=== PATIENT | female | born 1960 | race Caucasian/White ===

== ENCOUNTER 2016-05-08 10:58 | Inpatient (IN) | payer OTHER ==
[~2016-05-08] VITALS: Ht 167.6 cm; Wt 50.5 kg
[~2016-05-08 10:58] MED LIST: ATOR40TA16 PO; BRIL90TA PO; CARV6.252 PO; ISOS30TA3 PO
--- NOTE | 2016-05-08 11:10 | PD ---
HPI Chief Complaint: shortness of breath Time Seen by Provider: 11:00 Travel History International Travel<30 days: No Contact w/Intl Traveler<30days: No History of Present Illness HPI This is a 56-year-old female who has a history of COPD and congestive heart failure who presents to the emergency department with increasing shortness of breath it's been worsening over the past 2 days, constant, severe, associated with productive cough with yellow sputum. She denies any fevers or chills. She denies any chest pain. Patient reports that she did miss several days of her home medications. She is not supposed to be on any oxygen therapy. She lives in a homeless fdc. Patient received serial DuoNeb's and IV methylprednisolone prior to arrival. [facility] Past Medical History Arthritis: Yes (Left knee and left Shoulder ) Atrial Fibrillation: Yes Autoimmune Disease: No Blood Disorders: No Anxiety: No Depression: No Heart Rhythm Problems: No Cancer: Yes Cardiovascular Problems: Yes High Cholesterol: No Chemotherapy: No Chest Pain: Yes Congestive Heart Failure: Yes COPD: Yes Cerebrovascular Accident: No Coronary Artery Disease: Yes Diabetes: No Diminished Hearing: No Endocrine: No Genitourinary: Yes (diarrhea) Headaches: Yes Hypertension: Yes Immune Disorder: No Musculoskeletal: No Neurologic: Yes (seizure this visit) Psychiatric: No Reproductive: No Respiratory: Yes Migraines: No Radiation Therapy: Yes (20 years ago following cervical cancer with full hysterectomy) Seizures: No Sleep Apnea: No Thyroid Disease: No Menopausal: Yes Past Surgical History Abdominal Surgery: No Cardiac Surgery: Yes (STENTS X 3 ) Ear Surgery: No Endocrine Surgery: No Eye Surgery: No Genitourinary Surgery: No Gynecologic Surgery: Yes (Hysterectomy 20 years ago) Hysterectomy: Yes Oral Surgery: Yes (15 years ago all top teeth removed) Thoracic Surgery: No Other Surgery: Yes (hysterectomy) Social History Alcohol Use: No (EVERYDAY BUT NOT FOR 2WEEKS ) Tobacco Use: Yes (1PPD ) Substance Use: No Allergies-Medications (Allergen,Severity, Reaction): Coded Allergies: No Known Allergies (Unverified , 05/08/16) Reported Meds & Prescriptions Reported Meds & Active Scripts Active Reported Isosorbide Mononitrate ER (Isosorbide Mononitrate) 30 Mg Citlalli 30 Mg PO DAILY Atorvastatin (Atorvastatin Calcium) 40 Mg Tab 40 Mg PO HS Carvedilol 6.25 Mg Tab 6.25 Mg PO BID Brilinta (Ticagrelor) 90 Mg Tab 90 Mg PO BID Review of Systems Except as stated in HPI: all other systems reviewed are Neg Physical Exam Narrative GENERAL: Frail female older appearance than stated age SKIN: Warm and dry. HEAD: Atraumatic. Normocephalic. EYES: Pupils equal and round. No injection or drainage. ENT: Moist mucous membranes NECK: Trachea midline. CARDIOVASCULAR: Regular rate and rhythm. No murmur appreciated. RESPIRATORY: Tachypneic, prolonged expiratory phase, diffuse wheezing, speaking 2-3 word sentences GASTROINTESTINAL: Abdomen soft, non-tender, nondistended. MUSCULOSKELETAL: No obvious deformities. NEUROLOGICAL: Awake and alert. No obvious cranial nerve deficits. Moving all extremities. PSYCHIATRIC: Appropriate mood and affect; insight and judgment normal. Data Data Last Documented VS Vital Signs Date Time Temp Pulse Resp B/P Pulse Ox O2 Delivery O2 Flow Rate FiO2 05/08/16 11:17 50 94 Room Air 05/08/16 11:14 98.0 100 145/72 Orders Complete Blood Count With Diff (05/08/16 11:08) Comprehensive Metabolic Panel (05/08/16 11:08) B-Type Natriuretic Peptide (05/08/16 11:08) Troponin I (05/08/16 11:08) Iv Access Insert/Monitor (05/08/16 11:08) Electrocardiogram (05/08/16 11:08) Ecg Monitoring (05/08/16 11:08) Oximetry (05/08/16 11:08) Oxygen Administration (05/08/16 11:08) Chest, Single Ap (05/08/16 11:08) Sodium Chloride 0.9% Flush (Ns Flush) (05/08/16 11:15) Albuterol Neb (Albuterol Neb) (05/08/16 11:15) Admit Order (Ed Use Only) (05/08/16 13:13) Labs Laboratory Tests Test 05/08/16 11:30 White Blood Count 10.2 TH/MM3 Red Blood Count 3.82 MIL/MM3 Hemoglobin 11.4 GM/DL Hematocrit 34.3 % Mean Corpuscular Volume 89.8 FL Mean Corpuscular Hemoglobin 30.0 PG Mean Corpuscular Hemoglobin 33.4 % Concent Red Cell Distribution Width 14.2 % Platelet Count 412 TH/MM3 Mean Platelet Volume 7.1 FL Neutrophils (%) (Auto) 63.0 % Lymphocytes (%) (Auto) 13.4 % Monocytes (%) (Auto) 5.7 % Eosinophils (%) (Auto) 17.7 % Basophils (%) (Auto) 0.2 % Neutrophils # (Auto) 6.4 TH/MM3 Lymphocytes # (Auto) 1.4 TH/MM3 Monocytes # (Auto) 0.6 TH/MM3 Eosinophils # (Auto) 1.8 TH/MM3 Basophils # (Auto) 0.0 TH/MM3 CBC Comment DIFF FINAL Differential Comment Sodium Level 131 MEQ/L Potassium Level 3.5 MEQ/L Chloride Level 95 MEQ/L Carbon Dioxide Level 25.0 MEQ/L Anion Gap 11 MEQ/L Blood Urea Nitrogen 6 MG/DL Creatinine 0.72 MG/DL Estimat Glomerular Filtration 84 ML/MIN Rate Random Glucose 120 MG/DL Calcium Level 8.5 MG/DL Total Bilirubin 0.5 MG/DL Aspartate Amino Transf 19 U/L (AST/SGOT) Alanine Aminotransferase 21 U/L (ALT/SGPT) Alkaline Phosphatase 90 U/L Troponin I 0.02 NG/ML B-Type Natriuretic Peptide 40 PG/ML Total Protein 6.7 GM/DL Albumin 3.9 GM/DL MDM Medical Decision Making Medical Screen Exam Complete: Yes Emergency Medical Condition: Yes Interpretation(s) Afebrile, tachycardic, tachypneic Mild anemia Mild hyponatremia Troponin 0.02 BNP is 40 Last 24 hours Impressions Chest X-Ray 05/08/16 1108 Signed Impressions: Service Date/Time: Sunday, May 08, 2016 11:29 - CONCLUSION: Small bilateral effusions Ceferino Lyles MD Differential Diagnosis COPD exacerbation, pneumonia, congestive heart failure, myocardial infarction Narrative Course This is a 56-year-old female who presents to the emergency department with shortness of breath has been progressive and worsening over the past 2 days. She does have a history of COPD. On arrival she was tachypneic, speaking 2-3 word sentences and had a prolonged expiratory phase consistent with a COPD exacerbation. She received nebs and steroids prior to arrival in the ER. She was given additional albuterol. Labs are obtained which are reassuring including a normal BNP and troponin. EKG demonstrates a left bundle marysol block which was seen on prior EKGs. Patient continues to be dyspneic and has an oxygen saturation of 89-91% at rest. Patient will be admitted for continued bronchodilator treatments and monitoring. Diagnosis Primary Impression: COPD exacerbation Admitting Information Admitting Physician Requests: Observation Alem Esparza MD May 08, 2016 11:10
[2016-05-08 11:14] VITALS: BP 145/72; PULSE 100; RESP 50; TEMP 98
[2016-05-08 11:17] VITALS: RESP 50; O2SAT 94
[2016-05-08] MEDS: RESP: ALBUTEROL 2.5 MG/3 ML NEB (SCH) INH ×2 (11:18→11:19)
[2016-05-08 11:51] LABS: AUTOMATED NEUTROPHIL # 6.4 TH/MM3 (1.8-7.7); BASOPHIL % 0.2 % (0.0-2.0); EOSINOPHIL # 1.8 TH/MM3 (0-0.4); EOSINOPHIL % 17.7 % (0.0-4.0); HEMATOCRIT 34.3 % (35.0-46.0); HEMO FLAGS DIFF FINAL; LYMPH % 13.4 % (9.0-44.0); LYMPHOCYTE # 1.4 TH/MM3 (1.0-4.8); MEAN CELL VOLUME 89.8 FL (80.0-100.0); MEAN CORPUSCULAR HGB CONC 33.4 % (32.0-36.0); MONO % 5.7 % (0.0-8.0); PLATELET COUNT 412 TH/MM3 (150-450); RED BLOOD COUNT 3.82 MIL/MM3 (4.00-5.30); RED CELL DISTRIBUTION WIDTH 14.2 % (11.6-17.2); WHITE BLOOD COUNT 10.2 TH/MM3 (4.0-11.0)
--- NOTE | 2016-05-08 11:53 | RADRPT ---
EXAM DATE/TIME: 05/08/2016 11:29 [facility] COMPARISON: CHEST SINGLE AP, January 30, 2016, 11:06. CHEST SINGLE AP, March 26, 2016, 13:20. INDICATIONS : Short of breath and cough. MEDICAL HISTORY : Chronic obstructive pulmonary disease. Hypertension. SURGICAL HISTORY : Hysterectomy. Heart stents 02/2016. ENCOUNTER: Initial ACUITY: 2 days PAIN SCORE: 0/10 LOCATION: Bilateral chest FINDINGS: There is slight blunting of the costophrenic angles likely indicative of small effusions. Lungs are g rossly clear. Cardiomediastinal contours are satisfactory. CONCLUSION: Small bilateral effusions Ceferino Lyles MD on May 08, 2016 at 11:50 Board Certified Radiologist. This report was verified electronically.
[2016-05-08 12:07] LABS: ANION GAP 11 MEQ/L (5-15); AST (GOT) 19 U/L (15-37); BLOOD UREA NITROGEN 6 MG/DL (7-18); CHLORIDE 95 MEQ/L (98-107); GLOMERULAR FILTRATION RATE 84 ML/MIN (>89); POTASSIUM 3.5 MEQ/L (3.5-5.1); SODIUM (NA) 131 MEQ/L (136-145)
[2016-05-08 12:12] LABS: ALKALINE PHOSPHATASE 90 U/L (45-117); ALT (GPT) 21 U/L (10-53); TOTAL BILIRUBIN ADULT 0.5 MG/DL (0.2-1.0)
--- NOTE | 2016-05-08 12:19 | EKG ---
Date Performed: 05/08/2016 Time Performed: 11:23:55 PTAGE: 56 years EKG: Sinus rhythm LBBB nonspecific st/t changes PREVIOUS TRACING : 03/26/2016 12.56 DOCTOR: Jeremy Hartman Interpretating Date/Time 05/08/2016 12:18:51
[2016-05-08 13:37] VITALS: BP 110/67; PULSE 100; RESP 42; O2SAT 92
[2016-05-08] MEDS ORDERED: MAGNESIUM HYDROXIDE SUSP 30 ML CUP PO PRN (17:30)
[2016-05-08] MEDS ORDERED: IBUPROFEN 400 MG TAB PO PRN (17:30)
[2016-05-08] MEDS ORDERED: ACETAMINOPHEN 325 MG TAB PO PRN (17:30)
--- NOTE | 2016-05-08 17:45 | HHI.HP ---
[facility] Service Family Medicine Primary Care Physician Magnolia Quiroz MD Admission Diagnosis copd exacerbation Diagnoses: International Travel<30 Days: No Contact w/Intl Traveler<30days: No Known Affected Area: No History of Present Illness 63 year old female smoker and resident of homeless snf with history of COPD and CHF presenting with a 1 day history of increasing shortness of breath. For the last 4-5 days she has had some cold/flu symptoms with a scratchy throat and upper airway congestion. On the night prior to admission she also No fevers or chills per se but she always feels cold at baseline. Yesterday afternoon she started having increased shortness of breath and some inspiratory chest tightness with intermittent wheezing. Increased cough but no increased sputum production, no hemoptysis, no night sweats. No swelling of legs or arms. ( Castro Silva MD R1) Review of Systems Constitutional: DENIES: Fever, Chills Endocrine: DENIES: Polyuria Eyes: DENIES: Blurred vision Ears, nose, mouth, throat: DENIES: Hearing loss Respiratory: COMPLAINS OF: Cough, Wheezing, Shortness of breath, DENIES: Hemoptysis, Sputum production Cardiovascular: COMPLAINS OF: Dyspnea on Exertion, DENIES: Chest pain, Palpitations, Lower Extremity Edema, Orthopnea Gastrointestinal: DENIES: Abdominal pain, Black stools, Bloody stools, Constipation, Diarrhea, Nausea, Vomiting Musculoskeletal: COMPLAINS OF: Muscle aches, DENIES: Joint pain Integumentary: DENIES: Rash Hematologic/lymphatic: DENIES: Bruising Neurologic: DENIES: Headache Psychiatric: COMPLAINS OF: Anxiety, DENIES: Hallucinations (Castro Silva MD R1) Past Family Social History Past Medical History COPD CHF [place] requiring stents in January 2016 Cervical cancer status post hysterectomy Past Surgical History Total hysterectomy with removal of single ovary Reported Medications Reported Meds & Active Scripts Active Reported Isosorbide Mononitrate ER (Isosorbide Mononitrate) 30 Mg Citlalli 30 Mg PO DAILY Atorvastatin (Atorvastatin Calcium) 40 Mg Tab 40 Mg PO HS Carvedilol 6.25 Mg Tab 6.25 Mg PO BID Brilinta (Ticagrelor) 90 Mg Tab 90 Mg PO BID (Castro Silva MD R1) Allergies: Coded Allergies: No Known Allergies (Unverified , 05/08/16) Active Ordered Medications Current Medications Medications (Trade) Dose Ordered Sig/Addison Route Start Time Stop Time Status Last Admin (NS Flush) 2 ml UNSCH PRN IVF 05/08/16 11:15 (Symbicort 160-4.5 Inh) 2 puff Q12HR INH 05/08/16 21:00 Prednisone 40 mg 40 mg DAILY PO 05/09/16 09:00 (Rocephin Inj/NS Inj) 100 ml @ 200 mls/hr Q24H IV 05/08/16 19:00 (Zithromax) 500 mg DAILY PO 05/08/16 18:00 (Milk Of Magnesia Liq) 30 ml Q12H PRN PO 05/08/16 17:30 (Tylenol) 650 mg Q6H PRN PO 05/08/16 17:30 (Motrin) 400 mg Q6H PRN PO 05/08/16 17:30 (Lipitor) 40 mg HS PO 05/08/16 21:00 UNV (Coreg) 6.25 mg BID PO 05/08/16 21:00 UNV (Imdur) 30 mg DAILY PO 05/09/16 09:00 UNV (Brilinta) 90 mg BID PO 05/08/16 21:00 UNV Family History Mother has hypertension and hypothyroidism Social History Tobacco: Smoker for 40 years 1-2 packs per day, currently smoking Alcohol: 3-4 alcoholic beverages per day when she was drinking, has not had anything to drink since January 2016 Other drug use: Denies use Living situation: Lives in a homeless snf (Castro Silva MD R1) Physical Exam Vital Signs Vital Signs Date Time Temp Pulse Resp B/P Pulse Ox O2 Delivery O2 Flow Rate FiO2 05/08/16 13:37 100 42 110/67 92 Nasal Cannula 2 05/08/16 11:17 50 94 Room Air 05/08/16 11:14 98.0 100 50 145/72 Physical Exam GENERAL: Well-developed well-nourished thin adult white female sitting up in bed in mild to moderate respiratory distress SKIN: No rashes, ecchymoses or lesions. Cool and dry. HEAD: NC/AT EYES: PERRL. EOMI. No conjunctival injection or drainage. ENT: MMM, OP without erythema, tonsillar swelling, or exudate. NECK: Supple, no lymphadenopathy. No JVD. CARDIOVASCULAR: NRRR. Normal S1/S2. No MRG RESPIRATORY: Diffuse expiratory wheezes throughout all lung duran. No crackles. GASTROINTESTINAL: Abdomen soft, non-distended, non-tender. No hepato- splenomegaly or palpable masses. MUSCULOSKELETAL: Extremities without clubbing, cyanosis, or edema. NEUROLOGICAL: Awake and alert. Cranial nerves II through XII grossly intact. Moves all extremities without difficulty. Normal speech. Laboratory Laboratory Tests Test 05/08/16 11:30 White Blood Count 10.2 Red Blood Count 3.82 Hemoglobin 11.4 Hematocrit 34.3 Mean Corpuscular Volume 89.8 Mean Corpuscular Hemoglobin 30.0 Mean Corpuscular Hemoglobin 33.4 Concent Red Cell Distribution Width 14.2 Platelet Count 412 Mean Platelet Volume 7.1 Neutrophils (%) (Auto) 63.0 Lymphocytes (%) (Auto) 13.4 Monocytes (%) (Auto) 5.7 Eosinophils (%) (Auto) 17.7 Basophils (%) (Auto) 0.2 Neutrophils # (Auto) 6.4 Lymphocytes # (Auto) 1.4 Monocytes # (Auto) 0.6 Eosinophils # (Auto) 1.8 Basophils # (Auto) 0.0 CBC Comment DIFF FINAL Differential Comment Sodium Level 131 Potassium Level 3.5 Chloride Level 95 Carbon Dioxide Level 25.0 Anion Gap 11 Blood Urea Nitrogen 6 Creatinine 0.72 Estimat Glomerular Filtration 84 Rate Random Glucose 120 Calcium Level 8.5 Total Bilirubin 0.5 Aspartate Amino Transf 19 (AST/SGOT) Alanine Aminotransferase 21 (ALT/SGPT) Alkaline Phosphatase 90 Troponin I 0.02 B-Type Natriuretic Peptide 40 Total Protein 6.7 Albumin 3.9 (Castro Silva MD R1) Result Diagram: 05/08/16 1130 05/08/16 1130 Assessment and Plan Assessment and Plan 56-year-old female with past medical history of COPD, CHF, [place] presenting with: Code Status Full code Discussed Condition With Dr. Lucio Wlilard (Castro Silva MD R1) Attending Attestation The patient has been seen and examined. The chart and all resident notes have been reviewed. I agree that inpatient care is appropriate and that a two midnight stay is expected for the reasons documented in the resident history and physical. I have discussed this with the resident and certify the resident s order for inpatient admission. (Hazel Valdes MD) Problem List: (1) COPD exacerbation Status: Acute Plan: Patient currently respiratory distress with tachypnea into the 40s to 50s , diffuse wheezing on exam suggestive of COPD exacerbation O2 saturations greater than 90 on nasal cannula 2 L * DuoNeb nebs every 4 hours scheduled while awake * Symbicort 160, 2 puffs every 12 hours * Prednisone 40 mg by mouth daily * Ceftriaxone 1 g IV every day * Azithromycin 500 mg by mouth daily * Nasal cannula titrated to maintain O2 sats greater than 89 * Continuous pulse oximetry (2) Respiratory distress Status: Acute Plan: Likely due to COPD exacerbation Extensive cardiac history, could be due to repeat [place] Initial troponin less than 0.02 * Management as above for "COPD exacerbation" * Trend troponins every 6 hours 3 * EKG every 6 hours 3 * Limited echo to assess ejection fraction * D-dimer to r/o PE (3) CHF (congestive heart failure) Status: Acute Plan: CHF symptoms currently stable, no evidence of acute exacerbation on exam BNP 40 * Continue home Coreg * Follow-up limited echo as above (4) CAD (coronary artery disease) Status: Acute Plan: Stable * Continue home statin, ticagrelor, aspirin (5) Tobacco abuse Status: Acute Plan: After 2 initial sets cardiac enzymes negative, order nicotine patch (6) FEN/PPX Status: Acute Plan: Fluids: None at present Electrolytes: Monitor and replace PRN Nutrition: Diet heart healthy PPX: Lovenox 40 mg daily (Castro Silva MD R1) Physician Certification 2 Midnight Certification Type: Admission for Inpatient Services Order for Inpatient Services The services are ordered in accordance with Medicare regulations or non- Medicare payer requirements, as applicable. In the case of services not specified as inpatient-only, they are appropriately provided as inpatient services in accordance with the 2-midnight benchmark. Estimated LOS (days): 2 days is the estimated time the patient will need to remain in the hospital, assuming treatment plan goals are met and no additional complications. Post-Hospital Plan: Home (Castro Silva MD R1) Castro Silva MD R1 May 08, 2016 17:45 Hazel Valdes MD May 09, 2016 15:31
[2016-05-08 18:27] VITALS: BP 126/69; PULSE 86; RESP 24; O2SAT 94
[2016-05-08] MEDS: AZITHROMYCIN 250 MG TAB PO SCH (18:36)
[2016-05-08 19:13] LABS: CREATINE KINASE 44 U/L (26-192)
[2016-05-08] MEDS: cefTRIAXone INJ 1,000 MG in SODIUM CHLORIDE 0.9% INJ 100 ML IV SCH (19:39)
[2016-05-08] MEDS: ENOXAPARIN SODIUM 40 MG/0.4 ML SYRINGE SQ SCH (19:39)
[2016-05-08] MEDS ORDERED: IOHEXOL 350 MG/ML 10 ML VIAL (for RAD DIAG) IV ONE (20:17)
--- NOTE | 2016-05-08 20:17 | RADRPT ---
EXAM DATE/TIME: 05/08/2016 19:54 [facility] COMPARISON: CT THORAX W/O CONTRAST, January 27, 2016, 17:32. INDICATIONS : Increase shortness of breath for the last two days,elavated d-dimer. IV CONTRAST: 60 cc Omnipaque 350 (iohexol) IV RADIATION DOSE: 4.71 CTDIvol (mGy) MEDICAL HISTORY : Cardiovascular disease. Chronic obstructive pulmonary disease. Congestive heart failure. SURGICAL HISTORY : Hysterectomy. Coronary artery stent. ENCOUNTER: Initial ACUITY: 2 days PAIN SCALE: 3/10 LOCATION: chest TECHNIQUE: Volumetric scanning of the chest was performed using a pulmonary embolism protocol MIP images were re constructed. Using automated exposure control and adjustment of the mA and/or kV according to patien t size, radiation dose was kept as low as reasonably achievable to obtain optimal diagnostic quality images. FINDINGS: PULMONARY ARTERIES: No filling defects are seen in the pulmonary arteries through the segmental level. LUNGS: There is no consolidation or pneumothorax . No concerning pulmonary nodule is visualized. Severe emp hysema. PLEURAE: There is no pleural thickening or pleural effusion. MEDIASTINUM: There is good visualization of the great vessels of the middle mediastinum. No evidence of mediastin al or hilar adenopathy/mass. Coronary artery calcifications. MUSCULOSKELETAL: Within normal limits for patient age. MISCELLANEOUS: The visualized upper abdominal organs demonstrate no acute abnormality. Bilateral borderline prominen t axillary lymph nodes. CONCLUSION: 1. No evidence for pulmonary embolism. 2. Severe emphysema without infiltrate. 3. Coronary artery calcifications. 4. Borderline prominent axillary lymphadenopathy. Nick Newell MD on May 08, 2016 at 20:13 Board Certified Radiologist. This report was verified electronically.
[2016-05-08] MEDS: RESP: ALBUTEROL 2.5 MG/IPRATROPIUM 0.5 MG NEB (SCH) NEB (20:39)
[2016-05-08 22:34] VITALS: BP 137/79; PULSE 80; RESP 29; TEMP 97.2; O2SAT 96
[2016-05-08] MEDS: ATORVASTATIN 40 MG TAB PO SCH (23:27)
[2016-05-08] MEDS: BUDESONIDE-FORMOTEROL 160/4.5 MCG INHALER INH SCH (23:27)
[2016-05-08] MEDS: TICAGRELOR 90 MG TAB PO SCH (23:27)
[2016-05-08] MEDS: CARVEDILOL 6.25 MG TAB PO SCH (23:27)
[2016-05-08 23:52] VITALS: BP 143/69; PULSE 98; RESP 19; TEMP 97; O2SAT 97
[2016-05-09] VITALS (9 sets, daily range): BP systolic 116–168; BP diastolic 59–89; PULSE 81–95; RESP 20–28; TEMP 97.7–98.1; O2SAT 92–97
--- NOTE | 2016-05-09 05:35 | EKG ---
Date Performed: 05/08/2016 Time Performed: 17:44:59 PTAGE: 56 years EKG: Sinus rhythm LEFT BUNDLE BRANCH BLOCK ABNORMAL ECG NO SIGNIFICANT CHANGE FROM PRIOR ELECTROCARDIOGRAM. PREVIOUS TRACING : 05/08/2016 11.23 DOCTOR: Leodan Godfrye Interpretating Date/Time 05/09/2016 05:33:07
[2016-05-09 06:14] LABS: AUTOMATED NEUTROPHIL # 9.3 TH/MM3 (1.8-7.7); BASOPHIL % 0.1 % (0.0-2.0); EOSINOPHIL % 0.1 % (0.0-4.0); HEMATOCRIT 28.1 % (35.0-46.0); HEMO FLAGS DIFF FINAL; LYMPH % 12.1 % (9.0-44.0); LYMPHOCYTE # 1.4 TH/MM3 (1.0-4.8); MEAN CORPUSCULAR HEMOGLOBIN 30.2 PG (27.0-34.0); MEAN CORPUSCULAR HGB CONC 34.3 % (32.0-36.0); MONO % 8.2 % (0.0-8.0); NEUT % 79.5 % (16.0-70.0); PLATELET COUNT 349 TH/MM3 (150-450); RED BLOOD COUNT 3.19 MIL/MM3 (4.00-5.30); WHITE BLOOD COUNT 11.7 TH/MM3 (4.0-11.0)
[2016-05-09 06:25] LABS: BICARBONATE 24.5 MEQ/L (21.0-32.0); POTASSIUM 3.8 MEQ/L (3.5-5.1)
[2016-05-09] MEDS: RESP: ALBUTEROL 2.5 MG/IPRATROPIUM 0.5 MG NEB (SCH) NEB ×4 (08:24→19:29)
--- NOTE | 2016-05-09 08:32 | HHI.FPPN ---
Subjective Subjective Patient seen and examined with the resident team. Case reviewed and discussed Please refer to resident H&P for further details regarding HPI, ROS, PMH, SurgHx , and FH and SocHx In summary, patient is a 56yoF with severe emphysema and continued tobacco dependence, CAD and resides at a homeless long term who presented to the ED with worsening shortness of breath and increased work of breathing. She presented to the ED with a RR in the 50s. She is now seen in her hospital bed in the morning, states she is breathing better, but tried to get to the bedside commode and became significantly short of breath. Denies chest pain. [facility] Objective Objective Last Impressions Chest X-Ray 05/08/16 1108 Signed Impressions: Service Date/Time: Sunday, May 08, 2016 11:29 - CONCLUSION: Small bilateral effusions Ceferino Lyles MD CT Angiography 05/08/16 0000 Signed Impressions: Service Date/Time: Sunday, May 08, 2016 19:54 - CONCLUSION: 1. No evidence for pulmonary embolism. 2. Severe emphysema without infiltrate. 3. Coronary artery calcifications. 4. Borderline prominent axillary lymphadenopathy. Nick Newell MD Laboratory Tests - Abnormals Test 05/08/16 05/08/16 05/08/16 05/09/16 11:30 17:20 17:50 05:04 Red Blood Count 3.82 MIL/MM3 3.19 MIL/MM3 Hemoglobin 11.4 GM/DL 9.6 GM/DL Hematocrit 34.3 % 28.1 % Eosinophils (%) (Auto) 17.7 % Eosinophils # (Auto) 1.8 TH/MM3 Sodium Level 131 MEQ/L 134 MEQ/L Chloride Level 95 MEQ/L Blood Urea Nitrogen 6 MG/DL Estimat Glomerular Filtration 84 ML/MIN 80 ML/MIN Rate Random Glucose 120 MG/DL 129 MG/DL D-Dimer Quantitative (PE/DVT) 5.89 MG/L FEU Troponin I LESS THAN 0.02 NG/ML White Blood Count 11.7 TH/MM3 Neutrophils (%) (Auto) 79.5 % Monocytes (%) (Auto) 8.2 % Neutrophils # (Auto) 9.3 TH/MM3 Monocytes # (Auto) 1.0 TH/MM3 Calcium Level 8.4 MG/DL Vital Signs 05/08/16 05/08/16 05/08/16 05/08/16 11:14 11:17 13:37 18:27 Temp 98.0 Pulse 100 100 86 Resp 50 50 42 24 B/P 145/72 110/67 126/69 Pulse Ox 94 92 94 O2 Delivery Room Air Nasal Cannula Nasal Cannula O2 Flow Rate 2 2 05/08/16 05/08/16 05/09/16 05/09/16 22:34 23:52 00:00 03:37 Temp 97.2 97.0 98.0 Pulse 80 98 86 91 Resp 29 19 20 B/P 137/79 143/69 116/59 Pulse Ox 96 97 94 05/09/16 05/09/16 08:00 08:25 Temp 98.1 Pulse 95 Resp 26 B/P 168/89 Pulse Ox 97 92 O2 Delivery Nasal Cannula O2 Flow Rate 2.00 INTAKE & OUTPUT 05/09/16 07:00 Intake Total 600 ml Balance 600 ml Physical exam GENERAL: thin female, NAD, speaking in broken sentences due to shortness of breath. SKIN: Warm and dry. There are scattered linear abrasions with scabbing and some bleeding over extremities x 4 and back. HEAD: Normocephalic. AT EYES: No scleral icterus. No injection or drainage. ENT: OP clear. NC in place. MM slightly dry NECK: Supple, trachea midline. No JVD or lymphadenopathy. CARDIOVASCULAR: Regular rate and rhythm without audible murmurs, gallops, or rubs. RESPIRATORY: Breath sounds with extensive exp wheezing across all lung duran bilaterally. No accessory muscle use. Prolonged expiration. GASTROINTESTINAL: Abdomen soft, non-tender, nondistended. No rebound, guarding. Normal active BS MUSCULOSKELETAL: No cyanosis, or edema. No calf tenderness. Skin as noted above. BACK: Nontender without obvious deformity. No CVA tenderness. NEURO: Awake and alert. Normal speech. CN grossly intact. Motor and sensory intact and equal bilaterally. Assessment Assessment 56yoF admitted with: Respiratory Insufficiency Tachypnea Acute exacerbation of COPD Tobacco dependence CAD s/p BM stenting x2 in 01/2016 Hx cervical CA s/p hysterectomy PLAN PLAN Supplemental oxygen CTA to r/o PE given smoking and CA history Empiric antibiotic therapy Sputum culture Duonebs Counseled to abstain from smoking Serial CE, ekg neg for cardiac ischemia Pulmonology consult Lovenox for DVT proph Patient seen and examined with the resident team. Case reviewed and discussed Agree with plan of care as discussed with me and documented in the resident note. Hazel Valdes MD May 09, 2016 08:32
[2016-05-09] MEDS ORDERED: predniSONE 20 MG TAB PO SCH (09:00)
[2016-05-09] MEDS ORDERED: NICOTINE 21 MG/24 HR PATCH TD SCH (09:00)
[2016-05-09] MEDS: ASPIRIN EC 81 MG TABEC PO SCH (09:38)
[2016-05-09] MEDS: CARVEDILOL 6.25 MG TAB PO SCH ×2 (09:39→20:00)
[2016-05-09] MEDS: AZITHROMYCIN 250 MG TAB PO SCH (09:39)
[2016-05-09] MEDS: BUDESONIDE-FORMOTEROL 160/4.5 MCG INHALER INH SCH ×2 (09:40→20:07)
[2016-05-09] MEDS: ISOSORBIDE MONONITRATE 30 MG TAB PO SCH (09:53)
[2016-05-09] MEDS: TICAGRELOR 90 MG TAB PO SCH ×2 (09:53→22:57)
[2016-05-09] MEDS ORDERED: PERMETHRIN 5% CREAM 60 GM TOPICAL ONE (11:00)
[2016-05-09] MEDS ORDERED: ALBUTEROL SULFATE 90 MCG/ACT HFA 8 GM INHALER INH PRN (14:00)
[2016-05-09] MEDS: NICOTINE 21 MG/24 HR PATCH TD SCH (16:30)
[2016-05-09] MEDS ORDERED: PNEUMOCOCCAL POLYVALENT INJ 25 MCG/0.5 ML SYR IM ONE (16:45)
[2016-05-09] MEDS ORDERED: INFLUENZA VIRUS VACCINE (QUADRIVALENT) 0.5 ML SYR IM ONE (16:45)
--- NOTE | 2016-05-09 17:26 | ECHLIM ---
Study Study Date:05/09/2016 STUDY CONCLUSIONS SUMMARY LEFT VENTRICLE: The cavity size was normal. Wall thickness was increased in a pattern of mild LVH. Systolic function was mildly reduced. The estimated ejection fraction was in the range of 45% to 50%. Wall motion was normal; there were no regional wall motion abnormalities. If LV function is below 40, please consider prescribing an ACEI or ARB or document rationale for non-use. PROCEDURE DATA Procedure: Transthoracic echocardiography. Image quality was good. Scanning was performed from the parasternal, apical, and subcostal acoustic windows. Study completion: The patient tolerated the procedure well. Transthoracic echocardiography. M-mode, limited 2D, limited spectral Doppler, and color Doppler. Height: Height: 66in. Weight: Weight: 113.8lb. Body mass index: BMI: 18.4kg/m^2. Body surface area: BSA: 1.58m^2. CARDIAC ANATOMY LEFT VENTRICLE: The cavity size was normal. Wall thickness was increased in a pattern of mild LVH. Systolic function was mildly reduced. The estimated ejection fraction was in the range of 45% to 50%. Wall motion was normal; there were no regional wall motion abnormalities. AORTIC VALVE: Trileaflet; normal thickness leaflets. Doppler: Transvalvular velocity was within the normal range. There was no stenosis. No regurgitation. AORTA: Aortic root: The aortic root was normal in size. MITRAL VALVE: Structurally normal valve. Doppler: Transvalvular velocity was within the normal range. There was no evidence for stenosis. No regurgitation. LEFT ATRIUM: The atrium was normal in size. RIGHT VENTRICLE: The cavity size was normal. Wall thickness was normal. PULMONIC VALVE: Doppler: Transvalvular velocity was within the normal range. There was no evidence for stenosis. No regurgitation. TRICUSPID VALVE: Structurally normal valve. Doppler: Transvalvular velocity was within the normal range. No regurgitation. PULMONARY ARTERY: The main pulmonary artery was normal-sized. Systolic pressure was within the normal range. RIGHT ATRIUM: The atrium was normal in size. PERICARDIUM: There was no pericardial effusion. SYSTEMIC VEINS: Inferior vena cava: The vessel was normal in size. Patient weight: 113.8lb _Ejection fraction:_ 65-75% _Fractional shortening:_ 32% up to 5Kg 5-11.5Kg 11.6-22.9Kg 23-45Kg 45-57Kg Aortic Root 7-13 <17 13-22 17-27 17-27 LA diam 6-13 <23 24-38 33-47 37-40 RVID 10-17 7-15 7-15 7-18 8-17 LVIDd 12-22 <32 24-38 33-47 37-40 LVPW 2-4 3-6 5-7 6-8 7-8 IVS 2-4 3-6 5-7 6-8 7-8 BASIC MEASUREMENTS ADULT NORMAL Left ventricle LV internal dimension, ED, chordal level, 43.1 mm 43-52 PLAX LV internal dimension, ES, chordal level, 30.5 mm 23-38 PLAX Fractional shortening, chordal level, PLAX *29 % >29 LV posterior wall thickness, ED 12.2 mm IVS/LVPW ratio, ED 0.99 <1.3 Volume, ED, MOD, 1-plane 124 ml Volume, ES, MOD, 1-plane 77 ml Ejection fraction, MOD, 1-plane 38 % Stroke volume, MOD, 1-plane 47 ml Volume index, ED, MOD, 1-plane 78 ml/m^2 Volume index, ES, MOD, 1-plane 49 ml/m^2 Stroke index, MOD, 1-plane 29.7 ml/m^2 Volume, ED, MOD, 2-plane 182 ml Volume, ES, MOD, 2-plane 105 ml Ejection fraction, MOD, 2-plane 42 % Stroke volume, MOD, 2-plane 77 ml Volume index, ED, MOD, 2-plane 115 ml/m^2 Volume index, ES, MOD, 2-plane 66 ml/m^2 Stroke index, MOD, 2-plane 48.7 ml/m^2 Ventricular septum Septal thickness, ED 12.1 mm Left atrium Anterior-posterior dimension 32 mm Anterior-posterior dimension index 2.03 cm/m^2 <2.2 LEGEND: Mean values are shown as u=mean value. Asterisk (*) rodriguez values outside specified normal range. Prepared and signed by Ziggy Sweeney [id number]
[2016-05-09] MEDS: ATORVASTATIN 40 MG TAB PO SCH (20:00)
[2016-05-09] MEDS: cefTRIAXone INJ 1,000 MG in SODIUM CHLORIDE 0.9% INJ 100 ML IV SCH (20:00)
[2016-05-09] MEDS: ENOXAPARIN SODIUM 40 MG/0.4 ML SYRINGE SQ SCH (20:00)
[2016-05-09 20:07] LABS: BLOOD GAS BASE EXCESS -0.7 mmol/L (-2-2); BLOOD GAS CARBOXYHEMOGLOBIN 1.4 % (0-4); BLOOD GAS HCO3 22 mmol/L (22-26); BLOOD GAS METHEMOGLOBIN 0.7 % (0-2); BLOOD GAS O2 HGB SATURATION 88 % (90-100); BLOOD GAS OXYGEN CONTENT 12.4 Vol % (12.0-20.0); BLOOD GAS PCO2 28 mmHg (38-42); BLOOD GAS PO2 58 mmHg (61-120); BLOOD GAS TOTAL HGB 9.9 G/DL (12.0-16.0); TEMP CORR TO 98.6
[2016-05-09 20:08] LABS: DRAW SITE RT RADIAL; FIO2 21 %; NUMBER OF ARTERIAL PUNCTURES 1; OXYGEN DEVICE ROOM AIR; STAT NO; ULNAR PULSE PRESENT
[2016-05-09] MEDS: methylPREDNISolone SOD SUCC 40 MG/1 ML VIAL IV SCH (22:57)
[2016-05-09] MEDS: diphenhydrAMINE HCL 25 MG CAP PO PRN (23:02)
[2016-05-10] VITALS (8 sets, daily range): BP systolic 132–187; BP diastolic 64–94; PULSE 86–98; RESP 18–20; TEMP 97.3–97.9; O2SAT 92–98
[2016-05-10] MEDS: methylPREDNISolone SOD SUCC 40 MG/1 ML VIAL IV SCH ×3 (05:22→21:59)
--- NOTE | 2016-05-10 05:30 | MB ---
cc: NETTE RUIZ DATE OF CONSULTATION 05/09/2016 CONSULTATION Respiratory distress with COPD. HISTORY OF PRESENT ILLNESS This is a 63-year-old lady with a history of COPD and CHF who was brought to the emergency room with shortness of breath and a cold with sore throat and wheezing. The patient apparently developed a cold and had some chills and had some itchy rash on her extremities and was bringing up very little mucus and was seen in the emergency room. She was hypoxic and placed on O2 via nasal cannula. She denied any hemoptysis, night sweats and denied leg swelling. PAST HISTORY The patient's past history has included - 1. History of recurrent bronchitis with a longstanding history of smoking. 2. She has a previous history of CHF and coronary artery disease with stenting in January last year. 3. She has a history for cervical cancer with hysterectomy and removal of an ovary. ALLERGIES No drug allergies. MED LIST 1. Isordil 30 mg daily. 1. Atorvastatin 40 mg at bedtime. 2. Coreg 6.25 mg b.i.d. 3. Brilinta 90 mg b.i.d. HABITS The patient smoked one-pack per day for over 35 years. Alcohol use moderate but not in the past three months. REVIEW OF SYSTEMS The patient has had some headaches, postnasal drip, sinus drainage. Denies any leg or calf muscle pains. She has some joint pains of her extremities. She denied urinary symptoms. The patient has a skin rash with itchiness. She also has had depression with anxiety and denies any leg swelling. PHYSICAL EXAMINATION General: This averagely built middle-aged white female who is in no acute distress. Vital Signs: Blood pressure 130/70, pulse is 100, respirations 22, temperature is 98.2. HEENT: Head normocephalic. Pupils reactive. Tongue moist. Nasal mucosae edematous. Throat is injected. Neck: Supple. Chest: Equal movements with decreased excursions. Breath sounds diminished at the periphery with expiratory wheezes throughout both lung duran. Prolonged expirations. Cardiac: Heart sounds irregular. S1-S2. No murmur. Abdomen: Soft, benign. No mass. No organomegaly or tenderness. Bowel sounds are active. Extremities: Mild varicosities. No edema. No calf tenderness. Neurologic: Reflexes are brisk with no gross motor deficits. Cranial nerves are grossly intact. Rectal: Exam is deferred. Skin: Reddish, raised skin lesions over her arms and legs. She has been diagnosed to have scabies and was treated for it. IMPRESSION 1. COPD with acute exacerbation. 2. CHF, compensated. 3. History of coronary artery disease. 4. Nicotine dependency. 5. History of scabies. PLAN 1. The patient has been placed on O2 at 2 liters but she will have a blood gas study done on room air. 2. Nebulized DuoNeb solution added q.i.d. 3. A bedside pulmonary function study will be obtained. The patient will also be placed on Breo Ellipta 100 x 25 mcg one puff daily. 4. Continue with antibiotic coverage including Zithromax 500 mg daily and ceftriaxone 1 gram IV daily. 5. She was placed on Solu-Medrol 40 mg every [address] of prednisone. 6. A nicotine patch can be used in case she has some withdrawal symptoms and the patient was counseled about quitting cigarette smoking. Thank you Dr. Valdes for this consultation. Nette Ruiz MD JVD/ROMINA /11:23 PM /5:17 AM
[2016-05-10 06:58] LABS: AUTOMATED NEUTROPHIL # 10.9 TH/MM3 (1.8-7.7); BASOPHIL % 0.3 % (0.0-2.0); HEMATOCRIT 29.4 % (35.0-46.0); HEMO FLAGS DIFF FINAL; LYMPH % 5.9 % (9.0-44.0); LYMPHOCYTE # 0.7 TH/MM3 (1.0-4.8); MEAN CELL VOLUME 89.5 FL (80.0-100.0); MEAN CORPUSCULAR HEMOGLOBIN 30.4 PG (27.0-34.0); MONO % 1.7 % (0.0-8.0); NEUT % 92.1 % (16.0-70.0); PLATELET COUNT 370 TH/MM3 (150-450); RED BLOOD COUNT 3.29 MIL/MM3 (4.00-5.30); RED CELL DISTRIBUTION WIDTH 14.4 % (11.6-17.2); WHITE BLOOD COUNT 11.8 TH/MM3 (4.0-11.0)
[2016-05-10 07:14] LABS: BICARBONATE 23.2 MEQ/L (21.0-32.0); POTASSIUM 3.8 MEQ/L (3.5-5.1)
[2016-05-10 07:19] LABS: CRITICAL VALUE YES
[2016-05-10] MEDS: RESP: ALBUTEROL 2.5 MG/IPRATROPIUM 0.5 MG NEB (SCH) NEB ×4 (07:47→20:27)
[2016-05-10] MEDS: ISOSORBIDE MONONITRATE 30 MG TAB PO SCH (08:54)
[2016-05-10] MEDS: ASPIRIN EC 81 MG TABEC PO SCH (08:55)
[2016-05-10] MEDS: NICOTINE 21 MG/24 HR PATCH TD SCH (08:55)
[2016-05-10] MEDS: FLUTICASONE 100 MCG/VILANTEROL 25 MCG INHALER INH SCH (08:56)
[2016-05-10] MEDS: TICAGRELOR 90 MG TAB PO SCH ×2 (08:56→21:58)
[2016-05-10] MEDS: AZITHROMYCIN 250 MG TAB PO SCH (08:56)
[2016-05-10] MEDS: CARVEDILOL 6.25 MG TAB PO SCH ×2 (08:56→21:58)
[2016-05-10] MEDS: BUDESONIDE-FORMOTEROL 160/4.5 MCG INHALER INH SCH (08:57)
[2016-05-10] MEDS: REMOVE OLD NICODERM (NICOTINE) PATCH TD SCH (08:57)
[2016-05-10] MEDS: diphenhydrAMINE HCL 25 MG CAP PO PRN ×2 (13:32→21:58)
--- NOTE | 2016-05-10 15:57 | HHI.FPPN ---
Subjective Remarks No acute events overnight. AFVSS. Feeling much better this morning re: shortness of breath. No chest pain. Distressed due to her homeless half-way having kicked her out and bringing all her stuff to her in the hospital. Objective Vitals Vital Signs Date Time Temp Pulse Resp B/P Pulse Ox O2 Delivery O2 Flow Rate FiO2 05/10/16 08:04 97.3 90 18 173/84 97 05/10/16 08:04 97.7 86 18 166/79 95 05/10/16 08:00 90 05/10/16 07:47 98 Nasal Cannula 2.00 05/10/16 04:00 97.7 91 20 132/64 93 05/10/16 00:00 97.9 87 20 151/76 92 05/09/16 20:30 95 05/09/16 20:00 97.8 95 20 149/71 95 05/09/16 19:32 95 Nasal Cannula 2.00 05/09/16 16:00 97.7 81 24 135/73 94 I/O 05/09/16 05/09/16 05/09/16 05/10/16 05/10/16 05/10/16 07:00 15:00 23:00 07:00 15:00 23:00 Intake Total 600 ml 720 ml 440 ml 220 ml Output Total 500 ml 0 ml 300 ml Balance 600 ml 220 ml 440 ml -80 ml Intake Oral 600 ml 720 ml 440 ml 220 ml Output Urine Total 500 ml 0 ml 300 ml # Voids 2 2 # Bowel Movements 0 1 Result Diagram: 05/10/16 0600 05/10/16 0600 Imaging Last Impressions Chest X-Ray 05/08/16 1108 Signed Impressions: Service Date/Time: Sunday, May 08, 2016 11:29 - CONCLUSION: Small bilateral effusions Ceferino Lyles MD CT Angiography 05/08/16 0000 Signed Impressions: Service Date/Time: Sunday, May 08, 2016 19:54 - CONCLUSION: 1. No evidence for pulmonary embolism. 2. Severe emphysema without infiltrate. 3. Coronary artery calcifications. 4. Borderline prominent axillary lymphadenopathy. Nick Newell MD Objective Remarks GEN: Thin adult white female appearing older than stated age sitting up in bed in NAD RESP: Unlabored breathing, able to speak in full sentences with occasional rests to take deep breaths between speaking. CTAB. No crackles or wheezes. CV: NRRR, normal S1/S2, no MRG ABD: Soft, NDNT. NEURO: Awake, alert. Grossly nonfocal. Medications and IVs Current Medications Medications (Trade) Dose Ordered Sig/Addison Route Start Time Stop Time Status Last Admin (NS Flush) 2 ml UNSCH PRN IVF 05/08/16 11:15 Budesonide/ Formoterol Fumarate 2 puff 2 puff Q12HR INH 05/08/16 21:00 05/10/16 08:57 (Rocephin Inj/NS Inj) 100 ml @ 200 mls/hr Q24H IV 05/08/16 19:00 05/09/16 20:00 (Zithromax) 500 mg DAILY PO 05/08/16 18:00 05/10/16 08:56 (Milk Of Magndemetrice Liq) 30 ml Q12H PRN PO 05/08/16 17:30 (Tylenol) 650 mg Q6H PRN PO 05/08/16 17:30 (Motrin) 400 mg Q6H PRN PO 05/08/16 17:30 (Lipitor) 40 mg HS PO 05/08/16 21:00 05/09/16 20:00 (Coreg) 6.25 mg BID PO 05/08/16 21:00 05/10/16 08:56 (Imdur) 30 mg DAILY PO 05/09/16 09:00 05/10/16 08:54 (Brilinta) 90 mg BID PO 05/08/16 21:00 05/10/16 08:56 (Ecotrin Ec) 81 mg DAILY PO 05/09/16 09:00 05/10/16 08:55 (Lovenox Inj) 40 mg Q24H SQ 05/08/16 20:00 05/09/16 20:00 (Habitrol 21 Mg Patch.24 Hr) 1 patch DAILY TD 05/09/16 11:00 05/10/16 08:55 Miscellaneous Information 1 DAILY TD 05/10/16 09:00 05/10/16 08:57 (Benadryl) 25 mg Q6H PRN PO 05/09/16 10:15 05/10/16 13:32 (Proair Hfa Inh) 2 puff Q6H PRN INH 05/09/16 14:00 (SoluMEDROL INJ) 40 mg Q8H IV 05/09/16 21:00 05/10/16 11:53 (Breo Ellipta 100-25 Inh) 1 puff DAILY INH 05/10/16 09:00 05/10/16 08:56 (Pepcid) 10 mg BID PO 05/10/16 21:00 (Pill Splitter) 1 ea UNSCH PRN OTHER 05/10/16 15:45 A/P Assessment and Plan 56-year-old female with past medical history of COPD, CHF, [place] presenting with: Problem List: (1) COPD exacerbation Status: Acute Plan: Patient currently respiratory distress with tachypnea into the 40s to 50s , diffuse wheezing on exam suggestive of COPD exacerbation O2 saturations greater than 90 on nasal cannula 2 L * Pulmonology consulted, appreciate their recommendations * DuoNeb nebs every 4 hours scheduled while awake * Symbicort 160, 2 puffs every 12 hours * Change steroid to methylprednisolone 40 mg IV Q8H per pulmonology recs * Ceftriaxone 1 g IV daily * Azithromycin 500 mg by mouth daily * Nasal cannula titrated to maintain O2 sats greater than 89 * Continuous pulse oximetry (2) Respiratory distress Status: Resolved Plan: Likely due to COPD exacerbation Extensive cardiac history, could be due to repeat [place] Troponins negative x3 Echo showing EF 45-50%, mildly decreased from prior EF 50-55% in January CTA negative for PE * Management as above for "COPD exacerbation" (3) CHF (congestive heart failure) Status: Chronic Plan: CHF symptoms currently stable, no evidence of acute exacerbation on exam BNP 40 Echo showing EF 45-50% * Continue home Coreg (4) CAD (coronary artery disease) Status: Acute Plan: Stable * Continue home statin, ticagrelor, aspirin (5) Tobacco abuse Status: Acute Plan: Nicotine patch 21 mg daily (6) FEN/PPX Status: Acute Plan: Fluids: None at present Electrolytes: Monitor and replace PRN Nutrition: Diet heart healthy PPX: Lovenox 40 mg daily Problem Qualifiers (1) CHF (congestive heart failure): Qualified Code: I50.9 - Chronic congestive heart failure, unspecified congestive heart failure type Castro Silva MD R1 May 10, 2016 3:56 pm
[2016-05-10] MEDS: cefTRIAXone INJ 1,000 MG in SODIUM CHLORIDE 0.9% INJ 100 ML IV SCH (17:39)
--- NOTE | 2016-05-10 17:48 | HHI.PR ---
Subjective Remarks Feels better. Less Cough wheezing. On O2 2l. On IV solumedrol. Objective Vital Signs Date Time Temp Pulse Resp B/P Pulse Ox O2 Delivery O2 Flow Rate FiO2 05/10/16 08:04 97.3 90 18 173/84 97 05/10/16 08:04 97.7 86 18 166/79 95 05/10/16 08:00 90 05/10/16 07:47 98 Nasal Cannula 2.00 05/10/16 04:00 97.7 91 20 132/64 93 05/10/16 00:00 97.9 87 20 151/76 92 05/09/16 20:30 95 05/09/16 20:00 97.8 95 20 149/71 95 05/09/16 19:32 95 Nasal Cannula 2.00 I/O 05/09/16 05/09/16 05/09/16 05/10/16 05/10/16 05/10/16 07:00 15:00 23:00 07:00 15:00 23:00 Intake Total 600 ml 720 ml 440 ml 220 ml Output Total 500 ml 0 ml 300 ml Balance 600 ml 220 ml 440 ml -80 ml Intake Oral 600 ml 720 ml 440 ml 220 ml Output Urine Total 500 ml 0 ml 300 ml # Voids 2 2 # Bowel Movements 0 1 Result Diagram: 05/10/16 0600 05/10/16 0600 Objective Remarks General: This averagely built middle-aged white female who is in no acute distress. HEENT: Head normocephalic. Pupils reactive. Tongue moist. Nasal mucosae edematous. Throat is clear. Neck: Supple. Chest: Equal movements with decreased excursions. Breath sounds diminished at the periphery with expiratory wheezes throughout both lung duran. Prolonged expirations. Cardiac: Heart sounds irregular. S1-S2. No murmur. Abdomen: Soft, benign. No mass. No organomegaly or tenderness. Bowel sounds are active. Extremities: No edema. No calf tenderness. Neurologic: Reflexes are brisk with no gross motor deficits. Cranial nerves are grossly intact. Rectal: Exam is deferred. Skin: Reddish, raised skin lesions over her arms and legs. Assessment and Plan Assessment and Plan IMPRESSION 1. COPD with acute exacerbation. 2. CHF, compensated. 3. History of coronary artery disease. 4. Nicotine dependency. 5. History of scabies. Plan : 1. Cont Antibiotics as ordered. Switch to PO meds in am 2. PFT today. 3. Cont Breo Ellipta , 1 puff daily.Stop Symbicort. 4. O2 at 2L. arrange home O2 if sat <88 on RA. 5. Taper solumedrol to 40 mg bid and switch to PO prednisone on Friday 6. Home when stable. Miriam Ruiz MD May 10, 2016 17:48
--- NOTE | 2016-05-10 18:22 | RADRPT ---
EXAM DATE/TIME: 05/10/2016 18:02 [place] COMPARISON: No previous studies available for comparison. INDICATIONS : Edema MEDICAL HISTORY : Hypertension. Chronic obstructive pulmonary disease. SURGICAL HISTORY : Carotid stent. ENCOUNTER: Subsequent ACUITY: 4 - 6 days PAIN SCORE: 0/10 LOCATION: chest FINDINGS: A single view of the chest demonstrates the lungs to be symmetrically aerated without evidence of mas s, infiltrate or effusion. Mild cardiac enlargement. No pneumothorax. CONCLUSION: 1. Mild cardiac enlargement. No effusion or pneumothorax. Isaías Morales MD on May 10, 2016 at 18:19 Board Certified Radiologist. This report was verified electronically.
[2016-05-10] MEDS: ATORVASTATIN 40 MG TAB PO SCH (21:58)
[2016-05-10] MEDS: FAMOTIDINE 20 MG TAB PO SCH (21:58)
[2016-05-10] MEDS: ENOXAPARIN SODIUM 40 MG/0.4 ML SYRINGE SQ SCH (21:58)
[2016-05-11] VITALS (10 sets, daily range): BP systolic 139–193; BP diastolic 73–98; PULSE 80–94; RESP 16–22; TEMP 97.5–98.6; O2SAT 93–96
[2016-05-11] MEDS: methylPREDNISolone SOD SUCC 40 MG/1 ML VIAL IV SCH ×2 (06:14→12:11)
[2016-05-11 08:29] LABS: AUTOMATED NEUTROPHIL # 13.2 TH/MM3 (1.8-7.7); BASOPHIL % 0.1 % (0.0-2.0); HEMATOCRIT 31.7 % (35.0-46.0); HEMO FLAGS DIFF FINAL; LYMPH % 5.3 % (9.0-44.0); LYMPHOCYTE # 0.8 TH/MM3 (1.0-4.8); MEAN CELL VOLUME 89.2 FL (80.0-100.0); MEAN CORPUSCULAR HEMOGLOBIN 30.2 PG (27.0-34.0); MEAN CORPUSCULAR HGB CONC 33.9 % (32.0-36.0); MONO % 4.9 % (0.0-8.0); NEUT % 89.7 % (16.0-70.0); PLATELET COUNT 397 TH/MM3 (150-450); RED BLOOD COUNT 3.55 MIL/MM3 (4.00-5.30); RED CELL DISTRIBUTION WIDTH 14.5 % (11.6-17.2); WHITE BLOOD COUNT 14.7 TH/MM3 (4.0-11.0)
[2016-05-11 08:40] LABS: ANION GAP 9 MEQ/L (5-15); BICARBONATE 25.2 MEQ/L (21.0-32.0); BLOOD UREA NITROGEN 21 MG/DL (7-18); CHLORIDE 101 MEQ/L (98-107); GLOMERULAR FILTRATION RATE 73 ML/MIN (>89); POTASSIUM 4.1 MEQ/L (3.5-5.1); SODIUM (NA) 135 MEQ/L (136-145)
[2016-05-11] MEDS: SODIUM CHLORIDE 0.9% FLUSH 5 ML FLUSH IVF PRN (08:55)
[2016-05-11] MEDS: FLUTICASONE 100 MCG/VILANTEROL 25 MCG INHALER INH SCH (08:56)
[2016-05-11] MEDS: NICOTINE 21 MG/24 HR PATCH TD SCH (08:57)
[2016-05-11] MEDS: REMOVE OLD NICODERM (NICOTINE) PATCH TD SCH (08:57)
[2016-05-11] MEDS: AZITHROMYCIN 250 MG TAB PO SCH (08:58)
[2016-05-11] MEDS: ASPIRIN EC 81 MG TABEC PO SCH (08:58)
[2016-05-11] MEDS: diphenhydrAMINE HCL 25 MG CAP PO PRN (08:58)
[2016-05-11] MEDS: PILL SPLITTER OTHER PRN (08:58)
[2016-05-11] MEDS: ISOSORBIDE MONONITRATE 30 MG TAB PO SCH (08:58)
[2016-05-11] MEDS: CARVEDILOL 6.25 MG TAB PO SCH ×2 (08:58→20:53)
[2016-05-11] MEDS: TICAGRELOR 90 MG TAB PO SCH ×2 (08:58→20:55)
[2016-05-11] MEDS: FAMOTIDINE 20 MG TAB PO SCH ×2 (08:58→20:54)
[2016-05-11] MEDS ORDERED: LISINOPRIL 10 MG TAB PO SCH (09:00)
[2016-05-11] MEDS: RESP: ALBUTEROL 2.5 MG/IPRATROPIUM 0.5 MG NEB (SCH) NEB ×3 (09:48→20:52)
[2016-05-11] MEDS ORDERED: HYDROCORTISONE 1% CREAM 30 GM TOPICAL PRN (13:15)
[2016-05-11] MEDS ORDERED: LISINOPRIL 10 MG TAB PO ONE (13:30)
--- NOTE | 2016-05-11 13:49 | HHI.FPPN ---
Subjective Remarks Ms. Tay was afebrile with mild HTN overnight; patient reports continued itching of rash. Patient reports shortness of breath with activity but that she does not feel more short of breath than usual when resting. Patient voiding and stooling normally per EMR. (Roni Nascimento MD R2) Objective Vitals Vital Signs Date Time Temp Pulse Resp B/P Pulse Ox O2 Delivery O2 Flow Rate FiO2 05/11/16 12:24 Nasal Cannula 1.00 05/11/16 09:49 93 Nasal Cannula 1.00 05/11/16 09:30 87 05/11/16 08:00 98.2 80 16 193/98 95 05/11/16 06:02 98.2 94 20 160/82 95 05/11/16 01:43 97.9 93 18 152/92 95 05/10/16 20:30 Nasal Cannula 2.00 05/10/16 20:28 98 Nasal Cannula 2.00 05/10/16 20:12 97.9 93 18 187/94 95 05/10/16 20:00 98 I/O 05/10/16 05/10/16 05/10/16 05/11/16 05/11/16 05/11/16 07:00 15:00 23:00 07:00 15:00 23:00 Intake Total 220 ml 840 ml 600 ml Output Total 300 ml Balance -80 ml 840 ml 600 ml Intake Oral 220 ml 840 ml 600 ml Output Urine Total 300 ml # Voids 2 4 # Bowel Movements 1 3 (Roni Nascimento MD R2) Result Diagram: 05/11/16 0745 05/11/16 0745 Imaging Last Impressions Chest X-Ray 05/10/16 0000 Signed Impressions: Service Date/Time: Tuesday, May 10, 2016 18:02 - CONCLUSION: 1. Mild cardiac enlargement. No effusion or pneumothorax. Isaías Morales MD CT Angiography 05/08/16 0000 Signed Impressions: Service Date/Time: Sunday, May 08, 2016 19:54 - CONCLUSION: 1. No evidence for pulmonary embolism. 2. Severe emphysema without infiltrate. 3. Coronary artery calcifications. 4. Borderline prominent axillary lymphadenopathy. Nick Newell MD Objective Remarks GEN: Thin adult white female appearing older than stated age sitting up in bed in NAD Skin: Patient with bilateral upper and lower extremity scabs that are scattered. RESP: Unlabored breathing, able to speak in full sentences with occasional rests to take deep breaths between speaking. CTAB. No crackles or wheezes. CV: NRRR, normal S1/S2, no MRG ABD: Soft, NDNT. NEURO: Awake, alert. Grossly nonfocal. (Roni Nascimento MD R2) A/P Assessment and Plan 56-year-old female with past medical history of COPD, CHF, [place] presenting with: ( Roni Nascimento MD R2) Attending Attestation Patient seen and examined with Dr. Nascimento. Case reviewed and discussed Agree with plan of care as discussed with me and documented in the resident note (Hazel Valdes MD) Problem List: (1) COPD exacerbation Status: Acute Plan: Patient currently respiratory distress with tachypnea into the 40s to 50s , diffuse wheezing on exam suggestive of COPD exacerbation O2 saturations greater than 90 on nasal cannula 2 L * Pulmonology consulted, appreciate their recommendations -Continue antibiotics -Ceftriaxone 1 g IV daily -Azithromycin 500 mg by mouth daily -Continue Breo Ellipta 1 puff daily; stop Symbicort -Nasal cannula titrated to maintain O2 sats greater than 89 -Taper Solumedrol to 40mg BID and switch to PO Prednisone Friday * Continuous pulse oximetry (2) Respiratory distress Status: Resolved Plan: Likely due to COPD exacerbation Extensive cardiac history, could be due to repeat [place] Troponins negative x3 Echo showing EF 45-50%, mildly decreased from prior EF 50-55% in January CTA negative for PE * Management as above for "COPD exacerbation" (3) CHF (congestive heart failure) Status: Chronic Plan: CHF symptoms currently stable, no evidence of acute exacerbation on exam BNP 40 Echo showing EF 45-50% * Continue home Coreg * Will start Lisinopril 20mg daily (4) CAD (coronary artery disease) Status: Acute Plan: Stable * Continue home statin, ticagrelor, aspirin, BP control (5) Itching Status: Acute Plan: Impression: Patient with linear excoriations on upper and lower extremities, history of scabies. Patient living homeless center prior to admission Treated as scabies with permethrin 05/09; we'll plan to retreat in several days We'll change when necessary Benadryl to when necessary hydroxyzine We'll add topical hydrocortisone to alleviate itching We'll remove contact precautions since patient has been treated and other possible etiologies of rash/itching exist (6) Tobacco abuse Status: Acute Plan: Nicotine patch 21 mg daily (7) FEN/PPX Status: Acute Plan: Fluids: None at present Electrolytes: Monitor and replace PRN Nutrition: Diet heart healthy DVT PPX: Lovenox 40 mg daily (Roni Nascimento MD R2) Problem Qualifiers (1) CHF (congestive heart failure): Qualified Code: I50.9 - Chronic congestive heart failure, unspecified congestive heart failure type Roni Nascimento MD R2 May 11, 2016 13:49 Hazel Valdes MD May 12, 2016 14:01
[2016-05-11 14:24] LABS: HEMOGLOBIN A1a 0.8 %; HEMOGLOBIN A1b 1.5 %; HEMOGLOBIN Ao 86.5 %; HEMOGLOBIN LA1C 2.2 %; HEMOGLOBIN P3 3.9 %
[2016-05-11] MEDS: cloNIDine HCL 0.1 MG TAB PO PRN (16:42)
[2016-05-11] MEDS: cefTRIAXone INJ 1,000 MG in SODIUM CHLORIDE 0.9% INJ 100 ML IV SCH (17:30)
[2016-05-11] MEDS: ATORVASTATIN 40 MG TAB PO SCH (20:54)
[2016-05-11] MEDS: hydrOXYzine HCL 10 MG TAB PO PRN (20:54)
[2016-05-11] MEDS: ENOXAPARIN SODIUM 40 MG/0.4 ML SYRINGE SQ SCH (20:55)
[2016-05-12] VITALS (7 sets, daily range): BP systolic 159–173; BP diastolic 79–86; PULSE 72–96; RESP 16–20; TEMP 97.8–98.2; O2SAT 94–96
[2016-05-12] MEDS ORDERED: methylPREDNISolone SOD SUCC 40 MG/1 ML VIAL IV SCH
[2016-05-12 08:47] LABS: AUTOMATED NEUTROPHIL # 9.5 TH/MM3 (1.8-7.7); BASOPHIL % 0.1 % (0.0-2.0); HEMATOCRIT 31.4 % (35.0-46.0); HEMO FLAGS DIFF FINAL; LYMPHOCYTE # 0.7 TH/MM3 (1.0-4.8); MEAN CELL VOLUME 89.6 FL (80.0-100.0); MEAN CORPUSCULAR HEMOGLOBIN 30.4 PG (27.0-34.0); MEAN CORPUSCULAR HGB CONC 33.9 % (32.0-36.0); MONO % 3.8 % (0.0-8.0); NEUT % 89.1 % (16.0-70.0); PLATELET COUNT 394 TH/MM3 (150-450); RED BLOOD COUNT 3.51 MIL/MM3 (4.00-5.30); RED CELL DISTRIBUTION WIDTH 13.9 % (11.6-17.2); WHITE BLOOD COUNT 10.7 TH/MM3 (4.0-11.0)
[2016-05-12] MEDS: RESP: ALBUTEROL 2.5 MG/IPRATROPIUM 0.5 MG NEB (SCH) NEB ×3 (08:51→19:33)
[2016-05-12] MEDS ORDERED: LISINOPRIL 20 MG TAB PO SCH (09:00)
[2016-05-12] MEDS: REMOVE OLD NICODERM (NICOTINE) PATCH TD SCH (09:00)
[2016-05-12] MEDS ORDERED: PERM5CRE TOPICAL (09:03)
--- NOTE | 2016-05-12 09:06 | HHI.FPPN ---
Subjective Remarks No acute events overnight. BP continues to be elevated with a high of 181/93. Patient was able to remain off nasal cannula overnight with adequate oxygen saturation. Patient reports feeling congested but otherwise feels well. Denies chest pain, shortness of breath. Objective Vitals Vital Signs Date Time Temp Pulse Resp B/P Pulse Ox O2 Delivery O2 Flow Rate FiO2 05/12/16 07:28 Room Air 05/12/16 04:16 98.1 74 16 167/86 94 05/11/16 23:54 98.4 84 18 156/81 96 05/11/16 20:55 94 Nasal Cannula 05/11/16 20:00 Room Air 05/11/16 20:00 81 05/11/16 20:00 98.6 82 16 139/73 95 05/11/16 16:00 97.5 93 22 181/93 95 05/11/16 14:00 97.8 88 22 168/80 96 05/11/16 12:24 Nasal Cannula 1.00 05/11/16 09:49 93 Nasal Cannula 1.00 05/11/16 09:30 87 I/O 05/11/16 05/11/16 05/11/16 05/12/16 05/12/16 05/12/16 07:00 15:00 23:00 07:00 15:00 23:00 Intake Total 965 ml 240 ml 100 ml Output Total 1000 ml 300 ml 300 ml Balance -35 ml -60 ml -200 ml Intake Oral 960 ml 240 ml 100 ml IV Total 5 ml Output Urine Total 1000 ml 300 ml 300 ml Result Diagram: 05/11/16 0745 05/11/16 0745 Objective Remarks GEN: Well-developed, well-nourished patient. No acute distress. CV: Regular rate and rhythm without obvious murmurs LUNGS: Clear to auscultation bilaterally. Normal respiratory effort. No wheezes , rales, rhonchi. Able to speak in complete sentences. EXT: No edema. NEURO/PSYCH: Awake, aler. Appropriate insight and judgment. Normal speech A/P Assessment and Plan 56-year-old female with past medical history of COPD, CHF, [place] presenting with COPD exacerbation Discharge Planning Anticipate discharge today or tomorrow pending walk test and home situation sdw Dr. Silva, Dr. Yahir Valdes Problem List: (1) COPD exacerbation Status: Acute Plan: Patient presented with respiratory distress with tachypnea in the 40s - 50s. Physical exam on admission was significant for diffuse wheezing. This has much improved. No longer needing oxygen supplementation overnight. -ACS evaluation negative -O2 if home <88 on RA -Will discuss with attending about continuation of antibiotics for 5 versus 7 days. -Walk test ordered Pulmonary consulted: Appreciate recommendations * Continue Breo Ellipta 1 puff daily * Taper Solumedrol to 40mg BID and switch to PO Prednisone Friday * Home when stable Medications: * Albuterol and Duonebs * Levaquin 750mg PO daily (05/12- * Azithromycin 500 mg daily (05/08-05/11) * Rocephin 1 g daily (05/08-05/11) * Pepcid 10 mg BID * Switched to 40mg Prednisone BID. (2) CHF (congestive heart failure) Status: Chronic Plan: History of CHF and [place], currently stable. No acute evidence of exacerbation on admission. BNP 40 with a EF of 45-50% Medications: * Continue home Coreg 6.25mg BID * Increased to Lisinopril 20mg BID due to elevated BP * Clonidine PRN (3) CAD (coronary artery disease) Status: Acute Plan: Stable Medications: * Continue home statin, ticagrelor, aspirin, Imdur (4) Itching Status: Acute Plan: Patient with linear excoriations on upper and lower extremities, history of scabies. Patient living homeless center prior to admission Treated as scabies with permethrin 05/09; we'll plan to retreat on 05/23 PRN hydroxyzine PRN topical hydrocortisone to alleviate itching (5) FEN/PPX Status: Acute Plan: Fluids: None Electrolytes: Monitor and replace PRN Nutrition: Diet heart healthy DVT PPX: Lovenox 40 mg daily Problem Qualifiers (1) CHF (congestive heart failure): Qualified Code: I50.9 - Chronic congestive heart failure, unspecified congestive heart failure type Giovanna Orona MD R2 May 12, 2016 09:06 Giovanna Orona MD R2 May 12, 2016 09:06
[2016-05-12 09:11] LABS: BICARBONATE 23.9 MEQ/L (21.0-32.0); POTASSIUM 3.7 MEQ/L (3.5-5.1)
[2016-05-12] MEDS: FAMOTIDINE 20 MG TAB PO SCH ×2 (09:31→20:14)
[2016-05-12] MEDS: CARVEDILOL 6.25 MG TAB PO SCH ×2 (09:31→20:14)
[2016-05-12] MEDS: AZITHROMYCIN 250 MG TAB PO SCH (09:31)
[2016-05-12] MEDS: ASPIRIN EC 81 MG TABEC PO SCH (09:31)
[2016-05-12] MEDS: FLUTICASONE 100 MCG/VILANTEROL 25 MCG INHALER INH SCH (09:31)
[2016-05-12] MEDS: ISOSORBIDE MONONITRATE 30 MG TAB PO SCH (09:31)
[2016-05-12] MEDS: NICOTINE 21 MG/24 HR PATCH TD SCH (09:32)
[2016-05-12] MEDS: PILL SPLITTER OTHER PRN (09:32)
[2016-05-12] MEDS: TICAGRELOR 90 MG TAB PO SCH ×2 (09:33→20:14)
[2016-05-12] MEDS: SODIUM CHLORIDE 0.9% FLUSH 5 ML FLUSH IVF PRN (09:34)
--- NOTE | 2016-05-12 09:42 | HHI.PR ---
Addendum to Inpatient Note Addendum Reason: Additional Documentation Additional Information Off service note 56 yo female with h/o COPD, CHF admitted for COPD exacerbation. Initially in respiratory distress, gradually improved with antibiotics, DuoNebs plus Symbicort, and steroids. Pulmonology consulted who started IV steroids gradually tapered to PO. Echo performed showed stable reduced EF. Home O2 walk test pending. Castro Silva MD R1 May 12, 2016 9:42 am
[2016-05-12] MEDS ORDERED: FLUTICASONE PROPIONATE 50 MCG/ACT 16 GM NASAL SPRAY NASAL PRN (19:30)
[2016-05-12] MEDS: ENOXAPARIN SODIUM 40 MG/0.4 ML SYRINGE SQ SCH (20:14)
[2016-05-12] MEDS: LISINOPRIL 20 MG TAB PO SCH (20:14)
[2016-05-12] MEDS: ATORVASTATIN 40 MG TAB PO SCH (20:15)
[2016-05-12] MEDS: hydrOXYzine HCL 10 MG TAB PO PRN (20:26)
[2016-05-13] VITALS (14 sets, daily range): BP systolic 76–196; BP diastolic 47–98; PULSE 56–84; RESP 16–22; TEMP 97.3–98; O2SAT 95–100
[2016-05-13] MEDS ORDERED: VENTAER INH (06:43)
[2016-05-13] MEDS ORDERED: FAMO20TA2 PO (06:43)
[2016-05-13] MEDS ORDERED: LISI-515 PO (06:43)
[2016-05-13] MEDS ORDERED: ASPI81TA11 PO (06:43)
[2016-05-13] MEDS ORDERED: FLUT1INH INH (06:43)
[2016-05-13] MEDS ORDERED: PRED10 PO (06:43)
[2016-05-13] MEDS ORDERED: HYDR-755 PO (06:43)
[2016-05-13] MEDS ORDERED: LEVA750T PO (06:43)
--- NOTE | 2016-05-13 06:43 | HHI.DCPOC ---
Discharge Care Plan Diagnosis: (1) COPD exacerbation Goals to Promote Your Health * To prevent worsening of your condition and complications * To maintain your health at the optimal level Directions to Meet Your Goals Take your medications as prescribed Follow your dietary instruction Follow activity as directed Keep your appointments as scheduled Take your immunizations and boosters as scheduled If your symptoms worsen call your PCP, if no PCP go to Urgent Care Center or Emergency Room Smoking is Dangerous to Your Health. Avoid second hand smoke Call the 24-hour hour crisis hotline for domestic abuse at Giovanna Orona MD R2 May 13, 2016 06:43
[2016-05-13] MEDS: RESP: ALBUTEROL 2.5 MG/IPRATROPIUM 0.5 MG NEB (SCH) NEB ×3 (08:10→21:11)
[2016-05-13] MEDS: ISOSORBIDE MONONITRATE 30 MG TAB PO SCH (08:20)
[2016-05-13] MEDS: TICAGRELOR 90 MG TAB PO SCH ×2 (08:20→21:27)
[2016-05-13] MEDS: CARVEDILOL 6.25 MG TAB PO SCH (08:20)
[2016-05-13] MEDS: NICOTINE 21 MG/24 HR PATCH TD SCH (08:20)
[2016-05-13] MEDS: REMOVE OLD NICODERM (NICOTINE) PATCH TD SCH (08:20)
[2016-05-13] MEDS: LISINOPRIL 20 MG TAB PO SCH (08:20)
[2016-05-13] MEDS: LEVOFLOXACIN 750 MG TAB PO SCH (08:20)
[2016-05-13] MEDS: ASPIRIN EC 81 MG TABEC PO SCH (08:20)
[2016-05-13] MEDS: FAMOTIDINE 20 MG TAB PO SCH ×2 (08:21→21:26)
[2016-05-13] MEDS: FLUTICASONE 100 MCG/VILANTEROL 25 MCG INHALER INH SCH (08:21)
--- NOTE | 2016-05-13 10:31 | HHI.FPPN ---
Subjective Remarks Patient seen and examined this am. Paged by nurse for BP, pt systolic BP 190s was given her morning meds, and went down to the 70s. Patient feeling light headed and seeing spots. She reports a HERNANDEZ as well. Prior to this was feeling well. Denies CP or difficulty breathing. (Soo Vang MD R3) Objective Vitals Vital Signs Date Time Temp Pulse Resp B/P Pulse Ox O2 Delivery O2 Flow Rate FiO2 05/13/16 08:10 99 21 05/13/16 08:00 97.3 74 22 191/95 98 05/13/16 04:00 98.0 73 16 157/80 96 05/13/16 00:25 97.9 78 18 173/84 95 05/12/16 20:00 Room Air 05/12/16 20:00 96 05/12/16 20:00 98.2 94 20 172/84 96 05/12/16 19:34 96 05/12/16 12:00 98.0 80 16 159/84 96 I/O 05/12/16 05/12/16 05/12/16 05/13/16 05/13/16 05/13/16 07:00 15:00 23:00 07:00 15:00 23:00 Intake Total 100 ml 762 ml 120 ml 240 ml Output Total 300 ml 325 ml Balance -200 ml 762 ml -205 ml 240 ml Intake Oral 100 ml 760 ml 120 ml 240 ml IV Total 2 ml 0 ml Output Urine Total 300 ml 325 ml # Voids 3 2 # Bowel Movements 2 (Soo Vang MD R3) Result Diagram: 05/12/16 0746 05/12/16 0746 Imaging Last Impressions Chest X-Ray 05/10/16 0000 Signed Impressions: Service Date/Time: Tuesday, May 10, 2016 18:02 - CONCLUSION: 1. Mild cardiac enlargement. No effusion or pneumothorax. Isaías Morales MD CT Angiography 05/08/16 0000 Signed Impressions: Service Date/Time: Sunday, May 08, 2016 19:54 - CONCLUSION: 1. No evidence for pulmonary embolism. 2. Severe emphysema without infiltrate. 3. Coronary artery calcifications. 4. Borderline prominent axillary lymphadenopathy. Nick Newell MD Objective Remarks GEN: Well-developed, well-nourished patient. No acute distress. CV: Regular rate and rhythm without obvious murmurs LUNGS: Clear to auscultation bilaterally. Normal respiratory effort. No wheezes , rales, rhonchi. Able to speak in complete sentences. EXT: No edema. NEURO/PSYCH: Awake, alert. Appropriate insight and judgment. Normal speech ( Soo Vang MD R3) A/P Assessment and Plan 56-year-old female with past medical history of COPD, CHF, PR presenting with COPD exacerbation Discharge Planning Anticipate discharge tomorrow pending walk test and stabilization of BP. sdw Dr. Valdes and Dr. Sinclair (Soo Vang MD R3) Attending Attestation Patient seen and examined. Case reviewed and discussed Agree with plan of care as discussed with me and documented in the resident note. (Hazel Valdes MD) Problem List: (1) Hypertension Status: Acute Plan: Patient with hypertension, on multiple medications. Recently increased lisinopril to BID dosing and became hypotensive this am, but then stabilized with IVF - Lisinopril 20 mg PO BID changed to daily - Imdur 30 mg Po daily - Stopped carvedilol 6.25 mg PO BID --> started Lopressor 12.5 mg q8 hrs (hold for BP < 160/90) - Clonidine prn - Discussed case with nurse, please do not give all meds at one time, please administer one at a time as patient BP is very labile (2) COPD exacerbation Status: Resolved Plan: Improved. Still some oxygen requirement overnight. -Walk test pending Pulmonary consulted: Appreciate recommendations * Continue Breo Ellipta 1 puff daily * Prednisone 30 mg PO daily * Home when stable Medications: * Albuterol and Duonebs * Levaquin 750mg PO daily (05/12- * Pepcid 10 mg BID * 30mg Prednisone daily. ABX HX: * Azithromycin 500 mg daily (05/08-05/11) * Rocephin 1 g daily (05/08-05/11) (3) CHF (congestive heart failure) Status: Chronic Plan: History of CHF and PR, currently stable. No acute evidence of exacerbation on admission. BNP 40 with a EF of 45-50% Medications: * see hypertension * currently on NEGRO-I and beta ebony (4) CAD (coronary artery disease) Status: Acute Plan: Stable Medications: * Continue home statin, ticagrelor, aspirin, Imdur (5) Itching Status: Resolved Plan: Patient with linear excoriations on upper and lower extremities, history of scabies. Patient living homeless center prior to admission Treated as scabies with permethrin 05/09; we'll plan to retreat on 05/23 PRN hydroxyzine PRN topical hydrocortisone to alleviate itching (6) FEN/PPX Status: Acute Plan: Fluids: None Electrolytes: Monitor and replace PRN Nutrition: Diet heart healthy DVT PPX: Lovenox 40 mg daily (Soo Vang MD R3) Problem Qualifiers (1) CHF (congestive heart failure): Qualified Code: I50.9 - Chronic congestive heart failure, unspecified congestive heart failure type Soo Vang MD R3 May 13, 2016 10:31 Hazel Valdes MD May 14, 2016 17:03
[2016-05-13] MEDS ORDERED: SODIUM CHLORID 0.9% 500 ML INJ 500 ML IV ONE (11:00)
[2016-05-13] MEDS ORDERED: predniSONE 20 MG TAB PO SCH (12:00)
--- NOTE | 2016-05-13 12:24 | HHI.FPPN ---
Objective Vitals Vital Signs Date Time Temp Pulse Resp B/P Pulse Ox O2 Delivery O2 Flow Rate FiO2 05/13/16 10:35 151/77 05/13/16 10:25 76 20 151/77 95 05/13/16 10:10 74 20 109/57 95 05/13/16 10:05 109/56 05/13/16 10:05 63 20 86/51 95 05/13/16 10:02 56 20 76/47 05/13/16 09:55 86/51 05/13/16 08:10 99 21 05/13/16 08:00 68 05/13/16 08:00 97.3 74 22 191/95 98 05/13/16 08:00 Room Air 05/13/16 04:00 98.0 73 16 157/80 96 05/13/16 00:25 97.9 78 18 173/84 95 05/12/16 20:00 Room Air 05/12/16 20:00 96 05/12/16 20:00 98.2 94 20 172/84 96 05/12/16 19:34 96 I/O 05/12/16 05/12/16 05/12/16 05/13/16 05/13/16 05/13/16 07:00 15:00 23:00 07:00 15:00 23:00 Intake Total 100 ml 762 ml 120 ml 240 ml Output Total 300 ml 325 ml Balance -200 ml 762 ml -205 ml 240 ml Intake Oral 100 ml 760 ml 120 ml 240 ml IV Total 2 ml 0 ml Output Urine Total 300 ml 325 ml # Voids 3 2 # Bowel Movements 2 Result Diagram: 05/12/1646 05/12/1646 Objective Remarks GEN: Well-developed, well-nourished patient. No acute distress. CV: Regular rate and rhythm without obvious murmurs LUNGS: Clear to auscultation bilaterally. Normal respiratory effort. No wheezes , rales, rhonchi. Able to speak in complete sentences. EXT: No edema. NEURO/PSYCH: Awake, aler. Appropriate insight and judgment. Normal speech A/P Assessment and Plan 56-year-old female with past medical history of COPD, CHF, [place] presenting with COPD exacerbation Discharge Planning Anticipate discharge today or tomorrow pending walk test and home situation sdw Dr. Silva, Dr. Yahir Valdes Problem List: (1) Hypertension Status: Acute Plan: Patient with hypertension, on multiple medications. Recently increased lisinopril to BID dosing and became hypotensive this am - Lisinopril (2) COPD exacerbation Status: Acute Plan: Patient presented with respiratory distress with tachypnea in the 40s - 50s. Physical exam on admission was significant for diffuse wheezing. This has much improved. No longer needing oxygen supplementation overnight. -ACS evaluation negative -O2 if home <88 on RA -Will discuss with attending about continuation of antibiotics for 5 versus 7 days. -Walk test ordered Pulmonary consulted: Appreciate recommendations * Continue Breo Ellipta 1 puff daily * Taper Solumedrol to 40mg BID and switch to PO Prednisone Friday * Home when stable Medications: * Albuterol and Duonebs * Levaquin 750mg PO daily (05/12- * Azithromycin 500 mg daily (05/08-05/11) * Rocephin 1 g daily (05/08-05/11) * Pepcid 10 mg BID * Switched to 40mg Prednisone BID. (3) CHF (congestive heart failure) Status: Chronic Plan: History of CHF and [place], currently stable. No acute evidence of exacerbation on admission. BNP 40 with a EF of 45-50% Medications: * Continue home Coreg 6.25mg BID * Increased to Lisinopril 20mg BID due to elevated BP * Clonidine PRN (4) CAD (coronary artery disease) Status: Acute Plan: Stable Medications: * Continue home statin, ticagrelor, aspirin, Imdur (5) Itching Status: Acute Plan: Patient with linear excoriations on upper and lower extremities, history of scabies. Patient living homeless center prior to admission Treated as scabies with permethrin 05/09; we'll plan to retreat on 05/23 PRN hydroxyzine PRN topical hydrocortisone to alleviate itching (6) FEN/PPX Status: Acute Plan: Fluids: None Electrolytes: Monitor and replace PRN Nutrition: Diet heart healthy DVT PPX: Lovenox 40 mg daily Problem Qualifiers (1) CHF (congestive heart failure): Qualified Code: I50.9 - Chronic congestive heart failure, unspecified congestive heart failure type Tonny Sinclair MD R1 May 13, 2016 12:24
[2016-05-13] MEDS: METOPROLOL TARTRATE 25 MG TAB PO SCH ×2 (13:09→22:37)
[2016-05-13] MEDS: predniSONE 10 MG TAB PO SCH (13:09)
[2016-05-13] MEDS: cloNIDine HCL 0.1 MG TAB PO PRN (19:09)
--- NOTE | 2016-05-13 19:20 | HHI.PR ---
Subjective Remarks Feels better. No Cough .On O2 2l. On Po prednisone . Off O2 sat 93. Walk test to be done. Objective Vital Signs Date Time Temp Pulse Resp B/P Pulse Ox O2 Delivery O2 Flow Rate FiO2 05/13/16 16:00 97.4 82 22 196/98 100 05/13/16 12:00 97.4 78 22 136/69 98 05/13/16 10:35 151/77 05/13/16 10:25 76 20 151/77 95 05/13/16 10:10 74 20 109/57 95 05/13/16 10:05 109/56 05/13/16 10:05 63 20 86/51 95 05/13/16 10:02 56 20 76/47 05/13/16 09:55 86/51 05/13/16 08:10 99 21 05/13/16 08:00 68 05/13/16 08:00 97.3 74 22 191/95 98 05/13/16 08:00 Room Air 05/13/16 04:00 98.0 73 16 157/80 96 05/13/16 00:25 97.9 78 18 173/84 95 05/12/16 20:00 Room Air 05/12/16 20:00 96 05/12/16 20:00 98.2 94 20 172/84 96 05/12/16 19:34 96 I/O 05/12/16 05/12/16 05/12/16 05/13/16 05/13/16 05/13/16 07:00 15:00 23:00 07:00 15:00 23:00 Intake Total 100 ml 762 ml 120 ml 240 ml Output Total 300 ml 325 ml Balance -200 ml 762 ml -205 ml 240 ml Intake Oral 100 ml 760 ml 120 ml 240 ml IV Total 2 ml 0 ml Output Urine Total 300 ml 325 ml # Voids 3 2 # Bowel Movements 2 Result Diagram: 05/12/1646 05/12/16 0746 Objective Remarks General: This averagely built middle-aged white female who is in no acute distress. HEENT: Head normocephalic. Pupils reactive. Tongue moist. Nasal mucosae edematous. Throat is clear. Neck: Supple. Chest: Equal movements with decreased excursions. Breath sounds diminished at the periphery and Prolonged expirations. Cardiac: Heart sounds irregular. S1-S2. No murmur. Abdomen: Soft, benign. No mass. No organomegaly or tenderness. Bowel sounds are active. Extremities: No edema. No calf tenderness. Neurologic: Reflexes are brisk with no gross motor deficits. Rectal: Exam is deferred. Skin:Dry an cool. Assessment and Plan Assessment and Plan IMPRESSION 1. COPD with acute exacerbation. 2. CHF, compensated. 3. History of coronary artery disease. 4. Nicotine dependency. 5. History of scabies. Plan : 1. Cont Antibiotics po for 3 days 2. O2 2 l if sats <89 on RA 3. Cont Breo Ellipta , 1 puff daily. 4. Spiriva 1 cap daily. 5. Taper prednisone over 2 weeks. 6. Home anytime Miriam Ruiz MD May 13, 2016 19:20
[2016-05-13] MEDS: ENOXAPARIN SODIUM 40 MG/0.4 ML SYRINGE SQ SCH (21:26)
[2016-05-13] MEDS: ATORVASTATIN 40 MG TAB PO SCH (21:26)
[2016-05-13] MEDS: SODIUM CHLORIDE 0.9% FLUSH 5 ML FLUSH IVF PRN (21:27)
[2016-05-14] VITALS (11 sets, daily range): BP systolic 124–211; BP diastolic 68–100; PULSE 72–89; RESP 18–20; TEMP 97.6–98.9; O2SAT 95–98
[2016-05-14] MEDS: METOPROLOL TARTRATE 25 MG TAB PO SCH ×2 (06:36→17:18)
[2016-05-14] MEDS ORDERED: PRED10 PO (06:48)
[2016-05-14] MEDS ORDERED: LISI-515 PO (06:53)
[2016-05-14] MEDS ORDERED: METO25TA3 PO ×2 (06:53→13:09)
[2016-05-14] MEDS ORDERED: SPIRCAP INH (06:53)
[2016-05-14] MEDS: RESP: ALBUTEROL 2.5 MG/IPRATROPIUM 0.5 MG NEB (SCH) NEB ×3 (07:48→19:05)
[2016-05-14] MEDS: NICOTINE 21 MG/24 HR PATCH TD SCH (08:26)
[2016-05-14] MEDS: REMOVE OLD NICODERM (NICOTINE) PATCH TD SCH (08:26)
[2016-05-14] MEDS: FAMOTIDINE 20 MG TAB PO SCH ×2 (08:27→20:46)
[2016-05-14] MEDS: TICAGRELOR 90 MG TAB PO SCH ×2 (08:27→20:46)
[2016-05-14] MEDS: LEVOFLOXACIN 750 MG TAB PO SCH (08:27)
[2016-05-14] MEDS: ASPIRIN EC 81 MG TABEC PO SCH (08:27)
[2016-05-14] MEDS: ISOSORBIDE MONONITRATE 30 MG TAB PO SCH (08:27)
[2016-05-14] MEDS: FLUTICASONE 100 MCG/VILANTEROL 25 MCG INHALER INH SCH (08:28)
[2016-05-14] MEDS: LISINOPRIL 20 MG TAB PO SCH (08:28)
--- NOTE | 2016-05-14 10:24 | RSPPFT ---
DATE OF PROCEDURE: 05/10/16 COMMENTS: Spirometry demonstrates an FEV1 of 0.9 at 34% of predicted, FVC of 2.0 at 62%, FEV1/FVC ratio at 45%. The FEF 25-75 is 14% of predicted. Post-bronchodilator study demonstrated no significant change. Flow volume loops suggest severe obstruction. IMPRESSION: 1. Severe obstructive disease. 2. No significant improvements following use of bronchodilator.
--- NOTE | 2016-05-14 11:35 | HHI.FPPN ---
Subjective Remarks No acute events overnight. Blood pressure overnight continues to be labile. This morning when blood pressure was being taken, initial blood pressure was 211 /100 but immediate repeat showed 197/high 90s. Patient had not yet received her morning medications. I informed nurse to give medications at this time and to hold PRN medication as she had a quick drop in blood pressure yesterday morning. Patient was asymptomatic otherwise. Denies chest pain, palpitations. She is walking with improved respiration but does continue to complain of congestion. She otherwise feels well to be discharged today. (Giovanna Orona MD R2) Objective Vitals Vital Signs Date Time Temp Pulse Resp B/P Pulse Ox O2 Delivery O2 Flow Rate FiO2 05/14/16 08:00 97.7 78 20 211/100 98 05/14/16 07:50 95 21 05/14/16 04:00 97.6 72 18 153/76 95 05/14/16 04:00 Room Air 05/14/16 00:00 Room Air 05/14/16 00:00 97.6 72 18 124/68 97 05/13/16 21:37 98 21 05/13/16 20:00 Room Air 05/13/16 20:00 97.4 82 18 158/82 97 05/13/16 20:00 84 05/13/16 16:00 97.4 82 22 196/98 100 05/13/16 12:00 97.4 78 22 136/69 98 I/O 05/13/16 05/13/16 05/13/16 05/14/16 05/14/16 05/14/16 07:00 15:00 23:00 07:00 15:00 23:00 Intake Total 240 ml 480 ml 240 ml Balance 240 ml 480 ml 240 ml Intake Oral 240 ml 480 ml 240 ml IV Total 0 ml # Voids 2 1 2 # Bowel Movements 2 0 (Giovanna Orona MD R2) Result Diagram: 05/12/1646 05/12/1646 Objective Remarks GEN: Well-developed, well-nourished patient. No acute distress. CV: Regular rate and rhythm without obvious murmurs LUNGS: Clear to auscultation bilaterally. Normal respiratory effort. No wheezes , rales, rhonchi. Able to speak in complete sentences. EXT: No edema. No calf tenderness. NEURO/PSYCH: Awake, alert. Appropriate insight and judgment. Normal speech ( Giovanna Orona MD R2) A/P Assessment and Plan 56-year-old female with past medical history of COPD, CHF, [place] admitted for COPD exacerbation. Discharge Planning Anticipate discharge today after repeat BP. sdw Dr. Sniclair wdw Dr. Valdes (Giovanna Orona MD R2) Attending Attestation Patient seen and examined. Case reviewed and discussed Agree with plan of care as discussed with me and documented in the resident note. (Hazel Valdes MD) Problem List: (1) COPD exacerbation Status: Resolved Plan: Improved. Still some oxygen requirement overnight. -Walk test negative x2 Pulmonary consulted: Appreciate recommendations * Continue Breo Ellipta 1 puff daily * Prednisone 30 mg PO daily * Continue PO antibiotics 3 days * Spiriva daily * Taper prednisone over 2 weeks * Okay to discharge home Medications: * Albuterol and Duonebs * Levaquin 750mg PO daily (05/12- * Pepcid 10 mg BID * 30mg Prednisone daily. * Breo Ellipta, will convert to albuterol at discharge as this is covered under patient assistance ABX HX: * Azithromycin 500 mg daily (05/08-05/11) * Rocephin 1 g daily (05/08-05/11) (2) Hypertension Status: Acute Plan: Patient with hypertension, on multiple medications. Recently increased lisinopril to BID dosing and became hypotensive which has since resolved. BP was elevated in the room this a.m. the patient had not received medications yet. Recommended nurse give medications at 0830 before giving clonidine -Try to stagger antihypertensive Medications: * Lisinopril 20 daily * Lopressor 12.5 mg * Clonidine prn (3) Itching Status: Resolved Plan: Patient with linear excoriations on upper and lower extremities, history of scabies. Patient living homeless center prior to admission Treated as scabies with permethrin 05/09; we'll plan to retreat on 05/23 PRN hydroxyzine PRN topical hydrocortisone to alleviate itching (4) FEN/PPX Status: Acute Plan: Fluids: None Electrolytes: Monitor and replace PRN Nutrition: Diet heart healthy GI prophylaxis: Pepcid DVT PPX: Lovenox 40 mg daily Chronic conditions: * CHF: Stable, continue home medications/antihypertensives * CAD: Stable, Continue home statin, ticagrelor, aspirin, Imdur (Giovanna Orona MD R2) Giovanna Orona MD R2 May 14, 2016 11:35 Hazel Valdes MD May 14, 2016 17:10 Nutrition: Diet heart healthy DVT PPX: Lovenox 40 mg daily Problem Qualifiers (1) CHF (congestive heart failure): Qualified Code: I50.9 - Chronic congestive heart failure, unspecified congestive heart failure type Giovanna Orona MD R2 May 14, 2016 11:35
[2016-05-14] MEDS ORDERED: ADVA250A INH (11:44)
--- NOTE | 2016-05-14 12:02 | HHI.DS ---
Giovanna Orona MD R2 05/14/16 1202: Discharge Summary Admission Date May 08, 2016 at 13:15 Discharge Date: May 14, 2016 Admitting Diagnosis copd exacerbation (1) COPD exacerbation Plan: Improved. Still some oxygen requirement overnight. -Walk test negative x2 Pulmonary consulted: Appreciate recommendations * Continue Breo Ellipta 1 puff daily * Prednisone 30 mg PO daily * Continue PO antibiotics 3 days * Spiriva daily * Taper prednisone over 2 weeks * Okay to discharge home Medications: * Albuterol and Duonebs * Levaquin 750mg PO daily (05/12- * Pepcid 10 mg BID * 30mg Prednisone daily. * Breo Ellipta, will convert to albuterol at discharge as this is covered under patient assistance ABX HX: * Azithromycin 500 mg daily (05/08-05/11) * Rocephin 1 g daily (05/08-05/11) (2) Hypertension Plan: Patient with hypertension, on multiple medications. Recently increased lisinopril to BID dosing and became hypotensive which has since resolved. BP was elevated in the room this a.m. the patient had not received medications yet. Recommended nurse give medications at 0830 before giving clonidine -Try to stagger antihypertensive Medications: * Lisinopril 20 daily * Lopressor 12.5 mg * Clonidine prn (3) Itching Plan: Patient with linear excoriations on upper and lower extremities, history of scabies. Patient living homeless center prior to admission Treated as scabies with permethrin 05/09; we'll plan to retreat on 05/23 PRN hydroxyzine PRN topical hydrocortisone to alleviate itching (4) FEN/PPX Plan: Fluids: None Electrolytes: Monitor and replace PRN Nutrition: Diet heart healthy GI prophylaxis: Pepcid DVT PPX: Lovenox 40 mg daily Chronic conditions: * CHF: Stable, continue home medications/antihypertensives * CAD: Stable, Continue home statin, ticagrelor, aspirin, [facility] Pulmonary Brief History 63 year old female smoker and resident of homeless intermediate with history of COPD and CHF presenting with a 1 day history of increasing shortness of breath. For the last 4-5 days she has had some cold/flu symptoms with a scratchy throat and upper airway congestion. On the night prior to admission she also No fevers or chills per se but she always feels cold at baseline. Yesterday afternoon she started having increased shortness of breath and some inspiratory chest tightness with intermittent wheezing. Increased cough but no increased sputum production, no hemoptysis, no night sweats. No swelling of legs or arms. CBC/BMP: 05/12/16 0746 05/12/16 0746 Significant Findings Laboratory Tests Test 05/12/16 07:46 Red Blood Count 3.51 MIL/MM3 (4.00-5.30) Hemoglobin 10.7 GM/DL (11.6-15.3) Hematocrit 31.4 % (35.0-46.0) Neutrophils (%) (Auto) 89.1 % (16.0-70.0) Lymphocytes (%) (Auto) 7.0 % (9.0-44.0) Neutrophils # (Auto) 9.5 TH/MM3 (1.8-7.7) Lymphocytes # (Auto) 0.7 TH/MM3 (1.0-4.8) Sodium Level 134 MEQ/L (136-145) Blood Urea Nitrogen 21 MG/DL (7-18) Estimat Glomerular Filtration 70 ML/MIN (>89) Rate Random Glucose 190 MG/DL (74-106) Calcium Level 8.2 MG/DL (8.5-10.1) Imaging Last Impressions Chest X-Ray 05/10/16 0000 Signed Impressions: Service Date/Time: Tuesday, May 10, 2016 18:02 - CONCLUSION: 1. Mild cardiac enlargement. No effusion or pneumothorax. Isaías Morales MD CT Angiography 05/08/16 0000 Signed Impressions: Service Date/Time: Sunday, May 08, 2016 19:54 - CONCLUSION: 1. No evidence for pulmonary embolism. 2. Severe emphysema without infiltrate. 3. Coronary artery calcifications. 4. Borderline prominent axillary lymphadenopathy. Nick Newell MD PE at Discharge GEN: Well-developed, well-nourished patient. No acute distress. CV: Regular rate and rhythm without obvious murmurs LUNGS: Clear to auscultation bilaterally. Normal respiratory effort. No wheezes , rales, rhonchi. Able to speak in complete sentences. EXT: No edema. No calf tenderness. NEURO/PSYCH: Awake, alert. Appropriate insight and judgment. Normal speech Hospital Course 56 yo female with h/o COPD, CHF admitted for COPD exacerbation. Initially presented with respiratory distress but gradually improved with Initially in respiratory distress, gradually improved with azithromycin, Rocephin, and Levaquin. She was also treated with steroids via IV initially but tapered down to oral steroids. Patient also received dual nebs, albuterol, Breo nebulizers/ inhalers. Pulmonary was consulted who assisted with management. Echo was performed due to history of CHF but showed a stable EF of 45-50%. PFTs did show severe obstruction. Patient weaned off of supplemental O2 and was able to pass the walk test x2. Discharge was anticipated for 05/14 but was delayed due to severely elevated BP. Patient had very labile blood pressures and responded with hypotension when too many antihypertensives were given at the same time. Antihypertensives were staggered and increased gradually until systolic was less than 180. Patient was then discharged in stable condition with lisinopril , amlodipine, metoprolol. Pt Condition on Discharge: Stable Discharge Disposition: Discharge Home Discharge Instructions DIET: Follow Instructions for: Heart Healthy Diet Activities you can perform: Regular-No Restrictions Follow up Referrals: PCP Follow-up - 1 Week Pulmonology - 2 Weeks with Brando Perkins MD New Medications: Amlodipine (Amlodipine) 5 Mg Tab 10 MG PO HS Take 2 tabs (10mg) at bedtime starting the night of 03/16. If you become light headed, only take 1 tab (5mg) Blood Pressure Management #60 Ref 0 TAB Fluticasone-Salmeterol Inh (Advair Diskus Inh) 250-50 Mcg/Blist Aer 1 PUFF INH BID Rinse mouth after use. #1 Ref 0 INHALER Permethrin Topical (Permethrin Topical) 5% Cream 1 APPLIC TOPICAL ONCE Do not apply until 05/23 Scabies #1 Ref 0 TUBE Prednisone (Prednisone) 10 Mg Tab 10 MG PO DIRECTED 3 Tabs (30mg) for 5 days. 2 Tabs (20mg) for 5 days. 1 Tab ( 10mg) for 5 days #30 Ref 0 TAB Tiotropium Inh (Spiriva Handihaler) 18 Mcg Cap 18 MCG INH DAILY 1 capsule = 18 mcg COPD #30 Ref 0 CAP Albuterol 18 GM Inh (Ventolin Hfa 18 GM Inh) 90 Mcg/Act Aer 2 PUFF INH Q4-6H PRN SHORTNESS OF BREATH #[address] (Aspirin EC) 81 Mg Tabdr 81 MG PO DAILY #30 TAB Famotidine (Famotidine) 20 Mg Tab 10 MG PO BID #30 TAB Hydroxyzine HCl (Hydroxyzine HCl) 10 Mg Tab 10 MG PO Q8H PRN MILD TO MODERATE ITCHING #30 TAB Levofloxacin (Levaquin) 750 Mg Tab 750 MG PO DAILY #2 TAB Lisinopril (Lisinopril) 20 Mg Tab 20 MG PO DAILY #30 TAB Metoprolol Tartrate (Metoprolol Tartrate) 25 Mg Tab 25 MG PO Q8HR #90 TAB Continued Medications: Atorvastatin (Atorvastatin) 40 Mg Tab 40 MG PO HS Cholesterol Management #30 Ref 0 TAB Isosorbide Mononitrate ER (Isosorbide Mononitrate ER) 30 Mg Citlalli 30 MG PO DAILY Prevent Chest Pain #30 Ref 0 TAB Ticagrelor (Brilinta) 90 Mg Tab 90 MG PO BID Blood Clot Prevention #60 Ref 0 TAB Discontinued Medications: Carvedilol (Carvedilol) 6.25 Mg Tab 6.25 MG PO BID #60 Ref 0 TAB Hazel Valdes MD 05/16/16 0846: Discharge Summary CBC/BMP: 05/12/1646 05/12/16 07 Discharge Instructions Follow up Referrals: PCP Follow-up - 1 Week Pulmonology - 2 Weeks with Brando Perkins MD New Medications: Amlodipine (Amlodipine) 5 Mg Tab 10 MG PO HS Take 2 tabs (10mg) at bedtime starting the night of 11. If you become light headed, only take 1 tab (5mg) Blood Pressure Management #60 Ref 0 TAB Fluticasone-Salmeterol Inh (Advair Diskus Inh) 250-50 Mcg/Blist Aer 1 PUFF INH BID Rinse mouth after use. #1 Ref 0 INHALER Permethrin Topical (Permethrin Topical) 5% Cream 1 APPLIC TOPICAL ONCE Do not apply until 05/23 Scabies #1 Ref 0 TUBE Prednisone (Prednisone) 10 Mg Tab 10 MG PO DIRECTED 3 Tabs (30mg) for 5 days. 2 Tabs (20mg) for 5 days. 1 Tab ( 10mg) for 5 days #30 Ref 0 TAB Tiotropium Inh (Spiriva Handihaler) 18 Mcg Cap 18 MCG INH DAILY 1 capsule = 18 mcg COPD #30 Ref 0 CAP Albuterol 18 GM Inh (Ventolin Hfa 18 GM Inh) 90 Mcg/Act Aer 2 PUFF INH Q4-6H PRN SHORTNESS OF BREATH #[address] (Aspirin EC) 81 Mg Tabdr 81 MG PO DAILY #30 TAB Famotidine (Famotidine) 20 Mg Tab 10 MG PO BID #30 TAB Hydroxyzine HCl (Hydroxyzine HCl) 10 Mg Tab 10 MG PO Q8H PRN MILD TO MODERATE ITCHING #30 TAB Levofloxacin (Levaquin) 750 Mg Tab 750 MG PO DAILY #2 TAB Lisinopril (Lisinopril) 20 Mg Tab 20 MG PO DAILY #30 TAB Metoprolol Tartrate (Metoprolol Tartrate) 25 Mg Tab 25 MG PO Q8HR #90 TAB Continued Medications: Atorvastatin (Atorvastatin) 40 Mg Tab 40 MG PO HS Cholesterol Management #30 Ref 0 TAB Isosorbide Mononitrate ER (Isosorbide Mononitrate ER) 30 Mg Citlalli 30 MG PO DAILY Prevent Chest Pain #30 Ref 0 TAB Ticagrelor (Brilinta) 90 Mg Tab 90 MG PO BID Blood Clot Prevention #60 Ref 0 TAB Discontinued Medications: Carvedilol (Carvedilol) 6.25 Mg Tab 6.25 MG PO BID #60 Ref 0 TAB Giovanna Orona MD R2 May 14, 2016 12:02 Hazel Valdes MD May 16, 2016 08:46
[2016-05-14] MEDS ORDERED: hydrALAZINE HCL 20 MG/ML VIAL IV PRN (12:15)
[2016-05-14] MEDS ORDERED: METOPROLOL TARTRATE 25 MG TAB PO ONE (12:30)
[2016-05-14] MEDS: CETIRIZINE HCL 10 MG TAB PO SCH (13:06)
[2016-05-14] MEDS: predniSONE 10 MG TAB PO SCH (13:07)
--- NOTE | 2016-05-14 20:18 | HHI.PR ---
Subjective Remarks Feels better. No Cough .Off O2 sat 95. On Po prednisone . Will go home on PO meds Objective Vital Signs Date Time Temp Pulse Resp B/P Pulse Ox O2 Delivery O2 Flow Rate FiO2 05/14/16 19:05 98 21 05/14/16 16:00 98.0 89 20 182/85 97 05/14/16 15:33 186/89 05/14/16 12:00 97.7 87 20 186/88 98 05/14/16 08:00 97.7 78 20 211/100 98 05/14/16 08:00 72 05/14/16 08:00 Nasal Cannula 1.00 05/14/16 07:50 95 21 05/14/16 04:00 97.6 72 18 153/76 95 05/14/16 04:00 Room Air 05/14/16 00:00 Room Air 05/14/16 00:00 97.6 72 18 124/68 97 05/13/16 21:37 98 21 I/O 05/13/16 05/13/16 05/13/16 05/14/16 05/14/16 05/14/16 07:00 15:00 23:00 07:00 15:00 23:00 Intake Total 240 ml 480 ml 240 ml Balance 240 ml 480 ml 240 ml Intake Oral 240 ml 480 ml 240 ml IV Total 0 ml # Voids 2 1 2 # Bowel Movements 2 0 Result Diagram: 05/12/1646 05/12/1646 Objective Remarks General: This averagely built middle-aged white female who is in no acute distress. HEENT: Head normocephalic. Pupils reactive. Tongue moist.. Throat is clear. Neck: Supple. Chest: Equal movements with decreased excursions. Breath sounds diminished at the periphery and Prolonged expirations. Cardiac: Heart sounds irregular. S1-S2. No murmur. Abdomen: Soft, benign. No mass. No organomegaly or tenderness. Bowel sounds are active. Extremities: No edema. No calf tenderness. Neurologic: Reflexes are +1 with no gross motor deficits. Rectal: Exam is deferred. Skin:Dry an cool. Assessment and Plan Assessment and Plan IMPRESSION 1. COPD with acute exacerbation. 2. CHF, compensated. 3. History of coronary artery disease. 4. Nicotine dependency. 5. History of scabies. Plan : 1. Cont Antibiotics po for 2 days 2. D/C O2 3. Cont Breo Ellipta , 1 puff daily. 4. Spiriva 1 cap daily. 5. Taper prednisone over 2 weeks. 6. Home anytime Miriam Ruiz MD May 14, 2016 20:18
[2016-05-14] MEDS: ATORVASTATIN 40 MG TAB PO SCH (20:46)
[2016-05-14] MEDS: ENOXAPARIN SODIUM 40 MG/0.4 ML SYRINGE SQ SCH (20:46)
[2016-05-14] MEDS ORDERED: METOPROLOL TARTRATE 25 MG TAB PO SCH (21:00)
[2016-05-15] VITALS (9 sets, daily range): BP systolic 140–230; BP diastolic 76–127; PULSE 73–95; RESP 16–20; TEMP 97.5–98.4; O2SAT 97–98
[2016-05-15] MEDS: METOPROLOL TARTRATE 25 MG TAB PO SCH ×3 (00:21→16:48)
[2016-05-15] MEDS: TICAGRELOR 90 MG TAB PO SCH (08:04)
[2016-05-15] MEDS: ISOSORBIDE MONONITRATE 30 MG TAB PO SCH (08:04)
[2016-05-15] MEDS: LEVOFLOXACIN 750 MG TAB PO SCH (08:04)
[2016-05-15] MEDS: LISINOPRIL 20 MG TAB PO SCH (08:04)
[2016-05-15] MEDS: CETIRIZINE HCL 10 MG TAB PO SCH (08:04)
[2016-05-15] MEDS: ASPIRIN EC 81 MG TABEC PO SCH (08:04)
[2016-05-15] MEDS: FAMOTIDINE 20 MG TAB PO SCH (08:04)
[2016-05-15] MEDS: REMOVE OLD NICODERM (NICOTINE) PATCH TD SCH (08:05)
[2016-05-15] MEDS: NICOTINE 21 MG/24 HR PATCH TD SCH (08:05)
[2016-05-15] MEDS ORDERED: FLUTICASONE 100 MCG/VILANTEROL 25 MCG INHALER INH SCH (09:00)
[2016-05-15] MEDS ORDERED: hydrALAZINE HCL 10 MG TAB PO PRN (09:30)
[2016-05-15] MEDS: RESP: ALBUTEROL 2.5 MG/IPRATROPIUM 0.5 MG NEB (SCH) NEB ×2 (09:39→12:44)
[2016-05-15] MEDS ORDERED: amLODIPine BESYLATE 5 MG TAB PO SCH (10:00)
[2016-05-15] MEDS ORDERED: FLUTICASONE PROPIONATE 50 MCG/ACT 16 GM NASAL SPRAY NASAL SCH (10:00)
--- NOTE | 2016-05-15 10:24 | HHI.FPPN ---
Subjective Remarks No events overnight. Patient is comfortable this morning. Remains on room air. Blood pressures have ranged 140-230/76-127 over past 24 hours. She denies shortness of breath, chest pain, dizziness or lightheadedness, no issues ambulating. Denies leg pain or swelling. (Tonny Sinclair MD R1) Objective Vitals Vital Signs Date Time Temp Pulse Resp B/P Pulse Ox O2 Delivery O2 Flow Rate FiO2 05/15/16 09:41 98 21 05/15/16 09:05 178/90 05/15/16 08:00 98.0 86 16 230/127 97 221/110 05/15/16 04:00 Room Air 05/15/16 04:00 98.0 73 20 172/91 97 05/15/16 00:00 97.6 76 20 140/76 97 05/15/16 00:00 Room Air 05/14/16 22:00 148/77 05/14/16 20:21 77 05/14/16 20:00 Room Air 05/14/16 20:00 98.9 82 20 155/75 98 05/14/16 19:05 98 21 05/14/16 16:00 98.0 89 20 182/85 97 05/14/16 15:33 186/89 05/14/16 12:00 97.7 87 20 186/88 98 I/O 05/14/16 05/14/16 05/14/16 05/15/16 05/15/16 05/15/16 07:00 15:00 23:00 07:00 15:00 23:00 Intake Total 240 ml 240 ml 360 ml Balance 240 ml 240 ml 360 ml Intake Oral 240 ml 240 ml 360 ml # Voids 2 3 2 # Bowel Movements 0 1 (Tonny Sinclair MD R1) Result Diagram: 05/12/16 0746 05/12/16 0746 Objective Remarks GEN: Well-developed, well-nourished patient. No acute distress. CV: Regular rate and rhythm without obvious murmurs LUNGS: Clear to auscultation bilaterally. Normal respiratory effort. No wheezes , rales, rhonchi. Able to speak in complete sentences. EXT: No edema. No calf tenderness. NEURO/PSYCH: Awake, alert. Appropriate insight and judgment. Normal speech ( Tonny Sinclair MD R1) A/P Assessment and Plan 56-year-old female with past medical history of COPD, CHF, [place] admitted for COPD exacerbation. Discharge Planning Anticipate discharge today after repeat BP. (Tonny Sinclair MD R1) Attending Attestation Patient seen and examined Case reviewed and discussed Agree with plan of care as discussed with me and documented in the resident note. (Hazel Valdes MD) Problem List: (1) COPD exacerbation Status: Resolved Plan: Improved. Remains on room air this morning, not requiring oxygen. -Passed walk test x2 Pulmonology consulted: Appreciate recommendations * Continue Breo Ellipta 1 puff daily * Prednisone 30 mg PO daily * Continue PO antibiotics 2 days * Taper prednisone over 2 weeks * Okay to discharge home from pulmonary viewpoint Medications: * Albuterol and Duonebs * Levaquin 750mg PO daily (started 05/12) * Pepcid 10 mg po BID * 30 mg Prednisone daily * Breo Ellipta, will convert to albuterol at discharge as this is covered under patient assistance ABX Hx: * Azithromycin 500 mg daily (05/08-05/11) * Rocephin 1 gm daily (05/08-05/11) (2) Hypertension Status: Acute Plan: Labile hypertension. Goal is to stagger medications to try to have more stability. - Lisinopril 20 mg po daily - Lopressor 25 mg po q8h - Started amlodipine 5 mg po daily - Hydralazine 10 mg po q8h prn BP > 180/110 - Avoid clonidine due to rebound hypertension - Monitor vitals closely today and counseled patient to follow up with Dr. Quiroz is our community clinic (3) Itching Status: Resolved Plan: Patient with linear excoriations on upper and lower extremities, history of scabies. Patient living at a homeless center prior to admission Treated as scabies with permethrin 05/09; we'll plan to retreat on 05/23 PRN hydroxyzine PRN topical hydrocortisone to alleviate itching (4) FEN/PPX Status: Acute Plan: Fluids: None Electrolytes: Will monitor if indicated Nutrition: heart healthy diet GI prophylaxis: Pepcid DVT PPX: Lovenox 40 mg daily Chronic conditions: - CHF: Stable, continue home medications and antihypertensives as above - CAD: Stable, continue home statin, ticagrelor, aspirin, imdur sdw Dr. Orona wdw Dr. Valdes (Tonny Sinclair MD R1) Tonny Sinclair MD R1 May 15, 2016 10:24 Hazel Valdes MD May 15, 2016 13:27
[2016-05-15] MEDS ORDERED: LEVA750T PO (12:03)
[2016-05-15] MEDS: predniSONE 10 MG TAB PO SCH (12:15)
[2016-05-15] MEDS ORDERED: AMLO5TAB2 PO (13:46)
[2016-05-15] MEDS ORDERED: amLODIPine BESYLATE 5 MG TAB PO ONE (14:00)
--- NOTE | 2016-05-15 17:48 | HHI.PR ---
Subjective Remarks Feels better. has some wheezing..Off O2 sat 95. On Po prednisone . Will go home on PO meds Objective Vital Signs Date Time Temp Pulse Resp B/P Pulse Ox O2 Delivery O2 Flow Rate FiO2 05/15/16 12:00 98.4 87 16 171/82 98 05/15/16 11:06 170/82 05/15/16 09:41 98 21 05/15/16 09:05 178/90 05/15/16 09:00 87 05/15/16 08:00 98.0 86 16 230/127 97 221/110 05/15/16 08:00 Room Air 05/15/16 04:00 Room Air 05/15/16 04:00 98.0 73 20 172/91 97 05/15/16 00:00 97.6 76 20 140/76 97 05/15/16 00:00 Room Air 05/14/16 22:00 148/77 05/14/16 20:21 77 05/14/16 20:00 Room Air 05/14/16 20:00 98.9 82 20 155/75 98 05/14/16 19:05 98 21 I/O 05/14/16 05/14/16 05/14/16 05/15/16 05/15/16 05/15/16 07:00 15:00 23:00 07:00 15:00 23:00 Intake Total 240 ml 240 ml 360 ml Balance 240 ml 240 ml 360 ml Intake Oral 240 ml 240 ml 360 ml # Voids 2 3 2 # Bowel Movements 0 1 Result Diagram: 05/12/1646 05/12/1646 Objective Remarks General: This averagely built middle-aged white female who is in no acute distress. HEENT: Head normocephalic. Pupils reactive. Tongue moist.. Throat is clear. Neck: Supple. Chest: Equal movements with decreased excursions. Occ wheeze. Breath sounds diminished at the periphery and Prolonged expirations. Cardiac: Heart sounds irregular. S1-S2. No murmur. Abdomen: Soft, benign. No mass. No organomegaly or tenderness. Bowel sounds are active. Extremities: No edema. No calf tenderness. Neurologic: Reflexes are +1 with no gross motor deficits. Rectal: Exam is deferred. Skin:Dry an cool. Assessment and Plan Assessment and Plan IMPRESSION 1. COPD with acute exacerbation. 2. CHF, compensated. 3. History of coronary artery disease. 4. Nicotine dependency. 5. History of scabies. Plan : 1. Cont Antibiotics po for 2 days 2. D/C O2 3. Cont Breo Ellipta , 1 puff daily. 4. Spiriva 1 cap daily. 5. Taper prednisone over 2 weeks. 6. Home today. Miriam Ruiz MD May 15, 2016 17:48
[2016-08-12] MEDS ORDERED: FAMO20TA2 PO (15:19)
[2016-08-12] MEDS ORDERED: ADVA250A INH (15:19)
[2016-08-12] MEDS ORDERED: VENTAER INH (15:19)
[2016-08-12] MEDS ORDERED: AMIO200T PO (15:19)
[2016-08-12] MEDS ORDERED: FLUO-1 PO (15:19)
[2016-08-12] MEDS ORDERED: TRAZ50TA12 PO (15:19)
[2016-08-12] MEDS ORDERED: ATOR40TA16 PO (15:19)
[2016-08-12] MEDS ORDERED: CETI10 PO (15:19)
[2016-08-12] MEDS ORDERED: METO25TA3 PO (15:19)
[2016-08-12] MEDS ORDERED: PLAV75TA29 PO (15:19)
== END 2016-05-15 17:30 | disposition home or self-care (01) | DRG 192 ==
LOC: NEPE 10:58 → NEDA 13:15 → NEDH 20:39 → N04A 05-09 18:42
PROVIDERS: ADMIT Family Medicine; ATTEND Family Medicine
DX: J44.1 Chronic obstructive pulmonary disease with (acute) exacerbation (principal); I11.0 Hypertensive heart disease with heart failure; I50.9 Heart failure, unspecified; B86 Scabies; I25.10 Atherosclerotic heart disease of native coronary artery without angina pectoris; F17.210 Nicotine dependence, cigarettes, uncomplicated; I25.2 Old myocardial infarction; R09.02 Hypoxemia; R09.81 Nasal congestion; Z85.41 Personal history of malignant neoplasm of cervix uteri; Z95.5 Presence of coronary angioplasty implant and graft; Z59.0 Homelessness
CPT/HCPCS: 36600; 71010; 71275; 80048; 80053; 82550; 82805; 83036; 83880; 84484; 85025; 85379; 87070; 87205; 93005; 93308; 94060; 94620; 94640; 94664; G8987-GP; G8988-GP; J0696; J1650; J2920; J7512; J7613; Q9967

== ENCOUNTER 2016-07-17 14:37 | Inpatient (IN) | payer OTHER ==
[2016-07-17] VITALS (10 sets, daily range): BP systolic 109–151; BP diastolic 63–89; PULSE 96–109; RESP 16–20; TEMP 97.9–98.9; O2SAT 94–100
[~2016-07-17] VITALS: Ht 167.6 cm; Wt 55.7 kg
[~2016-07-17 14:37] MED LIST changes: +ADVA250A INH; +AMLO5TAB2 PO; +ASPI81TA11 PO; -CARV6.252 PO; +FAMO20TA2 PO; +HYDR-755 PO; +LEVA750T PO; +LISI-515 PO; +METO25TA3 PO; +PERM5CRE TOPICAL; +PRED10 PO; +SPIRCAP INH; +VENTAER INH
[2016-07-17] MEDS: RESP: ALBUTEROL 2.5 MG/IPRATROPIUM 0.5 MG NEB (SCH) INH (15:28)
[2016-07-17] MEDS ORDERED: LORazepam 2 MG/ML VIAL IV PUSH ONE (15:30)
[2016-07-17] MEDS ORDERED: SODIUM CHLORIDE 0.9% FLUSH 5 ML FLUSH IVF PRN (15:30)
[2016-07-17] MEDS ORDERED: methylPREDNISolone SOD SUCC 125 MG/2 ML VIAL IVP ONE (15:30)
--- NOTE | 2016-07-17 15:38 | PD ---
HPI Chief Complaint: Syncope/Near-Syncope Time Seen by Provider: 15:06 Travel History International Travel<30 days: No Contact w/Intl Traveler<30days: No Traveled to known affect area: No History of Present Illness HPI The patient is a 36-year-old female who presents to the emergency department for multiple complaints including shortness of breath, presyncope, and rash. Patient notes a history of rash with itching over the arms and the back, was diagnosed with scabies in the past, states she has open lesion secondary to scratching. She also complains of chest pain, chest tightness, shortness of breath after walking earlier today. The patient states she does have a history of COPD and coronary artery disease, became short of breath with chest tightness after walking approximately a mile and a half earlier today. The patient does know she's had multiple wheezing, denies any new cough. She does have a history of COPD and states she is unable to afford her inhalers. She also notes she has been off of her cardiac medications for several months secondary to financial issues. She does continue to smoke, last cigarette was earlier today. The patient did have a cardiac catheterization performed earlier this year by Dr. mg in January and had stents placed in the LAD. She also notes she had presyncopal symptoms with dizziness, lightheadedness, narrowing of the vision, and decreased hearing, but did not actually pass out. The patient states she pain handle to getting enough money to come to the emergency department via bus. The patient does not currently have a primary physician. PFSH Past Medical History Arthritis: Yes (Left knee and left Shoulder ) Atrial Fibrillation: Yes Autoimmune Disease: No Blood Disorders: No Anxiety: No Depression: No Heart Rhythm Problems: No Cancer: Yes (CERVICAL) Cardiovascular Problems: Yes High Cholesterol: No Chemotherapy: No Chest Pain: Yes Congestive Heart Failure: Yes COPD: Yes Cerebrovascular Accident: No Coronary Artery Disease: Yes Diabetes: No Diminished Hearing: No Endocrine: No Gastrointestinal Disorders: Yes Genitourinary: No Headaches: Yes Hypertension: Yes Immune Disorder: No Implanted Vascular Access Dvce: No Musculoskeletal: No Neurologic: Yes Psychiatric: No Reproductive: No Respiratory: Yes Migraines: No Radiation Therapy: Yes Seizures: Yes Sleep Apnea: No Thyroid Disease: No ?: Not Menopausal: Yes Past Surgical History Abdominal Surgery: No AICD: No Cardiac Surgery: Yes (STENTS X 3 ) Ear Surgery: No Endocrine Surgery: No Eye Surgery: No Genitourinary Surgery: No Gynecologic Surgery: Yes (Hysterectomy 20 years ago) Hysterectomy: Yes Neurologic Surgery: No Oral Surgery: Yes (top teeth removed) Pacemaker: No Thoracic Surgery: No Other Surgery: Yes (hysterectomy) Social History Alcohol Use: No (EVERYDAY BUT NOT FOR 2WEEKS ) Tobacco Use: Yes (1PPD ) Substance Use: No Allergies-Medications (Allergen,Severity, Reaction): Coded Allergies: No Known Allergies (Unverified , 07/17/16) Reported Meds & Prescriptions Reported Meds & Active Scripts Active Amlodipine (Amlodipine Besylate) 5 Mg Tab 10 Mg PO HS Take 2 tabs (10mg) at bedtime starting the night of 03/16. If you become light headed, only take 1 tab (5mg) Levaquin (Levofloxacin) 750 Mg Tab 750 Mg PO DAILY Metoprolol Tartrate 25 Mg Tab 25 Mg PO Q8HR Advair Diskus Inh (Fluticasone-Salmeterol Inh) 250-50 Mcg/Blist Aer 1 Puff INH BID Rinse mouth after use. Spiriva Handihaler (Tiotropium Inh) 18 Mcg Cap 18 Mcg INH DAILY 1 capsule = 18 mcg Lisinopril 20 Mg Tab 20 Mg PO DAILY Prednisone 10 Mg Tab 10 Mg PO DIRECTED 3 Tabs (30mg) for 5 days. 2 Tabs (20mg) for 5 days. 1 Tab (10mg) for 5 days Hydroxyzine HCl 10 Mg Tab 10 Mg PO Q8H PRN Famotidine 20 Mg Tab 10 Mg PO BID Aspirin EC (Aspirin) 81 Mg Tabdr 81 Mg PO DAILY Ventolin Hfa 18 GM Inh (Albuterol Sulfate) 90 Mcg/Act Aer 2 Puff INH Q4-6H PRN Permethrin Topical (Permethrin) 5% Cream 1 Applic TOPICAL ONCE Do not apply until 05/23 Reported Isosorbide Mononitrate ER (Isosorbide Mononitrate) 30 Mg Citlalli 30 Mg PO DAILY Atorvastatin (Atorvastatin Calcium) 40 Mg Tab 40 Mg PO HS Brilinta (Ticagrelor) 90 Mg Tab 90 Mg PO BID Review of Systems Except as stated in HPI: all other systems reviewed are Neg Eyes: Positive: Visual changes HENT: Positive: Lightheadedness Cardiovascular: Positive: Chest Pain or Discomfort, Dyspnea on exertion Respiratory: Positive: Shortness of Breath, Wheezing Gastrointestinal: No: Nausea, Vomiting, Abdominal Pain Musculoskeletal: No: Weakness Skin: Positive Rash, Positive Itching Neurologic: Positive: Dizziness, Syncope (presyncope) Physical Exam Narrative GENERAL: Awake, alert, pleasant 56-year-old female who appears her stated age and is in mild respiratory distress. SKIN: Patient has excoriations over the hands, upper back, with dry skin. HEAD: Atraumatic. Normocephalic. EYES: Pupils equal and round. No scleral icterus. No injection or drainage. ENT: No nasal bleeding or discharge. Mucous membranes pink and moist. NECK: Trachea midline. No JVD. CARDIOVASCULAR: Regular rate and rhythm. No murmur appreciated. Heart rate in the 90s. RESPIRATORY: No accessory muscle use. Prolonged expiratory phase with diffuse wheezing. GASTROINTESTINAL: Abdomen soft, non-tender, nondistended. No rebound tenderness. MUSCULOSKELETAL: No obvious deformities. No clubbing. No cyanosis. No edema. NEUROLOGICAL: Awake and alert. No obvious cranial nerve deficits. Motor grossly within normal limits. Normal speech. PSYCHIATRIC: Slightly anxious. Data Data Last Documented VS Vital Signs Date Time Temp Pulse Resp B/P Pulse Ox O2 Delivery O2 Flow Rate FiO2 07/17/16 15:54 136/63 99 Room Air 07/17/16 15:11 20 07/17/16 14:45 102 Orders Complete Blood Count With Diff (07/17/16 15:20) Comprehensive Metabolic Panel (07/17/16 15:20) B-Type Natriuretic Peptide (07/17/16 15:20) Magnesium (Mg) (07/17/16 15:20) Ckmb (Isoenzyme) Profile (07/17/16 15:20) Troponin I (07/17/16 15:20) Iv Access Insert/Monitor (07/17/16 15:20) Electrocardiogram (07/17/16 15:20) Ecg Monitoring (07/17/16 15:20) Oximetry (07/17/16 15:20) Oxygen Administration (07/17/16 15:20) Chest, Single Ap (07/17/16 15:20) Sodium Chloride 0.9% Flush (Ns Flush) (07/17/16 15:30) Methylprednisolone So Succ Inj (Solumedr (07/17/16 15:30) Albuterol-Ipratropium Neb (Duoneb Neb) (07/17/16 15:30) Lorazepam Inj (Ativan Inj) (07/17/16 15:30) Aspirin Chew (Aspirin Chew) (07/17/16 15:45) CKMB (07/17/16 15:30) CKMB% (07/17/16 15:30) Labs Laboratory Tests Test 07/17/16 15:30 White Blood Count 10.7 TH/MM3 Red Blood Count 4.60 MIL/MM3 Hemoglobin 13.6 GM/DL Hematocrit 40.0 % Mean Corpuscular Volume 86.9 FL Mean Corpuscular Hemoglobin 29.6 PG Mean Corpuscular Hemoglobin 34.1 % Concent Red Cell Distribution Width 14.1 % Platelet Count 517 TH/MM3 Mean Platelet Volume 7.6 FL Neutrophils (%) (Auto) 46.6 % Lymphocytes (%) (Auto) 22.4 % Monocytes (%) (Auto) 7.3 % Eosinophils (%) (Auto) 22.7 % Basophils (%) (Auto) 1.0 % Neutrophils # (Auto) 5.0 TH/MM3 Lymphocytes # (Auto) 2.4 TH/MM3 Monocytes # (Auto) 0.8 TH/MM3 Eosinophils # (Auto) 2.4 TH/MM3 Basophils # (Auto) 0.1 TH/MM3 CBC Comment DIFF FINAL Differential Comment Sodium Level 130 MEQ/L Potassium Level 3.4 MEQ/L Chloride Level 92 MEQ/L Carbon Dioxide Level 24.4 MEQ/L Anion Gap 14 MEQ/L Blood Urea Nitrogen 10 MG/DL Creatinine 1.17 MG/DL Estimat Glomerular Filtration 48 ML/MIN Rate Random Glucose 49 MG/DL Calcium Level 8.7 MG/DL Magnesium Level 1.6 MG/DL Total Bilirubin 0.4 MG/DL Aspartate Amino Transf 44 U/L (AST/SGOT) Alanine Aminotransferase 18 U/L (ALT/SGPT) Alkaline Phosphatase 88 U/L Total Creatine Kinase 184 U/L Troponin I 3.21 NG/ML Total Protein 6.8 GM/DL Albumin 3.5 GM/DL [facility] Medical Decision Making Medical Screen Exam Complete: Yes Emergency Medical Condition: Yes Medical Record Reviewed: Yes Interpretation(s) EKG reveals left bundle branch block with QRS 146 ms. No significant changes compared to EKG performed May 08, 2016. Last Impressions Chest X-Ray 07/17/16 1520 Signed Impressions: Service Date/Time: Sunday, July 17, 2016 15:44 - CONCLUSION: Mild atelectasis or consolidation at the medial right lung base. Ceferino Quigley MD Laboratory Tests Test 07/17/16 15:30 White Blood Count 10.7 TH/MM3 Red Blood Count 4.60 MIL/MM3 Hemoglobin 13.6 GM/DL Hematocrit 40.0 % Mean Corpuscular Volume 86.9 FL Mean Corpuscular Hemoglobin 29.6 PG Mean Corpuscular Hemoglobin 34.1 % Concent Red Cell Distribution Width 14.1 % Platelet Count 517 TH/MM3 Mean Platelet Volume 7.6 FL Neutrophils (%) (Auto) 46.6 % Lymphocytes (%) (Auto) 22.4 % Monocytes (%) (Auto) 7.3 % Eosinophils (%) (Auto) 22.7 % Basophils (%) (Auto) 1.0 % Neutrophils # (Auto) 5.0 TH/MM3 Lymphocytes # (Auto) 2.4 TH/MM3 Monocytes # (Auto) 0.8 TH/MM3 Eosinophils # (Auto) 2.4 TH/MM3 Basophils # (Auto) 0.1 TH/MM3 CBC Comment DIFF FINAL Differential Comment Sodium Level 130 MEQ/L Potassium Level 3.4 MEQ/L Chloride Level 92 MEQ/L Carbon Dioxide Level 24.4 MEQ/L Anion Gap 14 MEQ/L Blood Urea Nitrogen 10 MG/DL Creatinine 1.17 MG/DL Estimat Glomerular Filtration 48 ML/MIN Rate Random Glucose 49 MG/DL Calcium Level 8.7 MG/DL Magnesium Level 1.6 MG/DL Total Bilirubin 0.4 MG/DL Aspartate Amino Transf 44 U/L (AST/SGOT) Alanine Aminotransferase 18 U/L (ALT/SGPT) Alkaline Phosphatase 88 U/L Total Creatine Kinase 184 U/L Troponin I 3.21 NG/ML Total Protein 6.8 GM/DL Albumin 3.5 GM/DL Differential Diagnosis Differential diagnosis includes COPD exacerbation, pneumonia, bronchitis, pulmonary embolism, acute coronary syndrome, STEMI, neurodermatitis, scabies, dermatitis NOS. Narrative Course IV was established, labs are drawn and sent, and the patient was placed on cardiac telemetry monitoring and continuous pulse ox imaging monitoring. EKG was ordered and interpreted. Chest x-ray was obtained. The patient was administered Solu-Medrol and DuoNeb's. Chest x-ray reveals atelectasis versus consolidation, white count is normal, patient is afebrile. EKG revealed left bundle branch block with no significant changes. However, patient's troponin is elevated at 3.21. The patient did have a recent catheterization January [address] Mg where she had a stent placed in the LAD. She had a EEG performed March 27, 2016 that was essentially unremarkable. Patient did have a neck performed in May which revealed an EF of 45-50%. 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 mg, who request and by mouth after midnight and heparinized patient. The patient was placed on Nitropaste and was administered aspirin. Critical Care Narrative Aggregate critical care time was 35 minutes. Time to perform other separately billable procedures was not included in the critical care time. My time did not include minutes spent treating any other patients simultaneously or on activities that did not directly contribute to the patient's treatment. The services I provided to this patient were to treat and/or prevent clinically significant deterioration that could result in: Anoxia, hypoxia, arrhythmia, sudden , . I provided critical care services requiring my management, as noted below: Chart data review, documentation time, medication orders and management, vital sign assessments/reviewing monitor data, ordering and reviewing lab tests, ordering and interpreting/reviewing x-rays and diagnostic studies, care of the patient and discussion of the patient with the admitting physicians. Physician Communication Physician Communication The on-call medical service was paged for admission. Diagnosis Primary Impression: NSTEMI (non-ST elevated myocardial infarction) Additional Impression: COPD exacerbation Admitting Information Admitting Physician Requests: Admit Condition: Stable Adarsh Davey MD Jul 17, 2016 15:38
[2016-07-17] MEDS ORDERED: ASPIRIN 81 MG CHEW TAB CHEW ONE (15:45)
[2016-07-17 15:50] LABS: BASOPHIL # 0.1 TH/MM3 (0-0.2); EOSINOPHIL # 2.4 TH/MM3 (0-0.4); EOSINOPHIL % 22.7 % (0.0-4.0); HEMO FLAGS DIFF FINAL; LYMPH % 22.4 % (9.0-44.0); LYMPHOCYTE # 2.4 TH/MM3 (1.0-4.8); MEAN CELL VOLUME 86.9 FL (80.0-100.0); MEAN CORPUSCULAR HEMOGLOBIN 29.6 PG (27.0-34.0); MEAN CORPUSCULAR HGB CONC 34.1 % (32.0-36.0); MONO % 7.3 % (0.0-8.0); NEUT % 46.6 % (16.0-70.0); PLATELET COUNT 517 TH/MM3 (150-450); RED CELL DISTRIBUTION WIDTH 14.1 % (11.6-17.2); WHITE BLOOD COUNT 10.7 TH/MM3 (4.0-11.0)
--- NOTE | 2016-07-17 16:06 | RADRPT ---
EXAM DATE/TIME: 07/17/2016 15:44 [facility] COMPARISON: CHEST SINGLE AP, May 10, 2016, 18:02. INDICATIONS : Short of breath. MEDICAL HISTORY : Chronic obstructive pulmonary disease. Smoker. SURGICAL HISTORY : None. ENCOUNTER: Initial ACUITY: 1 day PAIN SCORE: 0/10 LOCATION: Bilateral chest FINDINGS: The heart size is normal. There is mild increased density at the right medial base. The left lung is clear. No effusion is seen. CONCLUSION: Mild atelectasis or consolidation at the medial right lung base. Ceferino Quigley MD on July 17, 2016 at 16:03 Board Certified Radiologist. This report was verified electronically.
[2016-07-17 16:09] LABS: ANION GAP 14 MEQ/L (5-15); AST (GOT) 44 U/L (15-37); BICARBONATE 24.4 MEQ/L (21.0-32.0); BLOOD UREA NITROGEN 10 MG/DL (7-18); CHLORIDE 92 MEQ/L (98-107); GLOMERULAR FILTRATION RATE 48 ML/MIN (>89); MAGNESIUM 1.6 MG/DL (1.5-2.5); POTASSIUM 3.4 MEQ/L (3.5-5.1); SODIUM (NA) 130 MEQ/L (136-145)
[2016-07-17 16:17] LABS: ALKALINE PHOSPHATASE 88 U/L (45-117); ALT (GPT) 18 U/L (10-53); CREATINE KINASE 184 U/L (26-192); TOTAL BILIRUBIN ADULT 0.4 MG/DL (0.2-1.0)
[2016-07-17] MEDS ORDERED: NITROGLYCERIN 2% OINT 1 GM PACKET TOPICAL ONE (16:30)
[2016-07-17 16:42] LABS: CKMB 12.2 NG/ML (0.5-3.6)
[2016-07-17] MEDS ORDERED: HEPARIN SODIUM - IV 10,000 UNITS/10 ML VIAL IV ONE (16:45)
[2016-07-17] MEDS ORDERED: HEPARIN-D5W INJ 250 ML IV SCH (16:45)
--- NOTE | 2016-07-17 16:53 | HHI.HP ---
[facility] Service Family Medicine Primary Care Physician Magnolia Quiroz MD Admission Diagnosis Diagnoses: Chief Complaint: chest pain, sob International Travel<30 Days: No Contact w/Intl Traveler<30days: No Known Affected Area: No History of Present Illness Patient states that this morning, when walking she felt as though she was going to faint. She states that she saw "lights" and felt ear fullness. She placed her head between knees to prevent anxiety attack. She then felt a discomfort over the left chest. The pain resolved and she started walking to the hospital. She used the bus to arrive her and states that she felt extremely weak. Patient describes pain as being 5-6/10 localized to the left chest that was sharp and now dull with some radiation to her back; no radiation to neck or jaw. The pain is worsened with deep breath and cough. There was associated nausea, diaphoresis at the onset of symptoms. The pain is worse after walking for about 1/2 block. She has been experiencing worsening dyspnea, hx of tobacco use. Patient states that she ran out of medications as she has been homeless since May. She last saw Dr. Quiroz in February 2016. She reports that although she had patient assistance, she was unable to pay for her medications, not including the inhaler. Patient ambulates with a walker. echo 01/24/16: grade 1 diastolic dysfunction (Cony Odell MD) Review of Systems Constitutional: COMPLAINS OF: Fever Respiratory: COMPLAINS OF: Cough, Shortness of breath Cardiovascular: COMPLAINS OF: Chest pain, DENIES: Palpitations, Syncope, Lower Extremity Edema Gastrointestinal: COMPLAINS OF: Nausea, DENIES: Abdominal pain, Vomiting Integumentary: COMPLAINS OF: Pruritus, Rash Neurologic: DENIES: Headache, Tremor Psychiatric: COMPLAINS OF: Anxiety, DENIES: Confusion (Cony Odell MD) Past Family Social History Past Medical History Hypertension COPD High heart ratepatient is unsure whether was irregular. Was on diltiazem about 8 years ago. Chronic tobacco abuse Past Surgical History Hysterectomy Reported Medications Reported Meds & Active Scripts Active Amlodipine (Amlodipine Besylate) 5 Mg Tab 10 Mg PO HS Take 2 tabs (10mg) at bedtime starting the night of 11/12. If you become light headed, only take 1 tab (5mg) Levaquin (Levofloxacin) 750 Mg Tab 750 Mg PO DAILY Metoprolol Tartrate 25 Mg Tab 25 Mg PO Q8HR Advair Diskus Inh (Fluticasone-Salmeterol Inh) 250-50 Mcg/Blist Aer 1 Puff INH BID Rinse mouth after use. Spiriva Handihaler (Tiotropium Inh) 18 Mcg Cap 18 Mcg INH DAILY 1 capsule = 18 mcg Lisinopril 20 Mg Tab 20 Mg PO DAILY Prednisone 10 Mg Tab 10 Mg PO DIRECTED 3 Tabs (30mg) for 5 days. 2 Tabs (20mg) for 5 days. 1 Tab (10mg) for 5 days Hydroxyzine HCl 10 Mg Tab 10 Mg PO Q8H PRN Famotidine 20 Mg Tab 10 Mg PO BID Aspirin EC (Aspirin) 81 Mg Tabdr 81 Mg PO DAILY Ventolin Hfa 18 GM Inh (Albuterol Sulfate) 90 Mcg/Act Aer 2 Puff INH Q4-6H PRN Permethrin Topical (Permethrin) 5% Cream 1 Applic TOPICAL ONCE Do not apply until 05/23 Reported Isosorbide Mononitrate ER (Isosorbide Mononitrate) 30 Mg Citlalli 30 Mg PO DAILY Atorvastatin (Atorvastatin Calcium) 40 Mg Tab 40 Mg PO HS Brilinta (Ticagrelor) 90 Mg Tab 90 Mg PO BID (Cony Odell MD) Allergies: Coded Allergies: No Known Allergies (Unverified , 07/17/16) Family History Both father and mother from heart attacks Social History homeless tobacco: 2-3 cigs/day, hx of 40 years tobacco use etoh: none in the past 6 months Denies any drug abuse. (Cony Odell MD) Physical Exam Vital Signs Vital Signs Date Time Temp Pulse Resp B/P Pulse Ox O2 Delivery O2 Flow Rate FiO2 07/17/16 15:54 136/63 99 Room Air 07/17/16 15:54 99 Room Air 07/17/16 15:11 20 99 Room Air 07/17/16 14:45 102 20 116/65 99 Room Air Physical Exam GENERAL: This is a thin female patient, appearing anxious throughout the physical exam. SKIN: Excoriation over extremities and trunk without tunneling lesions in web over hands. HEAD: Atraumatic. Normocephalic. No temporal or scalp tenderness. EYES: Pupils equal round and reactive. Extraocular motions intact. No scleral icterus. No injection or drainage. ENT: Nose without bleeding, purulent drainage or septal hematoma. Throat without erythema, tonsillar hypertrophy or exudate. Uvula midline. Airway patent. NECK: Trachea midline. No JVD or lymphadenopathy. Supple, nontender, no meningeal signs. CARDIOVASCULAR: Regular rate and rhythm without murmurs, gallops, or rubs. RESPIRATORY: Clear to auscultation. Breath sounds equal bilaterally. No wheezes , rales, or rhonchi. GASTROINTESTINAL: Abdomen soft, non-tender, nondistended. No hepato-splenomegaly , or palpable masses. No guarding. MUSCULOSKELETAL: Extremities without clubbing, cyanosis, or edema. No joint tenderness, effusion, or edema noted. No calf tenderness. Negative Homans sign bilaterally. NEUROLOGICAL: Awake and alert. Cranial nerves II through XII intact. Motor and sensory grossly within normal limits. Five out of 5 muscle strength in all muscle groups. Normal speech. Laboratory Laboratory Tests Test 07/17/16 15:30 White Blood Count 10.7 Red Blood Count 4.60 Hemoglobin 13.6 Hematocrit 40.0 Mean Corpuscular Volume 86.9 Mean Corpuscular Hemoglobin 29.6 Mean Corpuscular Hemoglobin 34.1 Concent Red Cell Distribution Width 14.1 Platelet Count 517 Mean Platelet Volume 7.6 Neutrophils (%) (Auto) 46.6 Lymphocytes (%) (Auto) 22.4 Monocytes (%) (Auto) 7.3 Eosinophils (%) (Auto) 22.7 Basophils (%) (Auto) 1.0 Neutrophils # (Auto) 5.0 Lymphocytes # (Auto) 2.4 Monocytes # (Auto) 0.8 Eosinophils # (Auto) 2.4 Basophils # (Auto) 0.1 CBC Comment DIFF FINAL Differential Comment Sodium Level 130 Potassium Level 3.4 Chloride Level 92 Carbon Dioxide Level 24.4 Anion Gap 14 Blood Urea Nitrogen 10 Creatinine 1.17 Estimat Glomerular Filtration 48 Rate Random Glucose 49 Calcium Level 8.7 Magnesium Level 1.6 Total Bilirubin 0.4 Aspartate Amino Transf 44 (AST/SGOT) Alanine Aminotransferase 18 (ALT/SGPT) Alkaline Phosphatase 88 Total Creatine Kinase 184 Troponin I 3.21 B-Type Natriuretic Peptide 361 Total Protein 6.8 Albumin 3.5 (Cony Odell MD) Result Diagram: 07/17/16 1530 07/17/16 1530 Septic Shock Reassessment Heart: Regular rate and rhythm Lungs: Clear Skin: Warm Peripheral Pulses: Bounding Right Posterior Tibial Bounding Left Posterior Tibial Capillary Refill: <2 seconds (Cony Odell MD) Assessment and Plan Assessment and Plan 56 yo F, hx of CAD, COPD, coming to ED for evaluation of chest pain and shortness of breath. Code Status Full Discussed Condition With sdw: Hernan Blanton (Cony Odell MD) Attending Attestation Patient seen and examined. Case reviewed and discussed with the resident team. Agree with plan of care as discussed with me and documented in the resident note. (Ursula Armstrong MD) Problem List: (1) Chest pain Status: Acute Plan: NSTEMI. Initial troponin elevated to 3.21. EKG showing left bundle branch block, unchanged from previous. No ST changes noticed. Of note, BNP elevated to 361, history of grade 1 diastolic dysfunction on echocardiogram January 2016. At that time, patient having severe mid LAD and right coronary artery stenosis, undergoing placement of stents on 02/01. Patient receiving Aspirin in the ED. Dr. Hartman aware of patient, possible cath tomorrow morning. -Admit to inpatient -Consult cardiology -ACS rule out, EKG and enzymes q6h -Heparin drip per Cardiology -NPO after MN (2) CAD (coronary artery disease) Status: Chronic Plan: Patient with history of CAD, stent placement in January 2016. We will continue metoprolol 25 mg by mouth every 12H Atorvastatin 40 mg by mouth HS Continue IMN HOLD Brilinta (3) Hypertension Status: Chronic Plan: BP wnl. She has not been taking any home meds. Continue lisinopril 20 mg by mouth daily Hold amlodipine 5 mg by mouth daily, consider restarting if BP elevated Vasotec prn BP > 160/90 Will monitor vitals (4) Tobacco abuse Status: Chronic Plan: Appropriately counseled (5) COPD (chronic obstructive pulmonary disease) Status: Chronic Plan: Initially wheezing per ED physician, clear lung exam s/p Solumedrol and Duoneb treatment x 1. Continue Spiriva Continue Advair Diskus Hold prednisone Nebulizer treatment when necessary (6) Itching Status: Resolved Plan: Rash over entire extremities, unlikely scabies. -Zyrtec -Benadryl when necessary -Hydrocortisone, Eucerin twice a day (7) FEN/PPX Status: Acute Plan: Heart healthy diet, nothing by mouth after midnight IV fluids: Normal saline at 90 Electrolytes: Potassium 3.4, repleted, repeat BMP in a.m. Heparin drip (Cony Odell MD) Physician Certification 2 Midnight Certification Type: Admission for Inpatient Services Order for Inpatient Services The services are ordered in accordance with Medicare regulations or non- Medicare payer requirements, as applicable. In the case of services not specified as inpatient-only, they are appropriately provided as inpatient services in accordance with the 2-midnight benchmark. Estimated LOS (days): 3 3 days is the estimated time the patient will need to remain in the hospital, assuming treatment plan goals are met and no additional complications. Post-Hospital Plan: Home (Cony Odell MD) Problem Qualifiers (1) COPD (chronic obstructive pulmonary disease): Qualified Code: J41.0 - Simple chronic bronchitis Cony Odell MD Jul 17, 2016 16:53 Ursula Armstrong MD Jul 18, 2016 11:58
[2016-07-17] MEDS ORDERED: SODIUM CHLORIDE 0.9% FLUSH 5 ML FLUSH FLUSH PRN (17:15)
[2016-07-17] MEDS ORDERED: NALOXONE HCL 0.4 MG/ML AMP IV PRN (17:15)
[2016-07-17] MEDS ORDERED: ONDANSETRON HCL 4 MG/2 ML VIAL IVP PRN (17:15)
--- NOTE | 2016-07-17 17:20 | HHI.FPPN ---
Subjective Remarks Pt. seen, examined and discussed with Drs. Odell and Hernan. This is a 56-year-old female who has lived out of doors since her hospitalization here in May for exertional chest pain. She was also hospitalized here in January and was seen by Dr. mg at that time. She reports the pain is in the left chest just below the left breast, is a 5-6 out of 10, initially was sharp but now it is dull and radiates through to her back but not her neck jaw or arms. It is a little bit worse with a deep breath and this morning it was associated with nausea but no vomiting and she did report sweats. She feels anxious and short of breath and her exercise tolerance is limited to approximately half a block if she uses her walker and stops to rest frequently. Reports being chronically short of breath and anxious, fearful of dying on the street. She has been completely out of her medications due to finances and has been told in the past that she should be on a blood thinner. Some productive cough but this does not exacerbate her pain in particular. Continues to smoke 2-3 cigarettes a day, is no longer using alcohol for the past approximately 6 months. Additional issue is chronic itching. She had been told she had scabies in the past, but now has itching everywhere, unrelieved by Caladryl and Benadryl tablets. Please see history and physical examination for this admission, for additional past, family, social history and additional review of systems. Ms. Tay opts for full CODE STATUS. Objective Vitals Vital Signs Date Time Temp Pulse Resp B/P Pulse Ox O2 Delivery O2 Flow Rate FiO2 07/17/16 15:54 136/63 99 Room Air 07/17/16 15:54 99 Room Air 07/17/16 15:11 20 99 Room Air 07/17/16 14:45 102 20 116/65 99 Room Air Result Diagram: 07/17/16 1530 07/17/16 1530 Other Results EKG reveals left bundle branch block with QRS 146 ms. No significant changes compared to EKG performed May 08, 2016. Laboratory Tests Test 07/17/16 15:30 Platelet Count 517 TH/MM3 Eosinophils (%) (Auto) 22.7 % Eosinophils # (Auto) 2.4 TH/MM3 Sodium Level 130 MEQ/L Potassium Level 3.4 MEQ/L Chloride Level 92 MEQ/L Creatinine 1.17 MG/DL Estimat Glomerular Filtration 48 ML/MIN Rate Random Glucose 49 MG/DL Aspartate Amino Transf 44 U/L (AST/SGOT) Creatine Kinase MB 12.2 NG/ML Troponin I 3.21 NG/ML B-Type Natriuretic Peptide 361 PG/ML Imaging Last Impressions Chest X-Ray 07/17/16 1520 Signed Impressions: Service Date/Time: Sunday, July 17, 2016 15:44 - CONCLUSION: Mild atelectasis or consolidation at the medial right lung base. Ceferino Quigley MD Objective Remarks This is a thin, anxious female in some respiratory distress with rapid respirations. PERRLA, EOMI, conjunctiva and sclera clear Neck supple, no palpable lymphadenopathy Heart is regular, bradycardic, distant Lungs reveal distant breath sounds, but she appears to be moving adequate air Abdomenactive bowel sounds, nontender to palpation Extremitiesthe skin of the trunk, abdomen, extremities has a coating of Caladryl lotion. There are deep excoriations in all the areas that she is able to reach with her fingernails. No obvious infection, but clearly this is an ongoing problem. The excoriations do not in particular involved the webspaces of her fingers or her waistband. Skin is very dry. A/P Assessment and Plan Exertional chest pain in a 56-year-old female with history of similar symptoms resulting in stent placement approximately 6 months ago. COPD Tobacco use disorder Homelessness Attending Attestation Patient seen and examined. Case reviewed and discussed with the resident team. Agree with plan of care as discussed with me and documented in the resident note. Problem List: (1) Chest pain Status: Acute Plan: -ACS rule out -Heparin drip -NPO after MN (2) Itching Status: Resolved Plan: -Zyrtec -Hydrocortisone, Eucerin (3) CAD (coronary artery disease) Status: Acute (4) Hypertension Status: Acute Plan: BP wnl. Will monitor vitals (5) Tobacco abuse Status: Acute Plan: Appropriately counseled (6) FEN/PPX Status: Acute Ursula Armstrong MD Jul 17, 2016 17:20
[2016-07-17] MEDS ORDERED: diphenhydrAMINE HCL 25 MG CAP PO PRN (17:45)
[2016-07-17] MEDS ORDERED: POTASSIUM CHLORIDE 20 MEQ CONTROLLED RELEASE TAB PO ONE (17:45)
[2016-07-17] MEDS: SODIUM CHLOR 0.9% 1000 ML INJ 1,000 ML IV SCH (17:53)
[2016-07-17] MEDS ORDERED: RESP: ALBUTEROL 2.5 MG/3 ML NEB (PRN) NEB (18:00)
[2016-07-17] MEDS ORDERED: ENALAPRILAT 1.25 MG/ML VIAL IV PUSH PRN (18:00)
[2016-07-17] MEDS ORDERED: PILL SPLITTER OTHER PRN (18:15)
[2016-07-17] MEDS: CETIRIZINE HCL 10 MG TAB PO SCH (19:28)
[2016-07-17] MEDS ORDERED: amLODIPine BESYLATE 5 MG TAB PO SCH (21:00)
[2016-07-17] MEDS ORDERED: TICAGRELOR 90 MG TAB PO SCH (21:00)
[2016-07-17 21:42] LABS: CREATINE KINASE 124 U/L (26-192)
[2016-07-17 21:48] LABS: APTT (PATIENT) 37.5 SEC (24.3-30.1); PROTHROMBIN TIME - PATIENT 10.7 SEC (9.8-11.6)
[2016-07-17] MEDS ORDERED: METOPROLOL TARTRATE 25 MG TAB PO SCH (22:00)
[2016-07-17] MEDS: FAMOTIDINE 20 MG TAB PO SCH (22:03)
[2016-07-17] MEDS: BUDESONIDE-FORMOTEROL 160/4.5 MCG INHALER INH SCH (22:04)
[2016-07-17] MEDS: SODIUM CHLORIDE 0.9% FLUSH 5 ML FLUSH FLUSH SCH (22:04)
[2016-07-17] MEDS: HYDROCORTISONE 2.5% CREAM 30 GM TOPICAL SCH (22:04)
[2016-07-17] MEDS: ATORVASTATIN 40 MG TAB PO SCH (22:04)
[2016-07-17] MEDS: EUCERIN CREAM 120 GM JAR TOPICAL SCH (22:04)
[2016-07-17 22:06] LABS: CKMB 7.4 NG/ML (0.5-3.6)
[2016-07-17] MEDS ORDERED: HEPARIN SODIUM - IV 10,000 UNITS/10 ML VIAL IV PRN ×2 (22:45)
[2016-07-18] VITALS (27 sets, daily range): BP systolic 104–136; BP diastolic 59–86; PULSE 85–121; RESP 16–20; TEMP 97.3–98.9; O2SAT 93–95
[2016-07-18 01:06] LABS: APTT (PATIENT) 29.1 SEC (24.3-30.1)
[2016-07-18] MEDS: SODIUM CHLOR 0.9% 1000 ML INJ 1,000 ML IV SCH (04:59)
[2016-07-18 06:51] LABS: AUTOMATED NEUTROPHIL # 7.7 TH/MM3 (1.8-7.7); BASOPHIL % 0.2 % (0.0-2.0); HEMATOCRIT 32.7 % (35.0-46.0); HEMO FLAGS DIFF FINAL; LYMPH % 11.9 % (9.0-44.0); LYMPHOCYTE # 1.1 TH/MM3 (1.0-4.8); MEAN CELL VOLUME 87.8 FL (80.0-100.0); MEAN CORPUSCULAR HEMOGLOBIN 29.9 PG (27.0-34.0); MONO % 4.2 % (0.0-8.0); NEUT % 83.7 % (16.0-70.0); PLATELET COUNT 367 TH/MM3 (150-450); RED BLOOD COUNT 3.73 MIL/MM3 (4.00-5.30); RED CELL DISTRIBUTION WIDTH 13.8 % (11.6-17.2); WHITE BLOOD COUNT 9.2 TH/MM3 (4.0-11.0)
[2016-07-18 07:28] LABS: BICARBONATE 23.7 MEQ/L (21.0-32.0); POTASSIUM 4.3 MEQ/L (3.5-5.1)
[2016-07-18] MEDS: FAMOTIDINE 20 MG TAB PO SCH ×2 (08:36→22:09)
[2016-07-18] MEDS: ISOSORBIDE MONONITRATE 30 MG TAB PO SCH (08:36)
[2016-07-18] MEDS: CETIRIZINE HCL 10 MG TAB PO SCH (08:36)
[2016-07-18] MEDS: METOPROLOL TARTRATE 25 MG TAB PO SCH ×2 (08:37→22:09)
[2016-07-18] MEDS: SODIUM CHLORIDE 0.9% FLUSH 5 ML FLUSH FLUSH SCH (08:40)
[2016-07-18] MEDS: BUDESONIDE-FORMOTEROL 160/4.5 MCG INHALER INH SCH ×2 (08:40→22:10)
[2016-07-18] MEDS: HYDROCORTISONE 2.5% CREAM 30 GM TOPICAL SCH ×2 (08:40→22:10)
[2016-07-18] MEDS: EUCERIN CREAM 120 GM JAR TOPICAL SCH ×2 (08:41→22:10)
[2016-07-18] MEDS: TIOTROPIUM BROMIDE 18 MCG INH INH SCH (08:41)
[2016-07-18] MEDS ORDERED: IOHEXOL 350 MG/ML 100 ML BTL (for Cath Lab) OTHER ONE (08:50)
[2016-07-18] MEDS ORDERED: HEPARIN-NS/PF INJ 500 ML ONE (08:54)
[2016-07-18] MEDS ORDERED: LISINOPRIL 20 MG TAB PO SCH (09:00)
[2016-07-18] MEDS ORDERED: MIDAZOLAM HCL 2 MG/2 ML VIAL ONE (09:02)
[2016-07-18] MEDS ORDERED: SODIUM CHLOR 0.9% 1000 ML INJ 1,000 ML IV SCH (09:54)
[2016-07-18] MEDS ORDERED: SODIUM CHLOR 0.9% 250 ML INJ 250 ML IV PRN (10:00)
[2016-07-18] MEDS ORDERED: ATROPINE SULFATE 1 MG/ML VIAL IV PRN (10:00)
[2016-07-18] MEDS ORDERED: LIDOCAINE HCL 1% 50 ML VIAL INFIL PRN (10:00)
[2016-07-18] MEDS ORDERED: BACITRACIN OINT 0.9 GM PKT TOP ONE (11:00)
[2016-07-18] MEDS ORDERED: MISC INFORMATION XX ONE (11:00)
--- NOTE | 2016-07-18 12:10 | HHI.FPPN ---
Subjective Remarks No acute events overnight. Vital signs unremarkable except for continued tachycardia. This morning patient was very anxious from all the commotion as she was about to go back for her cardiac catheter. Denies any chest pain but does endorse some SOB. (Giovanna Orona MD R2) Objective Vitals Vital Signs Date Time Temp Pulse Resp B/P Pulse Ox O2 Delivery O2 Flow Rate FiO2 07/18/16 08:00 111 07/18/16 07:30 98.6 121 18 136/86 95 07/18/16 07:24 105 07/18/16 06:00 107 07/18/16 05:03 107 07/18/16 04:02 104 07/18/16 03:30 98.3 109 16 136/86 95 07/18/16 03:13 104 07/18/16 02:03 101 07/18/16 02:00 102 07/18/16 01:06 102 07/18/16 00:00 100 07/17/16 23:25 98.9 102 16 109/63 94 07/17/16 23:15 107 07/17/16 23:00 103 07/17/16 22:00 96 07/17/16 21:00 100 07/17/16 20:55 106 07/17/16 20:45 97.9 109 18 145/81 97 07/17/16 19:31 98.4 105 18 151/89 100 Room Air 07/17/16 15:54 136/63 99 Room Air 07/17/16 15:54 99 Room Air 07/17/16 15:11 20 99 Room Air 07/17/16 14:45 102 20 116/65 99 Room Air I/O 07/17/16 07/17/16 07/17/16 07/18/16 07/18/16 07/18/16 07:00 15:00 23:00 07:00 15:00 23:00 Intake Total 1414 ml Output Total 200 ml Balance 1214 ml Intake Oral 480 ml IV Total 934 ml Output Urine Total 200 ml # Bowel Movements 0 (Giovanna Orona MD R2) Result Diagram: 07/18/16 0550 07/18/16 0550 Objective Remarks GEN: Thin-appearing female. Obviously anxious but in no acute distress. SKIN: Excoriations over extremities and trunk CV: Regular rate and rhythm without obvious murmurs LUNGS: Diminished breath sounds but otherwise clear. EXT: No edema. No calf tenderness. NEURO/PSYCH: Awake, alert. Appropriate insight and judgment. Normal speech ( Giovanna Orona MD R2) A/P Assessment and Plan 56 yo F, hx of CAD, COPD. Admitted for NSTEMI Discharge Planning 1-2 pending clearance by cardiology (Giovanna Orona MD R2) Attending Attestation Patient seen and examined. Case reviewed and discussed with the resident team. Agree with plan of care as discussed with me and documented in the resident note. (Ursula Armstrong MD) Problem List: (1) NSTEMI (non-ST elevated myocardial infarction) Status: Acute Plan: Found to have NSTEMI. Troponins elevated on admission but has improved. EKG unchanged from previous. History of grade 1 diastolic dysfunction on echo January 2016. Did have a stent placement on 02/02/16 Cardiology consulted: appreciate recommendations * Cath today * Heparin Drip Medications: * continue metoprolol 25mg q12 * Atorvastatin 40 mg by mouth HS * Lisinopril 20mg * Imdur * HOLD Brilinta * will need to add aspirin s/p cath (2) CAD (coronary artery disease) Status: Chronic Plan: See plan under NSTEMI (3) Itching Status: Resolved Plan: Rash over entire extremities, unlikely scabies. -Zyrtec -Benadryl when necessary -Hydrocortisone, Eucerin twice a day (4) Hypertension Status: Chronic Plan: Continue home meds. -Hold amlodipine 5 mg by mouth daily, consider restarting if BP elevated -Vasotec prn BP > 160/90 -Will monitor vitals (5) COPD (chronic obstructive pulmonary disease) Status: Chronic Plan: Continue Spiriva Continue Advair Diskus Albuterol PRN Hold prednisone (6) FEN/PPX Status: Acute Plan: Heart healthy diet IV fluids: Normal saline at 90, can be d/c after cath Electrolytes: Mild hyponatremia, continue to monitor DVT PPX: Heparin drip GI PPX: Pepcid (Giovanna Orona MD R2) Problem Qualifiers (1) COPD (chronic obstructive pulmonary disease): Qualified Code: J41.0 - Simple chronic bronchitis Giovanna Orona MD R2 Jul 18, 2016 12:10 Ursula Armstrong MD Jul 18, 2016 13:51
--- NOTE | 2016-07-18 13:50 | EKG ---
Date Performed: 07/18/2016 Time Performed: 03:11:34 PTAGE: 56 years EKG: Sinus tachycardia Left bundle branch block Abnormal ECG PREVIOUS TRACING : 07/17/2016 22.35 DOCTOR: Ziggy Sweeney Interpretating Date/Time 07/18/2016 13:47:36
--- NOTE | 2016-07-18 13:53 | EKG ---
Date Performed: 07/17/2016 Time Performed: 22:35:28 PTAGE: 56 years EKG: Sinus tachycardia Left bundle branch block Abnormal ECG PREVIOUS TRACING : 07/17/2016 16.07 DOCTOR: Ziggy Sweeney Interpretating Date/Time 07/18/2016 13:49:38
--- NOTE | 2016-07-18 14:03 | EKG ---
Date Performed: 07/17/2016 Time Performed: 16:07:12 PTAGE: 56 years EKG: Sinus rhythm WITH SHORT NE INTERVAL LEFT BUNDLE BRANCH BLOCK ABNORMAL ECG INTERPRETATION BASED ON A DEFAULT AGE O F 41 YEARS PREVIOUS TRACING : 05/08/2016 17.44 DOCTOR: Zgigy Sweeney Interpretating Date/Time 07/18/2016 13:56:52
[2016-07-18] MEDS ORDERED: CEFAZOLIN INJ 500 MG in SODIUM CHLORIDE 0.9% IRR BTL 500 ML IRRIGATION SCH (16:15)
[2016-07-18] MEDS ORDERED: INSULIN REGULAR (IV INFUSION) 100 UNITS in SODIUM CHLORIDE 0.9% INJ 100 ML IV SCH (16:15)
[2016-07-18] MEDS ORDERED: METOPROLOL TARTRATE 25 MG TAB PO SCH (16:15)
[2016-07-18] MEDS ORDERED: PAPAVERINE INJ 60 MG, NITROGLYCERIN INJ 100 MCG, DILTIAZEM INJ 100 MG in SODIUM CHLORID... IRRIGATION SCH (16:15)
[2016-07-18] MEDS ORDERED: CHLORHEXIDINE GLUCONATE 4% SOLN 120 ML BTL TOPICAL SCH (16:15)
[2016-07-18] MEDS ORDERED: ceFAZolin 2 GM PREMIX 50 ML IV SCH (16:15)
[2016-07-18] MEDS ORDERED: SODIUM CHLORIDE 0.9% FLUSH 5 ML FLUSH IV FLUSH PRN (16:15)
--- NOTE | 2016-07-18 16:23 | PD.CAR.PN ---
CVT Progress Note Subjective/Hospital Course: RISK SCORES About the STS Risk Calculator Procedure: CAB Only Risk of Mortality: 0.745% Morbidity or Mortality: 9.052% Long Length of Stay: 2.675% Short Length of Stay: 59.041% Permanent Stroke: 0.607% Prolonged Ventilation: 7.284% DSW Infection: 0.217% Renal Failure: 1.38% Reoperation: 3.359% Objective: Vital Signs Date Time Temp Pulse Resp B/P Pulse Ox O2 Delivery O2 Flow Rate FiO2 07/18/16 16:13 104 07/18/16 15:00 98.4 108 18 104/59 93 07/18/16 15:00 106 07/18/16 14:55 104 07/18/16 13:29 98 07/18/16 12:20 97 07/18/16 11:00 98.3 97 18 116/77 93 07/18/16 11:00 96 07/18/16 08:00 111 07/18/16 07:30 98.6 121 18 136/86 95 07/18/16 07:24 105 07/18/16 06:00 107 07/18/16 05:03 107 07/18/16 04:02 104 07/18/16 03:30 98.3 109 16 136/86 95 07/18/16 03:13 104 07/18/16 02:03 101 07/18/16 02:00 102 07/18/16 01:06 102 07/18/16 00:00 100 07/17/16 23:25 98.9 102 16 109/63 94 07/17/16 23:15 107 07/17/16 23:00 103 07/17/16 22:00 96 07/17/16 21:00 100 07/17/16 20:55 106 07/17/16 20:45 97.9 109 18 145/81 97 07/17/16 19:31 98.4 105 18 151/89 100 Room Air Labs: Laboratory Tests Test 07/18/16 05:50 White Blood Count 9.2 TH/MM3 (4.0-11.0) Red Blood Count 3.73 MIL/MM3 (4.00-5.30) Hemoglobin 11.1 GM/DL (11.6-15.3) Hematocrit 32.7 % (35.0-46.0) Mean Corpuscular Volume 87.8 FL (80.0-100.0) Mean Corpuscular Hemoglobin 29.9 PG (27.0-34.0) Mean Corpuscular Hemoglobin 34.0 % Concent (32.0-36.0) Red Cell Distribution Width 13.8 % (11.6-17.2) Platelet Count 367 TH/MM3 (150-450) Mean Platelet Volume 7.5 FL (7.0-11.0) Neutrophils (%) (Auto) 83.7 % (16.0-70.0) Lymphocytes (%) (Auto) 11.9 % (9.0-44.0) Monocytes (%) (Auto) 4.2 % (0.0-8.0) Eosinophils (%) (Auto) 0.0 % (0.0-4.0) Basophils (%) (Auto) 0.2 % (0.0-2.0) Neutrophils # (Auto) 7.7 TH/MM3 (1.8-7.7) Lymphocytes # (Auto) 1.1 TH/MM3 (1.0-4.8) Monocytes # (Auto) 0.4 TH/MM3 (0-0.9) Eosinophils # (Auto) 0.0 TH/MM3 (0-0.4) Basophils # (Auto) 0.0 TH/MM3 (0-0.2) CBC Comment DIFF FINAL Differential Comment Activated Partial 38.0 SEC Thromboplast Time (24.3-30.1) Sodium Level 132 MEQ/L (136-145) Potassium Level 4.3 MEQ/L (3.5-5.1) Chloride Level 98 MEQ/L (98-107) Carbon Dioxide Level 23.7 MEQ/L (21.0-32.0) Anion Gap 10 MEQ/L (5-15) Blood Urea Nitrogen 16 MG/DL (7-18) Creatinine 1.01 MG/DL (0.50-1.00) Estimat Glomerular Filtration 57 ML/MIN (>89) Rate Random Glucose 141 MG/DL (74-106) Calcium Level 8.6 MG/DL (8.5-10.1) Result Diagram: 07/18/16 0550 07/18/16 0550 Nicolle Benitez Jul 18, 2016 16:23
--- NOTE | 2016-07-18 17:23 | MB ---
cc: CAREY YEE MD DATE OF CONSULTATION 07/18/16 1961 HISTORY OF PRESENT ILLNESS A 56-year-old female admitted via the emergency department with chest pain, shortness of breath. Apparently, she is homeless and she was walking. It felt like she was very faint, thought she was going to have an anxiety attack and developed some left-sided chest pain. The pain resolved. She started walking towards the hospital. She took the bus and, on arrival, she was very weak. The pain was described 5/10, located left chest, worsening with deep breath and a cough, also had some nausea and diaphoresis. She has been experiencing some shortness of breath. Apparently, her last admission was in May for COPD exacerbation and was seen and evaluated by Dr. Ruiz at that time, was placed on Breo Ellipta, prednisone, Spiriva. She had some history of scabies with some linear excoriations on for upper and lower extremities, was treated with some p.r.n. hydroxyzine, treated with . Prior to that admission, she was also admitted back in January 2016 for chest pain and non STEMI. She was seen by Dr. Hartman, had a left bundle-branch block at that time, was felt like she had evidence of some CHF, diastolic in nature. The EF was normal at that time. She was placed on low-dose NEGRO inhibitor and also some beta ebony. She underwent cardiac cath which she had a two-part procedure. The first procedure the patient had a PCI with bare metal stent to the mid left LAD followed by return to the labor supervisor where she had orbital rotational atherectomy endovascular stenting with bare metal stent to the mid RCA. She was placed on Brilinta at that time, because of the availability and 30-day area to 90-day free medication. Per the patient, she has not had any medication since May. She presented again with chest pain, underwent cardiac cath by Dr. Hartman with mid distal LAD 95% stenosed, diagonal 50%, circ was 75%, RCA 95%. We were consulted to evaluate for coronary artery bypass grafting. PAST MEDICAL HISTORY 1. Diastolic CHF, 2. COPD, 3. Hypertension. 4. Homeless. 5. Chronic tobacco abuse 6. Coronary artery disease PAST SURGICAL HISTORY 1. Hysterectomy. 2. History of cervical cancer. 3. Orbital rotational arthrectomy. 4. RCA bare metal stent to the RCA. ALLERGIES The patient has no known allergies. MEDICATIONS She has not taken any medication in May. FAMILY HISTORY Both parents from [place]. SOCIAL HISTORY The patient homeless, smokes two to three cigarettes a day. history of 40-year history. No alcohol in the last six months. REVIEW OF SYSTEMS 12 system reviewed otherwise negative other than what is in the History of Present Illness. PHYSICAL EXAMINATION VITAL SIGNS: Blood pressure 100/60, heart rate of 80, temperature max 98.9. GENERAL: Patient is awake, alert, very tearful, very emotional, crying. HEENT: Head is normocephalic, atraumatic. SKIN: She has linear excoriations on the upper and lower extremities with different stage healing of type of rash pruritic in nature to the upper and lower extremities. NECK: Supple. No JVD. CARDIAC: Heart sounds S1-S2 regular rate and rhythm. No rubs, murmurs, gallops. LUNGS: Clear to auscultation. No wheezes, rales or rhonchi. ABDOMEN: Soft, flat, nontender. No masses or organomegaly. EXTREMITIES: No cyanosis, clubbing or edema. LABORATORY FINDINGS Hemoglobin 11, hematocrit 32, white cell count 9.2, platelet count 367. Sodium 132, potassium 4.3, BUN 16, creatinine 1.01, glucose 141, troponin was 3.21, INR 1.0. Urinalysis pending. IMAGING STUDIES Chest x-ray is unremarkable. IMPRESSION This is a 56-year-old female with recurrent chest pain, unstable angina, prior PCI atherectomy and bare metal stent to the RCA now with disease to the LAD, also to the diagonal and the circumflex. The patient's cardiac films have been evaluated by Dr. Carey Yee. Procedures, alternatives and risks have been discussed with the patient PLAN Coronary artery bypass grafting x3 on FridayJuly 24. Further testing will be done at this time. Further planning as per Dr. Carey Yee. Dictated by SHELTON Moyer Carey CRUZ/ /4:32 PM /12:18 PM
--- NOTE | 2016-07-18 19:45 | MA ---
cc: DAVID LOMBARDO DATE: 07/18/2016. PROCEDURE PERFORMED: 1. Fluoroscopy with interpretation. 2. Coronary angiography 3. Left heart catheterization 4. Left ventriculography. METHOD: Risks, benefits, and alternatives were discussed with the patient and the patient understood and consented to the procedure. DESCRIPTION OF THE PROCEDURE IN DETAIL: The patient was brought into the catheterization lab and placed on the catheterization table. The right groin was prepped and draped in sterile fashion. Right groin was anesthetized with 2% lidocaine. Right common femoral artery was cannulated and a 5-[place] 11-cm sheath was placed without difficulty. LEFT HEART CATHETERIZATION: A 5-[place] angled pigtail catheter was advanced across the aortic valve without difficulty. Intraventricular hemodynamics were measured at 90/42 mmHg. LEFT VENTRICULOGRAPHY: Left ventriculography was performed in THE right anterior oblique view using a 5-[place] angled pigtail catheter and a 24 mL contrast injection WITH good opacification. Left ventricle ejection fraction visually estimated AT 65% without regional wall motion abnormalities. CORONARY ANGIOGRAPHY: 1. Left main coronary artery has mild luminal irregularities and mild calcium present. 2. Left anterior descending coronary is quite tortuous. In the mid segment, there is a stent present with 95% in-stent re-stenosis. There is a diagonal branch at the proximal stent bifurcation that has mild to moderate disease. The remainder of the left anterior descending coronary has mild luminal irregularities. 3. The left circumflex gives rise to an obtuse marginal branch. Just prior to the bifurcation, there is a 75% tubular stenosis. There is a ramus intermedius branch which is large in caliber which is widely patent. 4. The right coronary artery has a stent present in the mid segment and 95% in-stent re-stenosis. The posterior descending branch is widely patent. LEFT UPPER EXTREMITY ANGIOGRAPHY: The left subclavian was selectively injected. The left subclavian is widely patent. There is some mild disease with 30% stenosis of the proximal left internal mammary artery but does not appear to be obstructive. CONCLUSIONS: 1. Severe three-vessel coronary disease involving re-stenosis with two bare-metal stents in the left anterior descending and right coronary artery. 2. Normal left ventricular systolic function. PLAN: Given the patient's in-stent re-stenosis, multivessel disease and inability to afford long-term antiplatelet therapy for consideration drug-eluting stent placement, I think she would be best served with surgical revascularization. We will consult cardiothoracic surgery for their input. MD MARLA Fermin/JESSICA /9:57 AM /7:23 PM
[2016-07-18 20:29] LABS: COMMENT (UR) CULT NOT INDICATED; CULTURE IF INDICATED CULT NOT INDICATED; SQUAMOUS EPITHELIAL CELL URINE <1 /hpf (0-5)
[2016-07-18 20:30] LABS: BLOOD, URINE NEG (NEG); GLUCOSE,URINE NEG (NEG); KETONE, URINE NEG (NEG); NITRITE,URINE NEG (NEG); PH, URINE 5.5 (5.0-8.5); URINE COLOR YELLOW (YELLW/STRAW)
[2016-07-18] MEDS: SODIUM CHLORIDE 0.9% FLUSH 5 ML FLUSH IV FLUSH SCH (22:09)
[2016-07-18] MEDS: LORazepam 2 MG/ML VIAL IV PRN (22:09)
[2016-07-18] MEDS: ATORVASTATIN 40 MG TAB PO SCH (22:09)
--- NOTE | 2016-07-18 22:36 | RADRPT ---
EXAM DATE/TIME: 07/18/2016 20:53 [facility] COMPARISON: No previous studies available for comparison. INDICATIONS : Preop cardiac surgery. MEDICAL HISTORY : Myocardial infarction. Congestive heart failure. Hypertension. Seizures. CAD. Chest pain. Afib. COPD. Dyspnea. Cervical cancer. UTI. Arthritis. Pruritis. SURGICAL HISTORY : Coronary artery stent. Hysterectomy. Heart transplant. Oophorectomy. Radiation therapy. Cardiac cat h. ENCOUNTER: Initial ACUITY: 1 day PAIN SCORE: 0/10 LOCATION: Bilateral neck PEAK SYSTOLIC VELOCITIES (cm/sec): ICA/CCA RATIO: Right: 1.3 Left: 1.4 ICA: Right: 156 Left: 152 CCA: Right: 119 Left: 112 ECA: Right: 292 Left: 164 VERTEBRAL: Right: 83 antegrade Left: 61 antegrade Elevated flow velocities and ICA/CCA ratios have been found to correlate with increased degrees of vessel stenosis, calculated as percentage of diameter relative to a normal segment of distal ICA/CCA FINDINGS: RIGHT CAROTID: Moderate plaque seen CCA, bulb and proximal ICA. LEFT CAROTID: Mild to moderate plaque seen CCA, bulb and proximal ICA. VERTEBRAL ARTERIES: Antegrade flow is seen in both vertebral arteries. MISCELLANEOUS: None. CONCLUSION: Bilateral carotid atherosclerotic plaque, fairly widespread, right more so than left. 50% or less jose miguel rowing on the right and 30% or less narrowing on the left. Doppler interrogation confirms no evidence of hemodynamically significant stenosis. Ceferino Oscar MD on July 18, 2016 at 22:33 Board Certified Radiologist. This report was verified electronically.
--- NOTE | 2016-07-18 22:50 | RADRPT ---
EXAM DATE/TIME: 07/18/2016 21:18 [facility] COMPARISON: No previous studies available for comparison. INDICATIONS : Preop cardiac surgery. MEDICAL HISTORY : Myocardial infarction. Congestive heart failure. Hypertension. Seizures. CAD. Chest pain. Afib. COPD. Dyspnea. Cervical cancer. UTI. Arthritis. Pruritis. SURGICAL HISTORY : Coronary artery stent.Hysterectomy. Heart transplant. Oophorectomy. Radiation therapy. Cardiac cath. ENCOUNTER: Initial ACUITY: 1 day PAIN SCORE: 0/10 LOCATION: Bilateral leg. TECHNIQUE: Venous ultrasound of the left and right leg was performed from the inguinal ligament to the proximal calf. Real-time, color Doppler and spectral tracing, compression and augmentation techniques were us ed. FINDINGS: RIGHT LEG: There is normal compressibility of the deep venous system from the inguinal region to the proximal ca lf. No echogenic clot is seen in the lumen of the common femoral, femoral, popliteal, and posterior tibial veins. There is a normal response of the venous system to proximal and distal augmentation an d respiration. Complex fluid collection seen posterior to the right knee 1.2 x 4.1 x 4.8 cm. LEFT LEG: There is normal compressibility of the deep venous system from the inguinal region to the proximal ca lf. No echogenic clot is seen in the lumen of the common femoral, femoral, popliteal, and posterior tibial veins. There is a normal response of the venous system to proximal and distal augmentation an d respiration. CONCLUSION: No DVT of either lower extremity. Popliteal cyst on the right. Ceferino Oscar MD on July 18, 2016 at 22:48 Board Certified Radiologist. This report was verified electronically.
--- NOTE | 2016-07-18 22:53 | RADRPT ---
EXAM DATE/TIME: 07/18/2016 21:27 [facility] COMPARISON: No previous studies available for comparison. INDICATIONS : Preop cardiac surgery. MEDICAL HISTORY : Myocardial infarction. Congestive heart failure. Hypertension. Seizures. CAD. Chest pain. Afib. COPD. Dyspnea. Cervical cancer. UTI. Arthritis. Pruritis. SURGICAL HISTORY : Coronary artery stent. Hysterectomy. Heart transplant. Oophorectomy. Radiation therapy. Cardiac cath . ENCOUNTER: Initial ACUITY: 1 day PAIN SCORE: 0/10 LOCATION: Bilateral leg. GREATER SAPHENOUS VEIN THIGH: PROXIMAL: Right 3 mm Left 3 mm MID: Right 4 mm Left 4 mm DISTAL: Right 3 mm Left 3 mm CALF: PROXIMAL: Right 2 mm Left 2 mm MID: Right 2 mm Left 3 mm DISTAL: Right 2 mm Left 2 mm FINDINGS: The venous system of the lower extremities are patent by color Doppler imaging. Measurements of the leg veins (in mm) are listed above. CONCLUSION: Patent bilateral lower extremity venous tributaries. Measurements as above. Ceferino Oscra MD on July 18, 2016 at 22:50 Board Certified Radiologist. This report was verified electronically.
[2016-07-19] VITALS (26 sets, daily range): BP systolic 137–153; BP diastolic 79–87; PULSE 70–103; RESP 16–19; TEMP 98.1–98.4; O2SAT 93–95
[2016-07-19 07:14] LABS: AUTOMATED NEUTROPHIL # 6.8 TH/MM3 (1.8-7.7); BASOPHIL # 0.1 TH/MM3 (0-0.2); BASOPHIL % 0.7 % (0.0-2.0); EOSINOPHIL # 0.4 TH/MM3 (0-0.4); EOSINOPHIL % 3.8 % (0.0-4.0); HEMATOCRIT 33.1 % (35.0-46.0); HEMO FLAGS DIFF FINAL; LYMPH % 20.6 % (9.0-44.0); LYMPHOCYTE # 2.1 TH/MM3 (1.0-4.8); MEAN CELL VOLUME 87.5 FL (80.0-100.0); MEAN CORPUSCULAR HEMOGLOBIN 28.7 PG (27.0-34.0); MEAN CORPUSCULAR HGB CONC 32.8 % (32.0-36.0); MONO % 9.4 % (0.0-8.0); NEUT % 65.5 % (16.0-70.0); PLATELET COUNT 356 TH/MM3 (150-450); RED BLOOD COUNT 3.78 MIL/MM3 (4.00-5.30); RED CELL DISTRIBUTION WIDTH 13.7 % (11.6-17.2); WHITE BLOOD COUNT 10.3 TH/MM3 (4.0-11.0)
[2016-07-19 07:26] LABS: BICARBONATE 25.8 MEQ/L (21.0-32.0); POTASSIUM 3.9 MEQ/L (3.5-5.1)
--- NOTE | 2016-07-19 08:04 | HHI.FPPN ---
Subjective Remarks No acute events overnight. VS unremarkable. This morning she remains anxious about her health condition because she feels like she is just going down ever since May. due to the fact that she cannot afford medications even if they are just $7 and the fact that she is living [address]. She is also complaining of SOB that is always worse in the AM due to a productive cough. Denies CP. Pruritus is still bad. (Giovanna Orona MD R2) Objective Vitals Vital Signs Date Time Temp Pulse Resp B/P Pulse Ox O2 Delivery O2 Flow Rate FiO2 07/19/16 07:25 88 07/19/16 06:00 93 07/19/16 05:00 86 07/19/16 04:34 90 07/19/16 03:35 88 07/19/16 03:35 98.2 90 16 148/87 93 07/19/16 02:53 83 07/19/16 02:07 87 07/19/16 01:05 97 07/19/16 00:00 85 07/18/16 23:10 97.3 93 18 134/77 93 07/18/16 23:01 85 07/18/16 22:33 95 07/18/16 21:38 93 07/18/16 20:00 100 07/18/16 19:35 98.9 107 20 123/70 94 07/18/16 19:31 106 07/18/16 18:34 104 07/18/16 17:27 96 07/18/16 16:13 104 07/18/16 15:00 98.4 108 18 104/59 93 07/18/16 15:00 106 07/18/16 14:55 104 07/18/16 13:29 98 07/18/16 12:20 97 07/18/16 11:00 98.3 97 18 116/77 93 07/18/16 11:00 96 I/O 07/18/16 07/18/16 07/18/16 07/19/16 07/19/16 07/19/16 07:00 15:00 23:00 07:00 15:00 23:00 Intake Total 1414 ml 1120 ml 470 ml Output Total 200 ml 400 ml Balance 1214 ml 1120 ml 70 ml Intake Oral 480 ml 720 ml 470 ml IV Total 934 ml 400 ml Output Urine Total 200 ml 400 ml # Voids 2 # Bowel Movements 0 1 0 (Giovanna Orona MD R2) Result Diagram: 07/19/1645 07/19/1645 Objective Remarks GEN: Thin-appearing female. Obviously anxious and tearful but in no acute distress. SKIN: Excoriations over extremities and trunk CV: Regular rate and rhythm without obvious murmurs LUNGS: Diminished breath sounds but with intermittent diffuse wheezing. EXT: No edema. No calf tenderness. NEURO/PSYCH: Awake, alert. Appropriate insight and judgment. Normal speech ( Giovanna Orona MD R2) A/P Assessment and Plan 56 yo F, hx of CAD, COPD. Admitted for NSTEMI Discharge Planning unknown, pending recovery from upcoming CABG. wdw Dr. Armstrong (Giovanna Orona MD R2) Attending Attestation Patient seen and examined. Case reviewed and discussed with the resident team. Agree with plan of care as discussed with me and documented in the resident note. (Ursula Armstrong MD) Problem List: (1) NSTEMI (non-ST elevated myocardial infarction) Status: Acute Plan: Found to have NSTEMI. Troponins elevated on admission but has improved. EKG unchanged from previous. History of grade 1 diastolic dysfunction on echo January 2016. Did have a stent placement on 02/02/16 Cardiology consulted: appreciate recommendations * Cath 07/18: showed mid distal LAD stenosis of 95%, diagonal 50%, and RCA 95%. * Consulted CT surg for CABG CV consulted: Appreciate recommendations * CABG 3 scheduled for 07/24 Medications: * continue metoprolol 25mg q12 * Atorvastatin 40 mg * Lisinopril 20mg * Imdur * HOLD Brilinta * Aspirin 81 mg (2) CAD (coronary artery disease) Status: Chronic Plan: See plan under NSTEMI (3) Itching Status: Resolved Plan: Rash over entire extremities, unlikely scabies. -Zyrtec -Benadryl when necessary -Hydrocortisone, Eucerin twice a day -Vaseline every 3 (4) COPD (chronic obstructive pulmonary disease) Status: Chronic Plan: Chronic COPD symptoms that are worse in the morning -Added Mucinex and scheduled Duonebs -Continue Spiriva -Continue Advair Diskus -Albuterol PRN -Hold prednisone, consider resuming if respiratory status worsens (5) Hypertension Status: Chronic Plan: Continue home meds. -Hold amlodipine 5 mg by mouth daily, consider restarting if BP elevated -Vasotec prn BP > 160/90 -Will monitor vitals (6) FEN/PPX Status: Acute Plan: Heart healthy diet IV fluids: None Electrolytes: Unremarkable, continue to monitor DVT PPX: Heparin q8 SQ GI PPX: Pepcid (Giovanna Orona MD R2) Problem Qualifiers (1) COPD (chronic obstructive pulmonary disease): Qualified Code: J41.0 - Simple chronic bronchitis Giovanna Orona MD R2 Jul 19, 2016 08:04 Ursula Armstrong MD Jul 19, 2016 13:51
[2016-07-19] MEDS ORDERED: PETROLATUM 30 GM TUBE TOPICAL PRN (08:15)
[2016-07-19] MEDS ORDERED: RESP: ALBUTEROL 2.5 MG/IPRATROPIUM 0.5 MG NEB (SCH) NEB ONE (08:15)
--- NOTE | 2016-07-19 08:57 | MB ---
cc: DAVID LOMBARDO MD DATE OF CONSULTATION: 07/18/2016 REASON FOR CONSULTATION Non-ST elevation MD. HISTORY OF PRESENT ILLNESS This is a very nice 56-year-old female. She has a prior history of known heart disease with percutaneous intervention to the left anterior descending and right coronary arteries. She has been homeless and not able to get any medications. She presented to the emergency department with acute onset of substernal chest pain with a dull ache. There was no radiation. There was some associated shortness of breath. She ruled in by cardiac biomarkers with elevated troponin. We were consulted for further recommendations. PAST MEDICAL HISTORY 1. Hypertension. 2. COPD. 3. Chronic tobacco abuse. PAST SURGICAL HISTORY Hysterectomy. MEDICATIONS Her reported medications are: 1. Isosorbide. 2. Atorvastatin. 3. Brilinta. Although she has not been compliant. FAMILY HISTORY Denies and family history of early coronary artery disease or sudden cardiac . SOCIAL HISTORY She is homeless. She smokes 2-3 packs of cigarettes a day. She has been smoking for over 40 years. She has not used any alcohol recently. No drug use. REVIEW OF SYSTEMS A 12-point review of systems is performed and negative unless otherwise noted in the history of present illness. PHYSICAL EXAMINATION VITAL SIGNS: Temperature 98, pulse 105, blood pressure 136/86 mmHg. GENERAL: Alert and oriented x3 in no acute distress. HEENT: Pupils are reactive to light and accommodation. Extraocular movements are intact. NECK: No jugular venous distention. No thyromegaly. No lymphadenopathy. No carotid bruits. LUNGS: Clear to auscultation bilaterally. CARDIOVASCULAR: Regular rate and rhythm without murmurs, rubs or gallops. ABDOMEN: Nontender, nondistended. Good bowel sounds. No hepatosplenomegaly. EXTREMITIES: No clubbing, cyanosis or edema. Good peripheral pulses. NEUROLOGIC: Cranial nerves intact. Motor and sensory grossly intact. LABORATORY DATA WBC 9.2, hemoglobin 11.1, platelet count 367. INR is 1.0. Sodium 132, potassium 4.3, BUN 16, creatinine 1.01. Troponin is elevated at 3.21. ASSESSMENT 1. Non-ST elevation MD. 2. History of coronary artery disease with prior percutaneous intervention. 3. Hypertension. 4. COPD. PLAN Given the patient's stuttering symptoms ongoing in addition to elevated troponin and known history of heart disease, she will need heart catheterization. We discussed the risks, benefits and alternatives. She is agreeable to proceed. She is currently n.p.o.. Will take her over to the catheterization lab and proceed with heart catheterization. MD MARLA Fermin/LUNA /8:41 AM /8:42 AM
[2016-07-19] MEDS: HYDROCORTISONE 2.5% CREAM 30 GM TOPICAL SCH ×2 (09:00→21:00)
[2016-07-19] MEDS: EUCERIN CREAM 120 GM JAR TOPICAL SCH ×2 (09:00→21:00)
[2016-07-19] MEDS: ISOSORBIDE MONONITRATE 30 MG TAB PO SCH (09:25)
[2016-07-19] MEDS: guaiFENesin E.R. 600 MG TAB PO SCH ×2 (09:25→22:22)
[2016-07-19] MEDS: FAMOTIDINE 20 MG TAB PO SCH ×2 (09:25→22:22)
[2016-07-19] MEDS: TIOTROPIUM BROMIDE 18 MCG INH INH SCH (09:25)
[2016-07-19] MEDS: BUDESONIDE-FORMOTEROL 160/4.5 MCG INHALER INH SCH ×2 (09:26→21:00)
[2016-07-19] MEDS: METOPROLOL TARTRATE 25 MG TAB PO SCH ×2 (09:26→22:22)
[2016-07-19] MEDS: ASPIRIN 81 MG CHEW TAB CHEW SCH (09:26)
[2016-07-19] MEDS: SODIUM CHLORIDE 0.9% FLUSH 5 ML FLUSH IV FLUSH SCH ×2 (09:28→21:00)
[2016-07-19] MEDS: CETIRIZINE HCL 10 MG TAB PO SCH (09:44)
[2016-07-19] MEDS: LORazepam 2 MG/ML VIAL IV PRN (09:44)
--- NOTE | 2016-07-19 11:05 | PD.CARD.PN ---
Subjective Subjective Remarks continues to feel SOB at rest, denies chest pain or palpitation. Feeling tearful and overwhelmed. Objective Medications Current Medications Medications (Trade) Dose Ordered Sig/Addison Route Start Time Stop Time Status Last Admin (Zofran Inj) 4 mg Q6H PRN IVP 07/17/16 17:15 (Narcan Inj) 0.4 mg UNSCH PRN IV 07/17/16 17:15 (Lipitor) 40 mg HS PO 07/17/16 21:00 07/18/16 22:09 (Pepcid) 10 mg BID PO 07/17/16 21:00 07/19/16 09:25 (Imdur) 30 mg DAILY PO 07/18/16 09:00 07/19/16 09:25 (Spiriva Inh) 18 mcg DAILY INH 07/18/16 09:00 07/19/16 09:25 (Symbicort 160-4.5 Inh) 2 puff BID INH 07/17/16 21:00 07/19/16 09:26 (Eucerin Cream) 1 applic BID TOPICAL 07/17/16 21:00 07/19/16 09:00 (Eldecort 2.5% Cream) 1 applic BID TOPICAL 07/17/16 21:00 07/19/16 09:00 (Benadryl) 25 mg Q6H PRN PO 07/17/16 17:45 (Lopressor) 25 mg BID PO 07/18/16 09:00 07/19/16 09:26 (ZyrTEC) 10 mg DAILY PO 07/17/16 18:00 07/19/16 09:44 (Pill Splitter) 1 ea UNSCH PRN OTHER 07/17/16 18:15 (Atropine Inj) 0.5 mg UNSCH PRN IV 07/18/16 10:00 (NS Flush) 2 ml BID IV FLUSH 07/18/16 21:00 07/19/16 09:28 (NS Flush) 2 ml UNSCH PRN IV FLUSH 07/18/16 16:15 (Aspirin Chew) 81 mg DAILY CHEW 07/19/16 09:00 07/19/16 09:26 (Mucinex Er) 600 mg BID PO 07/19/16 09:00 07/19/16 09:25 (Vaseline Oint) 1 applic UNSCH PRN TOPICAL 07/19/16 08:15 (Heparin Inj) 5,000 units Q8H SQ 07/19/16 10:00 (PROzac) 10 mg DAILY PO 07/19/16 12:00 Vital Signs / I&O Vital Signs Date Time Temp Pulse Resp B/P Pulse Ox O2 Delivery O2 Flow Rate FiO2 07/19/16 10:00 70 07/19/16 09:33 98.1 97 16 140/79 93 07/19/16 09:00 87 07/19/16 08:00 98 07/19/16 07:25 88 07/19/16 06:00 93 07/19/16 05:00 86 07/19/16 04:34 90 07/19/16 03:35 88 07/19/16 03:35 98.2 90 16 148/87 93 07/19/16 02:53 83 07/19/16 02:07 87 07/19/16 01:05 97 07/19/16 00:00 85 07/18/16 23:10 97.3 93 18 134/77 93 07/18/16 23:01 85 07/18/16 22:33 95 07/18/16 21:38 93 07/18/16 20:00 100 07/18/16 19:35 98.9 107 20 123/70 94 07/18/16 19:31 106 07/18/16 18:34 104 07/18/16 17:27 96 07/18/16 16:13 104 07/18/16 15:00 98.4 108 18 104/59 93 07/18/16 15:00 106 07/18/16 14:55 104 07/18/16 13:29 98 07/18/16 12:20 97 07/18/16 11:00 98.3 97 18 116/77 93 07/18/16 11:00 96 I/O 07/18/16 07/18/16 07/18/16 07/19/16 07/19/16 07/19/16 06:59 14:59 22:59 06:59 14:59 22:59 Intake Total 1414 ml 1120 ml 470 ml Output Total 200 ml 400 ml Balance 1214 ml 1120 ml 70 ml Intake Oral 480 ml 720 ml 470 ml IV Total 934 ml 400 ml Output Urine Total 200 ml 400 ml # Voids 2 # Bowel Movements 0 1 0 Physical Exam HEAD: Atraumatic. Normocephalic. EYES: Pupils equal and round. No scleral icterus. ENT: No nasal bleeding or discharge. . NECK: Trachea midline. No JVD. CARDIOVASCULAR: Regular rate and rhythm. No murmur RESPIRATORY: No accessory muscle use. Clear to auscultation. Breath sounds equal bilaterally. GASTROINTESTINAL: Abdomen soft, non-tender, nondistended. MUSCULOSKELETAL: Extremities without clubbing, cyanosis, or edema. No obvious deformities. NEUROLOGICAL: Awake and alert. No obvious cranial nerve deficits. Normal speech. PSYCHIATRIC: Appropriate mood and affect; insight and judgment normal. Laboratory Laboratory Tests Test 07/18/16 07/18/16 07/19/16 16:10 18:20 05:45 Nasal Screen MRSA (PCR) POSITIVE Urine Color YELLOW Urine Turbidity CLEAR Urine pH 5.5 Urine Specific [place] 1.039 Urine Protein NEG mg/dL Urine Glucose (UA) NEG mg/dL Urine Ketones NEG mg/dL Urine Occult Blood NEG Urine Nitrite NEG Urine Bilirubin NEG Urine Urobilinogen LESS THAN 2.0 MG/DL Urine Leukocyte Esterase NEG Urine WBC LESS THAN 1 /hpf Urine Squamous Epithelial <1 /hpf Cells Microscopic Urinalysis Comment CULT NOT INDICATED White Blood Count 10.3 TH/MM3 Red Blood Count 3.78 MIL/MM3 Hemoglobin 10.9 GM/DL Hematocrit 33.1 % Mean Corpuscular Volume 87.5 FL Mean Corpuscular Hemoglobin 28.7 PG Mean Corpuscular Hemoglobin 32.8 % Concent Red Cell Distribution Width 13.7 % Platelet Count 356 TH/MM3 Mean Platelet Volume 7.3 FL Neutrophils (%) (Auto) 65.5 % Lymphocytes (%) (Auto) 20.6 % Monocytes (%) (Auto) 9.4 % Eosinophils (%) (Auto) 3.8 % Basophils (%) (Auto) 0.7 % Neutrophils # (Auto) 6.8 TH/MM3 Lymphocytes # (Auto) 2.1 TH/MM3 Monocytes # (Auto) 1.0 TH/MM3 Eosinophils # (Auto) 0.4 TH/MM3 Basophils # (Auto) 0.1 TH/MM3 CBC Comment DIFF FINAL Differential Comment Sodium Level 137 MEQ/L Potassium Level 3.9 MEQ/L Chloride Level 105 MEQ/L Carbon Dioxide Level 25.8 MEQ/L Anion Gap 6 MEQ/L Blood Urea Nitrogen 18 MG/DL Creatinine 0.92 MG/DL Estimat Glomerular Filtration 63 ML/MIN Rate Random Glucose 84 MG/DL Calcium Level 8.4 MG/DL Imaging Last Impressions Lower Extremity Ultrasound 07/18/16 0000 Signed Impressions: Service Date/Time: July 21:27 - CONCLUSION: Patent bilateral lower extremity venous tributaries. Measurements as above. Ceferino Oscar MD Carotid Artery Ultrasound 07/18/16 0000 Signed Impressions: Service Date/Time: July 20:53 - CONCLUSION: Bilateral carotid atherosclerotic plaque, fairly widespread, right more so than left. 50% % or less narrowing on the right and 30%% or less narrowing on the left. Doppler interrogation confirms no evidence of hemodynamically significant stenosis. Ceferino Oscar MD Chest X-Ray 07/17/16 1520 Signed Impressions: Service Date/Time: Sunday, July 17, 2016 15:44 - CONCLUSION: Mild atelectasis or consolidation at the medial right lung base. Ceferino Quigley MD Assessment and Plan Problem List: (1) NSTEMI (non-ST elevated myocardial infarction) (2) Chest pain Assessment and Plan 56 yo WF with history of CAD and prior stenting, and COPD admitted yesterday for sudden onset chest pain and assoc SOB. troponin elevated and she underwent [facility] NSTEMI- C yesterday revealed severe 3 vessel coronary artery disease with in- stent restenosis of BMS in LAD and RCA. 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 will plan for CABG. tele reviewed showing no concerning arrhythmia. will sign off. call with questions. Kimberly Austin Jul 19, 2016 11:05
[2016-07-19] MEDS: HEPARIN SODIUM - SQ 10,000 UNITS/ML VIAL SQ SCH ×2 (11:11→17:28)
[2016-07-19] MEDS: FLUoxetine HCL 10 MG CAP PO SCH (11:16)
--- NOTE | 2016-07-19 13:37 | PD.CONS ---
Provisional Diagnosis Admission Date Jul 17, 2016 at 16:48 [place] I. Adjustment disorder with depressed mood [place] II. Deferred [place] III. COPD, CAD, NSTEMI [place] IV. Homeless [place] V. 56 History of Present Illness Service Psychiatry Consult Requested By Primary Care Physician Magnolia Quiroz MD HPI The patient is a 56 years old woman, homeless, unemployed, , without any previous psychiatric history, no previous psychiatric hospitalizations, no suicide attempts, history of alcohol use disorder, now in sustained early remission, medical history of COPD, CAD, was admitted in the hospital due to chest pain, elevated troponins and diagnosed with NSTEMI. Consulted to psychiatry due to depression and anxiety. On psychiatric evaluation today patient is found laying in her bed, she was profusely tearful throughout the evaluation, she is states that she knew that she was sick, but she never thought that she was so so sick. Patient says that she was not ready to handle so many information about her medical conditions as she is receiving in the last days. Patient says that she feels overwhelmed and frustrated. She feels that she has been blamed that her decompensation is her fault because she wasn't taking her medications, she states "the true is that I have no money, I Iive in the street, how do you expect me to take medications?", Patient says that she is very sad, she doesn't know handle her emotions and frustration, she feels hopeless, helpless, worthless, but at the same time patient is motivated to get better, and she wants to be better. She denies suicidal or homicidal ideation, patient says that she is an spiritual congregation person and she does not believe in suicidality, and she would never harm somebody else. Patient reports anxiety, difficulty sleeping at night and low appetite. She denies visual and auditory hallucinations. Patient is fully oriented 3, no gross cognitive impairment observed. Patient denies the use of illicit drugs and alcohol in the last year. Review of Systems Constitutional: DENIES: Diaphoretic episodes, Fatigue, Fever, Weight gain, Weight loss, Chills, Dizziness, Change in appetite, Night Sweats Endocrine: DENIES: Abnorml menstrual pattern, Heat/cold intolerance, Polydipsia , Polyuria, Polyphagia Eyes: DENIES: Blurred vision, Diplopia, Eye inflammation, Eye pain, Vision loss , Photosensitivity, Double Vision Ears, nose, mouth, throat: DENIES: Tinnitus, Hearing loss, Vertigo, Nasal discharge, Oral lesions, Throat pain, Hoarseness, Ear Pain, Running Nose, Epistaxis, Sinus Pain, Toothache, Odynophagia Respiratory: DENIES: Apneas, Cough, Snoring, Wheezing, Hemoptysis, Sputum production, Shortness of breath Cardiovascular: DENIES: Chest pain, Palpitations, Syncope, Dyspnea on Exertion , PND, Lower Extremity Edema, Orthopnea, Claudication Gastrointestinal: DENIES: Abdominal pain, Black stools, Bloody stools, Constipation, Diarrhea, Nausea, Vomiting, Difficulty Swallowing, Anorexia Musculoskeletal: DENIES: Joint pain, Muscle aches, Stiffness, Joint Swelling, Back pain, Neck pain Integumentary: DENIES: Abnormal pigmentation, Pruritus, Rash, Nail changes, Breast masses, Breast skin changes, Nipple discharge Hematologic/lymphatic: DENIES: Bruising, Lymphadenopathy Immunologic/allergic: DENIES: Eczema, Urticaria Neurologic: DENIES: Abnormal gait, Headache, Localized weakness, Paresthesias, Seizures, Speech Problems, Tremor, Poor Balance Psychiatric: COMPLAINS OF: Anxiety, Depression, DENIES: Confusion, Mood changes, Hallucinations, Agitation, Suicidal Ideation, Homicidal Ideation, Delusions Past Family Social History Coded Allergies: *MDRO Multi-Drug Resistant Organism (Verified Adverse Reaction, Unknown, MRSA, 07/19/16) MRSA (nares) - 07/18/16 Active Scripts Amlodipine 5 Mg Tab10 Mg PO HS #60 TAB Ref 0 Take 2 tabs (10mg) at bedtime starting the night of 03/16. If you become light headed, only take 1 tab (5mg) Prov:Giovanna Orona MD R2 05/15/16 Levofloxacin (Levaquin)750 Mg Vnx927 Mg PO DAILY #2 TAB Prov:Tonny Sinclair MD R1 05/15/16 Metoprolol Tartrate 25 Mg Tab25 Mg PO Q8HR #90 TAB Prov:Giovanna Orona MD R2 05/14/16 Fluticasone-Salmeterol Inh (Advair Diskus Inh)250-50 Mcg/Blist Aer1 Puff INH BID #1 INHALER Ref 0 Rinse mouth after use. Prov:Giovanna Orona MD R2 05/14/16 Tiotropium Inh (Spiriva Handihaler)18 Mcg Cap18 Mcg INH DAILY #30 CAP Ref 0 1 capsule = 18 mcg Prov:Giovanna Orona MD R2 05/14/16 Lisinopril 20 Mg Tab20 Mg PO DAILY #30 TAB Prov:Giovanna Orona MD R2 05/14/16 Prednisone 10 Mg Tab10 Mg PO DIRECTED #30 TAB Ref 0 3 Tabs (30mg) for 5 days. 2 Tabs (20mg) for 5 days. 1 Tab (10mg) for 5 days Prov:Giovanna Orona MD R2 05/14/16 Hydroxyzine HCl 10 Mg Tab10 Mg PO Q8H PRN (MILD TO MODERATE ITCHING) #30 TAB Prov:Giovanna Orona MD R2 05/13/16 Famotidine 20 Mg Tab10 Mg PO BID #30 TAB Prov:Giovanna Orona MD R2 05/13/[address] (Aspirin EC)81 Mg Tabdr81 Mg PO DAILY #30 TAB Prov:Giovanna Orona MD R2 05/13/16 Albuterol 18 GM Inh (Ventolin Hfa 18 GM Inh)90 Mcg/Act Aer2 Puff INH Q4-6H PRN ( SHORTNESS OF BREATH) #1 INHALER Prov:Giovanna Orona MD R2 05/13/16 Permethrin Topical 5% Cream1 Applic TOPICAL ONCE #1 TUBE Ref 0 Do not apply until 05/23 Prov:Giovanna Orona MD R2 05/12/16 Reported Medications Isosorbide Mononitrate ER 30 Mg Taber30 Mg PO DAILY #30 TAB Ref 0 03/26/16 Atorvastatin 40 Mg Tab40 Mg PO HS #30 TAB Ref 0 03/26/16 Ticagrelor (Brilinta)90 Mg Tab90 Mg PO BID #60 TAB Ref 0 03/26/16 Current Medications Medications (Trade) Dose Ordered Sig/Addison Route Start Time Stop Time Status Last Admin (Zofran Inj) 4 mg Q6H PRN IVP 07/17/16 17:15 (Narcan Inj) 0.4 mg UNSCH PRN IV 07/17/16 17:15 (Lipitor) 40 mg HS PO 07/17/16 21:00 07/18/16 22:09 (Pepcid) 10 mg BID PO 07/17/16 21:00 07/19/16 09:25 (Imdur) 30 mg DAILY PO 07/18/16 09:00 07/19/16 09:25 (Spiriva Inh) 18 mcg DAILY INH 07/18/16 09:00 07/19/16 09:25 (Symbicort 160-4.5 Inh) 2 puff BID INH 07/17/16 21:00 07/19/16 09:26 (Eucerin Cream) 1 applic BID TOPICAL 07/17/16 21:00 07/19/16 09:00 (Eldecort 2.5% Cream) 1 applic BID TOPICAL 07/17/16 21:00 07/19/16 09:00 (Benadryl) 25 mg Q6H PRN PO 07/17/16 17:45 (Lopressor) 25 mg BID PO 07/18/16 09:00 07/19/16 09:26 (ZyrTEC) 10 mg DAILY PO 07/17/16 18:00 07/19/16 09:44 (Pill Splitter) 1 ea UNSCH PRN OTHER 07/17/16 18:15 (Atropine Inj) 0.5 mg UNSCH PRN IV 07/18/16 10:00 (NS Flush) 2 ml BID IV FLUSH 07/18/16 21:00 07/19/16 09:28 (NS Flush) 2 ml UNSCH PRN IV FLUSH 07/18/16 16:15 (Aspirin Chew) 81 mg DAILY CHEW 07/19/16 09:00 07/19/16 09:26 (Mucinex Er) 600 mg BID PO 07/19/16 09:00 07/19/16 09:25 (Vaseline Oint) 1 applic UNSCH PRN TOPICAL 07/19/16 08:15 (Heparin Inj) 5,000 units Q8H SQ 07/19/16 10:00 07/19/16 11:11 (PROzac) 10 mg DAILY PO 07/19/16 12:00 07/19/16 11:16 (Desyrel) 100 mg HS PO 07/19/16 21:00 UNV Family History She denies Social History Patient was born and raised in [place], she has been living in [facility] for about 2 years, she self report as homeless, unemployed, she is in the process to get disability, she is , no kids, she supported by food stamps, her highest level of education is GED. Physical Exam Vital Signs Vital Signs Date Time Temp Pulse Resp B/P Pulse Ox O2 Delivery O2 Flow Rate FiO2 07/19/16 12:28 91 07/19/16 11:00 98.2 16 148/87 93 07/17/16 19:31 Room Air I/O 07/18/16 07/18/16 07/19/16 08:00 16:00 00:00 Intake Total 1414 ml 1120 ml Output Total 200 ml Balance 1214 ml 1120 ml Mental Status Examination Appearance woman, very poor hygiene, who looks older than his stated age, disheveled, malodorous, tearful, but cooperative Speech: Unremarkable Orientation: x3 Memory: Unremarkable Thought Process: Logical Thought Content: Unremarkable Hallucination Type: None Attention and Concentration: Good Suicidal Ideation: No Homicidal Ideation: No Previous Homicide Attempts: No Affect: Sad Mood: Sad Motor Activity: Normal gait Assessment & Plan Problem List: (1) Adjustment disorder with depressed mood Assessment & Plan: The patient is a 56 year-old woman without any previous psychiatric history, no previous psychiatric hospitalizations, no suicide attempts, history of alcohol use disorder, now in sustained early remission, medical history of COPD, CAD, was admitted in the hospital due to chest pain, elevated troponins and diagnosed with NSTEMI. On psychiatric evaluation patient shows objective and subjective symptoms of moderate depression mostly secondary and as reaction to her current medical decompensation. Patient seems to be very sad, tearful throughout the interview , with feeling of hopeless, helpless, generalized pessimism, difficulty sleeping , but at the same time she is motivated to get better and to follow medical recommendations. She denies suicidal or homicidal ideation, she denies visual and auditory hallucinations. She does not meet criteria for psychiatric admission at this moment. Agree with Prozac 10 mg, could increase to 20 in 2-3 days as patient needed and can tolerate. Will add trazodone 100 mg to help with the depression and with sleep. Extensive support, motivation psycho education provided. We'll follow-up. Consult appreciated. ICD Code: F43.21 Assessment & Plan Estimated LOS: days Wagner Bolaños MD Jul 19, 2016 13:37
--- NOTE | 2016-07-19 14:05 | PD.CAR.PN ---
CVT Progress Note Subjective/Hospital Course: This is a 56-year-old female who has lived out of doors since her hospitalization here in May for exertional chest pain. She was also hospitalized here in January and was seen by Dr. mg at that time. She reports the pain is in the left chest just below the left breast, is a 5-6 out of 10, initially was sharp but now it is dull and radiates through to her back but not her neck jaw or arms. It is a little bit worse with a deep breath and this morning it was associated with nausea but no vomiting and she did report sweats. She feels anxious and short of breath and her exercise tolerance is limited to approximately half a block if she uses her walker and stops to rest frequently. Reports being chronically short of breath and anxious, fearful of dying on the street. She has been completely out of her medications due to finances and has been told in the past that she should be on a blood thinner. Some productive cough but this does not exacerbate her pain in particular. Continues to smoke 2-3 cigarettes a day, is no longer using alcohol for the past approximately 6 months. admitted with NSTEMI PMH: chronic itching. She had been told she had scabies in the past, but now has itching everywhere, unrelieved by Caladryl and Benadryl tablets., CAD , rotational arthrectomy RCA and PCI bare metal stent 08/02/15 was on Brilinta, but has not taken any meds in a couple of months , COPD, HTN, depression/ anxiety , chronic tobacco abuse 07/19 pt tearful and anxious , mild chest pain last pm no further c/o since , scheduled for surgery on Fri Objective: GENERAL: SKIN: Warm and dry., excoriated lesions to arms and legs , pruritic HEAD: Normocephalic. EYES: No scleral icterus. No injection or drainage. NECK: Supple, trachea midline. No JVD or lymphadenopathy. CARDIOVASCULAR: Regular rate and rhythm without murmurs, gallops, or rubs. RESPIRATORY: Breath sounds equal bilaterally. No accessory muscle use. GASTROINTESTINAL: Abdomen soft, non-tender, nondistended. MUSCULOSKELETAL: No cyanosis, or edema. BACK: Nontender without obvious deformity. No CVA tenderness. Vital Signs Date Time Temp Pulse Resp B/P Pulse Ox O2 Delivery O2 Flow Rate FiO2 07/19/16 12:28 91 07/19/16 11:00 98.2 90 16 148/87 93 07/19/16 11:00 89 07/19/16 10:00 70 07/19/16 09:33 98.1 97 16 140/79 93 07/19/16 09:00 87 07/19/16 08:00 98 07/19/16 07:25 88 07/19/16 06:00 93 07/19/16 05:00 86 07/19/16 04:34 90 07/19/16 03:35 88 07/19/16 03:35 98.2 90 16 148/87 93 07/19/16 02:53 83 07/19/16 02:07 87 07/19/16 01:05 97 07/19/16 00:00 85 07/18/16 23:10 97.3 93 18 134/77 93 07/18/16 23:01 85 07/18/16 22:33 95 07/18/16 21:38 93 07/18/16 20:00 100 07/18/16 19:35 98.9 107 20 123/70 94 07/18/16 19:31 106 07/18/16 18:34 104 07/18/16 17:27 96 07/18/16 16:13 104 07/18/16 15:00 98.4 108 18 104/59 93 07/18/16 15:00 106 07/18/16 14:55 104 Labs: Laboratory Tests Test 07/19/16 05:45 White Blood Count 10.3 TH/MM3 (4.0-11.0) Red Blood Count 3.78 MIL/MM3 (4.00-5.30) Hemoglobin 10.9 GM/DL (11.6-15.3) Hematocrit 33.1 % (35.0-46.0) Mean Corpuscular Volume 87.5 FL (80.0-100.0) Mean Corpuscular Hemoglobin 28.7 PG (27.0-34.0) Mean Corpuscular Hemoglobin 32.8 % Concent (32.0-36.0) Red Cell Distribution Width 13.7 % (11.6-17.2) Platelet Count 356 TH/MM3 (150-450) Mean Platelet Volume 7.3 FL (7.0-11.0) Neutrophils (%) (Auto) 65.5 % (16.0-70.0) Lymphocytes (%) (Auto) 20.6 % (9.0-44.0) Monocytes (%) (Auto) 9.4 % (0.0-8.0) Eosinophils (%) (Auto) 3.8 % (0.0-4.0) Basophils (%) (Auto) 0.7 % (0.0-2.0) Neutrophils # (Auto) 6.8 TH/MM3 (1.8-7.7) Lymphocytes # (Auto) 2.1 TH/MM3 (1.0-4.8) Monocytes # (Auto) 1.0 TH/MM3 (0-0.9) Eosinophils # (Auto) 0.4 TH/MM3 (0-0.4) Basophils # (Auto) 0.1 TH/MM3 (0-0.2) CBC Comment DIFF FINAL Differential Comment Sodium Level 137 MEQ/L (136-145) Potassium Level 3.9 MEQ/L (3.5-5.1) Chloride Level 105 MEQ/L (98-107) Carbon Dioxide Level 25.8 MEQ/L (21.0-32.0) Anion Gap 6 MEQ/L (5-15) Blood Urea Nitrogen 18 MG/DL (7-18) Creatinine 0.92 MG/DL (0.50-1.00) Estimat Glomerular Filtration 63 ML/MIN (>89) Rate Random Glucose 84 MG/DL (74-106) Calcium Level 8.4 MG/DL (8.5-10.1) Result Diagram: 07/19/16 0545 07/19/16544 Telemetry: NSR (1) NSTEMI (non-ST elevated myocardial infarction) Plan: on BB, statin, ASA scheduled for surgery on Fri next week (2) Chest pain Nicolle eBnitez Jul 19, 2016 14:05
--- NOTE | 2016-07-19 15:38 | EKG ---
Date Performed: 07/18/2016 Time Performed: 16:13:38 PTAGE: 56 years EKG: Sinus tachycardia. Left bundle branch block Abnormal ECG PREVIOUS TRACING : 07/18/2016 03.11 Compared to prior tracing no significant change DOCTOR: Rea Deutsch Interpretating Date/Time 07/19/2016 15:37:13
--- NOTE | 2016-07-19 15:39 | EKG ---
Date Performed: 07/19/2016 Time Performed: 05:59:54 PTAGE: 56 years EKG: Sinus rhythm Short LA interval Left bundle branch block Abnormal ECG PREVIOUS TRACING : 07/18/2016 16.13 Compared to prior tracing no significant change DOCTOR: Rea Deutsch Interpretating Date/Time 07/19/2016 15:37:32
[2016-07-19] MEDS: RESP: ALBUTEROL 2.5 MG/IPRATROPIUM 0.5 MG NEB (SCH) NEB (19:07)
[2016-07-19] MEDS: ATORVASTATIN 40 MG TAB PO SCH (22:21)
[2016-07-19] MEDS: traZODone HCL 100 MG TAB PO SCH (22:22)
[2016-07-20] VITALS (26 sets, daily range): BP systolic 118–155; BP diastolic 70–86; PULSE 72–100; RESP 16–18; TEMP 97.6–98.9; O2SAT 94–95
[2016-07-20] MEDS: HEPARIN SODIUM - SQ 10,000 UNITS/ML VIAL SQ SCH ×3 (01:42→17:33)
[2016-07-20 06:30] LABS: HEMATOCRIT 33.9 % (35.0-46.0); MEAN CORPUSCULAR HEMOGLOBIN 29.3 PG (27.0-34.0); MEAN CORPUSCULAR HGB CONC 33.2 % (32.0-36.0); PLATELET COUNT 369 TH/MM3 (150-450); RED BLOOD COUNT 3.85 MIL/MM3 (4.00-5.30); RED CELL DISTRIBUTION WIDTH 14.1 % (11.6-17.2); REVIEW FLAG FINAL; WHITE BLOOD COUNT 10.2 TH/MM3 (4.0-11.0)
[2016-07-20] MEDS ORDERED: CALCIUM CARBONATE 1.25 GM (CA 500 MG) TAB PO ONE (07:45)
[2016-07-20] MEDS: guaiFENesin E.R. 600 MG TAB PO SCH ×2 (08:35→21:01)
[2016-07-20] MEDS: ASPIRIN 81 MG CHEW TAB CHEW SCH (08:35)
[2016-07-20] MEDS: METOPROLOL TARTRATE 25 MG TAB PO SCH ×2 (08:35→21:01)
[2016-07-20] MEDS: ISOSORBIDE MONONITRATE 30 MG TAB PO SCH (08:35)
[2016-07-20] MEDS: FAMOTIDINE 20 MG TAB PO SCH ×2 (08:36→21:01)
[2016-07-20] MEDS: CETIRIZINE HCL 10 MG TAB PO SCH (08:36)
[2016-07-20] MEDS: FLUoxetine HCL 10 MG CAP PO SCH (08:36)
[2016-07-20] MEDS: HYDROCORTISONE 2.5% CREAM 30 GM TOPICAL SCH ×2 (08:38→21:00)
[2016-07-20] MEDS: SODIUM CHLORIDE 0.9% FLUSH 5 ML FLUSH IV FLUSH SCH ×2 (08:38→21:00)
[2016-07-20] MEDS: BUDESONIDE-FORMOTEROL 160/4.5 MCG INHALER INH SCH ×2 (08:39→21:00)
[2016-07-20] MEDS: EUCERIN CREAM 120 GM JAR TOPICAL SCH ×2 (08:39→21:00)
[2016-07-20] MEDS: TIOTROPIUM BROMIDE 18 MCG INH INH SCH (08:40)
--- NOTE | 2016-07-20 09:38 | HHI.FPPN ---
Subjective Remarks Patient seen and examined this morning. No acute events overnight. Pt reports continued itching this morning, but otherwise no complaints. She is anxious about the upcoming surgery. (Peter Becerra MD R1) Objective Vitals Vital Signs Date Time Temp Pulse Resp B/P Pulse Ox O2 Delivery O2 Flow Rate FiO2 07/20/16 07:00 91 07/20/16 06:00 93 07/20/16 05:00 91 07/20/16 04:00 95 07/20/16 03:00 85 07/20/16 03:00 98.2 90 16 155/81 94 07/20/16 02:00 92 07/20/16 01:00 87 07/20/16 00:00 81 07/20/16 00:00 98.0 81 16 134/75 95 07/19/16 23:00 85 07/19/16 22:00 103 07/19/16 21:00 96 07/19/16 20:00 98.3 97 18 153/85 95 07/19/16 20:00 97 07/19/16 19:00 97 07/19/16 18:26 80 07/19/16 17:28 97 07/19/16 16:07 89 07/19/16 15:00 87 07/19/16 15:00 98.4 95 19 137/84 95 07/19/16 14:00 91 07/19/16 13:00 87 07/19/16 12:28 91 07/19/16 11:00 98.2 90 16 148/87 93 07/19/16 11:00 89 07/19/16 10:00 70 07/19/16 09:33 98.1 97 16 140/79 93 I/O 07/19/16 07/19/16 07/19/16 07/20/16 07/20/16 07/20/16 07:00 15:00 23:00 07:00 15:00 23:00 Intake Total 470 ml 1100 ml 420 ml Output Total 400 ml Balance 70 ml 1100 ml 420 ml Intake Oral 470 ml 1100 ml 420 ml IV Total 0 ml Output Urine Total 400 ml # Voids 5 3 # Bowel Movements 0 2 1 (Peter Becerra MD R1) Result Diagram: 07/20/16 0525 07/19/16 0545 Objective Remarks GEN: Thin-appearing female. Anxious, but in no acute distress. SKIN: Excoriations over extremities and trunk CV: Regular rate and rhythm without obvious murmurs LUNGS: Diminished breath sounds with intermittent diffuse wheezing. EXT: No edema. No calf tenderness. NEURO/PSYCH: Awake, alert. Appropriate insight and judgment. Normal speech ( Peter Becerra MD R1) A/P Assessment and Plan 56 yo F, hx of CAD, COPD. Admitted for NSTEMI Discharge Planning Pending recovery from upcoming CABG. dw Dr. Armstrong (Peter Becerra MD R1) Attending Attestation Skin is clean of caladryl lotion. Not using much eucerin cream. Encourage 50: 50 mix with 1% hydrocortisone cream and apply liberally at least bid. Patient seen and examined. Case reviewed and discussed with the resident team. Agree with plan of care as discussed with me and documented in the resident note. (Ursula Armstrong MD) Problem List: (1) NSTEMI (non-ST elevated myocardial infarction) Status: Acute Plan: Found to have NSTEMI. Troponins elevated on admission but has improved. EKG unchanged from previous. History of grade 1 diastolic dysfunction on echo January 2016. Did have a stent placement on 02/02/16 Cardiology consulted: appreciate recommendations * Cath 07/18: showed mid distal LAD stenosis of 95%, diagonal 50%, and RCA 95%. * Consulted CT surg for CABG CV consulted: Appreciate recommendations * CABG 3 scheduled for 07/24 Medications: * Metoprolol 25mg q12 * Atorvastatin 40 mg * Imdur 30mg daily * HOLD Brilinta * Aspirin 81 mg (2) CAD (coronary artery disease) Status: Chronic Plan: See plan under NSTEMI (3) Itching Status: Resolved Plan: Rash over entire extremities, unlikely scabies. -Zyrtec -Benadryl PRN -Hydrocortisone, Eucerin twice a day -Vaseline every 3 (4) COPD (chronic obstructive pulmonary disease) Status: Chronic Plan: Chronic COPD symptoms that are worse in the morning -Mucinex and scheduled Duonebs -Continue Spiriva -Continue Advair Diskus -Albuterol PRN -Hold prednisone, consider resuming if respiratory status worsens (5) Hypertension Status: Chronic Plan: Continue home meds. -Holding amlodipine 5 mg by mouth daily, consider restarting if BP elevated -Vasotec prn BP > 160/90 -Will monitor vitals (6) FEN/PPX Status: Acute Plan: Heart healthy diet IV fluids: None Electrolytes: Unremarkable, continue to monitor DVT PPX: Heparin q8 SQ GI PPX: Pepcid (Peter Becerra MD R1) Problem Qualifiers (1) CAD (coronary artery disease): Qualified Code: I25.119 - Coronary artery disease involving [place] coronary artery of [place] heart with angina pectoris (2) COPD (chronic obstructive pulmonary disease): Qualified Code: J41.0 - Simple chronic bronchitis (3) Hypertension: Qualified Code: I10 - Essential hypertension Peter Becerra MD R1 Jul 20, 2016 09:38 Ursula Armstrong MD Jul 20, 2016 13:55
[2016-07-20] MEDS: RESP: ALBUTEROL 2.5 MG/IPRATROPIUM 0.5 MG NEB (SCH) NEB ×3 (10:07→20:57)
[2016-07-20] MEDS: ATORVASTATIN 40 MG TAB PO SCH (21:01)
[2016-07-20] MEDS: traZODone HCL 100 MG TAB PO SCH (21:01)
[2016-07-21] VITALS (28 sets, daily range): BP systolic 123–157; BP diastolic 73–96; PULSE 84–104; RESP 14–18; TEMP 97.6–99.4; O2SAT 93–96
[2016-07-21] MEDS: HEPARIN SODIUM - SQ 10,000 UNITS/ML VIAL SQ SCH ×3 (04:03→18:06)
[2016-07-21] MEDS: RESP: ALBUTEROL 2.5 MG/IPRATROPIUM 0.5 MG NEB (SCH) NEB ×3 (07:43→19:01)
[2016-07-21 08:02] LABS: BICARBONATE 23.1 MEQ/L (21.0-32.0); POTASSIUM 4.5 MEQ/L (3.5-5.1)
--- NOTE | 2016-07-21 08:04 | HHI.FPPN ---
Subjective Remarks No acute events overnight. Vital signs unremarkable but there have been some intermittently elevated BP. This morning she endorses left-sided discomfort that is not painful but has lasted over the last 24 hours. Has not worsened in intensity. Her pruritus has improved. Also complaining of nasal congestion. ( Giovanna Orona MD R2) Objective Vitals Vital Signs Date Time Temp Pulse Resp B/P Pulse Ox O2 Delivery O2 Flow Rate FiO2 07/21/16 06:00 88 07/21/16 05:00 88 07/21/16 04:03 98.0 86 18 157/96 95 07/21/16 04:00 90 07/21/16 03:42 91 07/21/16 02:00 90 07/21/16 01:00 88 07/21/16 00:00 88 07/21/16 00:00 97.6 96 18 130/79 95 07/20/16 23:00 84 07/20/16 22:00 82 07/20/16 21:06 97.6 85 18 137/82 95 07/20/16 21:00 100 07/20/16 20:00 88 07/20/16 19:00 92 07/20/16 18:02 88 07/20/16 17:03 95 07/20/16 16:11 100 07/20/16 15:30 98.9 96 16 118/70 94 07/20/16 15:00 89 07/20/16 14:02 81 07/20/16 13:01 86 07/20/16 12:00 90 07/20/16 12:00 98.9 82 16 120/74 95 07/20/16 11:00 84 07/20/16 10:00 72 07/20/16 09:00 94 07/20/16 08:00 90 07/20/16 08:00 98.1 92 16 144/86 95 I/O 07/20/16 07/20/16 07/20/16 07/21/16 07/21/16 07/21/16 07:00 15:00 23:00 07:00 15:00 23:00 Intake Total 420 ml 480 ml 240 ml Output Total 700 ml 1400 ml Balance 420 ml -220 ml -1160 ml Intake Oral 420 ml 480 ml 240 ml Output Urine Total 700 ml 1400 ml # Voids 3 5 # Bowel Movements 1 1 (Giovanna Orona MD R2) Result Diagram: 07/20/16 0525 07/19/16 0545 Objective Remarks GEN: Thin-appearing female. Anxious, but in no acute distress. SKIN: Improving excoriations over extremities and trunk CV: Regular rate and rhythm without obvious murmurs LUNGS: Improved air movement but with diffuse wheezing bilaterally. EXT: No edema. No calf tenderness. NEURO/PSYCH: Awake, alert. Appropriate insight and judgment. Normal speech ( Giovanna Orona MD R2) A/P Assessment and Plan 56 yo F, hx of CAD, COPD. Admitted for NSTEMI Discharge Planning Pending recovery from upcoming CABG. wdw Dr. Armstrong and Dr. Becerra (Giovanna Orona MD R2) Attending Attestation Patient seen and examined. Case reviewed and discussed with the resident team. Agree with plan of care as discussed with me and documented in the resident note. (Ursula Armstrong MD) Problem List: (1) NSTEMI (non-ST elevated myocardial infarction) Status: Acute Plan: Found to have NSTEMI. Troponins elevated on admission but has improved. EKG unchanged from previous. History of grade 1 diastolic dysfunction on echo January 2016. Did have a stent placement on 02/02/16 Cardiology consulted: appreciate recommendations * Cath 07/18: showed mid distal LAD stenosis of 95%, diagonal 50%, and RCA 95%. * Consulted CT surg for CABG CV consulted: Appreciate recommendations * CABG 3 scheduled for 07/24 Medications: * Metoprolol 25mg q12 * Atorvastatin 40 mg * Imdur 30mg daily * HOLD Brilinta * Aspirin 81 mg (2) CAD (coronary artery disease) Status: Chronic Plan: See plan under NSTEMI (3) Itching Status: Resolved Plan: Rash over entire extremities, unlikely scabies. -Zyrtec and Flonase -Benadryl PRN -Hydrocortisone, Eucerin twice a day -Vaseline every 3 (4) COPD (chronic obstructive pulmonary disease) Status: Chronic Plan: Chronic COPD symptoms that are worse in the morning -Mucinex and scheduled Duonebs -Continue Spiriva -Continue Advair Diskus -Albuterol PRN -Hold prednisone, consider resuming if respiratory status worsens (5) Hypertension Status: Chronic Plan: Continue home meds. -Restarted amlodipine but at a lower dose, 2.5 mg daily -Vasotec prn BP > 160/90 -Will monitor vitals (6) Adjustment disorder with depressed mood Status: Acute Plan: Mood has improved since starting antidepressant and antipsychotic -fluoxetine 10 mg daily Psychiatry consulted: Appreciate recommendations * Trazodone (7) FEN/PPX Status: Acute Plan: Heart healthy diet IV fluids: None Electrolytes: Unremarkable, continue to monitor DVT PPX: Heparin q8 SQ GI PPX: Pepcid (Giovanna Orona MD R2) Problem Qualifiers (1) CAD (coronary artery disease): Qualified Code: I25.119 - Coronary artery disease involving [place] coronary artery of [place] heart with angina pectoris (2) COPD (chronic obstructive pulmonary disease): Qualified Code: J41.0 - Simple chronic bronchitis (3) Hypertension: Qualified Code: I10 - Essential hypertension Giovanna Orona MD R2 Jul 21, 2016 08:03 Ursula Armstrong MD Jul 21, 2016 14:02
[2016-07-21] MEDS: METOPROLOL TARTRATE 25 MG TAB PO SCH ×2 (09:03→21:36)
[2016-07-21] MEDS: ISOSORBIDE MONONITRATE 30 MG TAB PO SCH (09:03)
[2016-07-21] MEDS: amLODIPine BESYLATE 5 MG TAB PO SCH (09:03)
[2016-07-21] MEDS: FLUoxetine HCL 10 MG CAP PO SCH (09:03)
[2016-07-21] MEDS: CETIRIZINE HCL 10 MG TAB PO SCH (09:03)
[2016-07-21] MEDS: guaiFENesin E.R. 600 MG TAB PO SCH ×2 (09:03→21:35)
[2016-07-21] MEDS: ASPIRIN 81 MG CHEW TAB CHEW SCH (09:04)
[2016-07-21] MEDS: TIOTROPIUM BROMIDE 18 MCG INH INH SCH (09:04)
[2016-07-21] MEDS: FAMOTIDINE 20 MG TAB PO SCH ×2 (09:04→21:35)
[2016-07-21] MEDS: EUCERIN CREAM 120 GM JAR TOPICAL SCH ×2 (09:05→21:38)
[2016-07-21] MEDS: BUDESONIDE-FORMOTEROL 160/4.5 MCG INHALER INH SCH ×2 (09:05→21:00)
[2016-07-21] MEDS: SODIUM CHLORIDE 0.9% FLUSH 5 ML FLUSH IV FLUSH SCH ×2 (09:06→21:36)
[2016-07-21] MEDS: HYDROCORTISONE 2.5% CREAM 30 GM TOPICAL SCH ×2 (09:07→21:00)
[2016-07-21] MEDS: FLUTICASONE PROPIONATE 50 MCG/ACT 16 GM NASAL SPRAY NASAL SCH (09:07)
[2016-07-21] MEDS: ATORVASTATIN 40 MG TAB PO SCH (21:35)
[2016-07-21] MEDS: traZODone HCL 100 MG TAB PO SCH (21:35)
[2016-07-22] VITALS (27 sets, daily range): BP systolic 110–166; BP diastolic 64–100; PULSE 76–100; RESP 14–20; TEMP 97.4–98.9; O2SAT 94–97
[2016-07-22] MEDS: HEPARIN SODIUM - SQ 10,000 UNITS/ML VIAL SQ SCH ×4 (03:05→19:15)
[2016-07-22] MEDS: guaiFENesin E.R. 600 MG TAB PO SCH ×2 (07:27→21:00)
[2016-07-22] MEDS: amLODIPine BESYLATE 5 MG TAB PO SCH (07:27)
[2016-07-22] MEDS: FLUoxetine HCL 10 MG CAP PO SCH (07:27)
[2016-07-22] MEDS: ISOSORBIDE MONONITRATE 30 MG TAB PO SCH (07:27)
[2016-07-22] MEDS: ASPIRIN 81 MG CHEW TAB CHEW SCH (07:27)
[2016-07-22] MEDS: FAMOTIDINE 20 MG TAB PO SCH ×2 (07:28→21:00)
[2016-07-22] MEDS: CETIRIZINE HCL 10 MG TAB PO SCH (07:28)
[2016-07-22] MEDS: SODIUM CHLORIDE 0.9% FLUSH 5 ML FLUSH IV FLUSH SCH ×2 (07:28→21:10)
[2016-07-22] MEDS: METOPROLOL TARTRATE 25 MG TAB PO SCH ×2 (07:28→21:01)
[2016-07-22] MEDS: BUDESONIDE-FORMOTEROL 160/4.5 MCG INHALER INH SCH ×2 (07:29→21:09)
[2016-07-22] MEDS: TIOTROPIUM BROMIDE 18 MCG INH INH SCH (07:29)
[2016-07-22] MEDS: FLUTICASONE PROPIONATE 50 MCG/ACT 16 GM NASAL SPRAY NASAL SCH (07:30)
[2016-07-22] MEDS: HYDROCORTISONE 2.5% CREAM 30 GM TOPICAL SCH ×3 (07:30→21:09)
[2016-07-22] MEDS: EUCERIN CREAM 120 GM JAR TOPICAL SCH ×3 (07:31→21:09)
[2016-07-22] MEDS: RESP: ALBUTEROL 2.5 MG/IPRATROPIUM 0.5 MG NEB (SCH) NEB ×3 (07:31→19:43)
--- NOTE | 2016-07-22 11:13 | HHI.FPPN ---
Subjective Remarks Patient concerned about discharge planning but otherwise doing well. She denies having chest pain, sob. She is using emollients for rash. There were no adverse events overnight. (Cony Odell MD) Objective Vitals Vital Signs Date Time Temp Pulse Resp B/P Pulse Ox O2 Delivery O2 Flow Rate FiO2 07/22/16 10:00 88 07/22/16 09:00 78 07/22/16 08:00 82 07/22/16 07:00 94 07/22/16 07:00 98.2 86 20 165/100 95 07/22/16 06:00 82 07/22/16 05:00 100 07/22/16 04:56 98.9 91 14 153/86 94 07/22/16 04:00 83 07/22/16 03:00 78 07/22/16 02:00 92 07/22/16 01:30 150/88 07/22/16 01:00 98.6 87 14 166/100 97 07/22/16 01:00 86 07/22/16 00:00 85 07/21/16 23:00 84 07/21/16 22:00 94 07/21/16 21:33 98.4 95 14 149/86 95 07/21/16 21:00 104 07/21/16 20:00 94 07/21/16 18:01 90 07/21/16 17:00 90 07/21/16 16:01 92 07/21/16 15:15 98.1 93 16 125/76 93 07/21/16 15:00 88 07/21/16 14:00 88 07/21/16 13:00 86 07/21/16 12:00 84 07/21/16 11:15 99.4 91 16 149/87 96 I/O 07/21/16 07/21/16 07/21/16 07/22/16 07/22/16 07/22/16 07:00 15:00 23:00 07:00 15:00 23:00 Intake Total 240 ml 960 ml 240 ml Output Total 1400 ml 750 ml 1000 ml Balance -1160 ml 210 ml -760 ml Intake Oral 240 ml 960 ml 240 ml IV Total 0 ml Output Urine Total 1400 ml 750 ml 1000 ml # Voids 3 # Bowel Movements 1 0 (Cony Odell MD) Result Diagram: 07/20/16 0525 07/21/16 0650 Objective Remarks GEN: Thin-appearing female. Anxious, but in no acute distress. SKIN: Improving excoriations over extremities and trunk CV: Regular rate and rhythm without obvious murmurs LUNGS: Improved air movement but with diffuse wheezing bilaterally. EXT: No edema. No calf tenderness. NEURO/PSYCH: Awake, alert. Appropriate insight and judgment. Normal speech ( Cony Odell MD) Urinary Catheter: No (Cony Odell MD) Vascular Central Line Catheter: No (Cony Odell MD) A/P Assessment and Plan 56 yo F, hx of CAD, COPD. Admitted for NSTEMI Discharge Planning Pending recovery from upcoming CABG, scheduled for 07/[address]. [address] Armstrong and Dr. Becerra (Cony Odell MD) Attending Attestation Patient seen and examined. Case reviewed and discussed with the resident team. Agree with plan of care as discussed with me and documented in the resident note. (Ursula Armstrong MD) Problem List: (1) NSTEMI (non-ST elevated myocardial infarction) Status: Acute Plan: Found to have NSTEMI. Troponin elevated on admission but has improved. EKG unchanged from previous. History of grade 1 diastolic dysfunction on echo January 2016. Did have a stent placement on 02/02/16 Cardiology consulted: appreciate recommendations * Cath 07/18: showed mid distal LAD stenosis of 95%, diagonal 50%, and RCA 95%. * Consulted CT surg for CABG CV consulted: Appreciate recommendations * CABG 3 scheduled for 07/24 Medications: * Metoprolol 25mg q12 * Atorvastatin 40 mg * Imdur 30mg daily * HOLD Brilinta * Aspirin 81 mg * Heparin 5,000 U q8h (2) CAD (coronary artery disease) Status: Chronic Plan: See plan under NSTEMI (3) Itching Status: Resolved Plan: Rash over entire extremities, unlikely scabies. -Zyrtec and Flonase -Benadryl PRN -Hydrocortisone, Eucerin twice a day -Vaseline every 3 (4) COPD (chronic obstructive pulmonary disease) Status: Chronic Plan: Chronic COPD symptoms that are worse in the morning. Patient continues to have wheezing on exam, improved from previously. -Mucinex and scheduled Duonebs -Continue Spiriva -Continue Advair Diskus -Albuterol PRN -Hold prednisone, consider resuming if respiratory status worsens (5) Hypertension Status: Chronic Plan: BP mildly elevated to systolic 150s/160s. Continue home meds. -Restarted amlodipine 5 mg po daily (home dose), previously decreased about patient having uncontrolled BP at this dose -Vasotec prn BP > 160/90 -Will monitor vitals (6) Adjustment disorder with depressed mood Status: Acute Plan: Mood has improved since starting antidepressant and antipsychotic -fluoxetine 10 mg daily Psychiatry consulted: Appreciate recommendations * Trazodone (7) FEN/PPX Status: Acute Plan: Heart healthy diet IV fluids: None Electrolytes: Unremarkable, continue to monitor DVT PPX: Heparin q8 SQ GI PPX: Pepcid (Cony Odell MD) Problem Qualifiers (1) CAD (coronary artery disease): Qualified Code: I25.119 - Coronary artery disease involving [place] coronary artery of [place] heart with angina pectoris (2) COPD (chronic obstructive pulmonary disease): Qualified Code: J41.0 - Simple chronic bronchitis (3) Hypertension: Qualified Code: I10 - Essential hypertension Cony Odell MD Jul 22, 2016 11:13 Ursula Armstrong MD Jul 22, 2016 11:47
--- NOTE | 2016-07-22 14:36 | PD.CAR.PN ---
CVT Progress Note Subjective/Hospital Course: This is a 56-year-old female who has lived out of doors since her hospitalization here in May for exertional chest pain. She was also hospitalized here in January and was seen by Dr. mg at that time. She reports the pain is in the left chest just below the left breast, is a 5-6 out of 10, initially was sharp but now it is dull and radiates through to her back but not her neck jaw or arms. It is a little bit worse with a deep breath and this morning it was associated with nausea but no vomiting and she did report sweats. She feels anxious and short of breath and her exercise tolerance is limited to approximately half a block if she uses her walker and stops to rest frequently. Reports being chronically short of breath and anxious, fearful of dying on the street. She has been completely out of her medications due to finances and has been told in the past that she should be on a blood thinner. Some productive cough but this does not exacerbate her pain in particular. Continues to smoke 2-3 cigarettes a day, is no longer using alcohol for the past approximately 6 months. admitted with NSTEMI PMH: chronic itching. She had been told she had scabies in the past, but now has itching everywhere, unrelieved by Caladryl and Benadryl tablets., CAD , rotational arthrectomy RCA and PCI bare metal stent 08/02/15 was on Brilinta, but has not taken any meds in a couple of months , COPD, HTN, depression/ anxiety , chronic tobacco abuse 07/19 pt tearful and anxious , mild chest pain last pm no further c/o since , scheduled for surgery on 07/22 no further chest pain, rash improved to arms and legs, still has some on buttocks, will discuss with attending re-scheduled for surgery in am less tearful Objective: GENERAL: SKIN: Warm and dry./ excoriated rash to arms and legs improving still has mild rash on buttocks HEAD: Normocephalic. EYES: No scleral icterus. No injection or drainage. NECK: Supple, trachea midline. No JVD or lymphadenopathy. CARDIOVASCULAR: Regular rate and rhythm without murmurs, gallops, or rubs. RESPIRATORY: Breath sounds equal bilaterally. No accessory muscle use. GASTROINTESTINAL: Abdomen soft, non-tender, nondistended. MUSCULOSKELETAL: No cyanosis, or edema. BACK: Nontender without obvious deformity. No CVA tenderness. Vital Signs Date Time Temp Pulse Resp B/P Pulse Ox O2 Delivery O2 Flow Rate FiO2 07/22/16 14:00 92 07/22/16 13:00 81 07/22/16 12:00 76 07/22/16 11:09 97.4 81 18 110/64 97 07/22/16 11:00 84 07/22/16 10:00 88 07/22/16 09:00 78 07/22/16 08:00 82 07/22/16 07:00 94 07/22/16 07:00 98.2 86 20 165/100 95 07/22/16 06:00 82 07/22/16 05:00 100 07/22/16 04:56 98.9 91 14 153/86 94 07/22/16 04:00 83 07/22/16 03:00 78 07/22/16 02:00 92 07/22/16 01:30 150/88 07/22/16 01:00 98.6 87 14 166/100 97 07/22/16 01:00 86 07/22/16 00:00 85 07/21/16 23:00 84 07/21/16 22:00 94 07/21/16 21:33 98.4 95 14 149/86 95 07/21/16 21:00 104 07/21/16 20:00 94 07/21/16 18:01 90 07/21/16 17:00 90 07/21/16 16:01 92 07/21/16 15:15 98.1 93 16 125/76 93 07/21/16 15:00 88 Result Diagram: 07/20/16 0525 07/21/16 0650 (1) NSTEMI (non-ST elevated myocardial infarction) Plan: on BB, statin, ASA scheduled for surgery on Fri next week (2) Chest pain (3) COPD exacerbation Plan: on nebs , FEV1 0.96 (4) CHF exacerbation Plan: grade 1 diastolic dysfunction. on BB (5) Adjustment disorder with depressed mood Plan: appreciate psych, on antidepressants (6) Itching Plan: on hydrocortisone and emollients prior hx of scabies Nicolle Benitez Jul 22, 2016 14:36
[2016-07-22] MEDS: traZODone HCL 100 MG TAB PO SCH (21:00)
[2016-07-22] MEDS: ATORVASTATIN 40 MG TAB PO SCH (21:00)
[2016-07-23] VITALS (15 sets, daily range): BP systolic 89–136; BP diastolic 47–83; PULSE 66–89; RESP 16–18; TEMP 97.5–98.7; O2SAT 95–99
[2016-07-23] MEDS ORDERED: SODIUM CHLORID 0.9% 500 ML IV SCH (03:45)
[2016-07-23] MEDS: LACTATED RINGER'S 1000 ML IV SCH (03:45)
[2016-07-23] MEDS ORDERED: INSULIN HUMAN REGULAR 1,000 UNITS/10 ML VIAL SQ PRN (03:45)
[2016-07-23] MEDS ORDERED: HEPARIN SODIUM - SQ 10,000 UNITS/ML VIAL SQ ONE (05:00)
[2016-07-23] MEDS ORDERED: ARTIFICIAL TEARS OPTH OINT 3.5 APPLIC/3.5 GM TUBO ONE (05:00)
[2016-07-23] MEDS ORDERED: NITROGLYCERIN-DEXTROSE INJ 250 ML IV ONE (05:00)
[2016-07-23] MEDS ORDERED: NEOSTIGMINE METHYLSULFATE 10 MG/10 ML VIAL IV PUSH ONE (05:00)
[2016-07-23] MEDS ORDERED: MAGNESIUM SULFATE 1000 MG/2 ML VIAL (PED) IV ONE (05:00)
[2016-07-23] MEDS ORDERED: ACETAMINOPHEN 1000 MG/100 ML VIAL IV ONE (05:00)
[2016-07-23] MEDS ORDERED: PROTAMINE SULFATE 250 MG/25 ML VIAL IV ONE ×2 (05:00→10:16)
[2016-07-23] MEDS ORDERED: PHENYLEPHRINE HCL 10 MG/ML VIAL IV ONE (05:00)
[2016-07-23] MEDS ORDERED: AMINOCAPROIC ACID INJ 250 MG/ML 20 ML VIAL IV ONE (05:00)
[2016-07-23] MEDS ORDERED: DEXMEDETOMIDINE INJ 50 ML IV ONE (05:00)
[2016-07-23] MEDS: METOPROLOL TARTRATE 25 MG TAB PO SCH ×2 (05:42→21:46)
[2016-07-23 05:48] LABS: HEMATOCRIT 34.6 % (35.0-46.0); MEAN CELL VOLUME 88.3 FL (80.0-100.0); MEAN CORPUSCULAR HEMOGLOBIN 29.6 PG (27.0-34.0); MEAN CORPUSCULAR HGB CONC 33.5 % (32.0-36.0); PLATELET COUNT 406 TH/MM3 (150-450); RED BLOOD COUNT 3.92 MIL/MM3 (4.00-5.30); RED CELL DISTRIBUTION WIDTH 13.9 % (11.6-17.2); REVIEW FLAG FINAL; WHITE BLOOD COUNT 9.2 TH/MM3 (4.0-11.0)
[2016-07-23] MEDS ORDERED: VANCOMYCIN HCL 1000 MG VIAL ONE (06:35)
[2016-07-23] MEDS ORDERED: HEPARIN SODIUM - IV 10,000 UNITS/10 ML VIAL ONE (06:35)
[2016-07-23] MEDS ORDERED: POTASSIUM CHLORIDE 20 MEQ/10 ML VIAL ONE (07:28)
[2016-07-23] MEDS: RESP: ALBUTEROL 2.5 MG/IPRATROPIUM 0.5 MG NEB (SCH) NEB ×3 (08:00→21:37)
[2016-07-23] MEDS: guaiFENesin E.R. 600 MG TAB PO SCH ×2 (09:00→21:47)
[2016-07-23] MEDS: BUDESONIDE-FORMOTEROL 160/4.5 MCG INHALER INH SCH ×2 (09:00→21:00)
[2016-07-23] MEDS: CETIRIZINE HCL 10 MG TAB PO SCH (09:00)
[2016-07-23] MEDS: TIOTROPIUM BROMIDE 18 MCG INH INH SCH (09:00)
[2016-07-23] MEDS: FAMOTIDINE 20 MG TAB PO SCH ×2 (09:00→21:00)
[2016-07-23] MEDS: FLUTICASONE PROPIONATE 50 MCG/ACT 16 GM NASAL SPRAY NASAL SCH (09:00)
[2016-07-23] MEDS: ASPIRIN 81 MG CHEW TAB CHEW SCH (09:00)
[2016-07-23] MEDS: FLUoxetine HCL 10 MG CAP PO SCH (09:00)
[2016-07-23] MEDS: ISOSORBIDE MONONITRATE 30 MG TAB PO SCH (09:00)
[2016-07-23] MEDS: SODIUM CHLORIDE 0.9% FLUSH 5 ML FLUSH IV FLUSH SCH ×2 (09:00→21:47)
[2016-07-23] MEDS: HYDROCORTISONE 2.5% CREAM 30 GM TOPICAL SCH ×2 (09:00→21:00)
[2016-07-23] MEDS: EUCERIN CREAM 120 GM JAR TOPICAL SCH ×2 (09:00→21:00)
[2016-07-23] MEDS ORDERED: amLODIPine BESYLATE 5 MG TAB PO SCH (10:00)
[2016-07-23] MEDS: HEPARIN SODIUM - SQ 10,000 UNITS/ML VIAL SQ SCH ×2 (10:00→18:00)
[2016-07-23] MEDS ORDERED: NORMOSOL R INJ 2,000 ML IV ONE (10:16)
[2016-07-23] MEDS ORDERED: SODIUM CHLORIDE 0.9% INJ 200 ML IV ONE (10:16)
[2016-07-23] MEDS ORDERED: SODIUM CHLOR 0.9% 250 ML INJ 250 ML IV ONE (10:16)
[2016-07-23] MEDS ORDERED: LACTATED RINGER'S 1000 ML INJ 2,000 ML IV ONE (10:16)
[2016-07-23] MEDS ORDERED: SODIUM CHLORID 0.9% 500 ML INJ 500 ML IV ONE (10:16)
[2016-07-23] MEDS ORDERED: LACTATED RINGER'S 1000 ML INJ 500 ML IV PRN (11:12)
[2016-07-23] MEDS ORDERED: DOBUTamine PREMIX DRIP 250 ML IV SCH (11:12)
[2016-07-23] MEDS ORDERED: MORPHINE SULFATE 4 MG/ML INJ IV PRN (11:15)
[2016-07-23] MEDS ORDERED: Post-op Orders (for Pharmacy) MISC OTHER ONE (11:15)
[2016-07-23] MEDS ORDERED: ALBUMIN HUMAN 5% 12.5 GM/250 ML BOTTLE IV PRN (11:15)
[2016-07-23] MEDS ORDERED: MAGNESIUM SULFATE INJ 2 GM in SODIUM CHLORIDE 0.9% INJ 100 ML IV PRN ×4 (11:15)
[2016-07-23] MEDS ORDERED: ACETAMINOPHEN 650 MG SUPP RECTAL PRN (11:15)
[2016-07-23] MEDS ORDERED: CALCIUM CHLORIDE 10% 1 GRAM/10 ML VIAL IV PRN (11:15)
[2016-07-23] MEDS ORDERED: NITROGLYCERIN-DEXTROSE INJ 250 ML IV SCH (11:15)
[2016-07-23] MEDS ORDERED: MEPERIDINE HCL 25 MG/ML VIAL IV PRN (11:15)
[2016-07-23] MEDS ORDERED: CLEVIDIPINE INJ 50 ML IV SCH (11:15)
[2016-07-23] MEDS ORDERED: EPINEPHrine (1:1000) INJ 4 MG in DEXTROSE 5% IN WATER INJ 246 ML IV SCH ×2 (11:15)
[2016-07-23] MEDS ORDERED: PHENYLEPHRINE INJ 40 MG in DEXTROSE 5% IN WATE 500 ML INJ 496 ML IV SCH ×2 (11:15)
[2016-07-23] MEDS ORDERED: ACETAMINOPHEN 325 MG TAB PO PRN (11:15)
[2016-07-23] MEDS ORDERED: METOPROLOL TARTRATE 5 MG/5 ML VIAL IV PUSH PRN (11:15)
[2016-07-23] MEDS ORDERED: POTASSIUM CHLORIDE 20 MEQ CONTROLLED RELEASE TAB PO PRN ×2 (11:15)
[2016-07-23] MEDS ORDERED: hydrALAZINE HCL 20 MG/ML VIAL IV PRN (11:15)
[2016-07-23] MEDS ORDERED: DEXTROSE 50% IN WATER 50 ML VIAL(D50) IV PUSH PRN (11:15)
[2016-07-23] MEDS ORDERED: POTASSIUM CHLOR 20 MEQ PREMIX 100 ML IV PRN ×3 (11:15)
[2016-07-23] MEDS ORDERED: DOPamine INJ PREMIX 500 ML IV SCH (11:15)
[2016-07-23] MEDS ORDERED: INSULIN REGULAR (IV INFUSION) 100 UNITS in SODIUM CHLORIDE 0.9% INJ 99 ML IV SCH (11:15)
--- NOTE | 2016-07-23 11:23 | PD.OP ---
cc: Germain Castañeda MD; Magnolia Quiroz MD; Jeremy Hartman MD Operative Report Date of Surgery: Jul 23, 2016 Preoperative Diagnosis: Postoperative Diagnosis: Procedure: 1. Urgent Off-pump Coronary Artery Bypass Grafting x 3 with left internal mammary artery (LUCAS) to left anterior descending (LAD), reverse saphenous vein graft to OM1, reverse saphenous vein graft to the distal RCA 2. Left Leg Endoscopic Vein [place] 3. Intraoperative Vein Mapping. . Surgeon: Germain Castañeda Fiber Optic Splicer(s): Mary Castillo Operation and Findings: PREPROCEDURE DIAGNOSES 1. Severe Multi Vessel Coronary Artery Disease 2. In-stent Restenosis 3. Acute Myocardial Infarction 4. COPD POSTPROCEDURE DIAGNOSES Same SURGICAL PROCEDURE 1. Urgent Off-pump Coronary Artery Bypass Grafting x 3 with left internal mammary artery (LUCAS) to left anterior descending (LAD), reverse saphenous vein graft to OM1, reverse saphenous vein graft to the distal RCA 2. Left Leg Endoscopic Vein [place] 3. Intraoperative Vein Mapping. SURGEON Germain Castañeda MD FISCAL MANAGER JOY Joseph ANESTHESIA General endotracheal GRAIN ELEVATOR WORKER ROZINA Carolina MD PREPARATION ChloraPrep. COUNTS Needle, sponge, and instrument counts were correct. DRAINS Two 32-[place] mediastinal tubes. COMPLICATIONS None. INDICATIONS FOR PROCEDURE The patient is a 56-year-old presenting with chest pain. Patient was noted to have multi-vessel coronary artery disease and is being brought to the operating room for surgical revascularization therapy. PROCEDURE Patient was brought to the operating room and placed supine on the OR table. Following the induction of adequate general endotracheal anesthesia and placement of appropriate monitoring devices, intraoperative vein mapping was performed which revealed suitable-caliber conduit in the left lower extremity. The patient was then prepped and draped in standard sterile fashion. Next, 2500 units of intravenous heparin was given. The left greater saphenous vein was harvested endoscopically. This appeared to be a good-caliber conduit. Simultaneously, a median sternotomy was performed and the left internal mammary artery dissected free off the posterior sternal table. The patient was systemically heparinized and anticoagulation monitored by serial ACT measurements. The internal mammary artery had good pulsatile flow in it and was a decent-caliber conduit. The pericardium was then divided in the midline, the cradle created and targets analyzed. At this point, all anastomoses were performed in a beating-heart fashion using the Maquet stabilizing system. The left internal mammary artery was anastomosed to the distal LAD in an end-to- side fashion using 7-0 Prolene. Segment of saphenous vein graft was then anastomosed to the OM1 in an end-to-side fashion using 7-0 Prolene. The next segment was anastomosed to the RCA in an end-to-side fashion using 7-0 Prolene. The proximal anastomoses were then constructed to the ascending aorta in a running manner using 6-0 Prolene. All anastomotic sites were inspected and appeared to be hemostatic and patent. Protamine solution was given. Strict hemostasis was assured. The closure was undertaken. 2 chest tubes were placed. The pericardium was reapproximated in the midline. The sternum was approximated using sternal wires. The muscular and fascial layer were then closed in 3 layers. The endoscopic vein harvest site was closed in 2 layers. The patient tolerated the procedure well and was transferred to CVICU in stable condition. Germain Castañeda MD Jul 23, 2016 11:23
[2016-07-23] MEDS: ACETAMINOPHEN 1000 MG/100 ML VIAL IV SCH ×2 (12:00→17:09)
[2016-07-23] MEDS ORDERED: DEXMEDETOMIDINE INJ 50 ML IV SCH (12:00)
[2016-07-23] MEDS: CALCIUM CHLORIDE INJ 1 GM in SODIUM CHLORIDE 0.9% INJ 100 ML IV PRN (12:15)
[2016-07-23] MEDS ORDERED: MIDAZOLAM HCL 5 MG/5 ML VIAL ONE (12:16)
[2016-07-23] MEDS ORDERED: fentaNYL CITRATE 1000 MCG/20 ML VIAL ONE (12:16)
--- NOTE | 2016-07-23 12:53 | RADRPT ---
EXAM DATE/TIME: 07/23/2016 11:54 [facility] COMPARISON: CHEST SINGLE AP, July 17, 2016, 15:44. INDICATIONS : Post CABG MEDICAL HISTORY: Myocardial infarction. Congestive heart failure. Hypertension. SURGICAL HISTORY: Coronary artery stent. Hysterectomy. ENCOUNTER: Initial ACUITY: 1 day PAIN SCORE: Non-responsive. LOCATION: Chest FINDINGS: Median sternotomy wires are noted status post cardiac surgery. A left-sided chest tube is noted in g ood position. There is no pneumothorax. Mediastinal drain is also in good position. The endotrache al tube has its tip across the approximately 5 cm above the david in good position. A right interna l jugular sheath and catheter are noted with its tip at the junction of the superior vena cava. Atel ectasis is noted within the left mid lung field and left lung base. There is no pulmonary edema. No pleural effusion is noted. CONCLUSION: 1. Left mid and lower lung field atelectasis. 2. Multiple tubes and lines are in good positions. Josh Sharma MD on July 23, 2016 at 12:35 Board Certified Radiologist. This report was verified electronically.
--- NOTE | 2016-07-23 14:42 | HHI.FPPN ---
Subjective Remarks Pt seen and examined after cardiothoracic surgery. Patient intubated and sedated. Patient able to open eyes and respond to simple commands. (Peter Becerra MD R1) Objective Vitals Vital Signs Date Time Temp Pulse Resp B/P Pulse Ox O2 Delivery O2 Flow Rate FiO2 07/23/16 12:00 40 07/23/16 12:00 67 07/23/16 12:00 96 Mechanical Ventilator 40 07/23/16 11:45 96 40 07/23/16 11:40 97.5 66 18 104/64 95 89/47 07/23/16 06:00 78 07/23/16 05:00 80 07/23/16 04:00 78 07/23/16 03:00 98.2 89 16 136/83 96 07/23/16 03:00 78 07/23/16 02:00 82 07/23/16 01:00 76 07/23/16 00:00 76 07/22/16 23:00 97.9 85 16 161/98 97 07/22/16 23:00 80 07/22/16 22:00 98 07/22/16 21:00 96 07/22/16 20:00 96 07/22/16 19:00 97.9 98 16 156/91 97 07/22/16 19:00 86 07/22/16 18:00 86 07/22/16 17:00 88 07/22/16 16:00 86 07/22/16 15:00 98.2 86 20 141/80 96 07/22/16 15:00 89 I/O 07/22/16 07/22/16 07/22/16 07/23/16 07/23/16 07/23/16 07:00 15:00 23:00 07:00 15:00 23:00 Intake Total 240 ml 840 ml 240 ml Output Total 1000 ml 1200 ml 2100 ml Balance -760 ml -360 ml -1860 ml Intake Oral 240 ml 840 ml 240 ml IV Total 0 ml Output Urine Total 1000 ml 1200 ml 2100 ml # Bowel Movements 0 1 (Peter Becerra MD R1) Result Diagram: 07/23/16 0528 07/21/16 0650 Objective Remarks GEN: Thin-appearing female. Intubated and sedated SKIN: Improving excoriations over extremities and trunk CV: Regular rate and rhythm without obvious murmurs LUNGS: Diminished breath sounds EXT: No edema. No calf tenderness. (Peter Becerra MD R1) A/P Assessment and Plan 56 yo F, hx of CAD, COPD. Admitted for NSTEMI Discharge Planning Pending recovery from CABG (Peter Becerra MD R1) Attending Attestation Patient seen and examined. Case reviewed and discussed with the resident team. Agree with plan of care as discussed with me and documented in the resident note. (Ursula Armstrong MD) Problem List: (1) NSTEMI (non-ST elevated myocardial infarction) Status: Acute Plan: Found to have NSTEMI. Troponin elevated on admission but has improved. EKG unchanged from previous. History of grade 1 diastolic dysfunction on echo January 2016. Did have a stent placement on 02/02/16 Cardiology consulted: appreciate recommendations * Cath 07/18: showed mid distal LAD stenosis of 95%, diagonal 50%, and RCA 95%. * Consulted CT surg for CABG CV consulted: Appreciate recommendations * POD#0 CABG Medications: * Metoprolol 25mg q12 * Atorvastatin 40 mg * Imdur 30mg daily * HOLD Brilinta * Aspirin 81 mg * Heparin 5,000 U q8h (2) CAD (coronary artery disease) Status: Chronic Plan: See plan under NSTEMI (3) Itching Status: Resolved Plan: Rash over entire extremities, unlikely scabies. -Zyrtec and Flonase -Benadryl PRN -Hydrocortisone, Eucerin twice a day -Vaseline every 3 (4) COPD (chronic obstructive pulmonary disease) Status: Chronic Plan: Chronic COPD symptoms that are worse in the morning. Patient continues to have wheezing on exam, improved from previously. -Mucinex and scheduled Duonebs -Continue Spiriva -Continue Advair Diskus -Albuterol PRN -Hold prednisone, consider resuming if respiratory status worsens (5) Hypertension Status: Chronic Plan: BP mildly elevated to systolic 150s/160s. Continue home meds. -Restarted amlodipine 5 mg po daily (home dose), previously decreased about patient having uncontrolled BP at this dose -Vasotec prn BP > 160/90 -Will monitor vitals (6) Adjustment disorder with depressed mood Status: Acute Plan: Mood has improved since starting antidepressant and antipsychotic -fluoxetine 10 mg daily Psychiatry consulted: Appreciate recommendations * Trazodone (7) FEN/PPX Status: Acute Plan: Heart healthy diet, once extubated and tolerated IV fluids: None Electrolytes: Unremarkable, continue to monitor DVT PPX: Heparin q8 SQ GI PPX: Pepcid (Peter Becerra MD R1) Problem Qualifiers (1) CAD (coronary artery disease): Qualified Code: I25.119 - Coronary artery disease involving [place] coronary artery of [place] heart with angina pectoris (2) COPD (chronic obstructive pulmonary disease): Qualified Code: J41.0 - Simple chronic bronchitis (3) Hypertension: Qualified Code: I10 - Essential hypertension Peter Becerra MD R1 Jul 23, 2016 14:42 Ursula Armstrong MD Jul 23, 2016 15:44
[2016-07-23] MEDS ORDERED: RESP: RACEPINEPHRINE 2.25% 0.5 ML NEB ONE ×2 (15:00→15:01)
[2016-07-23] MEDS ORDERED: RESP: ALBUTEROL 2.5 MG/IPRATROPIUM 0.5 MG NEB (PRN) NEB (15:30)
[2016-07-23] MEDS ORDERED: RESP: RACEPINEPHRINE 2.25% 0.5 ML NEB NEB PRN (15:30)
[2016-07-23] MEDS: ONDANSETRON HCL 4 MG/2 ML VIAL IV PUSH PRN (15:45)
[2016-07-23 16:22] LABS: HEMOGLOBIN A1b 1.8 %; HEMOGLOBIN Ao 84.8 %; HEMOGLOBIN LA1C 1.8 %; HEMOGLOBIN P3 3.8 %
[2016-07-23] MEDS ORDERED: SODIUM BICARBONATE 8.4% INJ 50 ML ONE (17:21)
[2016-07-23] MEDS ORDERED: SODIUM BICARBONATE 8.4% SOLN 50 MEQ/50 ML VIAL IV ONE (18:15)
[2016-07-23] MEDS: ATORVASTATIN 40 MG TAB PO SCH (21:46)
[2016-07-23] MEDS: AMIODARONE 200 MG TAB PO SCH (21:47)
[2016-07-23] MEDS: traZODone HCL 100 MG TAB PO SCH (21:47)
[2016-07-23] MEDS: KETOROLAC TROMETHAMINE 30 MG/ML (IVP) VIAL IV PUSH PRN (21:48)
[2016-07-24] VITALS (21 sets, daily range): BP systolic 105–153; BP diastolic 63–84; PULSE 72–88; RESP 18–20; TEMP 97.6–99.1; O2SAT 10–100
[2016-07-24] MEDS: ACETAMINOPHEN 1000 MG/100 ML VIAL IV SCH ×2 (00:27→06:25)
[2016-07-24] MEDS: CALCIUM CHLORIDE INJ 1 GM in SODIUM CHLORIDE 0.9% INJ 100 ML IV PRN (00:27)
[2016-07-24] MEDS: ACETAMINOPHEN/HYDROcodone 325 MG/5 MG TAB PO PRN ×6 (00:28→22:15)
[2016-07-24] MEDS: HEPARIN SODIUM - SQ 10,000 UNITS/ML VIAL SQ SCH (02:00)
--- NOTE | 2016-07-24 02:57 | RADRPT ---
EXAM DATE/TIME: 07/24/2016 02:33 [facility] COMPARISON: CHEST SINGLE AP, July 23, 2016, 11:54. INDICATIONS : Shortness of breath. MEDICAL HISTORY : None. SURGICAL HISTORY : CABG. ENCOUNTER: Subsequent ACUITY: 4 - 6 days PAIN SCORE: Non-responsive. LOCATION: Bilateral chest FINDINGS: Right jugular line tip overlies the expected location the right atrium. Median sternotomy wires, medi astinal tube and left-sided chest tube identified. No evidence of pneumothorax. Patchy left lower lob e airspace disease. This is increased from previous. CONCLUSION: Increased left basilar airspace disease. Bhaskar Eagle MD on July 24, 2016 at 2:54 Board Certified Radiologist. This report was verified electronically.
[2016-07-24] MEDS: RESP: ALBUTEROL 2.5 MG/IPRATROPIUM 0.5 MG NEB (SCH) NEB ×3 (03:21→20:25)
[2016-07-24 05:22] LABS: MEAN CELL VOLUME 89.2 FL (80.0-100.0); MEAN CORPUSCULAR HEMOGLOBIN 29.9 PG (27.0-34.0); MEAN CORPUSCULAR HGB CONC 33.5 % (32.0-36.0); PLATELET COUNT 323 TH/MM3 (150-450); RED BLOOD COUNT 3.25 MIL/MM3 (4.00-5.30); RED CELL DISTRIBUTION WIDTH 13.9 % (11.6-17.2); REVIEW FLAG FINAL; WHITE BLOOD COUNT 9.9 TH/MM3 (4.0-11.0)
[2016-07-24 05:47] LABS: BICARBONATE 25.1 MEQ/L (21.0-32.0); MAGNESIUM 2.3 MG/DL (1.5-2.5); POTASSIUM 4.7 MEQ/L (3.5-5.1)
[2016-07-24] MEDS: PANTOPRAZOLE SOD 40 MG DELAYED RELEASE TAB PO SCH (06:22)
[2016-07-24] MEDS: ONDANSETRON HCL 4 MG/2 ML VIAL IV PUSH PRN ×2 (06:26→16:09)
[2016-07-24] MEDS: KETOROLAC TROMETHAMINE 30 MG/ML (IVP) VIAL IV PUSH PRN ×2 (07:47→17:52)
[2016-07-24] MEDS ORDERED: GLUCAGON 1 MG/ML VIAL OTHER PRN (08:45)
[2016-07-24] MEDS ORDERED: SOD PHOSPHATE/SOD BIPHOSPHATE (ADULT) ENEMA 133ML RECTAL PRN (08:45)
[2016-07-24] MEDS ORDERED: DEXTROSE 50% IN WATER 50 ML VIAL(D50) IV PRN (08:45)
[2016-07-24] MEDS ORDERED: BISACODYL 10 MG SUPP RECTAL PRN (08:45)
[2016-07-24] MEDS: CETIRIZINE HCL 10 MG TAB PO SCH (08:46)
[2016-07-24] MEDS: CLOPIDOGREL 75 MG TAB PO SCH (08:46)
[2016-07-24] MEDS: ASPIRIN 81 MG CHEW TAB PO SCH (08:46)
[2016-07-24] MEDS: FLUoxetine HCL 10 MG CAP PO SCH (08:46)
[2016-07-24] MEDS: SODIUM CHLORIDE 0.9% FLUSH 5 ML FLUSH IV FLUSH SCH ×2 (08:47→22:18)
[2016-07-24] MEDS: AMIODARONE 200 MG TAB PO SCH ×2 (08:47→22:16)
[2016-07-24] MEDS: FLUTICASONE PROPIONATE 50 MCG/ACT 16 GM NASAL SPRAY NASAL SCH (08:47)
[2016-07-24] MEDS: FAMOTIDINE 20 MG TAB PO SCH ×2 (08:48→22:16)
[2016-07-24] MEDS ORDERED: FUROSEMIDE 20 MG/2 ML VIAL IV PUSH ONE (09:00)
[2016-07-24] MEDS: TIOTROPIUM BROMIDE 18 MCG INH INH SCH (09:00)
[2016-07-24] MEDS: EUCERIN CREAM 120 GM JAR TOPICAL SCH ×2 (09:00→21:00)
[2016-07-24] MEDS: BUDESONIDE-FORMOTEROL 160/4.5 MCG INHALER INH SCH ×2 (09:00→21:00)
[2016-07-24] MEDS: MAGNESIUM HYDROXIDE SUSP 30 ML CUP PO SCH (09:12)
[2016-07-24] MEDS: METOPROLOL TARTRATE 25 MG TAB PO SCH ×2 (09:12→22:17)
[2016-07-24] MEDS: DOCUSATE SODIUM 100 MG CAP PO SCH ×2 (09:12→22:16)
[2016-07-24] MEDS: MULTIVITAMINS/MINERALS THERAPEUTIC TAB PO SCH (09:12)
--- NOTE | 2016-07-24 09:16 | EKG ---
Date Performed: 07/24/2016 Time Performed: 06:01:24 PTAGE: 56 years EKG: Sinus rhythm Incomplete LBBB Possible anteroseptal infarct - age undetermined Lateral T wave changes are nonspeci fic Abnormal ECG PREVIOUS TRACING : 07/19/2016 05.59 DOCTOR: Jeremy Hartman Interpretating Date/Time 07/24/2016 09:15:21
--- NOTE | 2016-07-24 09:21 | HHI.FPPN ---
Subjective Remarks Pt seen and examined this morning. No acute events overnight. Less tearful. Reports doing well. POD#1 CABGx3. (Peter Becerra MD R1) Objective Vitals Vital Signs Date Time Temp Pulse Resp B/P Pulse Ox O2 Delivery O2 Flow Rate FiO2 07/24/16 07:17 99 Nasal Cannula 3.00 07/24/16 07:00 76 07/24/16 07:00 99 Nasal Cannula 2.00 07/24/16 07:00 99.1 76 18 123/71 99 07/24/16 05:25 18 07/24/16 04:00 77 18 116/69 99 128/65 07/24/16 04:00 76 07/24/16 04:00 99 Nasal Cannula 4.00 07/24/16 01:30 16 07/24/16 00:00 86 07/24/16 00:00 98.4 86 18 105/68 98 122/63 07/24/16 00:00 98 Nasal Cannula 4.00 07/23/16 22:45 16 07/23/16 21:38 98 Nasal Cannula 3.00 07/23/16 20:00 98.7 82 16 116/73 99 127/66 07/23/16 20:00 82 07/23/16 20:00 99 Nasal Cannula 4.00 07/23/16 19:02 16 07/23/16 19:00 90 Nasal Cannula 3.00 07/23/16 16:39 97 Nasal Cannula 3.00 07/23/16 15:20 99 Nasal Cannula 3.00 07/23/16 15:00 70 07/23/16 15:00 97.5 70 16 122/65 99 07/23/16 14:52 99 Nasal Cannula 3 07/23/16 12:00 40 07/23/16 12:00 67 07/23/16 12:00 96 Mechanical Ventilator 40 07/23/16 11:45 96 40 07/23/16 11:40 97.5 66 18 104/64 95 89/47 I/O 07/23/16 07/23/16 07/23/16 07/24/16 07/24/16 07/24/16 07:00 15:00 23:00 07:00 15:00 23:00 Intake Total 240 ml 1423 ml 1720 ml Output Total 2100 ml 635 ml 710 ml Balance -1860 ml 788 ml 1010 ml Intake Oral 240 ml 30 ml 820 ml IV Total 1393 ml 900 ml Output Urine Total 2100 ml 505 ml 580 ml Chest Tube Drainage Total 130 ml 130 ml # Bowel Movements 0 0 (Peter Becerra MD R1) Result Diagram: 07/24/1642907/24/16429 Objective Remarks GEN: Thin-appearing female. Lying in bed, NAD CV: Regular rate and rhythm without obvious murmurs LUNGS: Diminished breath sounds. Scattered wheezes throughout. EXT: No edema. No calf tenderness. (Peter Beecrra MD R1) A/P Assessment and Plan 56 yo F, hx of CAD, COPD. Admitted for NSTEMI Discharge Planning Pending recovery from CABG (Peter Becerra MD R1) Attending Attestation Patient seen and examined. Case reviewed and discussed with the resident team. Agree with plan of care as discussed with me and documented in the resident note. (Ursula Armstrong MD) Problem List: (1) NSTEMI (non-ST elevated myocardial infarction) Status: Acute Plan: Found to have NSTEMI. Troponin elevated on admission but has improved. EKG unchanged from previous. History of grade 1 diastolic dysfunction on echo January 2016. Did have a stent placement on 02/02/16 Cardiology consulted: appreciate recommendations * Cath 07/18: showed mid distal LAD stenosis of 95%, diagonal 50%, and RCA 95%. * Consulted CT surg for CABG CV consulted: Appreciate recommendations * POD#1 CABGx3 * Continue post-op management Medications: * Metoprolol 25mg q12 * Atorvastatin 40 mg * Imdur 30mg daily * HOLD Brilinta * Aspirin 81 mg * Holding Heparin 5,000 U q8h post-op (2) CAD (coronary artery disease) Status: Chronic Plan: See plan under NSTEMI (3) Itching Status: Resolved Plan: Rash over entire extremities, unlikely scabies. -Zyrtec and Flonase -Benadryl PRN -Hydrocortisone, Eucerin twice a day -Vaseline every 3 (4) COPD (chronic obstructive pulmonary disease) Status: Chronic Plan: Chronic COPD symptoms that are worse in the morning. Patient continues to have wheezing on exam, improved from previously. -Mucinex and scheduled Duonebs -Continue Spiriva -Continue Advair Diskus -Albuterol PRN -Hold prednisone, consider resuming if respiratory status worsens (5) Hypertension Status: Chronic Plan: BP mildly elevated to systolic 150s/160s on admission. Continue home meds. -amlodipine 5 mg po daily (home dose) -Vasotec prn BP > 160/90 -Will monitor vitals (6) Adjustment disorder with depressed mood Status: Acute Plan: Mood has improved since starting antidepressant and antipsychotic -fluoxetine 10 mg daily Psychiatry consulted: Appreciate recommendations * Trazodone (7) FEN/PPX Status: Acute Plan: Heart healthy diet IV fluids: None Electrolytes: Unremarkable, continue to monitor DVT PPX: Kali handye GI PPX: Pepcid (Peter Becerra MD R1) Problem Qualifiers (1) CAD (coronary artery disease): Qualified Code: I25.119 - Coronary artery disease involving [place] coronary artery of [place] heart with angina pectoris (2) COPD (chronic obstructive pulmonary disease): Qualified Code: J41.0 - Simple chronic bronchitis (3) Hypertension: Qualified Code: I10 - Essential hypertension Peter Becerra MD R1 Jul 24, 2016 09:21 Ursula Armstrong MD Jul 24, 2016 15:17
[2016-07-24] MEDS: HYDROCORTISONE 2.5% CREAM 30 GM TOPICAL SCH ×2 (09:23→21:00)
[2016-07-24] MEDS: INSULIN ASPART SUPPLEMENTAL SCALE SQ SCH ×4 (10:00→22:00)
[2016-07-24] MEDS ORDERED: RESP: ALBUTEROL 2.5 MG/IPRATROPIUM 0.5 MG NEB (PRN) NEB (14:30)
--- NOTE | 2016-07-24 14:34 | PD.CAR.PN ---
CVT Progress Note CVT: POD #: 1 Subjective/Hospital Course: This is a 56-year-old female who has lived out of doors since her hospitalization here in May for exertional chest pain. She was also hospitalized here in January and was seen by Dr. mg at that time. She reports the pain is in the left chest just below the left breast, is a 5-6 out of 10, initially was sharp but now it is dull and radiates through to her back but not her neck jaw or arms. It is a little bit worse with a deep breath and this morning it was associated with nausea but no vomiting and she did report sweats. She feels anxious and short of breath and her exercise tolerance is limited to approximately half a block if she uses her walker and stops to rest frequently. Reports being chronically short of breath and anxious, fearful of dying on the street. She has been completely out of her medications due to finances and has been told in the past that she should be on a blood thinner. Some productive cough but this does not exacerbate her pain in particular. Continues to smoke 2-3 cigarettes a day, is no longer using alcohol for the past approximately 6 months. admitted with NSTEMI PMH: chronic itching. She had been told she had scabies in the past, but now has itching everywhere, unrelieved by Caladryl and Benadryl tablets., CAD , rotational arthrectomy RCA and PCI bare metal stent 08/02/15 was on Brilinta, but has not taken any meds in a couple of months , COPD, HTN, depression/ anxiety , chronic tobacco abuse 07/19 pt tearful and anxious , mild chest pain last pm no further c/o since , scheduled for surgery on 07/22 no further chest pain, rash improved to arms and legs, still has some on buttocks, will discuss with attending re-scheduled for surgery in am less tearful 07/23 surgery: Urgent Off-pump Coronary Artery Bypass Grafting x 3 with left internal mammary artery (LUCAS) to left anterior descending (LAD), reverse saphenous vein graft to OM1, reverse saphenous vein graft to the distal RCA Left Leg Endoscopic Vein [place] 3400cc crystalloid, 250cc cell saver, EBL 500cc 07/24 on nasal; cannula , no pressors , no insulin gtt still somewhat anxious BB resumed, on plavix, ASA statin OOB, ambulate skin rash improving Objective: GENERAL: SKIN: Warm and dry./ prevena dressing in place to sternum, bacilio wrap to left leg HEAD: Normocephalic. EYES: No scleral icterus. No injection or drainage. NECK: Supple, trachea midline. No JVD or lymphadenopathy. CARDIOVASCULAR: Regular rate and rhythm without murmurs, gallops, or rubs. RESPIRATORY: Breath sounds equal bilaterally. No accessory muscle use. GASTROINTESTINAL: Abdomen soft, non-tender, nondistended. MUSCULOSKELETAL: No cyanosis, or edema. BACK: Nontender without obvious deformity. No CVA tenderness. Vital Signs Date Time Temp Pulse Resp B/P Pulse Ox O2 Delivery O2 Flow Rate FiO2 07/24/16 11:44 98 Nasal Cannula 2.00 07/24/16 11:44 98.3 86 20 122/75 98 Arterial Line 07/24/16 11:00 99.1 84 18 135/84 95 07/24/16 11:00 95 Nasal Cannula 2.00 07/24/16 11:00 84 07/24/16 07:17 99 Nasal Cannula 3.00 07/24/16 07:00 76 07/24/16 07:00 99 Nasal Cannula 2.00 07/24/16 07:00 99.1 76 18 123/71 99 07/24/16 05:25 18 07/24/16 04:00 77 18 116/69 99 128/65 07/24/16 04:00 76 07/24/16 04:00 99 Nasal Cannula 4.00 07/24/16 01:30 16 07/24/16 00:00 86 07/24/16 00:00 98.4 86 18 105/68 98 122/63 07/24/16 00:00 98 Nasal Cannula 4.00 07/23/16 22:45 16 07/23/16 21:38 98 Nasal Cannula 3.00 07/23/16 20:00 98.7 82 16 116/73 99 127/66 07/23/16 20:00 82 07/23/16 20:00 99 Nasal Cannula 4.00 07/23/16 19:02 16 07/23/16 19:00 90 Nasal Cannula 3.00 07/23/16 16:39 97 Nasal Cannula 3.00 07/23/16 15:20 99 Nasal Cannula 3.00 07/23/16 15:00 70 07/23/16 15:00 97.5 70 16 122/65 99 07/23/16 14:52 99 Nasal Cannula 3 Labs: Laboratory Tests Test 07/24/16 04:30 White Blood Count 9.9 TH/MM3 (4.0-11.0) Red Blood Count 3.25 MIL/MM3 (4.00-5.30) Hemoglobin 9.7 GM/DL (11.6-15.3) Hematocrit 29.0 % (35.0-46.0) Mean Corpuscular Volume 89.2 FL (80.0-100.0) Mean Corpuscular Hemoglobin 29.9 PG (27.0-34.0) Mean Corpuscular Hemoglobin 33.5 % Concent (32.0-36.0) Red Cell Distribution Width 13.9 % (11.6-17.2) Platelet Count 323 TH/MM3 (150-450) Mean Platelet Volume 8.5 FL (7.0-11.0) Sodium Level 136 MEQ/L (136-145) Potassium Level 4.7 MEQ/L (3.5-5.1) Chloride Level 104 MEQ/L (98-107) Carbon Dioxide Level 25.1 MEQ/L (21.0-32.0) Anion Gap 7 MEQ/L (5-15) Blood Urea Nitrogen 17 MG/DL (7-18) Creatinine 0.96 MG/DL (0.50-1.00) Estimat Glomerular Filtration 60 ML/MIN (>89) Rate Random Glucose 119 MG/DL (74-106) Calcium Level 8.8 MG/DL (8.5-10.1) Magnesium Level 2.3 MG/DL (1.5-2.5) Result Diagram: 07/24/1642907/24/16429 Telemetry: NSR (1) NSTEMI (non-ST elevated myocardial infarction) Plan: on BB, statin, ASA , plavix aggressive pulm toileting nebs, ezpap , acapella gentle diuresis will need social work consult (2) Chest pain (3) COPD exacerbation Plan: on nebs , FEV1 0.96 Spiriva (4) CHF exacerbation Plan: grade 1 diastolic dysfunction. on BB gentle diuresis (5) Adjustment disorder with depressed mood Plan: appreciate psych, on antidepressants (6) Itching Plan: on hydrocortisone and emollients prior hx of scabies Nicolle Benitez Jul 24, 2016 14:34
[2016-07-24] MEDS: traZODone HCL 100 MG TAB PO SCH (22:16)
[2016-07-24] MEDS: ATORVASTATIN 40 MG TAB PO SCH (22:16)
[2016-07-24] MEDS: SENNOSIDES 8.6 MG TAB PO SCH (22:17)
[2016-07-25] VITALS (26 sets, daily range): BP systolic 117–157; BP diastolic 71–90; PULSE 75–91; RESP 18–20; TEMP 97.8–98.8; O2SAT 90–100
[2016-07-25] MEDS: INSULIN ASPART SUPPLEMENTAL SCALE SQ SCH ×6 (01:56→21:00)
[2016-07-25] MEDS: LACTATED RINGER'S 1000 ML IV SCH (02:52)
[2016-07-25] MEDS: PANTOPRAZOLE SOD 40 MG DELAYED RELEASE TAB PO SCH (04:30)
[2016-07-25 05:09] LABS: BASOPHIL % 0.4 % (0.0-2.0); EOSINOPHIL # 0.9 TH/MM3 (0-0.4); EOSINOPHIL % 7.6 % (0.0-4.0); HEMATOCRIT 26.6 % (35.0-46.0); HEMO FLAGS DIFF FINAL; LYMPH % 8.5 % (9.0-44.0); MEAN CELL VOLUME 88.4 FL (80.0-100.0); MEAN CORPUSCULAR HEMOGLOBIN 30.1 PG (27.0-34.0); MONO % 12.9 % (0.0-8.0); NEUT % 70.6 % (16.0-70.0); PLATELET COUNT 361 TH/MM3 (150-450); RED CELL DISTRIBUTION WIDTH 14.1 % (11.6-17.2); WHITE BLOOD COUNT 11.3 TH/MM3 (4.0-11.0)
[2016-07-25 05:22] LABS: BICARBONATE 27.1 MEQ/L (21.0-32.0); MAGNESIUM 2.5 MG/DL (1.5-2.5); POTASSIUM 4.4 MEQ/L (3.5-5.1)
[2016-07-25] MEDS: RESP: ALBUTEROL 2.5 MG/IPRATROPIUM 0.5 MG NEB (SCH) NEB ×3 (07:29→19:10)
[2016-07-25] MEDS: POLYETHYLENE GLYCOL 17 GM PKG PO SCH (07:49)
[2016-07-25] MEDS: DOCUSATE SODIUM 100 MG CAP PO SCH ×2 (07:50→21:17)
[2016-07-25] MEDS: ASPIRIN 81 MG CHEW TAB PO SCH (07:50)
[2016-07-25] MEDS: ACETAMINOPHEN/HYDROcodone 325 MG/5 MG TAB PO PRN ×4 (07:50→21:17)
[2016-07-25] MEDS: MULTIVITAMINS/MINERALS THERAPEUTIC TAB PO SCH (07:50)
[2016-07-25] MEDS: FAMOTIDINE 20 MG TAB PO SCH ×2 (07:51→21:17)
[2016-07-25] MEDS: AMIODARONE 200 MG TAB PO SCH ×2 (07:51→21:17)
[2016-07-25] MEDS: CETIRIZINE HCL 10 MG TAB PO SCH (07:51)
[2016-07-25] MEDS: CLOPIDOGREL 75 MG TAB PO SCH (07:51)
[2016-07-25] MEDS: METOPROLOL TARTRATE 25 MG TAB PO SCH ×2 (07:51→21:18)
[2016-07-25] MEDS: FLUTICASONE PROPIONATE 50 MCG/ACT 16 GM NASAL SPRAY NASAL SCH (07:51)
[2016-07-25] MEDS: FLUoxetine HCL 10 MG CAP PO SCH (07:51)
[2016-07-25] MEDS: SODIUM CHLORIDE 0.9% FLUSH 5 ML FLUSH IV FLUSH SCH ×2 (07:54→21:18)
[2016-07-25] MEDS: MAGNESIUM HYDROXIDE SUSP 30 ML CUP PO SCH (07:54)
[2016-07-25] MEDS: BUDESONIDE-FORMOTEROL 160/4.5 MCG INHALER INH SCH ×2 (07:56→21:00)
[2016-07-25] MEDS: TIOTROPIUM BROMIDE 18 MCG INH INH SCH (08:00)
[2016-07-25] MEDS: EUCERIN CREAM 120 GM JAR TOPICAL SCH ×2 (08:01→21:20)
[2016-07-25] MEDS: HYDROCORTISONE 2.5% CREAM 30 GM TOPICAL SCH ×2 (08:01→21:21)
--- NOTE | 2016-07-25 08:29 | HHI.FPPN ---
Subjective Remarks No acute events overnight. Vital signs unremarkable. This morning she reports that her chest hurts from her surgery but she otherwise feels like she is improving. Was up walking around yesterday and sat in chair. Continues to have a decreased appetite but plans to try and eat today. Reports that her castellano was removed overnight but she has not yet gone to urinate. (Giovanna Orona MD R2) Objective Vitals Vital Signs Date Time Temp Pulse Resp B/P Pulse Ox O2 Delivery O2 Flow Rate FiO2 07/25/16 08:14 100 Nasal Cannula 2.00 07/25/16 08:14 98.0 83 20 143/86 100 07/25/16 08:14 79 07/25/16 07:32 96 Nasal Cannula 2.00 07/25/16 06:00 79 07/25/16 05:00 78 07/25/16 04:00 98.4 76 18 119/74 100 07/25/16 04:00 76 07/25/16 03:00 79 07/25/16 03:00 100 Nasal Cannula 2.00 07/25/16 03:00 98.8 79 18 142/82 100 07/25/16 02:00 75 07/25/16 01:00 77 07/25/16 00:00 75 07/24/16 23:00 100 Nasal Cannula 2.00 07/24/16 23:00 98.5 82 18 140/78 100 07/24/16 23:00 82 07/24/16 22:00 78 07/24/16 21:00 80 07/24/16 20:27 97 Nasal Cannula 2.00 07/24/16 20:00 82 07/24/16 19:00 98.2 84 18 153/82 10 07/24/16 19:00 100 Nasal Cannula 2.00 07/24/16 19:00 84 07/24/16 18:35 97.6 80 20 126/76 97 07/24/16 18:35 97 Nasal Cannula 2.00 07/24/16 18:00 88 07/24/16 17:00 78 07/24/16 16:00 78 07/24/16 15:00 76 07/24/16 14:00 72 07/24/16 13:00 82 07/24/16 12:00 80 07/24/16 11:44 98 Nasal Cannula 2.00 07/24/16 11:44 98.3 86 20 122/75 98 Arterial Line 07/24/16 11:40 85 07/24/16 11:00 99.1 84 18 135/84 95 07/24/16 11:00 95 Nasal Cannula 2.00 07/24/16 11:00 84 I/O 07/24/16 07/24/16 07/24/16 07/25/16 07/25/16 07/25/16 07:00 15:00 23:00 07:00 15:00 23:00 Intake Total 1720 ml 460 ml 400 ml 820 ml Output Total 710 ml 315 ml 490 ml 750 ml Balance 1010 ml 145 ml -90 ml 70 ml Intake Oral 820 ml 360 ml 300 ml 720 ml IV Total 900 ml 100 ml 100 ml 100 ml Output Urine Total 580 ml 255 ml 450 ml 750 ml Chest Tube Drainage Total 130 ml 60 ml 40 ml # Bowel Movements 0 0 0 (Giovanna Orona MD R2) Result Diagram: 07/25/1642907/25/16429 Objective Remarks GEN: Thin-appearing female. Lying in bed, NAD. In a good mood. CV: Regular rate and rhythm without obvious murmurs. Bandage and drain in place on chest. Clean and dry LUNGS: Diffuse wheezing bilaterally. Diminished breath sounds. ABD: no abdominal pain. Soft, mildly distended. EXT: No edema. No calf tenderness. (Giovanna Orona MD R2) A/P Assessment and Plan 56 yo F, hx of CAD, COPD. Admitted for NSTEMI Discharge Planning Pending recovery from CABG CM: unable to get to homeless facility [facility] and Dr. Armstrong (Giovanna Orona MD R2) Attending Attestation Patient seen and examined. Case reviewed and discussed with the resident team. Agree with plan of care as discussed with me and documented in the resident note. (Ursula Armstrong MD) Problem List: (1) NSTEMI (non-ST elevated myocardial infarction) Status: Acute Plan: Found to have NSTEMI. Troponin elevated on admission but has improved. EKG unchanged from previous. History of grade 1 diastolic dysfunction on echo January 2016. Did have a stent placement on 02/02/16 Cardiology consulted: appreciate recommendations * Cath 07/18: showed mid distal LAD stenosis of 95%, diagonal 50%, and RCA 95%. * Consulted CT surg for CABG CV consulted: Appreciate recommendations * s/p CABGx3 07/23 * Continue post-op management Medications: * Metoprolol 25mg q12 * Atorvastatin 40 mg * Amiodarone 200mg q12 * Imdur 30mg daily * Plavix * Aspirin 81 mg (2) Pneumonia Status: Acute Plan: Concern for the development of pneumonia as lung exam continues to show wheezing. There is also new onset leukocytosis on 07/25 with increased left basilar airspace disease. -High risk for pneumonia, will treat with Levaquin (07/25- (3) CAD (coronary artery disease) Status: Chronic Plan: See plan under NSTEMI (4) Itching Status: Resolved Plan: Rash over entire extremities, unlikely scabies. -Zyrtec and Flonase -Benadryl PRN -Hydrocortisone, Eucerin twice a day -Vaseline every 3 (5) COPD (chronic obstructive pulmonary disease) Status: Chronic Plan: Chronic COPD symptoms that are worse in the morning. Patient continues to have wheezing on exam, improved from previously. -Mucinex and scheduled Duonebs -Continue Spiriva -Continue Advair Diskus -Albuterol PRN -Hold prednisone, consider resuming if respiratory status worsens (6) Hypertension Status: Chronic Plan: BP mildly elevated to systolic 150s/160s on admission. Continue home meds. -amlodipine 5 mg po daily (home dose) -Hydralazine and Metoprolol PRN -Will monitor vitals (7) Adjustment disorder with depressed mood Status: Acute Plan: Mood has improved since starting antidepressant and antipsychotic -fluoxetine 10 mg daily Psychiatry consulted: Appreciate recommendations * Trazodone (8) FEN/PPX Status: Acute Plan: Heart healthy diet IV fluids: None Electrolytes: Unremarkable, continue to monitor DVT PPX: SCD/TE GI PPX: Pepcid (Giovanna Orona MD R2) Problem Qualifiers (1) CAD (coronary artery disease): Qualified Code: I25.119 - Coronary artery disease involving ramp[place] coronary artery of rampart heart with angina pectoris (2) COPD (chronic obstructive pulmonary disease): Qualified Code: J41.0 - Simple chronic bronchitis (3) Hypertension: Qualified Code: I10 - Essential hypertension Giovanna Orona MD R2 Jul 25, 2016 08:29 Ursula Armstrong MD Jul 25, 2016 15:37
--- NOTE | 2016-07-25 10:33 | PD.CAR.PN ---
CVT Progress Note CVT: POD #: 2 Subjective/Hospital Course: This is a 56-year-old female who has lived out of doors since her hospitalization here in May for exertional chest pain. She was also hospitalized here in January and was seen by Dr. mg at that time. She reports the pain is in the left chest just below the left breast, is a 5-6 out of 10, initially was sharp but now it is dull and radiates through to her back but not her neck jaw or arms. It is a little bit worse with a deep breath and this morning it was associated with nausea but no vomiting and she did report sweats. She feels anxious and short of breath and her exercise tolerance is limited to approximately half a block if she uses her walker and stops to rest frequently. Reports being chronically short of breath and anxious, fearful of dying on the street. She has been completely out of her medications due to finances and has been told in the past that she should be on a blood thinner. Some productive cough but this does not exacerbate her pain in particular. Continues to smoke 2-3 cigarettes a day, is no longer using alcohol for the past approximately 6 months. admitted with NSTEMI PMH: chronic itching. She had been told she had scabies in the past, but now has itching everywhere, unrelieved by Caladryl and Benadryl tablets., CAD , rotational arthrectomy RCA and PCI bare metal stent 08/02/15 was on Brilinta, but has not taken any meds in a couple of months , COPD, HTN, depression/ anxiety , chronic tobacco abuse 07/19 pt tearful and anxious , mild chest pain last pm no further c/o since , scheduled for surgery on 07/22 no further chest pain, rash improved to arms and legs, still has some on buttocks, will discuss with attending re-scheduled for surgery in am less tearful 07/23 surgery: Urgent Off-pump Coronary Artery Bypass Grafting x 3 with left internal mammary artery (LUCAS) to left anterior descending (LAD), reverse saphenous vein graft to OM1, reverse saphenous vein graft to the distal RCA Left Leg Endoscopic Vein [place] 3400cc crystalloid, 250cc cell saver, EBL 500cc 07/24 on nasal; cannula , no pressors , no insulin gtt still somewhat anxious BB resumed, on plavix, ASA statin OOB, ambulate skin rash improving 07/25 minimal chest tube drainage chest tube removed without difficulty some left lower lobe atelectasis on CXR aggressive pulm toileting ambulate / rhythm controlled, BP elevated/ increase BB + Objective: GENERAL: SKIN: Warm and dry.prevena to chest / incision intact to left leg HEAD: Normocephalic. EYES: No scleral icterus. No injection or drainage. NECK: Supple, trachea midline. No JVD or lymphadenopathy. CARDIOVASCULAR: Regular rate and rhythm without murmurs, gallops, or rubs. RESPIRATORY: Breath sounds equal bilaterally. No accessory muscle use. coarse breath sounds/ coughing up whitish sputum GASTROINTESTINAL: Abdomen soft, non-tender, nondistended. MUSCULOSKELETAL: No cyanosis, or edema. BACK: Nontender without obvious deformity. No CVA tenderness. Vital Signs Date Time Temp Pulse Resp B/P Pulse Ox O2 Delivery O2 Flow Rate FiO2 07/25/16 09:00 85 07/25/16 08:52 18 07/25/16 08:14 100 Nasal Cannula 2.00 07/25/16 08:14 98.0 83 20 143/86 100 07/25/16 08:14 79 07/25/16 07:32 96 Nasal Cannula 2.00 07/25/16 06:00 79 07/25/16 05:00 78 07/25/16 04:00 98.4 76 18 119/74 100 07/25/16 04:00 76 07/25/16 03:00 79 07/25/16 03:00 100 Nasal Cannula 2.00 07/25/16 03:00 98.8 79 18 142/82 100 07/25/16 02:00 75 07/25/16 01:00 77 07/25/16 00:00 75 07/24/16 23:00 100 Nasal Cannula 2.00 07/24/16 23:00 98.5 82 18 140/78 100 07/24/16 23:00 82 07/24/16 22:00 78 07/24/16 21:00 80 07/24/16 20:27 97 Nasal Cannula 2.00 07/24/16 20:00 82 07/24/16 19:00 98.2 84 18 153/82 10 07/24/16 19:00 100 Nasal Cannula 2.00 07/24/16 19:00 84 07/24/16 18:35 97.6 80 20 126/76 97 07/24/16 18:35 97 Nasal Cannula 2.00 07/24/16 18:00 88 07/24/16 17:00 78 07/24/16 16:00 78 07/24/16 15:00 76 07/24/16 14:00 72 07/24/16 13:00 82 07/24/16 12:00 80 07/24/16 11:44 98 Nasal Cannula 2.00 07/24/16 11:44 98.3 86 20 122/75 98 Arterial Line 07/24/16 11:40 85 07/24/16 11:00 99.1 84 18 135/84 95 07/24/16 11:00 95 Nasal Cannula 2.00 07/24/16 11:00 84 Labs: Laboratory Tests Test 07/25/16 04:30 White Blood Count 11.3 TH/MM3 (4.0-11.0) Red Blood Count 3.00 MIL/MM3 (4.00-5.30) Hemoglobin 9.0 GM/DL (11.6-15.3) Hematocrit 26.6 % (35.0-46.0) Mean Corpuscular Volume 88.4 FL (80.0-100.0) Mean Corpuscular Hemoglobin 30.1 PG (27.0-34.0) Mean Corpuscular Hemoglobin 34.0 % Concent (32.0-36.0) Red Cell Distribution Width 14.1 % (11.6-17.2) Platelet Count 361 TH/MM3 (150-450) Mean Platelet Volume 8.0 FL (7.0-11.0) Neutrophils (%) (Auto) 70.6 % (16.0-70.0) Lymphocytes (%) (Auto) 8.5 % (9.0-44.0) Monocytes (%) (Auto) 12.9 % (0.0-8.0) Eosinophils (%) (Auto) 7.6 % (0.0-4.0) Basophils (%) (Auto) 0.4 % (0.0-2.0) Neutrophils # (Auto) 8.0 TH/MM3 (1.8-7.7) Lymphocytes # (Auto) 1.0 TH/MM3 (1.0-4.8) Monocytes # (Auto) 1.5 TH/MM3 (0-0.9) Eosinophils # (Auto) 0.9 TH/MM3 (0-0.4) Basophils # (Auto) 0.0 TH/MM3 (0-0.2) CBC Comment DIFF FINAL Differential Comment Sodium Level 135 MEQ/L (136-145) Potassium Level 4.4 MEQ/L (3.5-5.1) Chloride Level 102 MEQ/L (98-107) Carbon Dioxide Level 27.1 MEQ/L (21.0-32.0) Anion Gap 6 MEQ/L (5-15) Blood Urea Nitrogen 20 MG/DL (7-18) Creatinine 0.87 MG/DL (0.50-1.00) Estimat Glomerular Filtration 68 ML/MIN (>89) Rate Random Glucose 96 MG/DL (74-106) Calcium Level 8.5 MG/DL (8.5-10.1) Magnesium Level 2.5 MG/DL (1.5-2.5) Result Diagram: 07/25/1642907/25/16429 (1) NSTEMI (non-ST elevated myocardial infarction) Plan: on BB, statin, ASA , plavix aggressive pulm toileting nebs, ezpap , acapella social work consult (2) Chest pain (3) COPD exacerbation Plan: on nebs , FEV1 0.96 Spiriva (4) CHF exacerbation Plan: grade 1 diastolic dysfunction. on BB gentle diuresis (5) Adjustment disorder with depressed mood Plan: on antidepressants (6) Itching Plan: on hydrocortisone and emollients prior hx of scabies Nicolle Benitez Jul 25, 2016 10:33
[2016-07-25] MEDS: LEVOFLOXACIN 750 MG TAB PO SCH (11:16)
[2016-07-25] MEDS: traZODone HCL 100 MG TAB PO SCH (21:17)
[2016-07-25] MEDS: ATORVASTATIN 40 MG TAB PO SCH (21:18)
[2016-07-25] MEDS: SENNOSIDES 8.6 MG TAB PO SCH (21:18)
[2016-07-26] VITALS (27 sets, daily range): BP systolic 97–158; BP diastolic 62–95; PULSE 66–95; RESP 16–22; TEMP 98.1–98.9; O2SAT 93–99
[2016-07-26] MEDS: LACTATED RINGER'S 1000 ML IV SCH (03:45)
[2016-07-26] MEDS: ACETAMINOPHEN/HYDROcodone 325 MG/5 MG TAB PO PRN ×4 (03:52→22:32)
--- NOTE | 2016-07-26 05:42 | RADRPT ---
EXAM DATE/TIME: 07/26/2016 04:33 [facility] COMPARISON: CHEST SINGLE AP, July 24, 2016, 2:33. INDICATIONS : Post chest tube removal. MEDICAL HISTORY : None. SURGICAL HISTORY : CABG. ENCOUNTER: Subsequent ACUITY: 1 week PAIN SCORE: Non-responsive. LOCATION: Bilateral chest FINDINGS: A single portable frontal view the chest shows interval removal of the thoracostomy tubes. No pneumot horaces observed. Bibasilar consolidation has shown some progression bilaterally. Heart remains mildl y enlarged. Right-sided central line noted. Median sternotomy wires observed. CONCLUSION: 1. Thoracostomy tube removal without pneumothorax. 2. Worsening bibasilar consolidation. Sebas Cole Jr., MD on July 26, 2016 at 5:39 Board Certified Radiologist. This report was verified electronically.
[2016-07-26] MEDS: PANTOPRAZOLE SOD 40 MG DELAYED RELEASE TAB PO SCH (06:37)
[2016-07-26] MEDS: INSULIN ASPART SUPPLEMENTAL SCALE SQ SCH ×4 (06:37→22:20)
[2016-07-26 07:03] LABS: AUTOMATED NEUTROPHIL # 7.4 TH/MM3 (1.8-7.7); BASOPHIL # 0.1 TH/MM3 (0-0.2); BASOPHIL % 0.7 % (0.0-2.0); EOSINOPHIL # 1.4 TH/MM3 (0-0.4); EOSINOPHIL % 12.1 % (0.0-4.0); HEMATOCRIT 28.1 % (35.0-46.0); HEMO FLAGS DIFF FINAL; LYMPH % 11.7 % (9.0-44.0); LYMPHOCYTE # 1.3 TH/MM3 (1.0-4.8); MEAN CELL VOLUME 88.4 FL (80.0-100.0); MEAN CORPUSCULAR HEMOGLOBIN 29.3 PG (27.0-34.0); MEAN CORPUSCULAR HGB CONC 33.1 % (32.0-36.0); MONO % 10.8 % (0.0-8.0); NEUT % 64.7 % (16.0-70.0); PLATELET COUNT 399 TH/MM3 (150-450); RED BLOOD COUNT 3.18 MIL/MM3 (4.00-5.30); RED CELL DISTRIBUTION WIDTH 14.2 % (11.6-17.2); WHITE BLOOD COUNT 11.4 TH/MM3 (4.0-11.0)
[2016-07-26] MEDS: SODIUM CHLORIDE 0.9% FLUSH 5 ML FLUSH IV FLUSH SCH ×2 (09:00→22:17)
[2016-07-26] MEDS: FLUTICASONE PROPIONATE 50 MCG/ACT 16 GM NASAL SPRAY NASAL SCH (10:00)
[2016-07-26] MEDS: LEVOFLOXACIN 750 MG TAB PO SCH (10:12)
[2016-07-26] MEDS: MULTIVITAMINS/MINERALS THERAPEUTIC TAB PO SCH (10:12)
[2016-07-26] MEDS: ASPIRIN 81 MG CHEW TAB PO SCH (10:12)
[2016-07-26] MEDS: DOCUSATE SODIUM 100 MG CAP PO SCH ×2 (10:12→22:15)
[2016-07-26] MEDS: MAGNESIUM HYDROXIDE SUSP 30 ML CUP PO SCH (10:12)
[2016-07-26] MEDS: FLUoxetine HCL 10 MG CAP PO SCH (10:12)
[2016-07-26] MEDS: METOPROLOL TARTRATE 25 MG TAB PO SCH ×2 (10:13→22:14)
[2016-07-26] MEDS: AMIODARONE 200 MG TAB PO SCH ×2 (10:13→22:15)
[2016-07-26] MEDS: CETIRIZINE HCL 10 MG TAB PO SCH (10:13)
[2016-07-26] MEDS: CLOPIDOGREL 75 MG TAB PO SCH (10:13)
[2016-07-26] MEDS: FAMOTIDINE 20 MG TAB PO SCH ×2 (10:13→22:16)
[2016-07-26] MEDS: POLYETHYLENE GLYCOL 17 GM PKG PO SCH (10:13)
[2016-07-26] MEDS: TIOTROPIUM BROMIDE 18 MCG INH INH SCH (10:15)
[2016-07-26] MEDS: HYDROCORTISONE 2.5% CREAM 30 GM TOPICAL SCH ×2 (10:17→22:23)
[2016-07-26] MEDS: EUCERIN CREAM 120 GM JAR TOPICAL SCH ×2 (10:17→21:00)
[2016-07-26] MEDS: BUDESONIDE-FORMOTEROL 160/4.5 MCG INHALER INH SCH ×2 (10:17→23:09)
[2016-07-26] MEDS: RESP: ALBUTEROL 2.5 MG/IPRATROPIUM 0.5 MG NEB (SCH) NEB ×3 (10:39→20:26)
--- NOTE | 2016-07-26 11:56 | RSPPFT ---
DATE OF PROCEDURE: 07/19/16 COMMENTS: Spirometry with FVC of 1.9 at 59% of predicted, FEV1 of 0.9 at 35%, FEV1/FVC ratio is decreased. Flow is decreased at FEF 25-75. Flow volume loop indicates an obstructive pattern. IMPRESSION: 1. Severe obstructive lung disease. 2. Post-bronchodilator study was not done.
[2016-07-26] MEDS: guaiFENesin E.R. 600 MG TAB PO SCH ×2 (12:00→22:15)
--- NOTE | 2016-07-26 12:20 | HHI.FPPN ---
Subjective Remarks Patient doing well, ambulating with PT. She has no complaints at this time. Unclear discharge date. (Cony Odell MD) Objective Vitals Vital Signs Date Time Temp Pulse Resp B/P Pulse Ox O2 Delivery O2 Flow Rate FiO2 07/26/16 12:05 75 07/26/16 11:59 94 Nasal Cannula 2.00 07/26/16 11:59 98.1 66 18 97/62 94 07/26/16 11:13 80 07/26/16 10:00 91 07/26/16 09:02 76 07/26/16 08:57 98.1 79 22 108/69 94 07/26/16 08:57 79 07/26/16 08:57 94 Nasal Cannula 2.00 07/26/16 07:21 84 07/26/16 06:28 94 07/26/16 05:14 79 07/26/16 04:21 78 07/26/16 03:41 98.5 84 16 156/89 96 07/26/16 03:40 79 07/26/16 03:40 95 Nasal Cannula 1.50 07/26/16 02:02 79 07/26/16 01:00 84 07/26/16 00:00 82 07/25/16 23:12 93 Nasal Cannula 1.50 07/25/16 23:09 98.3 85 18 138/81 90 07/25/16 23:00 83 07/25/16 22:00 90 07/25/16 21:00 88 07/25/16 21:00 88 07/25/16 19:10 96 Nasal Cannula 2.00 07/25/16 19:00 Nasal Cannula 1.50 07/25/16 19:00 97.9 91 20 157/90 95 07/25/16 18:42 90 07/25/16 18:37 18 07/25/16 18:21 86 07/25/16 17:09 83 07/25/16 16:09 82 07/25/16 15:13 97.8 89 18 118/73 98 07/25/16 15:13 98 Nasal Cannula 2.00 07/25/16 15:13 87 07/25/16 14:06 83 07/25/16 13:00 78 I/O 07/25/16 07/25/16 07/25/16 07/26/16 07/26/1607/26/17 07:00 15:00 23:00 07:00 15:00 23:00 Intake Total 820 ml 480 ml 480 ml Output Total 750 ml 400 ml 700 ml Balance 70 ml 80 ml -220 ml Intake Oral 720 ml 480 ml 480 ml IV Total 100 ml Output Urine Total 750 ml 400 ml 700 ml # Bowel Movements 0 0 0 (Cony Odell MD) Result Diagram: 07/26/16 0630 07/25/16 0430 Objective Remarks GEN: Thin-appearing female. Lying in bed, NAD. In a good mood. CV: Regular rate and rhythm without obvious murmurs. Bandage and drain in place on chest. Clean and dry LUNGS: Diffuse wheezing bilaterally. Diminished breath sounds. ABD: no abdominal pain. Soft, mildly distended. EXT: No edema. No calf tenderness. (Cony Odell MD) Urinary Catheter: No (Cony Odell MD) Vascular Central Line Catheter: No (Cony Odell MD) A/P Assessment and Plan 56 yo F, hx of CAD, COPD. Admitted for NSTEMI Discharge Planning Pending recovery from CABG CM: unable to get to homeless facility [facility] and Dr. Armstrong (Cony Odell MD) Attending Attestation Patient seen and examined. Case reviewed and discussed with the resident team. Agree with plan of care as discussed with me and documented in the resident note. (Ursula Armstrong MD) Problem List: (1) NSTEMI (non-ST elevated myocardial infarction) Status: Acute Plan: Found to have NSTEMI. Troponin elevated on admission but has improved. EKG unchanged from previous. History of grade 1 diastolic dysfunction on echo January 2016. Did have a stent placement on 02/02/16 Cardiology consulted: appreciate recommendations * Cath 07/18: showed mid distal LAD stenosis of 95%, diagonal 50%, and RCA 95%. * Consulted CT surg for CABG CV consulted: Appreciate recommendations * s/p CABGx3 07/23 * Continue post-op management per CV surg recs Medications: * Metoprolol 25mg q12 * Atorvastatin 40 mg * Amiodarone 200mg q12 * Imdur 30mg daily * Plavix * Aspirin 81 mg (2) Pneumonia Status: Acute Plan: Concern for the development of pneumonia as lung exam continues to show wheezing. There is also new onset leukocytosis on 07/25 with increased left basilar airspace disease. -High risk for pneumonia, will treat with Levaquin (07/25- -Mucinex (3) CAD (coronary artery disease) Status: Chronic Plan: See plan under NSTEMI (4) Itching Status: Resolved Plan: Rash over entire extremities, unlikely scabies. -Zyrtec and Flonase -Benadryl PRN -Hydrocortisone, Eucerin twice a day -Vaseline every 3 (5) COPD (chronic obstructive pulmonary disease) Status: Chronic Plan: Chronic COPD symptoms that are worse in the morning. Patient continues to have wheezing on exam, improved from previously. -Mucinex and scheduled Duonebs -Continue Spiriva -Continue Advair Diskus -Albuterol PRN -Hold prednisone, consider resuming if respiratory status worsens (6) Hypertension Status: Chronic Plan: BP mildly elevated to systolic 150s/160s on admission. Continue home meds. -amlodipine 5 mg po daily (home dose) -Hydralazine and Metoprolol PRN -Will monitor vitals (7) Adjustment disorder with depressed mood Status: Acute Plan: Mood has improved since starting antidepressant and antipsychotic -fluoxetine 10 mg daily Psychiatry consulted: Appreciate recommendations * Trazodone (8) FEN/PPX Status: Acute Plan: Heart healthy diet IV fluids: None Electrolytes: Unremarkable, continue to monitor DVT PPX: SCD/TE GI PPX: Pepcid (Cony Odell MD) Problem Qualifiers (1) CAD (coronary artery disease): Qualified Code: I25.119 - Coronary artery disease involving [place] coronary artery of [place] heart with angina pectoris (2) COPD (chronic obstructive pulmonary disease): Qualified Code: J41.0 - Simple chronic bronchitis (3) Hypertension: Qualified Code: I10 - Essential hypertension Cony Odell MD Jul 26, 2016 12:20 Ursula Armstrong MD Jul 26, 2016 13:02
--- NOTE | 2016-07-26 17:40 | PD.CAR.PN ---
CVT Progress Note Subjective/Hospital Course: This is a 56-year-old female who has lived out of doors since her hospitalization here in May for exertional chest pain. She was also hospitalized here in January and was seen by Dr. mg at that time. She reports the pain is in the left chest just below the left breast, is a 5-6 out of 10, initially was sharp but now it is dull and radiates through to her back but not her neck jaw or arms. It is a little bit worse with a deep breath and this morning it was associated with nausea but no vomiting and she did report sweats. She feels anxious and short of breath and her exercise tolerance is limited to approximately half a block if she uses her walker and stops to rest frequently. Reports being chronically short of breath and anxious, fearful of dying on the street. She has been completely out of her medications due to finances and has been told in the past that she should be on a blood thinner. Some productive cough but this does not exacerbate her pain in particular. Continues to smoke 2-3 cigarettes a day, is no longer using alcohol for the past approximately 6 months. admitted with NSTEMI PMH: chronic itching. She had been told she had scabies in the past, but now has itching everywhere, unrelieved by Caladryl and Benadryl tablets., CAD , rotational arthrectomy RCA and PCI bare metal stent 08/02/15 was on Brilinta, but has not taken any meds in a couple of months , COPD, HTN, depression/ anxiety , chronic tobacco abuse 07/19 pt tearful and anxious , mild chest pain last pm no further c/o since , scheduled for surgery on 07/22 no further chest pain, rash improved to arms and legs, still has some on buttocks, will discuss with attending re-scheduled for surgery in am less tearful 07/23 surgery: Urgent Off-pump Coronary Artery Bypass Grafting x 3 with left internal mammary artery (LUCAS) to left anterior descending (LAD), reverse saphenous vein graft to OM1, reverse saphenous vein graft to the distal RCA Left Leg Endoscopic Vein [place] 3400cc crystalloid, 250cc cell saver, EBL 500cc 07/24 on nasal; cannula , no pressors , no insulin gtt still somewhat anxious BB resumed, on plavix, ASA statin OOB, ambulate skin rash improving 07/25 minimal chest tube drainage chest tube removed without difficulty some left lower lobe atelectasis on CXR aggressive pulm toileting ambulate / rhythm controlled, BP elevated/ increase BB + 07/26 still has some congestion/ coarse cough/ continue nebs, ABX, await sputum may need HCAP coverage gentle diuresis / + 5 kg ambulate / aggressive pulm toileting Objective: GENERAL: SKIN: Warm and dry./ prevena to chest / incision intact to left leg HEAD: Normocephalic. EYES: No scleral icterus. No injection or drainage. NECK: Supple, trachea midline. No JVD or lymphadenopathy. CARDIOVASCULAR: Regular rate and rhythm without murmurs, gallops, or rubs. RESPIRATORY: coarse breath sounds, exp wheeze Breath sounds equal bilaterally. No accessory muscle use. GASTROINTESTINAL: Abdomen soft, non-tender, nondistended. MUSCULOSKELETAL: No cyanosis, or edema. BACK: Nontender without obvious deformity. No CVA tenderness. Vital Signs Date Time Temp Pulse Resp B/P Pulse Ox O2 Delivery O2 Flow Rate FiO2 07/26/16 17:07 84 07/26/16 16:07 87 07/26/16 15:57 99 Nasal Cannula 2.00 07/26/16 15:57 98.2 82 18 152/95 99 07/26/16 15:14 91 07/26/16 14:21 88 07/26/16 12:05 75 07/26/16 11:59 94 Nasal Cannula 2.00 07/26/16 11:59 98.1 66 18 97/62 94 07/26/16 11:13 80 07/26/16 10:00 91 07/26/16 09:02 76 07/26/16 08:57 98.1 79 22 108/69 94 07/26/16 08:57 79 07/26/16 08:57 94 Nasal Cannula 2.00 07/26/16 07:21 84 07/26/16 06:28 94 07/26/16 05:14 79 07/26/16 04:21 78 07/26/16 03:41 98.5 84 16 156/89 96 07/26/16 03:40 79 07/26/16 03:40 95 Nasal Cannula 1.50 07/26/16 02:02 79 07/26/16 01:00 84 07/26/16 00:00 82 07/25/16 23:12 93 Nasal Cannula 1.50 07/25/16 23:09 98.3 85 18 138/81 90 07/25/16 23:00 83 07/25/16 22:00 90 07/25/16 21:00 88 07/25/16 21:00 88 07/25/16 19:10 96 Nasal Cannula 2.00 07/25/16 19:00 Nasal Cannula 1.50 07/25/16 19:00 97.9 91 20 157/90 95 07/25/16 18:42 90 07/25/16 18:37 18 07/25/16 18:21 86 Labs: Laboratory Tests Test 07/26/16 06:30 White Blood Count 11.4 TH/MM3 (4.0-11.0) Red Blood Count 3.18 MIL/MM3 (4.00-5.30) Hemoglobin 9.3 GM/DL (11.6-15.3) Hematocrit 28.1 % (35.0-46.0) Mean Corpuscular Volume 88.4 FL (80.0-100.0) Mean Corpuscular Hemoglobin 29.3 PG (27.0-34.0) Mean Corpuscular Hemoglobin 33.1 % Concent (32.0-36.0) Red Cell Distribution Width 14.2 % (11.6-17.2) Platelet Count 399 TH/MM3 (150-450) Mean Platelet Volume 7.3 FL (7.0-11.0) Neutrophils (%) (Auto) 64.7 % (16.0-70.0) Lymphocytes (%) (Auto) 11.7 % (9.0-44.0) Monocytes (%) (Auto) 10.8 % (0.0-8.0) Eosinophils (%) (Auto) 12.1 % (0.0-4.0) Basophils (%) (Auto) 0.7 % (0.0-2.0) Neutrophils # (Auto) 7.4 TH/MM3 (1.8-7.7) Lymphocytes # (Auto) 1.3 TH/MM3 (1.0-4.8) Monocytes # (Auto) 1.2 TH/MM3 (0-0.9) Eosinophils # (Auto) 1.4 TH/MM3 (0-0.4) Basophils # (Auto) 0.1 TH/MM3 (0-0.2) CBC Comment DIFF FINAL Differential Comment Result Diagram: 07/26/16 0630 07/25/16 0430 (1) NSTEMI (non-ST elevated myocardial infarction) Plan: on BB, statin, ASA , plavix gentle diuresis aggressive pulm toileting nebs, ezpap , acapella social work consult (2) Chest pain (3) COPD exacerbation Plan: on nebs , FEV1 0.96 Spiriva (4) CHF exacerbation Plan: grade 1 diastolic dysfunction. on BB gentle diuresis (5) Adjustment disorder with depressed mood Plan: on antidepressants (6) Itching Plan: on hydrocortisone and emollients prior hx of scabies Nicolle Benitez Jul 26, 2016 17:40
[2016-07-26] MEDS ORDERED: FUROSEMIDE 40 MG/4 ML VIAL IV PUSH ONE (18:30)
[2016-07-26] MEDS ORDERED: POTASSIUM CHLORIDE 20 MEQ CONTROLLED RELEASE TAB PO ONE (18:30)
[2016-07-26] MEDS: traZODone HCL 100 MG TAB PO SCH (22:14)
[2016-07-26] MEDS: ATORVASTATIN 40 MG TAB PO SCH (22:15)
[2016-07-26] MEDS: SENNOSIDES 8.6 MG TAB PO SCH (22:15)
[2016-07-27] VITALS (25 sets, daily range): BP systolic 96–148; BP diastolic 60–90; PULSE 64–93; RESP 18–22; TEMP 98–98.4; O2SAT 91–97
[2016-07-27] MEDS: ACETAMINOPHEN/HYDROcodone 325 MG/5 MG TAB PO PRN ×5 (03:31→21:41)
[2016-07-27] MEDS: LACTATED RINGER'S 1000 ML IV SCH (03:45)
[2016-07-27 06:19] LABS: HEMATOCRIT 25.7 % (35.0-46.0); MEAN CORPUSCULAR HEMOGLOBIN 29.3 PG (27.0-34.0); MEAN CORPUSCULAR HGB CONC 33.6 % (32.0-36.0); PLATELET COUNT 403 TH/MM3 (150-450); RED BLOOD COUNT 2.95 MIL/MM3 (4.00-5.30); RED CELL DISTRIBUTION WIDTH 14.1 % (11.6-17.2); REVIEW FLAG FINAL; WHITE BLOOD COUNT 8.3 TH/MM3 (4.0-11.0)
[2016-07-27] MEDS: PANTOPRAZOLE SOD 40 MG DELAYED RELEASE TAB PO SCH (06:26)
[2016-07-27] MEDS: INSULIN ASPART SUPPLEMENTAL SCALE SQ SCH ×4 (06:28→21:00)
[2016-07-27 06:35] LABS: POTASSIUM 4.4 MEQ/L (3.5-5.1)
[2016-07-27] MEDS: RESP: ALBUTEROL 2.5 MG/IPRATROPIUM 0.5 MG NEB (SCH) NEB ×3 (07:29→19:24)
[2016-07-27] MEDS: MAGNESIUM HYDROXIDE SUSP 30 ML CUP PO SCH (07:52)
[2016-07-27] MEDS: CETIRIZINE HCL 10 MG TAB PO SCH (07:53)
[2016-07-27] MEDS: POLYETHYLENE GLYCOL 17 GM PKG PO SCH (07:53)
[2016-07-27] MEDS: MULTIVITAMINS/MINERALS THERAPEUTIC TAB PO SCH (07:53)
[2016-07-27] MEDS: guaiFENesin E.R. 600 MG TAB PO SCH ×2 (07:53→21:40)
[2016-07-27] MEDS: TIOTROPIUM BROMIDE 18 MCG INH INH SCH (07:53)
[2016-07-27] MEDS: FAMOTIDINE 20 MG TAB PO SCH (07:54)
[2016-07-27] MEDS: AMIODARONE 200 MG TAB PO SCH ×2 (07:54→21:40)
[2016-07-27] MEDS: METOPROLOL TARTRATE 25 MG TAB PO SCH ×2 (07:54→21:40)
[2016-07-27] MEDS: DOCUSATE SODIUM 100 MG CAP PO SCH ×2 (07:54→21:40)
[2016-07-27] MEDS: FLUoxetine HCL 10 MG CAP PO SCH (07:54)
[2016-07-27] MEDS: CLOPIDOGREL 75 MG TAB PO SCH (07:54)
[2016-07-27] MEDS: ASPIRIN 81 MG CHEW TAB PO SCH (07:54)
[2016-07-27] MEDS: BUDESONIDE-FORMOTEROL 160/4.5 MCG INHALER INH SCH ×2 (07:55→21:43)
[2016-07-27] MEDS: HYDROCORTISONE 2.5% CREAM 30 GM TOPICAL SCH ×2 (07:55→21:00)
[2016-07-27] MEDS: EUCERIN CREAM 120 GM JAR TOPICAL SCH ×2 (07:55→21:00)
[2016-07-27] MEDS: SODIUM CHLORIDE 0.9% FLUSH 5 ML FLUSH IV FLUSH SCH ×2 (07:55→21:41)
--- NOTE | 2016-07-27 09:59 | HHI.FPPN ---
Subjective Remarks No acute events overnight. Vital signs unremarkable the patient did become slightly hypotensive this morning after receiving all of her medications at the same time. She reports that this happens in the past and is best managed by staggering her medications. This morning she complains of abdominal distention but has had a movement. Bowel movement did not alleviate symptoms. She also endorses lower extremity edema. Also complains of continued nasal congestion that is worse in the mornings and has not improved since starting antibiotics. Denies any SOB. (Giovanna Orona MD R2) Objective Vitals Vital Signs Date Time Temp Pulse Resp B/P Pulse Ox O2 Delivery O2 Flow Rate FiO2 07/27/16 09:00 64 07/27/16 08:53 18 07/27/16 08:05 95 Nasal Cannula 2.00 07/27/16 08:05 98.0 75 18 96/60 95 07/27/16 08:05 72 07/27/16 07:31 94 Nasal Cannula 1.00 07/27/16 06:00 73 07/27/16 05:00 75 07/27/16 04:00 93 07/27/16 03:00 82 07/27/16 03:00 96 Nasal Cannula 1.50 07/27/16 03:00 98.3 83 18 148/85 96 07/27/16 02:00 72 07/27/16 01:00 78 07/27/16 00:00 80 07/26/16 23:00 98.9 89 17 154/89 98 07/26/16 23:00 98 Nasal Cannula 1.50 07/26/16 23:00 90 07/26/16 22:00 88 07/26/16 21:00 92 07/26/16 20:27 93 Nasal Cannula 1.00 07/26/16 20:00 84 07/26/16 19:00 97 Nasal Cannula 1.50 07/26/16 19:00 98.1 92 20 158/89 97 07/26/16 19:00 95 07/26/16 18:05 83 07/26/16 17:07 84 07/26/16 16:07 87 07/26/16 15:57 99 Nasal Cannula 2.00 07/26/16 15:57 98.2 82 18 152/95 99 07/26/16 15:14 91 07/26/16 14:21 88 07/26/16 12:05 75 07/26/16 11:59 94 Nasal Cannula 2.00 07/26/16 11:59 98.1 66 18 97/62 94 07/26/16 11:13 80 07/26/16 10:00 91 I/O 07/26/16 07/26/16 07/26/16 07/27/16 07/27/16 07/27/16 07:00 15:00 23:00 07:00 15:00 23:00 Intake Total 480 ml 1060 ml 480 ml Output Total 700 ml 800 ml 900 ml Balance -220 ml 260 ml -420 ml Intake Oral 480 ml 1060 ml 480 ml Output Urine Total 700 ml 800 ml 900 ml # Bowel Movements 0 2 (Giovanna Orona MD R2) Result Diagram: 07/27/1652207/27/16522 Objective Remarks GEN: Thin-appearing female. Sitting up in bed in no acute distress. CV: Regular rate and rhythm without obvious murmurs. Bandage and drain in place on chest. Clean and dry LUNGS: Diffuse wheezing bilaterally. Diminished breath sounds. ABD: No abdominal pain to palpation. Soft, mildly distended. No obvious edema. EXT: No edema. No calf tenderness. (Giovanna Orona MD R2) A/P Assessment and Plan 56 yo F, hx of CAD, COPD. Admitted for NSTEMI Discharge Planning Pending recovery from CABG and improvement in respiratory status CM: unable to get to homeless facility wdw Dr. Armstrong (Giovanna Orona MD R2) Attending Attestation Patient seen and examined. Case reviewed and discussed with the resident team. Agree with plan of care as discussed with me and documented in the resident note. (Ursula Armstrong MD) Problem List: (1) NSTEMI (non-ST elevated myocardial infarction) Status: Acute Plan: Found to have NSTEMI. Troponin elevated on admission. History of grade 1 diastolic dysfunction on echo January 2016. Did have a stent placement on Cardiology consulted: appreciate recommendations * Cath 07/18: showed mid distal LAD stenosis of 95%, diagonal 50%, and RCA 95%. * Consulted CT surg for CABG CV consulted: Appreciate recommendations * s/p CABGx3 07/23 * Continue post-op management per CV surg recs Medications: * Metoprolol 25mg q12 (staggered dosing) * Atorvastatin 40 mg * Amiodarone 200mg q12 * Plavix 75mg * Aspirin 81 mg (2) Pneumonia Status: Acute Plan: Concern for the development of pneumonia as lung exam continues to show wheezing. There is also new onset leukocytosis on 07/25 with increased left basilar airspace disease. -High risk for pneumonia, will treat with Levaquin (07/25- -Mucinex, Flonase -Leukocytosis resolved on 07/27 (3) CAD (coronary artery disease) Status: Chronic Plan: See plan under NSTEMI (4) Itching Status: Resolved Plan: Rash over entire extremities, unlikely scabies. -Zyrtec -Benadryl PRN -Hydrocortisone, Eucerin twice a day -Vaseline every 3 (5) COPD (chronic obstructive pulmonary disease) Status: Chronic Plan: Chronic COPD symptoms that are worse in the morning. Patient continues to have wheezing on exam. -Mucinex and scheduled Duonebs -Continue Spiriva -Continue Advair Diskus -Hold prednisone, consider resuming if respiratory status worsens (6) Hypertension Status: Chronic Plan: C medication regimen under NSTEMI (7) Adjustment disorder with depressed mood Status: Resolved Plan: Mood has improved since starting antidepressant and antipsychotic -fluoxetine 10 mg daily Psychiatry consulted: Appreciate recommendations * Trazodone (8) FEN/PPX Status: Acute Plan: Heart healthy diet IV fluids: None Electrolytes: Unremarkable, continue to monitor DVT PPX: SCD/TATIANA GI PPX: Protonix (Giovanna Orona MD R2) Problem Qualifiers (1) CAD (coronary artery disease): Qualified Code: I25.119 - Coronary artery disease involving [place] coronary artery of [place] heart with angina pectoris (2) COPD (chronic obstructive pulmonary disease): Qualified Code: J41.0 - Simple chronic bronchitis (3) Hypertension: Qualified Code: I10 - Essential hypertension Giovanna Orona MD R2 Jul 27, 2016 09:59 Ursula Armstrong MD Jul 27, 2016 14:12
[2016-07-27] MEDS: LEVOFLOXACIN 750 MG TAB PO SCH (10:00)
[2016-07-27] MEDS: ONDANSETRON HCL 4 MG/2 ML VIAL IV PUSH PRN (11:22)
--- NOTE | 2016-07-27 11:45 | PD.CAR.PN ---
CVT Progress Note CVT: POD #: 4 Subjective/Hospital Course: This is a 56-year-old female who has lived out of doors since her hospitalization here in May for exertional chest pain. She was also hospitalized here in January and was seen by Dr. mg at that time. She reports the pain is in the left chest just below the left breast, is a 5-6 out of 10, initially was sharp but now it is dull and radiates through to her back but not her neck jaw or arms. It is a little bit worse with a deep breath and this morning it was associated with nausea but no vomiting and she did report sweats. She feels anxious and short of breath and her exercise tolerance is limited to approximately half a block if she uses her walker and stops to rest frequently. Reports being chronically short of breath and anxious, fearful of dying on the street. She has been completely out of her medications due to finances and has been told in the past that she should be on a blood thinner. Some productive cough but this does not exacerbate her pain in particular. Continues to smoke 2-3 cigarettes a day, is no longer using alcohol for the past approximately 6 months. admitted with NSTEMI PMH: chronic itching. She had been told she had scabies in the past, but now has itching everywhere, unrelieved by Caladryl and Benadryl tablets., CAD , rotational arthrectomy RCA and PCI bare metal stent 08/02/15 was on Brilinta, but has not taken any meds in a couple of months , COPD, HTN, depression/ anxiety , chronic tobacco abuse 07/19 pt tearful and anxious , mild chest pain last pm no further c/o since , scheduled for surgery on 07/22 no further chest pain, rash improved to arms and legs, still has some on buttocks, will discuss with attending re-scheduled for surgery in am less tearful 07/23 surgery: Urgent Off-pump Coronary Artery Bypass Grafting x 3 with left internal mammary artery (LUCAS) to left anterior descending (LAD), reverse saphenous vein graft to OM1, reverse saphenous vein graft to the distal RCA Left Leg Endoscopic Vein [place] 3400cc crystalloid, 250cc cell saver, EBL 500cc 07/24 on nasal; cannula , no pressors , no insulin gtt still somewhat anxious BB resumed, on plavix, ASA statin OOB, ambulate skin rash improving 07/25 minimal chest tube drainage chest tube removed without difficulty some left lower lobe atelectasis on CXR aggressive pulm toileting ambulate / rhythm controlled, BP elevated/ increase BB + 07/26 still has some congestion/ coarse cough/ continue nebs, ABX, await sputum may need HCAP coverage gentle diuresis / + 5 kg ambulate / aggressive pulm toileting 07/27/16 No complaints Objective: Vital Signs Date Time Temp Pulse Resp B/P Pulse Ox O2 Delivery O2 Flow Rate FiO2 07/27/16 11:29 77 07/27/16 11:29 98.0 75 18 106/69 97 07/27/16 11:29 97 Room Air 07/27/16 10:00 75 07/27/16 09:00 64 07/27/16 08:53 18 07/27/16 08:05 95 Nasal Cannula 2.00 07/27/16 08:05 98.0 75 18 96/60 95 07/27/16 08:05 72 07/27/16 07:31 94 Nasal Cannula 1.00 07/27/16 06:00 73 07/27/16 05:00 75 07/27/16 04:00 93 07/27/16 03:00 82 07/27/16 03:00 96 Nasal Cannula 1.50 07/27/16 03:00 98.3 83 18 148/85 96 07/27/16 02:00 72 07/27/16 01:00 78 07/27/16 00:00 80 07/26/16 23:00 98.9 89 17 154/89 98 07/26/16 23:00 98 Nasal Cannula 1.50 07/26/16 23:00 90 07/26/16 22:00 88 07/26/16 21:00 92 07/26/16 20:27 93 Nasal Cannula 1.00 07/26/16 20:00 84 07/26/16 19:00 97 Nasal Cannula 1.50 07/26/16 19:00 98.1 92 20 158/89 97 07/26/16 19:00 95 07/26/16 18:05 83 07/26/16 17:07 84 07/26/16 16:07 87 07/26/16 15:57 99 Nasal Cannula 2.00 07/26/16 15:57 98.2 82 18 152/95 99 07/26/16 15:14 91 07/26/16 14:21 88 07/26/16 12:05 75 07/26/16 11:59 94 Nasal Cannula 2.00 07/26/16 11:59 98.1 66 18 97/62 94 Labs: Laboratory Tests Test 07/27/16 05:23 White Blood Count 8.3 TH/MM3 (4.0-11.0) Red Blood Count 2.95 MIL/MM3 (4.00-5.30) Hemoglobin 8.6 GM/DL (11.6-15.3) Hematocrit 25.7 % (35.0-46.0) Mean Corpuscular Volume 87.0 FL (80.0-100.0) Mean Corpuscular Hemoglobin 29.3 PG (27.0-34.0) Mean Corpuscular Hemoglobin 33.6 % Concent (32.0-36.0) Red Cell Distribution Width 14.1 % (11.6-17.2) Platelet Count 403 TH/MM3 (150-450) Mean Platelet Volume 7.5 FL (7.0-11.0) Sodium Level 133 MEQ/L (136-145) Potassium Level 4.4 MEQ/L (3.5-5.1) Chloride Level 95 MEQ/L (98-107) Carbon Dioxide Level 29.0 MEQ/L (21.0-32.0) Anion Gap 9 MEQ/L (5-15) Blood Urea Nitrogen 14 MG/DL (7-18) Creatinine 0.91 MG/DL (0.50-1.00) Estimat Glomerular Filtration 64 ML/MIN (>89) Rate Random Glucose 92 MG/DL (74-106) Calcium Level 8.2 MG/DL (8.5-10.1) Result Diagram: 07/27/1652207/27/16522 Cardiovascular: RRR Telemetry: NSR Pulmonary: CTA GI/: NABS, NT Incision: dry and intact Plan: Discharge planning (1) NSTEMI (non-ST elevated myocardial infarction) Plan: on BB, statin, ASA , plavix gentle diuresis aggressive pulm toileting nebs, ezpap , [place] social work consult (2) Chest pain (3) COPD exacerbation Plan: on nebs , FEV1 0.96 Spiriva (4) CHF exacerbation Plan: grade 1 diastolic dysfunction. on BB gentle diuresis (5) Adjustment disorder with depressed mood Plan: on antidepressants (6) Itching Plan: on hydrocortisone and emollients prior hx of scabies Angela Joel MD Jul 27, 2016 11:45
[2016-07-27] MEDS: ATORVASTATIN 40 MG TAB PO SCH (21:40)
[2016-07-27] MEDS: traZODone HCL 100 MG TAB PO SCH (21:40)
[2016-07-27] MEDS: SENNOSIDES 8.6 MG TAB PO SCH (21:40)
[2016-07-27] MEDS: FLUTICASONE PROPIONATE 50 MCG/ACT 16 GM NASAL SPRAY NASAL PRN (22:10)
[2016-07-28] VITALS (24 sets, daily range): BP systolic 109–144; BP diastolic 64–86; PULSE 65–97; RESP 18–20; TEMP 98–98.6; O2SAT 88–97
[2016-07-28] MEDS: ACETAMINOPHEN/HYDROcodone 325 MG/5 MG TAB PO PRN ×7 (00:32→23:05)
[2016-07-28] MEDS: LACTATED RINGER'S 1000 ML IV SCH (03:45)
[2016-07-28] MEDS: INSULIN ASPART SUPPLEMENTAL SCALE SQ SCH ×4 (06:17→21:00)
[2016-07-28] MEDS: RESP: ALBUTEROL 2.5 MG/IPRATROPIUM 0.5 MG NEB (SCH) NEB ×3 (07:43→20:07)
[2016-07-28] MEDS: CETIRIZINE HCL 10 MG TAB PO SCH (07:54)
[2016-07-28] MEDS: DOCUSATE SODIUM 100 MG CAP PO SCH ×2 (07:55→19:56)
[2016-07-28] MEDS: FLUoxetine HCL 10 MG CAP PO SCH (07:55)
[2016-07-28] MEDS: METOPROLOL TARTRATE 25 MG TAB PO SCH ×2 (07:55→19:55)
[2016-07-28] MEDS: CLOPIDOGREL 75 MG TAB PO SCH (07:55)
[2016-07-28] MEDS: ASPIRIN 81 MG CHEW TAB PO SCH (07:55)
[2016-07-28] MEDS: BUDESONIDE-FORMOTEROL 160/4.5 MCG INHALER INH SCH ×2 (07:55→19:59)
[2016-07-28] MEDS: MULTIVITAMINS/MINERALS THERAPEUTIC TAB PO SCH (07:55)
[2016-07-28] MEDS: PANTOPRAZOLE SOD 40 MG DELAYED RELEASE TAB PO SCH (07:55)
[2016-07-28] MEDS: SODIUM CHLORIDE 0.9% FLUSH 5 ML FLUSH IV FLUSH SCH ×2 (07:56→21:00)
[2016-07-28] MEDS: MAGNESIUM HYDROXIDE SUSP 30 ML CUP PO SCH (07:56)
[2016-07-28] MEDS: POLYETHYLENE GLYCOL 17 GM PKG PO SCH (07:56)
[2016-07-28] MEDS: guaiFENesin E.R. 600 MG TAB PO SCH ×2 (07:56→19:55)
[2016-07-28] MEDS: AMIODARONE 200 MG TAB PO SCH ×2 (07:56→19:56)
[2016-07-28] MEDS: TIOTROPIUM BROMIDE 18 MCG INH INH SCH (07:57)
[2016-07-28] MEDS: EUCERIN CREAM 120 GM JAR TOPICAL SCH ×2 (07:57→21:00)
[2016-07-28] MEDS: HYDROCORTISONE 2.5% CREAM 30 GM TOPICAL SCH ×2 (07:57→21:00)
[2016-07-28 08:00] LABS: AUTOMATED NEUTROPHIL # 6.5 TH/MM3 (1.8-7.7); BASOPHIL % 0.3 % (0.0-2.0); EOSINOPHIL # 1.1 TH/MM3 (0-0.4); HEMATOCRIT 26.7 % (35.0-46.0); HEMO FLAGS DIFF FINAL; LYMPH % 13.7 % (9.0-44.0); LYMPHOCYTE # 1.4 TH/MM3 (1.0-4.8); MEAN CELL VOLUME 88.5 FL (80.0-100.0); MEAN CORPUSCULAR HEMOGLOBIN 29.6 PG (27.0-34.0); MEAN CORPUSCULAR HGB CONC 33.5 % (32.0-36.0); MONO % 9.8 % (0.0-8.0); NEUT % 65.2 % (16.0-70.0); PLATELET COUNT 445 TH/MM3 (150-450); RED BLOOD COUNT 3.02 MIL/MM3 (4.00-5.30); RED CELL DISTRIBUTION WIDTH 13.9 % (11.6-17.2)
[2016-07-28 08:25] LABS: POTASSIUM 4.6 MEQ/L (3.5-5.1)
[2016-07-28] MEDS: ONDANSETRON HCL 4 MG/2 ML VIAL IV PUSH PRN (09:25)
[2016-07-28] MEDS: FLUTICASONE PROPIONATE 50 MCG/ACT 16 GM NASAL SPRAY NASAL PRN (09:25)
[2016-07-28] MEDS: LEVOFLOXACIN 750 MG TAB PO SCH (09:27)
--- NOTE | 2016-07-28 09:54 | HHI.FPPN ---
Subjective Remarks Patient seen and examined this morning. No acute events overnight. Patient reports feeling a little nauseous from the pain. Feels a little congested this morning. Otherwise, doing well. (Peter Becerra MD R1) Objective Vitals Vital Signs Date Time Temp Pulse Resp B/P Pulse Ox O2 Delivery O2 Flow Rate FiO2 07/28/16 09:00 72 07/28/16 08:59 18 07/28/16 08:19 98.0 80 18 109/69 90 07/28/16 08:19 76 07/28/16 08:19 90 Room Air 07/28/16 06:00 82 07/28/16 05:00 77 07/28/16 04:00 79 07/28/16 03:00 73 07/28/16 03:00 98.2 97 20 138/86 89 07/28/16 03:00 92 Room Air 07/28/16 02:00 72 07/28/16 01:00 76 07/28/16 00:00 73 07/27/16 23:00 98.4 75 20 141/90 95 07/27/16 23:00 93 Room Air 07/27/16 23:00 71 07/27/16 22:00 82 07/27/16 21:00 84 07/27/16 20:00 88 07/27/16 19:27 93 21 07/27/16 19:00 98.3 84 22 112/68 91 07/27/16 19:00 89 Room Air 07/27/16 19:00 82 07/27/16 18:26 72 07/27/16 17:09 77 07/27/16 16:20 73 07/27/16 15:12 97 Room Air 07/27/16 15:12 98.1 73 18 99/65 97 07/27/16 15:12 72 07/27/16 14:11 68 07/27/16 13:14 71 07/27/16 12:30 70 07/27/16 11:29 77 07/27/16 11:29 98.0 75 18 106/69 97 07/27/16 11:29 97 Room Air 07/27/16 10:00 75 I/O 07/27/16 07/27/16 07/27/16 07/28/16 07/28/16 07/28/16 07:00 15:00 23:00 07:00 15:00 23:00 Intake Total 480 ml 1080 ml 480 ml Output Total 900 ml 700 ml 500 ml Balance -420 ml 380 ml -20 ml Intake Oral 480 ml 1080 ml 480 ml Output Urine Total 900 ml 700 ml 500 ml # Bowel Movements 1 (Peter Becerra MD R1) Result Diagram: 07/28/1630 07/28/16629 Objective Remarks GEN: Thin-appearing female. Sitting up in bed in no acute distress. CV: Regular rate and rhythm without obvious murmurs. Steristrips in place over wound, clean and dry LUNGS: Diffuse wheezing bilaterally. Diminished breath sounds. ABD: No abdominal pain to palpation. Soft, mildly distended. No obvious edema. EXT: No edema. No calf tenderness. (Peter Becerra MD R1) A/P Assessment and Plan 56 yo F, hx of CAD, COPD. Admitted for NSTEMI Discharge Planning Pending recovery from CABG and improvement in respiratory status CM: unable to get to homeless facility wdw Dr. Armstrong (Peter Becerra MD R1) Attending Attestation Patient seen and examined. Case reviewed and discussed with the resident team. Agree with plan of care as discussed with me and documented in the resident note. (Ursula Armstrong MD) Problem List: (1) NSTEMI (non-ST elevated myocardial infarction) Status: Acute Plan: Found to have NSTEMI. Troponin elevated on admission. History of grade 1 diastolic dysfunction on echo January 2016. Did have a stent placement on Cardiology consulted: appreciate recommendations * Cath 07/18: showed mid distal LAD stenosis of 95%, diagonal 50%, and RCA 95%. * Consulted CT surg for CABG CV consulted: Appreciate recommendations * s/p CABGx3 07/23 * Continue post-op management per CV surg recs Medications: * Metoprolol 25mg q12 (staggered dosing) * Atorvastatin 40 mg * Amiodarone 200mg q12 * Plavix 75mg * Aspirin 81 mg (2) Pneumonia Status: Acute Plan: Concern for the development of pneumonia as lung exam continues to show wheezing. There is also new onset leukocytosis on 07/25 with increased left basilar airspace disease. -High risk for pneumonia, will treat with Levaquin (07/25- -Mucinex, Flonase -Leukocytosis resolved on 07/27 (3) CAD (coronary artery disease) Status: Chronic Plan: See plan under NSTEMI (4) Itching Status: Resolved Plan: Rash over entire extremities, unlikely scabies. -Zyrtec -Benadryl PRN -Hydrocortisone, Eucerin twice a day -Vaseline every 3 (5) COPD (chronic obstructive pulmonary disease) Status: Chronic Plan: Chronic COPD symptoms that are worse in the morning. Patient continues to have wheezing on exam. -Mucinex and scheduled Duonebs -Continue Spiriva -Continue Advair Diskus -Hold prednisone, consider resuming if respiratory status worsens (6) Hypertension Status: Chronic Plan: See medication regimen under NSTEMI (7) Adjustment disorder with depressed mood Status: Resolved Plan: Mood has improved since starting antidepressant and antipsychotic -fluoxetine 10 mg daily Psychiatry consulted: Appreciate recommendations * Trazodone (8) FEN/PPX Status: Acute Plan: Heart healthy diet IV fluids: None Electrolytes: Unremarkable, continue to monitor DVT PPX: SCD/TATIANA GI PPX: Protonix (Peter Becerra MD R1) Problem Qualifiers (1) Pneumonia: Qualified Code: J18.9 - Pneumonia of both lower lobes due to infectious organism (2) CAD (coronary artery disease): Qualified Code: I25.119 - Coronary artery disease involving [place] coronary artery of [place] heart with angina pectoris (3) COPD (chronic obstructive pulmonary disease): Qualified Code: J41.0 - Simple chronic bronchitis (4) Hypertension: Qualified Code: I10 - Essential hypertension Peter Becerra MD R1 Jul 28, 2016 09:54 Ursula Armstrong MD Jul 28, 2016 11:11
--- NOTE | 2016-07-28 11:36 | PD.CAR.PN ---
CVT Progress Note CVT: POD #: 5 Subjective/Hospital Course: This is a 56-year-old female who has lived out of doors since her hospitalization here in May for exertional chest pain. She was also hospitalized here in January and was seen by Dr. mg at that time. She reports the pain is in the left chest just below the left breast, is a 5-6 out of 10, initially was sharp but now it is dull and radiates through to her back but not her neck jaw or arms. It is a little bit worse with a deep breath and this morning it was associated with nausea but no vomiting and she did report sweats. She feels anxious and short of breath and her exercise tolerance is limited to approximately half a block if she uses her walker and stops to rest frequently. Reports being chronically short of breath and anxious, fearful of dying on the street. She has been completely out of her medications due to finances and has been told in the past that she should be on a blood thinner. Some productive cough but this does not exacerbate her pain in particular. Continues to smoke 2-3 cigarettes a day, is no longer using alcohol for the past approximately 6 months. admitted with NSTEMI PMH: chronic itching. She had been told she had scabies in the past, but now has itching everywhere, unrelieved by Caladryl and Benadryl tablets., CAD , rotational arthrectomy RCA and PCI bare metal stent 08/02/15 was on Brilinta, but has not taken any meds in a couple of months , COPD, HTN, depression/ anxiety , chronic tobacco abuse 07/19 pt tearful and anxious , mild chest pain last pm no further c/o since , scheduled for surgery on 07/22 no further chest pain, rash improved to arms and legs, still has some on buttocks, will discuss with attending re-scheduled for surgery in am less tearful 07/23 surgery: Urgent Off-pump Coronary Artery Bypass Grafting x 3 with left internal mammary artery (LUCAS) to left anterior descending (LAD), reverse saphenous vein graft to OM1, reverse saphenous vein graft to the distal RCA Left Leg Endoscopic Vein [place] 3400cc crystalloid, 250cc cell saver, EBL 500cc 07/24 on nasal; cannula , no pressors , no insulin gtt still somewhat anxious BB resumed, on plavix, ASA statin OOB, ambulate skin rash improving 07/25 minimal chest tube drainage chest tube removed without difficulty some left lower lobe atelectasis on CXR aggressive pulm toileting ambulate / rhythm controlled, BP elevated/ increase BB + 07/26 still has some congestion/ coarse cough/ continue nebs, ABX, await sputum may need HCAP coverage gentle diuresis / + 5 kg ambulate / aggressive pulm toileting 07/27/16 No complaints 07/28/16 No complaints today Objective: Vital Signs Date Time Temp Pulse Resp B/P Pulse Ox O2 Delivery O2 Flow Rate FiO2 07/28/16 11:24 69 07/28/16 11:24 92 Room Air 07/28/16 11:24 98.0 71 18 120/74 92 07/28/16 10:02 70 07/28/16 09:00 72 07/28/16 08:59 18 07/28/16 08:19 98.0 80 18 109/69 90 07/28/16 08:19 76 07/28/16 08:19 90 Room Air 07/28/16 07:45 90 21.00 07/28/16 06:00 82 07/28/16 05:00 77 07/28/16 04:00 79 07/28/16 03:00 73 07/28/16 03:00 98.2 97 20 138/86 89 07/28/16 03:00 92 Room Air 07/28/16 02:00 72 07/28/16 01:00 76 07/28/16 00:00 73 07/27/16 23:00 98.4 75 20 141/90 95 07/27/16 23:00 93 Room Air 07/27/16 23:00 71 07/27/16 22:00 82 07/27/16 21:00 84 07/27/16 20:00 88 07/27/16 19:27 93 21 07/27/16 19:00 98.3 84 22 112/68 91 07/27/16 19:00 89 Room Air 07/27/16 19:00 82 07/27/16 18:26 72 07/27/16 17:09 77 07/27/16 16:20 73 07/27/16 15:12 97 Room Air 07/27/16 15:12 98.1 73 18 99/65 97 07/27/16 15:12 72 07/27/16 14:11 68 07/27/16 13:14 71 07/27/16 12:30 70 Labs: Laboratory Tests Test 07/28/16 06:30 White Blood Count 10.0 TH/MM3 (4.0-11.0) Red Blood Count 3.02 MIL/MM3 (4.00-5.30) Hemoglobin 9.0 GM/DL (11.6-15.3) Hematocrit 26.7 % (35.0-46.0) Mean Corpuscular Volume 88.5 FL (80.0-100.0) Mean Corpuscular Hemoglobin 29.6 PG (27.0-34.0) Mean Corpuscular Hemoglobin 33.5 % Concent (32.0-36.0) Red Cell Distribution Width 13.9 % (11.6-17.2) Platelet Count 445 TH/MM3 (150-450) Mean Platelet Volume 7.6 FL (7.0-11.0) Neutrophils (%) (Auto) 65.2 % (16.0-70.0) Lymphocytes (%) (Auto) 13.7 % (9.0-44.0) Monocytes (%) (Auto) 9.8 % (0.0-8.0) Eosinophils (%) (Auto) 11.0 % (0.0-4.0) Basophils (%) (Auto) 0.3 % (0.0-2.0) Neutrophils # (Auto) 6.5 TH/MM3 (1.8-7.7) Lymphocytes # (Auto) 1.4 TH/MM3 (1.0-4.8) Monocytes # (Auto) 1.0 TH/MM3 (0-0.9) Eosinophils # (Auto) 1.1 TH/MM3 (0-0.4) Basophils # (Auto) 0.0 TH/MM3 (0-0.2) CBC Comment DIFF FINAL Differential Comment Sodium Level 130 MEQ/L (136-145) Potassium Level 4.6 MEQ/L (3.5-5.1) Chloride Level 94 MEQ/L (98-107) Carbon Dioxide Level 29.0 MEQ/L (21.0-32.0) Anion Gap 7 MEQ/L (5-15) Blood Urea Nitrogen 12 MG/DL (7-18) Creatinine 0.97 MG/DL (0.50-1.00) Estimat Glomerular Filtration 60 ML/MIN (>89) Rate Random Glucose 79 MG/DL (74-106) Calcium Level 8.8 MG/DL (8.5-10.1) Result Diagram: 07/28/1662907/28/16629 Cardiovascular: RRR Telemetry: NSR Pulmonary: CTA GI/: NABS Incision: dry and intact Plan: Discharge planning (1) NSTEMI (non-ST elevated myocardial infarction) Plan: on BB, statin, ASA , plavix gentle diuresis aggressive pulm toileting nebs, ezpap , [place] social work consult (2) Chest pain (3) COPD exacerbation Plan: on nebs , FEV1 0.96 Spiriva (4) CHF exacerbation Plan: grade 1 diastolic dysfunction. on BB gentle diuresis (5) Adjustment disorder with depressed mood Plan: on antidepressants (6) Itching Plan: on hydrocortisone and emollients prior hx of scabies Angela Joel MD Jul 28, 2016 11:36
[2016-07-28] MEDS: SENNOSIDES 8.6 MG TAB PO SCH (19:54)
[2016-07-28] MEDS: ATORVASTATIN 40 MG TAB PO SCH (19:56)
[2016-07-28] MEDS: traZODone HCL 100 MG TAB PO SCH (19:58)
[2016-07-29] VITALS (26 sets, daily range): BP systolic 96–140; BP diastolic 62–82; PULSE 66–82; RESP 18–20; TEMP 98–98.5; O2SAT 92–98
[2016-07-29] MEDS: ACETAMINOPHEN/HYDROcodone 325 MG/5 MG TAB PO PRN ×5 (02:34→21:39)
[2016-07-29] MEDS: LACTATED RINGER'S 1000 ML IV SCH (03:45)
[2016-07-29] MEDS: ONDANSETRON HCL 4 MG/2 ML VIAL IV PUSH PRN (05:02)
[2016-07-29 05:08] LABS: HEMATOCRIT 27.1 % (35.0-46.0); MEAN CORPUSCULAR HEMOGLOBIN 29.5 PG (27.0-34.0); MEAN CORPUSCULAR HGB CONC 33.1 % (32.0-36.0); PLATELET COUNT 478 TH/MM3 (150-450); RED BLOOD COUNT 3.04 MIL/MM3 (4.00-5.30); RED CELL DISTRIBUTION WIDTH 13.7 % (11.6-17.2); REVIEW FLAG FINAL; WHITE BLOOD COUNT 9.4 TH/MM3 (4.0-11.0)
[2016-07-29 05:12] LABS: BICARBONATE 26.9 MEQ/L (21.0-32.0); POTASSIUM 3.8 MEQ/L (3.5-5.1)
[2016-07-29] MEDS: INSULIN ASPART SUPPLEMENTAL SCALE SQ SCH ×4 (06:35→21:00)
[2016-07-29] MEDS: RESP: ALBUTEROL 2.5 MG/IPRATROPIUM 0.5 MG NEB (SCH) NEB ×3 (07:45→21:52)
[2016-07-29] MEDS: FLUoxetine HCL 10 MG CAP PO SCH (08:22)
[2016-07-29] MEDS: METOPROLOL TARTRATE 25 MG TAB PO SCH ×2 (08:22→21:38)
[2016-07-29] MEDS: CETIRIZINE HCL 10 MG TAB PO SCH (08:23)
[2016-07-29] MEDS: MAGNESIUM HYDROXIDE SUSP 30 ML CUP PO SCH (08:23)
[2016-07-29] MEDS: POLYETHYLENE GLYCOL 17 GM PKG PO SCH (08:23)
[2016-07-29] MEDS: DOCUSATE SODIUM 100 MG CAP PO SCH ×2 (08:23→21:00)
[2016-07-29] MEDS: guaiFENesin E.R. 600 MG TAB PO SCH ×2 (08:23→21:40)
[2016-07-29] MEDS: MULTIVITAMINS/MINERALS THERAPEUTIC TAB PO SCH (08:23)
[2016-07-29] MEDS: PANTOPRAZOLE SOD 40 MG DELAYED RELEASE TAB PO SCH (08:23)
[2016-07-29] MEDS: AMIODARONE 200 MG TAB PO SCH ×2 (08:24→21:39)
[2016-07-29] MEDS: CLOPIDOGREL 75 MG TAB PO SCH (08:24)
[2016-07-29] MEDS: ASPIRIN 81 MG CHEW TAB PO SCH (08:24)
[2016-07-29] MEDS: TIOTROPIUM BROMIDE 18 MCG INH INH SCH (08:24)
[2016-07-29] MEDS: BUDESONIDE-FORMOTEROL 160/4.5 MCG INHALER INH SCH ×2 (08:26→21:39)
[2016-07-29] MEDS: EUCERIN CREAM 120 GM JAR TOPICAL SCH ×2 (08:26→21:00)
--- NOTE | 2016-07-29 08:57 | HHI.FPPN ---
Subjective Remarks Pt seen and examined this morning. No acute events overnight. Pt reports some chest pain with movement, but otherwise controlled. Breathing is stable. (Peter Becerra MD R1) Objective Vitals Vital Signs Date Time Temp Pulse Resp B/P Pulse Ox O2 Delivery O2 Flow Rate FiO2 07/29/16 07:45 93 Nasal Cannula 2.00 07/29/16 07:00 98.4 76 18 116/66 98 07/29/16 06:00 80 07/29/16 05:00 73 07/29/16 04:00 69 07/29/16 03:00 72 07/29/16 03:00 92 Room Air 07/29/16 03:00 98.4 72 20 140/82 92 07/29/16 02:00 70 07/29/16 01:00 70 07/29/16 00:00 66 07/28/16 23:00 98.3 79 19 121/75 88 07/28/16 23:00 88 Room Air 07/28/16 23:00 77 07/28/16 22:00 68 07/28/16 21:00 70 07/28/16 20:00 76 07/28/16 19:00 92 Room Air 07/28/16 19:00 75 07/28/16 19:00 98.6 76 18 144/71 92 07/28/16 18:14 77 07/28/16 17:24 18 07/28/16 17:03 78 07/28/16 16:04 76 07/28/16 15:24 97 Room Air 07/28/16 15:24 75 07/28/16 15:24 98.1 70 18 111/64 97 07/28/16 14:16 68 07/28/16 13:39 65 07/28/16 12:05 67 07/28/16 11:24 69 07/28/16 11:24 92 Room Air 07/28/16 11:24 98.0 71 18 120/74 92 07/28/16 10:02 70 07/28/16 09:00 72 I/O 07/28/16 07/28/16 07/28/16 07/29/16 07/29/16 07/29/16 07:00 15:00 23:00 07:00 15:00 23:00 Intake Total 480 ml 720 ml 480 ml Output Total 500 ml 600 ml 900 ml Balance -20 ml 120 ml -420 ml Intake Oral 480 ml 720 ml 480 ml Output Urine Total 500 ml 600 ml 900 ml # Bowel Movements 1 0 0 (Peter Becerra MD R1) Result Diagram: 07/29/1634507/29/16345 Objective Remarks GEN: Thin-appearing female. Sitting up in bed in no acute distress. CV: Regular rate and rhythm without obvious murmurs. Steri-strips in place over wound, clean and dry LUNGS: Diffuse wheezing bilaterally. Diminished breath sounds. ABD: No abdominal pain to palpation. Soft, mildly distended. No obvious edema. EXT: No edema. No calf tenderness. (Peter Becerra MD R1) A/P Assessment and Plan 56 yo F, hx of CAD, COPD. Admitted for NSTEMI Discharge Planning Pending CTS recs and placement upon discharge CM: unable to get to homeless facility dw Dr. Armstrong (Peter Becerra MD R1) Attending Attestation Patient seen and examined. Case reviewed and discussed with the resident team. Agree with plan of care as discussed with me and documented in the resident note. (Ursula Armstrong MD) Problem List: (1) NSTEMI (non-ST elevated myocardial infarction) Status: Acute Plan: Found to have NSTEMI. Troponin elevated on admission. History of grade 1 diastolic dysfunction on echo January 2016. Did have a stent placement on Cardiology consulted: appreciate recommendations * Cath 07/18: showed mid distal LAD stenosis of 95%, diagonal 50%, and RCA 95%. * Consulted CT surg for CABG CV consulted: Appreciate recommendations * s/p CABGx3 07/23 * Continue post-op management per CV surg recs Medications: * Metoprolol 25mg q12 (staggered dosing) * Atorvastatin 40 mg * Amiodarone 200mg q12 * Plavix 75mg * Aspirin 81 mg (2) Pneumonia Status: Acute Plan: Concern for the development of pneumonia as lung exam continues to show wheezing. There is also new onset leukocytosis on 07/25 with increased left basilar airspace disease. -High risk for pneumonia, will treat with Levaquin (07/25- -Mucinex, Flonase -Leukocytosis resolved on 07/27 (3) CAD (coronary artery disease) Status: Chronic Plan: See plan under NSTEMI (4) Itching Status: Resolved Plan: Rash over entire extremities, unlikely scabies. -Zyrtec -Benadryl PRN -Hydrocortisone, Eucerin twice a day -Vaseline every 3 (5) COPD (chronic obstructive pulmonary disease) Status: Chronic Plan: Chronic COPD symptoms that are worse in the morning. Patient continues to have wheezing on exam. -Mucinex and scheduled Duonebs -Continue Spiriva -Continue Advair Diskus -Hold prednisone, consider resuming if respiratory status worsens (6) Hypertension Status: Chronic Plan: See medication regimen under NSTEMI (7) Adjustment disorder with depressed mood Status: Resolved Plan: Mood has improved since starting antidepressant and antipsychotic -fluoxetine 10 mg daily Psychiatry consulted: Appreciate recommendations * Trazodone (8) FEN/PPX Status: Acute Plan: Heart healthy diet IV fluids: None Electrolytes: hyponatremia, fluid restrict DVT PPX: SCD/TATIANA GI PPX: Protonix (Peter Becerra MD R1) Problem Qualifiers (1) Pneumonia: Qualified Code: J18.9 - Pneumonia of both lower lobes due to infectious organism (2) CAD (coronary artery disease): Qualified Code: I25.119 - Coronary artery disease involving [place] coronary artery of [place] heart with angina pectoris (3) COPD (chronic obstructive pulmonary disease): Qualified Code: J41.0 - Simple chronic bronchitis (4) Hypertension: Qualified Code: I10 - Essential hypertension Peter Becerra MD R1 Jul 29, 2016 08:57 Ursula Armstrong MD Jul 29, 2016 09:09
[2016-07-29] MEDS: SODIUM CHLORIDE 0.9% FLUSH 5 ML FLUSH IV FLUSH SCH ×2 (09:00→21:40)
[2016-07-29] MEDS: LEVOFLOXACIN 750 MG TAB PO SCH (11:59)
[2016-07-29] MEDS: HYDROCORTISONE 2.5% CREAM 30 GM TOPICAL SCH ×2 (11:59→21:41)
[2016-07-29] MEDS: FLUTICASONE PROPIONATE 50 MCG/ACT 16 GM NASAL SPRAY NASAL PRN (11:59)
--- NOTE | 2016-07-29 14:25 | PD.CAR.PN ---
CVT Progress Note CVT: POD #: 6 Subjective/Hospital Course: This is a 56-year-old female who has lived out of doors since her hospitalization here in May for exertional chest pain. She was also hospitalized here in January and was seen by Dr. mg at that time. She reports the pain is in the left chest just below the left breast, is a 5-6 out of 10, initially was sharp but now it is dull and radiates through to her back but not her neck jaw or arms. It is a little bit worse with a deep breath and this morning it was associated with nausea but no vomiting and she did report sweats. She feels anxious and short of breath and her exercise tolerance is limited to approximately half a block if she uses her walker and stops to rest frequently. Reports being chronically short of breath and anxious, fearful of dying on the street. She has been completely out of her medications due to finances and has been told in the past that she should be on a blood thinner. Some productive cough but this does not exacerbate her pain in particular. Continues to smoke 2-3 cigarettes a day, is no longer using alcohol for the past approximately 6 months. admitted with NSTEMI PMH: chronic itching. She had been told she had scabies in the past, but now has itching everywhere, unrelieved by Caladryl and Benadryl tablets., CAD , rotational arthrectomy RCA and PCI bare metal stent 08/02/15 was on Brilinta, but has not taken any meds in a couple of months , COPD, HTN, depression/ anxiety , chronic tobacco abuse 07/19 pt tearful and anxious , mild chest pain last pm no further c/o since , scheduled for surgery on 07/22 no further chest pain, rash improved to arms and legs, still has some on buttocks, will discuss with attending re-scheduled for surgery in am less tearful 07/23 surgery: Urgent Off-pump Coronary Artery Bypass Grafting x 3 with left internal mammary artery (LUCAS) to left anterior descending (LAD), reverse saphenous vein graft to OM1, reverse saphenous vein graft to the distal RCA Left Leg Endoscopic Vein [place] 3400cc crystalloid, 250cc cell saver, EBL 500cc 07/24 on nasal; cannula , no pressors , no insulin gtt still somewhat anxious BB resumed, on plavix, ASA statin OOB, ambulate skin rash improving 07/25 minimal chest tube drainage chest tube removed without difficulty some left lower lobe atelectasis on CXR aggressive pulm toileting ambulate / rhythm controlled, BP elevated/ increase BB + 07/26 still has some congestion/ coarse cough/ continue nebs, ABX, await sputum may need HCAP coverage gentle diuresis / + 5 kg ambulate / aggressive pulm toileting 07/27/16 No complaints 07/28/16 No complaints today 07/29 doing well , stable for discharge from CVS standpoint has f/u appointment in 2 weeks on room air , continue amiodarone for 2 weeks only Objective: GENERAL: SKIN: Warm and dry./ incision intact and well approximated to chest HEAD: Normocephalic. EYES: No scleral icterus. No injection or drainage. NECK: Supple, trachea midline. No JVD or lymphadenopathy. CARDIOVASCULAR: Regular rate and rhythm without murmurs, gallops, or rubs. RESPIRATORY: few coarse breath sounds / improved Breath sounds equal bilaterally. No accessory muscle use. GASTROINTESTINAL: Abdomen soft, non-tender, nondistended. MUSCULOSKELETAL: No cyanosis, or edema. BACK: Nontender without obvious deformity. No CVA tenderness. Vital Signs Date Time Temp Pulse Resp B/P Pulse Ox O2 Delivery O2 Flow Rate FiO2 07/29/16 14:00 75 07/29/16 13:00 73 07/29/16 12:00 67 07/29/16 11:00 76 07/29/16 11:00 98.0 70 20 126/78 93 07/29/16 11:00 93 Room Air 07/29/16 10:00 67 07/29/16 09:00 70 07/29/16 08:00 68 07/29/16 07:45 93 Nasal Cannula 2.00 07/29/16 07:00 97 Nasal Cannula 1.00 Humidified 07/29/16 07:00 72 07/29/16 07:00 98.4 76 18 116/66 98 07/29/16 06:00 80 07/29/16 05:00 73 07/29/16 04:00 69 07/29/16 03:00 72 07/29/16 03:00 92 Room Air 07/29/16 03:00 98.4 72 20 140/82 92 07/29/16 02:00 70 07/29/16 01:00 70 07/29/16 00:00 66 07/28/16 23:00 98.3 79 19 121/75 88 07/28/16 23:00 88 Room Air 07/28/16 23:00 77 07/28/16 22:00 68 07/28/16 21:00 70 07/28/16 20:00 76 07/28/16 19:00 92 Room Air 07/28/16 19:00 75 07/28/16 19:00 98.6 76 18 144/71 92 07/28/16 18:14 77 07/28/16 17:24 18 07/28/16 17:03 78 07/28/16 16:04 76 07/28/16 15:24 97 Room Air 07/28/16 15:24 75 07/28/16 15:24 98.1 70 18 111/64 97 Labs: Laboratory Tests Test 07/29/16 03:46 White Blood Count 9.4 TH/MM3 (4.0-11.0) Red Blood Count 3.04 MIL/MM3 (4.00-5.30) Hemoglobin 9.0 GM/DL (11.6-15.3) Hematocrit 27.1 % (35.0-46.0) Mean Corpuscular Volume 89.0 FL (80.0-100.0) Mean Corpuscular Hemoglobin 29.5 PG (27.0-34.0) Mean Corpuscular Hemoglobin 33.1 % Concent (32.0-36.0) Red Cell Distribution Width 13.7 % (11.6-17.2) Platelet Count 478 TH/MM3 (150-450) Mean Platelet Volume 7.4 FL (7.0-11.0) Sodium Level 128 MEQ/L (136-145) Potassium Level 3.8 MEQ/L (3.5-5.1) Chloride Level 93 MEQ/L (98-107) Carbon Dioxide Level 26.9 MEQ/L (21.0-32.0) Anion Gap 8 MEQ/L (5-15) Blood Urea Nitrogen 10 MG/DL (7-18) Creatinine 0.97 MG/DL (0.50-1.00) Estimat Glomerular Filtration 60 ML/MIN (>89) Rate Random Glucose 127 MG/DL (74-106) Calcium Level 8.5 MG/DL (8.5-10.1) Result Diagram: 07/29/16 0346 07/29/16345 Telemetry: NSR (1) NSTEMI (non-ST elevated myocardial infarction) Plan: on BB, statin, ASA , plavix aggressive pulm toileting nebs, ezpap , acapella social work consult (2) Chest pain (3) COPD exacerbation Plan: on nebs , FEV1 0.96 Spiriva (4) CHF exacerbation Plan: grade 1 diastolic dysfunction. on BB (5) Adjustment disorder with depressed mood Plan: on antidepressants (6) Itching Plan: on hydrocortisone and emollients prior hx of scabies (7) S/P CABG x 3 Plan: stable for DC from CVS standpoint Nicolle Benitez Jul 29, 2016 14:25
[2016-07-29] MEDS: SENNOSIDES 8.6 MG TAB PO SCH (21:00)
[2016-07-29] MEDS: traZODone HCL 100 MG TAB PO SCH (21:38)
[2016-07-29] MEDS: ATORVASTATIN 40 MG TAB PO SCH (21:39)
[2016-07-30] VITALS (25 sets, daily range): BP systolic 107–136; BP diastolic 66–81; PULSE 48–75; RESP 16–20; TEMP 97.8–98.4; O2SAT 92–98
[2016-07-30] MEDS: ACETAMINOPHEN/HYDROcodone 325 MG/5 MG TAB PO PRN ×3 (04:37→15:05)
[2016-07-30] MEDS: INSULIN ASPART SUPPLEMENTAL SCALE SQ SCH ×3 (06:34→15:38)
[2016-07-30] MEDS: RESP: ALBUTEROL 2.5 MG/IPRATROPIUM 0.5 MG NEB (SCH) NEB ×3 (07:35→18:54)
[2016-07-30] MEDS: FLUTICASONE PROPIONATE 50 MCG/ACT 16 GM NASAL SPRAY NASAL PRN (08:29)
[2016-07-30] MEDS: AMIODARONE 200 MG TAB PO SCH (08:35)
[2016-07-30] MEDS: PANTOPRAZOLE SOD 40 MG DELAYED RELEASE TAB PO SCH (08:35)
[2016-07-30] MEDS: CLOPIDOGREL 75 MG TAB PO SCH (08:35)
[2016-07-30] MEDS: CETIRIZINE HCL 10 MG TAB PO SCH (08:35)
[2016-07-30] MEDS: guaiFENesin E.R. 600 MG TAB PO SCH (08:35)
[2016-07-30] MEDS: MULTIVITAMINS/MINERALS THERAPEUTIC TAB PO SCH (08:35)
[2016-07-30] MEDS: METOPROLOL TARTRATE 25 MG TAB PO SCH (08:35)
[2016-07-30] MEDS: FLUoxetine HCL 10 MG CAP PO SCH (08:36)
[2016-07-30] MEDS: MAGNESIUM HYDROXIDE SUSP 30 ML CUP PO SCH (08:36)
[2016-07-30] MEDS: ASPIRIN 81 MG CHEW TAB PO SCH (08:36)
[2016-07-30] MEDS: DOCUSATE SODIUM 100 MG CAP PO SCH (08:36)
[2016-07-30] MEDS: POLYETHYLENE GLYCOL 17 GM PKG PO SCH (08:37)
[2016-07-30] MEDS: SODIUM CHLORIDE 0.9% FLUSH 5 ML FLUSH IV FLUSH SCH (08:37)
[2016-07-30] MEDS: HYDROCORTISONE 2.5% CREAM 30 GM TOPICAL SCH (08:46)
[2016-07-30] MEDS: EUCERIN CREAM 120 GM JAR TOPICAL SCH (08:46)
[2016-07-30] MEDS: BUDESONIDE-FORMOTEROL 160/4.5 MCG INHALER INH SCH (08:47)
[2016-07-30] MEDS: TIOTROPIUM BROMIDE 18 MCG INH INH SCH (08:48)
[2016-07-30 08:53] LABS: BICARBONATE 29.2 MEQ/L (21.0-32.0); POTASSIUM 4.5 MEQ/L (3.5-5.1)
[2016-07-30] MEDS: LEVOFLOXACIN 750 MG TAB PO SCH (11:57)
--- NOTE | 2016-07-30 12:14 | HHI.FPPN ---
Subjective Remarks No acute events overnight. Vital signs unremarkable. This morning patient states that she feels better and has eaten 2 bowls of cereal for breakfast. She does endorse some generalized weakness but is ambulating throughout the room and with PT. She also has her walker so will not need any additional equipment at discharge. (Giovanna Orona MD R2) Objective Vitals Vital Signs Date Time Temp Pulse Resp B/P Pulse Ox O2 Delivery O2 Flow Rate FiO2 07/30/16 11:16 68 07/30/16 11:00 98.1 65 18 107/66 96 07/30/16 10:20 67 07/30/16 10:00 63 07/30/16 09:42 66 07/30/16 09:00 61 07/30/16 08:28 70 07/30/16 08:17 98.0 70 16 135/74 98 07/30/16 07:55 66 07/30/16 07:36 94 21 07/30/16 07:00 64 07/30/16 06:00 66 07/30/16 05:00 67 07/30/16 04:00 70 07/30/16 03:00 98.4 71 18 136/81 92 07/30/16 03:00 68 07/30/16 02:00 48 07/30/16 01:00 65 07/30/16 00:00 67 07/29/16 23:00 98.2 73 19 96/62 98 07/29/16 23:00 68 07/29/16 22:00 76 07/29/16 21:52 93 Nasal Cannula 2.00 07/29/16 21:00 82 07/29/16 20:00 72 07/29/16 19:00 98.5 81 20 120/63 95 07/29/16 19:00 70 07/29/16 18:00 71 07/29/16 17:00 69 07/29/16 16:00 72 07/29/16 15:00 98 Nasal Cannula 2.00 Humidified 07/29/16 15:00 98.0 72 18 106/64 94 07/29/16 15:00 76 07/29/16 14:00 75 07/29/16 13:00 73 I/O 07/29/16 07/29/16 07/29/16 07/30/16 07/30/16 07/30/16 07:00 15:00 23:00 07:00 15:00 23:00 Intake Total 480 ml 460 ml 440 ml Output Total 900 ml 800 ml 450 ml Balance -420 ml -340 ml -10 ml Intake Oral 480 ml 460 ml 440 ml Output Urine Total 900 ml 800 ml 450 ml # Bowel Movements 0 1 (Giovanna Orona MD R2) Result Diagram: 07/29/16 0346 07/30/16 0743 Objective Remarks GEN: Thin-appearing female. Sitting up in bed in no acute distress. CV: Regular rate and rhythm without obvious murmurs. Steri-strips in place over wound, clean and dry LUNGS: Diffuse wheezing bilaterally. Diminished breath sounds but with good air movement. EXT: No edema. No calf tenderness. NEURO: Awake and alert. Oriented. No obvious focal deficits (Giovanna Orona MD R2) A/P Assessment and Plan 56 yo F, hx of CAD, COPD. Admitted for NSTEMI Discharge Planning Today dw Dr. Armstrong and Dr. Becerra (Giovanna Orona MD R2) Attending Attestation Patient seen and examined. Case reviewed and discussed with the resident team. Agree with plan of care as discussed with me and documented in the resident note. (Ursula Armstrong MD) Problem List: (1) NSTEMI (non-ST elevated myocardial infarction) Status: Acute Plan: Found to have NSTEMI. Troponin elevated on admission. History of grade 1 diastolic dysfunction on echo January 2016. Did have a stent placement on Cardiology consulted: appreciate recommendations * Cath 07/18: showed mid distal LAD stenosis of 95%, diagonal 50%, and RCA 95%. * Consulted CT surg for CABG CV consulted: Appreciate recommendations * s/p CABGx3 07/23 * Continue post-op management per CV surg recs * Clear for d/c, amio x2 wks Medications: * Metoprolol 25mg q12 (staggered dosing) * Atorvastatin 40 mg * Amiodarone 200mg q12 * Plavix 75mg * Aspirin 81 mg (2) Pneumonia Status: Acute Plan: Concern for the development of pneumonia as lung exam continues to show wheezing. There is also new onset leukocytosis on 07/25 with increased left basilar airspace disease. -High risk for pneumonia, will treat with Levaquin (07/25-07/31) (1 additional dose given at discharge) -Mucinex, Flonase -Leukocytosis resolved on 07/27 (3) CAD (coronary artery disease) Status: Chronic Plan: See plan under NSTEMI (4) Itching Status: Resolved Plan: Rash over entire extremities, unlikely scabies. -Zyrtec -Benadryl PRN -Hydrocortisone, Eucerin twice a day -Vaseline every 3 (5) COPD (chronic obstructive pulmonary disease) Status: Chronic Plan: Chronic COPD symptoms that are worse in the morning. Patient continues to have wheezing on exam. -Mucinex and scheduled Duonebs -Continue Spiriva -Continue Advair Diskus -Hold prednisone, consider resuming if respiratory status worsens (6) Hypertension Status: Chronic Plan: See medication regimen under NSTEMI (7) Adjustment disorder with depressed mood Status: Resolved Plan: Mood has improved since starting antidepressant and antipsychotic -fluoxetine 10 mg daily Psychiatry consulted: Appreciate recommendations * Trazodone (8) FEN/PPX Status: Acute Plan: Heart healthy diet IV fluids: None Electrolytes: hyponatremia, fluid restrict DVT PPX: SCD/TATIANA GI PPX: Protonix (Giovanna Orona MD R2) Problem Qualifiers (1) Pneumonia: Qualified Code: J18.9 - Pneumonia of both lower lobes due to infectious organism (2) CAD (coronary artery disease): Qualified Code: I25.119 - Coronary artery disease involving [place] coronary artery of [place] heart with angina pectoris (3) COPD (chronic obstructive pulmonary disease): Qualified Code: J41.0 - Simple chronic bronchitis (4) Hypertension: Qualified Code: I10 - Essential hypertension Giovanna Orona MD R2 Jul 30, 2016 12:14 Ursula Armstrong MD Jul 31, 2016 09:15
[2016-07-30] MEDS ORDERED: AMIO200T PO (12:23)
[2016-07-30] MEDS ORDERED: PLAV75TA29 PO (12:23)
[2016-07-30] MEDS ORDERED: LEVA750T PO (12:23)
[2016-07-30] MEDS ORDERED: FLUT50SP NASAL (12:23)
[2016-07-30] MEDS ORDERED: HYDR-3516 PO (12:23)
[2016-07-30] MEDS ORDERED: POLY17S PO (12:23)
[2016-07-30] MEDS ORDERED: FLUO-1 PO (12:23)
[2016-07-30] MEDS ORDERED: TRAZ50TA12 PO (12:23)
--- NOTE | 2016-07-30 12:24 | HHI.DCPOC ---
Discharge Care Plan Diagnosis: (1) S/P CABG x 3 (2) Adjustment disorder with depressed mood (3) Pneumonia (4) COPD (chronic obstructive pulmonary disease) Goals to Promote Your Health * To prevent worsening of your condition and complications * To maintain your health at the optimal level Directions to Meet Your Goals Take your medications as prescribed Follow your dietary instruction Follow activity as directed Keep your appointments as scheduled Take your immunizations and boosters as scheduled If your symptoms worsen call your PCP, if no PCP go to Urgent Care Center or Emergency Room Smoking is Dangerous to Your Health. Avoid second hand smoke Call the 24-hour hour crisis hotline for domestic abuse at Giovanna Orona MD R2 Jul 30, 2016 12:24
--- NOTE | 2016-07-30 13:37 | PD.CAR.PN ---
CVT Progress Note CVT: POD #: 7 Subjective/Hospital Course: This is a 56-year-old female who has lived out of doors since her hospitalization here in May for exertional chest pain. She was also hospitalized here in January and was seen by Dr. mg at that time. She reports the pain is in the left chest just below the left breast, is a 5-6 out of 10, initially was sharp but now it is dull and radiates through to her back but not her neck jaw or arms. It is a little bit worse with a deep breath and this morning it was associated with nausea but no vomiting and she did report sweats. She feels anxious and short of breath and her exercise tolerance is limited to approximately half a block if she uses her walker and stops to rest frequently. Reports being chronically short of breath and anxious, fearful of dying on the street. She has been completely out of her medications due to finances and has been told in the past that she should be on a blood thinner. Some productive cough but this does not exacerbate her pain in particular. Continues to smoke 2-3 cigarettes a day, is no longer using alcohol for the past approximately 6 months. admitted with NSTEMI PMH: chronic itching. She had been told she had scabies in the past, but now has itching everywhere, unrelieved by Caladryl and Benadryl tablets., CAD , rotational arthrectomy RCA and PCI bare metal stent 08/02/15 was on Brilinta, but has not taken any meds in a couple of months , COPD, HTN, depression/ anxiety , chronic tobacco abuse 07/19 pt tearful and anxious , mild chest pain last pm no further c/o since , scheduled for surgery on 07/22 no further chest pain, rash improved to arms and legs, still has some on buttocks, will discuss with attending re-scheduled for surgery in am less tearful 07/23 surgery: Urgent Off-pump Coronary Artery Bypass Grafting x 3 with left internal mammary artery (LUCAS) to left anterior descending (LAD), reverse saphenous vein graft to OM1, reverse saphenous vein graft to the distal RCA Left Leg Endoscopic Vein [place] 3400cc crystalloid, 250cc cell saver, EBL 500cc 07/24 on nasal; cannula , no pressors , no insulin gtt still somewhat anxious BB resumed, on plavix, ASA statin OOB, ambulate skin rash improving 07/25 minimal chest tube drainage chest tube removed without difficulty some left lower lobe atelectasis on CXR aggressive pulm toileting ambulate / rhythm controlled, BP elevated/ increase BB + 07/26 still has some congestion/ coarse cough/ continue nebs, ABX, await sputum may need HCAP coverage gentle diuresis / + 5 kg ambulate / aggressive pulm toileting 07/27/16 No complaints 07/28/16 No complaints today 07/29 doing well , stable for discharge from [facility] standpoint has f/u appointment in 2 weeks on room air , continue amiodarone for 2 weeks only 07/30 waiting on discharge placement arrangements on room air , still has some occasional wheezing stable for discharge Objective: GENERAL: SKIN: Warm and dry.sternal incision intact and well approximated / leg incision intact HEAD: Normocephalic. EYES: No scleral icterus. No injection or drainage. NECK: Supple, trachea midline. No JVD or lymphadenopathy. CARDIOVASCULAR: Regular rate and rhythm without murmurs, gallops, or rubs. RESPIRATORY: few coarse breath sounds Breath sounds equal bilaterally. No accessory muscle use. GASTROINTESTINAL: Abdomen soft, non-tender, nondistended. MUSCULOSKELETAL: No cyanosis, or edema. BACK: Nontender without obvious deformity. No CVA tenderness. Vital Signs Date Time Temp Pulse Resp B/P Pulse Ox O2 Delivery O2 Flow Rate FiO2 07/30/16 12:16 69 07/30/16 12:15 98.1 65 18 107/66 96 07/30/16 11:16 68 07/30/16 11:00 98.1 65 18 107/66 96 07/30/16 10:20 67 07/30/16 10:00 63 07/30/16 09:42 66 07/30/16 09:00 61 07/30/16 08:28 70 07/30/16 08:17 98.0 70 16 135/74 98 07/30/16 07:55 66 07/30/16 07:36 94 21 07/30/16 07:00 64 07/30/16 06:00 66 07/30/16 05:00 67 07/30/16 04:00 70 07/30/16 03:00 98.4 71 18 136/81 92 07/30/16 03:00 68 07/30/16 02:00 48 07/30/16 01:00 65 07/30/16 00:00 67 07/29/16 23:00 98.2 73 19 96/62 98 07/29/16 23:00 68 07/29/16 22:00 76 07/29/16 21:52 93 Nasal Cannula 2.00 07/29/16 21:00 82 07/29/16 20:00 72 07/29/16 19:00 98.5 81 20 120/63 95 07/29/16 19:00 70 07/29/16 18:00 71 07/29/16 17:00 69 07/29/16 16:00 72 07/29/16 15:00 98 Nasal Cannula 2.00 Humidified 07/29/16 15:00 98.0 72 18 106/64 94 07/29/16 15:00 76 07/29/16 14:00 75 Labs: Laboratory Tests Test 07/30/16 07:43 Sodium Level 129 MEQ/L (136-145) Potassium Level 4.5 MEQ/L (3.5-5.1) Chloride Level 95 MEQ/L (98-107) Carbon Dioxide Level 29.2 MEQ/L (21.0-32.0) Anion Gap 5 MEQ/L (5-15) Blood Urea Nitrogen 11 MG/DL (7-18) Creatinine 0.98 MG/DL (0.50-1.00) Estimat Glomerular Filtration 59 ML/MIN (>89) Rate Random Glucose 80 MG/DL (74-106) Calcium Level 8.8 MG/DL (8.5-10.1) Result Diagram: 07/29/16 0346 07/30/16 0743 Telemetry: NSR (1) NSTEMI (non-ST elevated myocardial infarction) Plan: on BB, statin, ASA , plavix aggressive pulm toileting nebs, ezpap , acapella social work consult (2) Chest pain (3) COPD exacerbation Plan: on nebs , FEV1 0.96 Spiriva (4) CHF exacerbation Plan: grade 1 diastolic dysfunction. on BB (5) Adjustment disorder with depressed mood Plan: on antidepressants (6) Itching Plan: on hydrocortisone and emollients prior hx of scabies (7) S/P CABG x 3 Plan: stable for DC from [facility] standpoint waiting on discharge placement status Nicolle Benitez Jul 30, 2016 13:37
--- NOTE | 2016-07-30 14:34 | HHI.FF ---
Face to Face Verification Diagnosis: (1) CAD (coronary artery disease) (2) Tobacco abuse (3) Hypertension (4) NSTEMI (non-ST elevated myocardial infarction) (5) COPD exacerbation (6) Pneumonia (7) S/P CABG x 3 Physical Therapy Order: Evaluate and Treat Home Health Nursing Order: Signs/symptoms of disease process CHF education Wound care and dressing changes Nursing assessment with vital signs Instructions: Heart and Vascular Surgery patients *Special attention to sternal dressing Mandatory frequency Assess and evaluation, 4 days in a row The next week 3X week 2 times a week for 4 weeks 1 time a week for 5 weeks Schedule Heart and Vascular patients for full 60 day certification period Initial visit Review Open Heart Surgery Discharge Instructions (Sternal precautions, Activity, Elastic hose, Incision care, Driving, Incentive spirometry, Smoking, [place], Work and other) Need Betadine to paint incision Medication reconciliation Importance of follow up care/ check on appointments Make calendar record temperature daily When to call [facility] nurse, review instructions, phone list Incentive Spirometry, demonstration Visit 1- Begin discharge instruction for patient family and/ or caregiver using teach back method- Signs and symptoms of infection Disease characteristics Medicines and side effects Foods and nutrition/ appetite Infection control/ hand washing/ hygiene Visit 2- Continue teaching Discharge instructions- include additional information on smoking cessation , sternal dressing (sternal vac) Visit 3- Continue teaching- Cough and deep breathing, incision monitoring. Choose my plate Visit 4- Continue teaching- Discuss limitations Discuss how they are feeling Discuss progress toward goals Remaining visits- continue teaching and monitoring Incentive spirometry Q1 hr x 10, while awake, also use acapella device hourly whole awake Sternal Breast Bone Precautions: NO pushing or pulling, ( pt must use sternal pillow to support chest with all activities and with coughing ( takes up to 3 months breast bone to heal ) All females to wear sternal bra , launder as needed Daily incision care: ok to shower daily, no tub bath. Wash all incisions with liquid dial soap, clean wash cloth to each site, rinse and pat dry. Observe for any signs of infection, such as drainage which is dark yellow, chen, green or foul smelling. Immediately report to the surgeon any drainage from the chest incision, or legs, and for any abnormal drainage from the chest tube sites. Notify surgeon if any temp >101.5 degrees F. When specialty dressing removed/ or if you do not have one, continue to shower daily as above, then rinse and pat incision dry and paint with betadine daily x 5 days. Allow steri strips to fall off if you have any. Avoid lotions, creams, salves, oils, etc. for the first month F/U appointment: as per [place] instructions: PCP in 2 weeks, CV surgeon 2 weeks, [facility] Consultant 3-4 weeks For any questions regarding incisions/ dressing / meds / post op care or above Symptoms, Friday 8am-5pm Heart & Vascular Surgery Office ( Dr. Castañeda & Dr. Joel), After Hours / Nights (5pm -8am) Weekends and Holidays Please call [facility] ([facility]) Charge Nurse I have seen patient Iveth Tay on 07/30/16. My clinical findings support the need for the requested home health care services because: Patient has SOB Deconditioned w/ increased weakness I certify that my clinical findings support that this patient is homebound because: Post-op weakness Nicolle Benitez Jul 30, 2016 14:34
--- NOTE | 2016-07-30 15:41 | HHI.DS ---
Discharge Summary Admission Date Jul 17, 2016 at 16:48 Discharge Date: Jul 30, 2016 Admitting Diagnosis (1) NSTEMI (non-ST elevated myocardial infarction) Plan: Found to have NSTEMI. Troponin elevated on admission. History of grade 1 diastolic dysfunction on echo January 2016. Did have a stent placement on Cardiology consulted: appreciate recommendations * Cath 07/18: showed mid distal LAD stenosis of 95%, diagonal 50%, and RCA 95%. * Consulted CT surg for CABG CV consulted: Appreciate recommendations * s/p CABGx3 07/23 * Continue post-op management per CV surg recs * Clear for d/c, amio x2 wks Medications: * Metoprolol 25mg q12 (staggered dosing) * Atorvastatin 40 mg * Amiodarone 200mg q12 * Plavix 75mg * Aspirin 81 mg (2) Pneumonia Plan: Concern for the development of pneumonia as lung exam continues to show wheezing. There is also new onset leukocytosis on 07/25 with increased left basilar airspace disease. -High risk for pneumonia, will treat with Levaquin (07/25-07/31) (1 additional dose given at discharge) -Mucinex, Flonase -Leukocytosis resolved on 07/27 (3) CAD (coronary artery disease) Plan: See plan under NSTEMI (4) Itching Plan: Rash over entire extremities, unlikely scabies. -Zyrtec -Benadryl PRN -Hydrocortisone, Eucerin twice a day -Vaseline every 3 (5) COPD (chronic obstructive pulmonary disease) Plan: Chronic COPD symptoms that are worse in the morning. Patient continues to have wheezing on exam. -Mucinex and scheduled Duonebs -Continue Spiriva -Continue Advair Diskus -Hold prednisone, consider resuming if respiratory status worsens (6) Hypertension Plan: See medication regimen under NSTEMI (7) Adjustment disorder with depressed mood Plan: Mood has improved since starting antidepressant and antipsychotic -fluoxetine 10 mg daily Psychiatry consulted: Appreciate recommendations * Trazodone (8) FEN/PPX Plan: Heart healthy diet IV fluids: None Electrolytes: hyponatremia, fluid restrict DVT PPX: SCD/TATIANA GI PPX: [facility] Cardiothoracic surgery Procedures Three-vessel CABG Brief History Patient states that this morning, when walking she felt as though she was going to faint. She states that she saw "lights" and felt ear fullness. She placed her head between knees to prevent anxiety attack. She then felt a discomfort over the left chest. The pain resolved and she started walking to the hospital. She used the bus to arrive her and states that she felt extremely weak. Patient describes pain as being 5-6/10 localized to the left chest that was sharp and now dull with some radiation to her back; no radiation to neck or jaw. The pain is worsened with deep breath and cough. There was associated nausea, diaphoresis at the onset of symptoms. The pain is worse after walking for about 1/2 block. She has been experiencing worsening dyspnea, hx of tobacco use. Patient states that she ran out of medications as she has been homeless since May. She last saw Dr. Quiroz in February 2016. She reports that although she had patient assistance, she was unable to pay for her medications, not including the inhaler. Patient ambulates with a walker. echo 01/24/16: grade 1 diastolic dysfunction CBC/BMP: 07/29/16 0346 07/30/16 0743 Significant Findings Laboratory Tests Test 07/28/16 07/29/16 07/30/16 06:30 03:46 07:43 Red Blood Count 3.02 MIL/MM3 3.04 MIL/MM3 (4.00-5.30) (4.00-5.30) Hemoglobin 9.0 GM/DL 9.0 GM/DL (11.6-15.3) (11.6-15.3) Hematocrit 26.7 % 27.1 % (35.0-46.0) (35.0-46.0) Monocytes (%) (Auto) 9.8 % (0.0-8.0) Eosinophils (%) (Auto) 11.0 % (0.0-4.0) Monocytes # (Auto) 1.0 TH/MM3 (0-0.9) Eosinophils # (Auto) 1.1 TH/MM3 (0-0.4) Sodium Level 130 MEQ/L 128 MEQ/L 129 MEQ/L (136-145) (136-145) (136-145) Chloride Level 94 MEQ/L 93 MEQ/L 95 MEQ/L (98-107) (98-107) (98-107) Estimat Glomerular Filtration 60 ML/MIN (>89) 60 ML/MIN (>89) 59 ML/MIN (>89) Rate Platelet Count 478 TH/MM3 (150-450) Random Glucose 127 MG/DL (74-106) Imaging Last Impressions Chest X-Ray 07/26/16 0600 Signed Impressions: Service Date/Time: Tuesday, July 26, 2016 04:33 - CONCLUSION: 1. Thoracostomy tube removal without pneumothorax. 2. Worsening bibasilar consolidation. Sebas Cole Jr., MD Lower Extremity Ultrasound 07/18/16 0000 Signed Impressions: Service Date/Time: July 21:27 - CONCLUSION: Patent bilateral lower extremity venous tributaries. Measurements as above. Ceferino Oscar MD Carotid Artery Ultrasound 07/18/16 0000 Signed Impressions: Service Date/Time: July 20:53 - CONCLUSION: Bilateral carotid atherosclerotic plaque, fairly widespread, right more so than left. 50% % or less narrowing on the right and 30%% or less narrowing on the left. Doppler interrogation confirms no evidence of hemodynamically significant stenosis. Ceferino Oscar MD PE at Discharge GEN: Thin-appearing female. Sitting up in bed in no acute distress. CV: Regular rate and rhythm without obvious murmurs. Steri-strips in place over wound, clean and dry LUNGS: Diffuse wheezing bilaterally. Diminished breath sounds but with good air movement. EXT: No edema. No calf tenderness. NEURO: Awake and alert. Oriented. No obvious focal deficits Hospital Course 56 yo F, hx of CAD, COPD. Presented due to symptoms of lightheadedness and feeling faint and found to have NSTEMI on admission. Cardiac catheter showed multivessel disease requiring treatment with CABG. Patient underwent three- vessel CABG on 07/23 without complication. Postoperatively, patient developed pneumonia which was treated with Levaquin to complete a seven-day course. Patient also has a history of COPD which required treatment with nebulizers and home medications. Patient was found to have an adjustment disorder that required treatment with fluoxetine and trazodone. Discharge was delayed due to appropriate housing as she is homeless and was unable to return to some homeless shelters. Patient was then discharged in stable condition after discharge planning was completed. Pt Condition on Discharge: Stable Discharge Disposition: Discharge Home Discharge Instructions DIET: Follow Instructions for: Heart Healthy Diet Activities you can perform: See Additionl Instruction Other Activity Instructions: Please see cardiology recs Follow up Referrals: Cardiology - 4 Weeks with Jeremy Hartman MD Cardiology PCP Follow-up PCP Follow-up Surgical - 2 Weeks New Medications: Amiodarone (Amiodarone) 200 Mg Tab 200 MG PO Q12HR Only for 2 more weeks. #28 TAB Cetirizine (Cetirizine) 10 Mg Tab 10 MG PO DAILY #30 TAB Clopidogrel (Plavix) 75 Mg Tab 75 MG PO DAILY #30 TAB Fluoxetine (Prozac) 10 Mg Cap 10 MG PO DAILY #30 CAP Fluticasone Nasal [place] (Fluticasone Nasal [place]) 50 Mcg/Act Naspr 2 SPRAY NASAL Q12H PRN NASAL CONGESTION #1 BOTTLE Hydrocodone-Acetaminophen (Hydrocodone-Acetaminophen) 5-325 mg Tab 1 TAB PO Q3H PRN PAIN SCALE 4 TO 10 #30 TAB Levofloxacin (Levaquin) 750 Mg Tab 750 MG PO Q24H #1 TAB Polyethylene Glycol 3350 Powder (Polyethylene Glycol 3350 Powder) 17 Gm Pow 17 GM PO DAILY #1 BOTTLE Trazodone (Trazodone) 50 Mg Tab 100 MG PO HS #60 TAB Changed Medications: Metoprolol Tartrate (Metoprolol Tartrate) 25 Mg Tab 25 MG PO Q12HR #60 Ref 0 TAB (Changed from: Q8HR; 90; Refills: ) Continued Medications: Albuterol 18 GM Inh (Ventolin Hfa 18 GM Inh) 90 Mcg/Act Aer 2 PUFF INH Q4-6H PRN SHORTNESS OF BREATH #1 Ref 0 INHALER (This prescription has been renewed) Aspirin DR (Aspirin EC) 81 Mg Tabdr 81 MG PO DAILY #30 Ref 0 TAB (This prescription has been renewed) Atorvastatin (Atorvastatin) 40 Mg Tab 40 MG PO HS Cholesterol Management #30 TAB (This prescription has been renewed) Famotidine (Famotidine) 20 Mg Tab 10 MG PO BID #60 Ref 0 TAB (This prescription has been renewed) Fluticasone-Salmeterol Inh (Advair Diskus Inh) 250-50 Mcg/Blist Aer 1 PUFF INH BID Rinse mouth after use. #1 INHALER (This prescription has been renewed) Tiotropium Inh (Spiriva Handihaler) 18 Mcg Cap 18 MCG INH DAILY 1 capsule = 18 mcg COPD #30 CAP (This prescription has been renewed) Discontinued Medications: Amlodipine (Amlodipine) 5 Mg Tab 10 MG PO HS Take 2 tabs (10mg) at bedtime starting the night of 11. If you become light headed, only take 1 tab (5mg) Blood Pressure Management #60 Ref 0 TAB Hydroxyzine HCl (Hydroxyzine HCl) 10 Mg Tab 10 MG PO Q8H PRN MILD TO MODERATE ITCHING #30 TAB Isosorbide Mononitrate ER (Isosorbide Mononitrate ER) 30 Mg [place] 30 MG PO DAILY Prevent Chest Pain #30 Ref 0 TAB Levofloxacin (Levaquin) 750 Mg Tab 750 MG PO DAILY #2 TAB Lisinopril (Lisinopril) 20 Mg Tab 20 MG PO DAILY #30 TAB Permethrin Topical (Permethrin Topical) 5% Cream 1 APPLIC TOPICAL ONCE Do not apply until 05/23 Scabies #1 Ref 0 TUBE Prednisone (Prednisone) 10 Mg Tab 10 MG PO DIRECTED 3 Tabs (30mg) for 5 days. 2 Tabs (20mg) for 5 days. 1 Tab ( 10mg) for 5 days #30 Ref 0 TAB Ticagrelor (Brilinta) 90 Mg Tab 90 MG PO BID Blood Clot Prevention #60 Ref 0 TAB Giovanna Orona MD R2 Jul 30, 2016 15:41
[2016-07-30] MEDS ORDERED: ADVA250A INH (16:42)
[2016-07-30] MEDS ORDERED: METO25TA3 PO (16:42)
[2016-07-30] MEDS ORDERED: CETI10 PO (16:42)
[2016-07-30] MEDS ORDERED: ASPI81TA11 PO (16:42)
[2016-07-30] MEDS ORDERED: ATOR40TA16 PO (16:42)
[2016-07-30] MEDS ORDERED: VENTAER INH (16:42)
[2016-07-30] MEDS ORDERED: SPIRCAP INH (16:42)
[2016-07-30] MEDS ORDERED: FAMO20TA2 PO (16:42)
[2016-08-12] MEDS ORDERED: FAMO20TA2 PO (15:19)
[2016-08-12] MEDS ORDERED: VENTAER INH (15:19)
[2016-08-12] MEDS ORDERED: ADVA250A INH (15:19)
[2016-08-12] MEDS ORDERED: TRAZ50TA12 PO (15:19)
[2016-08-12] MEDS ORDERED: AMIO200T PO (15:19)
[2016-08-12] MEDS ORDERED: ATOR40TA16 PO (15:19)
[2016-08-12] MEDS ORDERED: FLUO-1 PO (15:19)
[2016-08-12] MEDS ORDERED: CETI10 PO (15:19)
[2016-08-12] MEDS ORDERED: PLAV75TA29 PO (15:19)
[2016-08-12] MEDS ORDERED: METO25TA3 PO (15:19)
--- NOTE | 2016-09-27 08:33 | MB ---
cc: CAREY YEE MD DATE OF CONSULTATION: 09/26/2016 DATE OF : 04/09/1950 56 year-old female. REASON FOR CONSULTATION: Patient is known to our service, presented to the emergency room with shortness of breath, chest discomfort, tightness, feeling of palpitations. She has had some sweats and she is about to fall down because of this. She is apparently homeless, she was here back in July 2016 and was found to have a non-STEMI at that time, underwent cardiac cath, then underwent cardiac coronary artery bypass grafting x3. LUCAS to the LAD, saphenous vein graft to the OM1 and reverse saphenous vein graft to the right coronary artery, left endoscopic harvesting. 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 Prior to surgery she was very anxious, was very tearful. She was discharged to a hotel room where she again has been noncompliant with medications subsequently was found to be in atrial fibrillation, rapid ventricular response on this admission. We were consulted because of a left pleural effusion. The radiologist read this as a large effusion, however it is more moderate in nature. IR was consulted to evaluate for drainage of the pleural effusion which the film has been evaluated by Dr. Carey Yee. Recommendation is for IR to go ahead and drained the fluid and send for cytology and cultures. She was however, given a dose of Plavix yesterday and pending IR timing for her ultrasound-guided thoracentesis. PAST MEDICAL HISTORY: 1. Coronary artery disease. Ejection fraction of 40-45 by echo, 2017. 2. Coronary artery bypass grafting 07/23/2016. 3. Chronic obstructive pulmonary disease. 4. Atrial fibrillation. 5. Hypertension. PAST SURGICAL HISTORY: Surgeries include 1. Coronary artery bypass graft 2. Hysterectomy. ALLERGIES No known allergies. FAMILY HISTORY: Family history of COPD, heart problems in her uncle. SOCIAL HISTORY: Quit smoking two months ago, smoked for 40 years. Occasional alcohol, no drugs. REVIEW OF SYSTEMS As above in the HPI, otherwise 12 systems unremarkable. PHYSICAL EXAMINATION: IN GENERAL: Well-nourished, well-developed female, somewhat anxious. VITAL SIGNS: 3 liters nasal cannula O2 sat 98%. HEAD, EYES, EARS, NOSE, AND THROAT: Head is normocephalic, atraumatic. Pupils equal and reactive. Oral mucosa pink, moist. NECK: Supple. No JVD. HEART: Heart sounds S1-S2 irregular rate and rhythm, slightly tachycardiac without rubs or gallops. LUNGS: She has some inspiratory, expiratory wheeze and some crackles in the bases. ABDOMEN: Soft, nontender. No masses or organomegaly. EXTREMITIES: No cyanosis, clubbing or edema. SKIN: Her sternum is well healed, stable. Left CVH site was intact and well approximated and well-healed. LABORATORY: Lab work shows hemoglobin 11, hematocrit of 34, white cell count 10, platelet count 478, sodium 129, potassium 4.5, BUN 17 with a creatinine of 1.21. Chest x-ray Showed large left sided effusion, the effusion looks more like a moderate effusion. IMPRESSION 1. Acute and chronic systolic heart failure with prior EF of 45-50% by echo. Atrial fibrillation with rapid ventricular response improved after Cardizem. Cardiology has been consulted. Conrad's score of 2. Recommending anticoagulation. However, she is noncompliant with all medications, this will be difficult to follow as an outpatient. 2. She has been diuresed given IV Lasix. 3. Left pleural effusion, recommendation is again for IR to draining by thoracentesis and send fluid for cultures and cytology. 4. Further planning as per Dr. Yee. DICTATED BY: IOANA Moyer Carey Disla /3:39 PM /8:19 AM
== END 2016-07-30 19:35 | disposition home or self-care (01) | DRG 233 ==
LOC: NEPE 14:37 → NEDA 16:48 → HCIS 20:42 → HCVR 07-23 11:38 → HCIN 07-24 11:47
PROVIDERS: ADMIT Family Medicine; ATTEND Family Medicine
PROC: 4A023N7 Measurement of Cardiac Sampling and Pressure, Left Heart, Percutaneous Approach (ICD-10-PCS; 2016-07-18)
PROC: B2111ZZ Fluoroscopy of Multiple Coronary Arteries using Low Osmolar Contrast (ICD-10-PCS; 2016-07-18)
PROC: B2151ZZ Fluoroscopy of Left Heart using Low Osmolar Contrast (ICD-10-PCS; 2016-07-18)
PROC: 021109W Bypass Coronary Artery, Two Arteries from Aorta with Autologous Venous Tissue, Open Approach (ICD-10-PCS; 2016-07-23)
PROC: 06BQ4ZZ Excision of Left Saphenous Vein, Percutaneous Endoscopic Approach (ICD-10-PCS; 2016-07-23)
PROC: 02100Z9 Bypass Coronary Artery, One Artery from Left Internal Mammary, Open Approach (ICD-10-PCS; principal; 2016-07-23 07:11)
DX: I21.4 Non-ST elevation (NSTEMI) myocardial infarction (principal); I50.33 Acute on chronic diastolic (congestive) heart failure; J18.9 Pneumonia, unspecified organism; T82.855A Stenosis of coronary artery stent, initial encounter; I11.0 Hypertensive heart disease with heart failure; J44.1 Chronic obstructive pulmonary disease with (acute) exacerbation; J44.0 Chronic obstructive pulmonary disease with (acute) lower respiratory infection; E87.1 Hypo-osmolality and hyponatremia; I25.110 Atherosclerotic heart disease of native coronary artery with unstable angina pectoris; F17.210 Nicotine dependence, cigarettes, uncomplicated; J98.11 Atelectasis; F41.9 Anxiety disorder, unspecified; I44.7 Left bundle-branch block, unspecified; R21 Rash and other nonspecific skin eruption; F43.21 Adjustment disorder with depressed mood; Z59.0 Homelessness; Z79.899 Other long term (current) drug therapy; Z22.322 Carrier or suspected carrier of Methicillin resistant Staphylococcus aureus; Z85.41 Personal history of malignant neoplasm of cervix uteri; Z91.14 Patient's other noncompliance with medication regimen; Y83.1 Surgical operation with implant of artificial internal device as the cause of abnormal reaction of the patient, or of later complication, without mention of misadventure at the time of the procedure
CPT/HCPCS: 36430; 71010; 76937; 80048; 80053; 81001; 82550; 82552; 82948; 83036; 83735; 83880; 84484; 85014; 85025; 85027; 85610; 85730; 86850; 86900; 86901; 86920; 87070; 87205; 87641; 93005; 93458; 93880; 93970; 93998; 94003; 94010; 94150; 94640; 94664; 94667; 94668; 96374; 96375; C1769; C1893; C9399; J0131; J0690; J1644; J1815; J1885; J1940; J2060; J2250; J2370; J2405; J2440; J2710; J2720; J2930; J3010; J3370; J3475; J3480; J7030; J7040; J7050; J7120; J7613; P9016; Q9967

== ENCOUNTER 2016-09-25 18:30 | Inpatient (IN) | payer OTHER ==
[~2016-09-25] VITALS: Ht 167.6 cm; Wt 48.0 kg
[~2016-09-25 18:30] MED LIST changes: +AMIO200T PO; -AMLO5TAB2 PO; -BRIL90TA PO; +CETI10 PO; +FLUO-1 PO; +FLUT50SP NASAL; +HYDR-3516 PO; -HYDR-755 PO; -ISOS30TA3 PO; -LEVA750T PO; -LISI-515 PO; -PERM5CRE TOPICAL; +PLAV75TA29 PO; +POLY17S PO; -PRED10 PO; +TRAZ50TA12 PO
[2016-09-25 18:41] VITALS: BP 156/112; PULSE 134; RESP 24; TEMP 98.2; O2SAT 97
[2016-09-25 18:45] VITALS: O2SAT 98
[2016-09-25] MEDS ORDERED: DILTIAZEM INJ 125 MG in SODIUM CHLORIDE 0.9% INJ 100 ML IV SCH (18:45)
[2016-09-25] MEDS ORDERED: SODIUM CHLORIDE 0.9% FLUSH 10 ML FLUSH IVF PRN ×2 (18:45)
[2016-09-25 18:49] VITALS: BP 154/85; PULSE 135; RESP 24; O2SAT 97
[2016-09-25] MEDS ORDERED: DILTIAZEM HCL 50 MG/10 ML VIAL IV PUSH ONE (19:00)
[2016-09-25 19:08] LABS: AUTOMATED NEUTROPHIL # 8.1 TH/MM3 (1.8-7.7); BASOPHIL # 0.1 TH/MM3 (0-0.2); BASOPHIL % 0.9 % (0.0-2.0); EOSINOPHIL % 0.4 % (0.0-4.0); HEMATOCRIT 34.3 % (35.0-46.0); HEMO FLAGS DIFF FINAL; LYMPH % 12.3 % (9.0-44.0); LYMPHOCYTE # 1.2 TH/MM3 (1.0-4.8); MEAN CELL VOLUME 84.9 FL (80.0-100.0); MEAN CORPUSCULAR HEMOGLOBIN 28.2 PG (27.0-34.0); MEAN CORPUSCULAR HGB CONC 33.2 % (32.0-36.0); MONO % 5.5 % (0.0-8.0); NEUT % 80.9 % (16.0-70.0); PLATELET COUNT 478 TH/MM3 (150-450); RED BLOOD COUNT 4.04 MIL/MM3 (4.00-5.30); RED CELL DISTRIBUTION WIDTH 15.5 % (11.6-17.2)
--- NOTE | 2016-09-25 19:12 | PD ---
HPI Chief Complaint: Chest Pain Time Seen by Provider: 18:40 Travel History International Travel<30 days: No Contact w/Intl Traveler<30days: No Traveled to known affect area: No History of Present Illness HPI This is a 56-year-old female with a history of COPD, atrial fibrillation, status post bypass surgery 2 months ago, who presents today with complaints of shortness of breath and dizziness. Patient also complaining of palpitations and chest tightness. When paramedics arrived, they found her to be in A. fib with rapid ventricular response with a heart rate in the 160s to 180s. The patient was given a dose of 20 mg of Cardizem. Her rate slowed down into the 130s. When she arrived she stated she felt much better. She was reporting much improvement of her shortness of breath. She denied any chest pain but did have chest wall pain from her sternotomy. She states that she's been off her medications for at least a week if not for more. She states that she could not afford her medications. PFSH Past Medical History Arthritis: Yes (Left knee and left Shoulder ) Atrial Fibrillation: Yes Autoimmune Disease: No Blood Disorders: No Anxiety: No Depression: No Heart Rhythm Problems: No Cancer: Yes (CERVICAL) Cardiovascular Problems: Yes High Cholesterol: No Chemotherapy: No Chest Pain: Yes Congestive Heart Failure: Yes COPD: Yes Cerebrovascular Accident: No Coronary Artery Disease: Yes Diabetes: No Diminished Hearing: No Endocrine: No Gastrointestinal Disorders: Yes Genitourinary: No Headaches: Yes Hypertension: Yes Immune Disorder: No Implanted Vascular Access Dvce: No Musculoskeletal: No Neurologic: Yes Psychiatric: No Reproductive: No Respiratory: Yes Migraines: No Radiation Therapy: Yes Seizures: Yes Sleep Apnea: No Thyroid Disease: No Tetanus Vaccination: < 5 Years Influenza Vaccination: Yes ?: Not Menopausal: Yes Past Surgical History Abdominal Surgery: No AICD: No Cardiac Surgery: Yes (STENTS X 3 ) Ear Surgery: No Endocrine Surgery: No Eye Surgery: No Genitourinary Surgery: No Gynecologic Surgery: Yes (Hysterectomy 20 years ago) Hysterectomy: Yes Neurologic Surgery: No Oral Surgery: Yes (top teeth removed) Pacemaker: No Thoracic Surgery: No Other Surgery: Yes (hysterectomy) Social History Alcohol Use: No Tobacco Use: Yes Substance Use: No Allergies-Medications (Allergen,Severity, Reaction): Coded Allergies: *MDRO Multi-Drug Resistant Organism (Verified Adverse Reaction, Unknown, MRSA, 4/10/17) MRSA (nares) - 07/18/16 Reported Meds & Prescriptions Reported Meds & Active Scripts Active Cetirizine (Cetirizine HCl) 10 Mg Tab 10 Mg PO DAILY Metoprolol Tartrate 25 Mg Tab 25 Mg PO Q12HR Advair Diskus Inh (Fluticasone-Salmeterol Inh) 250-50 Mcg/Blist Aer 1 Puff INH BID Rinse mouth after use. Famotidine 20 Mg Tab 10 Mg PO BID Ventolin Hfa 18 GM Inh (Albuterol Sulfate) 90 Mcg/Act Aer 2 Puff INH Q4-6H PRN Atorvastatin (Atorvastatin Calcium) 40 Mg Tab 40 Mg PO HS Prozac (Fluoxetine HCl) 10 Mg Cap 10 Mg PO DAILY Trazodone (Trazodone HCl) 50 Mg Tab 100 Mg PO HS Plavix (Clopidogrel Bisulfate) 75 Mg Tab 75 Mg PO DAILY Amiodarone (Amiodarone HCl) 200 Mg Tab 200 Mg PO Q12HR Only for 2 more weeks. Spiriva Handihaler (Tiotropium Inh) 18 Mcg Cap 18 Mcg INH DAILY 1 capsule = 18 mcg Aspirin EC (Aspirin) 81 Mg Tabdr 81 Mg PO DAILY Fluticasone Nasal [place] 50 Mcg/Act Naspr 2 [place] NASAL Q12H PRN Polyethylene Glycol 3350 Powder (Polyethylene Glycol) 17 Gm Pow 17 Gm PO DAILY Hydrocodone-Acetaminophen 5-325 mg Tab 1 Tab PO Q3H PRN Review of Systems Except as stated in HPI: all other systems reviewed are Neg HENT: Positive: Lightheadedness, No: Headaches, Neck Pain (improved) Cardiovascular: Positive: Chest Pain or Discomfort (sternotomy pain.), Palpitations, Irregular Rhythm, Tachycardia Respiratory: Positive: Shortness of Breath, No: Cough Gastrointestinal: No: Nausea, Vomiting, Abdominal Pain Musculoskeletal: No: Myalgias, Weakness, Pain Neurologic: Positive: Weakness, No: Dizziness, Syncope, Headache, Change in Mentation Physical Exam Narrative GENERAL: Thin well-developed female in no acute respiratory distress. SKIN: Focused skin assessment warm/dry. HEAD: Atraumatic. Normocephalic. EYES: No scleral icterus. No injection or drainage. ENT: Mucous membranes pink and moist. NECK: Trachea midline. No JVD. CARDIOVASCULAR: Irregularly irregular with a rate in the 130s. A. fib on the monitor noted. RESPIRATORY: No accessory muscle use. Clear to auscultation. Breath sounds equal bilaterally. GASTROINTESTINAL: Abdomen soft, thin, non-tender, nondistended. MUSCULOSKELETAL: No obvious deformities. No clubbing. No cyanosis. No edema. NEUROLOGICAL: Awake and alert. No obvious cranial nerve deficits. Motor grossly within normal limits. Normal speech. PSYCHIATRIC: Appropriate mood and affect; insight and judgment normal. Data Data Last Documented VS Vital Signs Date Time Temp Pulse Resp B/P Pulse Ox O2 Delivery O2 Flow Rate FiO2 09/25/16 18:49 135 24 154/85 97 09/25/16 18:45 Nasal Cannula 3 09/25/16 18:41 98.2 Orders Electrocardiogram (09/25/16 ) Electrocardiogram (09/25/16 18:40) Basic Metabolic Panel (Bmp) (09/25/16 18:40) Ckmb (Isoenzyme) Profile (09/25/16 18:40) Complete Blood Count With Diff (09/25/16 18:40) Magnesium (Mg) (09/25/16 18:40) Prothrombin Time / Inr (Pt) (09/25/16 18:40) Act Partial Throm Time (Ptt) (09/25/16 18:40) Troponin I (09/25/16 18:40) Chest, Single Ap (09/25/16 18:40) Ecg Monitoring (09/25/16 18:40) Bilateral Bp Monitoring (09/25/16 18:40) Iv Access Insert/Monitor (09/25/16 18:40) Oximetry (09/25/16 18:40) Oxygen Administration (09/25/16 18:40) Sodium Chloride 0.9% Flush (Ns Flush) (09/25/16 18:45) Blood Pressure (09/25/16 18:40) Vital Signs (09/25/16 18:40) Diltiazem Inj (Cardizem Inj) (09/25/16 18:45) Sodium Chloride 0.9% Flush (Ns Flush) (09/25/16 18:45) Diltiazem Inj (Cardizem Inj) (09/25/16 19:00) [facility] Medical Decision Making Medical Screen Exam Complete: Yes Emergency Medical Condition: Yes Differential Diagnosis A. fib with RVR versus COPD exacerbation versus metabolic arrangement versus ACS Narrative Course 56-year-old female presents via EMS with A. fib with RVR. She was given 20 mg of diltiazem prior to arrival. Her rate was still in the 130s. She'll be loaded with 0.35 mg/kg of diltiazem and started on IVD drip. Labs are pending at this time. She is signed out to Dr. Lundberg who will follow up on her labs and make the appropriate disposition. She will definitely need admission. Diagnosis Primary Impression: Atrial fibrillation with rapid ventricular response Additional Impressions: Hypertension COPD (chronic obstructive pulmonary disease) S/P CABG x 3 chest wall pain at sternotomy site Thomas Tao MD September 25, 2016 19:12
[2016-09-25 19:16] LABS: INTERNATIONAL NORMALIZED RATIO 1.2 RATIO; PROTHROMBIN TIME - PATIENT 13.1 SEC (9.8-11.6)
--- NOTE | 2016-09-25 19:19 | RADRPT ---
EXAM DATE/TIME: 09/25/2016 19:05 [place] COMPARISON: CHEST SINGLE AP, July 26, 2016, 4:33. INDICATIONS : Chest pain. MEDICAL HISTORY : None. SURGICAL HISTORY : CABG. ENCOUNTER: Initial ACUITY: 1 day PAIN SCORE: 2/10 LOCATION: Bilateral chest FINDINGS: Cardiomegaly and median sternotomy wires are noted. Right lung is clear. There is a large left effusi on and left basilar atelectasis. CONCLUSION: Large left-sided pleural effusion. Bhaskar Eagle MD on September 25, 2016 at 19:17 Board Certified Radiologist. This report was verified electronically.
[2016-09-25 19:31] LABS: BICARBONATE 23.3 MEQ/L (21.0-32.0); MAGNESIUM 1.7 MG/DL (1.5-2.5); POTASSIUM 4.5 MEQ/L (3.5-5.1)
--- NOTE | 2016-09-25 19:50 | PD ---
Physical Exam Date Seen by Provider: September 25, 2016 Data Data Last Documented VS Vital Signs Date Time Temp Pulse Resp B/P Pulse Ox O2 Delivery O2 Flow Rate FiO2 09/25/16 20:01 134 18 146/111 100 Nasal Cannula 2 09/25/16 18:41 98.2 Orders Electrocardiogram (09/25/16 ) Electrocardiogram (09/25/16 18:40) Basic Metabolic Panel (Bmp) (09/25/16 18:40) Ckmb (Isoenzyme) Profile (09/25/16 18:40) Complete Blood Count With Diff (09/25/16 18:40) Magnesium (Mg) (09/25/16 18:40) Prothrombin Time / Inr (Pt) (09/25/16 18:40) Act Partial Throm Time (Ptt) (09/25/16 18:40) Troponin I (09/25/16 18:40) Chest, Single Ap (09/25/16 18:40) Ecg Monitoring (09/25/16 18:40) Bilateral Bp Monitoring (09/25/16 18:40) Iv Access Insert/Monitor (09/25/16 18:40) Oximetry (09/25/16 18:40) Oxygen Administration (09/25/16 18:40) Sodium Chloride 0.9% Flush (Ns Flush) (09/25/16 18:45) Blood Pressure (09/25/16 18:40) Vital Signs (09/25/16 18:40) Diltiazem Inj (Cardizem Inj) (09/25/16 18:45) Sodium Chloride 0.9% Flush (Ns Flush) (09/25/16 18:45) Diltiazem Inj (Cardizem Inj) (09/25/16 19:00) B-Type Natriuretic Peptide (09/25/16 19:41) Diltiazem Inj (Cardizem Inj) (09/25/16 20:15) Labs Laboratory Tests Test 09/25/16 18:47 White Blood Count 10.0 TH/MM3 Red Blood Count 4.04 MIL/MM3 Hemoglobin 11.4 GM/DL Hematocrit 34.3 % Mean Corpuscular Volume 84.9 FL Mean Corpuscular Hemoglobin 28.2 PG Mean Corpuscular Hemoglobin 33.2 % Concent Red Cell Distribution Width 15.5 % Platelet Count 478 TH/MM3 Mean Platelet Volume 7.2 FL Neutrophils (%) (Auto) 80.9 % Lymphocytes (%) (Auto) 12.3 % Monocytes (%) (Auto) 5.5 % Eosinophils (%) (Auto) 0.4 % Basophils (%) (Auto) 0.9 % Neutrophils # (Auto) 8.1 TH/MM3 Lymphocytes # (Auto) 1.2 TH/MM3 Monocytes # (Auto) 0.5 TH/MM3 Eosinophils # (Auto) 0.0 TH/MM3 Basophils # (Auto) 0.1 TH/MM3 CBC Comment DIFF FINAL Differential Comment Prothrombin Time 13.1 SEC Prothromb Time International 1.2 RATIO Ratio Activated Partial 26.0 SEC Thromboplast Time Sodium Level 129 MEQ/L Potassium Level 4.5 MEQ/L Chloride Level 92 MEQ/L Carbon Dioxide Level 23.3 MEQ/L Anion Gap 14 MEQ/L Blood Urea Nitrogen 17 MG/DL Creatinine 1.21 MG/DL Estimat Glomerular Filtration 46 ML/MIN Rate Random Glucose 106 MG/DL Calcium Level 8.8 MG/DL Magnesium Level 1.7 MG/DL Total Creatine Kinase 82 U/L Troponin I 0.05 NG/ML [facility] Medical Record Reviewed: Yes Supervised Visit with GARTH: No Interpretation(s) Vital Signs Date Time Temp Pulse Resp B/P Pulse Ox O2 Delivery O2 Flow Rate FiO2 09/25/16 18:49 135 24 154/85 97 09/25/16 18:45 97 Nasal Cannula 3 09/25/16 18:45 98 09/25/16 18:45 97 Nasal Cannula 3 09/25/16 18:41 98.2 134 24 156/112 97 Laboratory Tests Test 09/25/16 18:47 White Blood Count 10.0 TH/MM3 (4.0-11.0) Red Blood Count 4.04 MIL/MM3 (4.00-5.30) Hemoglobin 11.4 GM/DL (11.6-15.3) Hematocrit 34.3 % (35.0-46.0) Mean Corpuscular Volume 84.9 FL (80.0-100.0) Mean Corpuscular Hemoglobin 28.2 PG (27.0-34.0) Mean Corpuscular Hemoglobin 33.2 % Concent (32.0-36.0) Red Cell Distribution Width 15.5 % (11.6-17.2) Platelet Count 478 TH/MM3 (150-450) Mean Platelet Volume 7.2 FL (7.0-11.0) Neutrophils (%) (Auto) 80.9 % (16.0-70.0) Lymphocytes (%) (Auto) 12.3 % (9.0-44.0) Monocytes (%) (Auto) 5.5 % (0.0-8.0) Eosinophils (%) (Auto) 0.4 % (0.0-4.0) Basophils (%) (Auto) 0.9 % (0.0-2.0) Neutrophils # (Auto) 8.1 TH/MM3 (1.8-7.7) Lymphocytes # (Auto) 1.2 TH/MM3 (1.0-4.8) Monocytes # (Auto) 0.5 TH/MM3 (0-0.9) Eosinophils # (Auto) 0.0 TH/MM3 (0-0.4) Basophils # (Auto) 0.1 TH/MM3 (0-0.2) CBC Comment DIFF FINAL Differential Comment Prothrombin Time 13.1 SEC (9.8-11.6) Prothromb Time International 1.2 RATIO Ratio Activated Partial 26.0 SEC Thromboplast Time (24.3-30.1) Sodium Level 129 MEQ/L (136-145) Potassium Level 4.5 MEQ/L (3.5-5.1) Chloride Level 92 MEQ/L (98-107) Carbon Dioxide Level 23.3 MEQ/L (21.0-32.0) Anion Gap 14 MEQ/L (5-15) Blood Urea Nitrogen 17 MG/DL (7-18) Creatinine 1.21 MG/DL (0.50-1.00) Estimat Glomerular Filtration 46 ML/MIN (>89) Rate Random Glucose 106 MG/DL (74-106) Calcium Level 8.8 MG/DL (8.5-10.1) Magnesium Level 1.7 MG/DL (1.5-2.5) Total Creatine Kinase 82 U/L (26-192) Troponin I 0.05 NG/ML (0.02-0.05) Last Impressions Chest X-Ray 09/25/16 1840 Signed Impressions: Service Date/Time: Sunday, September 25, 2016 19:05 - CONCLUSION: Large left-sided pleural effusion. Bhaskar Eagle MD Differential Diagnosis A. fib with RVR, COPD, ACS, COPD, CHF exacerbation, arrhythmia Narrative Course Patient was signed out to me by Dr. Tao at change of shift. Patient is a 56-year-old female who presents to emergency room with history of atrial fibrillation, COPD, has had history of bypass surgery 2 months ago, presents to emergency room with complaints of shortness of breath, chest pain, dizziness and heart palpitations. Patient reports that she stopped taking all her medications one month ago as she could not afford any of her medications. Her medications include amiodarone, atorvastatin, metoprolol, Plavix, Ventolin, trazodone, Plavix, Advair, reports that since yesterday, she has not been feeling well. She reports that when EMS arrived on scene, her heart rate was elevated. Patient was found to be in A. fib with RVR with a heart rate in the 160s to 180s. She was given a dose of Cardizem 20 mg by EMS, heart rate did go down to the 130s. Upon arrival to the emergency room, patient was given another bolus of Cardizem with minimal relief of symptoms. Patient was started on diltiazem drip. Labs reviewed, hemoglobin 11.4, hematocrit 34.3, WBC 10.0, platelets 478, sodium 129, potassium 4.5, BUN 17, creatinine 1.21, troponin 0.05, total CK 82, carbon dioxide 23.3 Last Impressions Chest X-Ray 09/25/16 1840 Signed Impressions: Service Date/Time: Sunday, September 25, 2016 19:05 - CONCLUSION: Large left-sided pleural effusion. Bhaskar Eagle MD Plan to admit her to the hospital in [facility] for treatment of afib with RVR case discussed with dr shen who accepts pt to service Diagnosis Primary Impression: Atrial fibrillation with rapid ventricular response Additional Impressions: COPD (chronic obstructive pulmonary disease) S/P CABG x 3 Hypertension chest wall pain at sternotomy site Admitting Information Admitting Physician Requests: Admit Elvira Lundberg DO September 25, 2016 19:50
[2016-09-25 20:01] VITALS: BP 146/111; PULSE 134; RESP 18; O2SAT 100
[2016-09-25] MEDS ORDERED: TRAZ300T2 PO (20:06)
[2016-09-25] MEDS ORDERED: CLOP300 PO (20:06)
[2016-09-25] MEDS ORDERED: DILTIAZEM HCL 25 MG/5 ML VIAL IV PUSH ONE (20:15)
[2016-09-25] MEDS ORDERED: NALOXONE HCL 0.4 MG/ML AMP IV PRN (20:30)
[2016-09-25] MEDS ORDERED: CLOPIDOGREL 75 MG TAB PO ONE (20:30)
[2016-09-25] MEDS ORDERED: SODIUM CHLORIDE 0.9% FLUSH 10 ML FLUSH IV FLUSH PRN (20:30)
[2016-09-25] MEDS: SODIUM CHLORIDE 0.9% FLUSH 10 ML FLUSH IV FLUSH SCH (20:41)
[2016-09-25] MEDS ORDERED: RESP: IPRATROPIUM 0.5 MG/2.5 ML NEB NEB PRN (20:45)
[2016-09-25] MEDS: FAMOTIDINE 20 MG TAB PO SCH (20:59)
[2016-09-25] MEDS: METOPROLOL TARTRATE 25 MG TAB PO SCH (20:59)
[2016-09-25] MEDS ORDERED: AMIODARONE 200 MG TAB PO SCH (21:00)
[2016-09-25 21:01] VITALS: BP 142/83; PULSE 91; RESP 18; O2SAT 100
[2016-09-25] MEDS: ATORVASTATIN 40 MG TAB PO SCH (21:11)
[2016-09-25] MEDS: RESP: IPRATROPIUM 0.5 MG/2.5 ML NEB NEB SCH (21:24)
[2016-09-25 23:39] VITALS: BP 135/91; PULSE 88; RESP 18; O2SAT 97
--- NOTE | 2016-09-25 23:59 | HHI.HP ---
[facility] Magnolia Quiroz MD Admission Diagnosis afib with rvr Diagnoses: Travel History International Travel<30 Days: No Contact w/Intl Traveler <30 Da: No Traveled to Known Affected Are: No History of Present Illness History from patient, your physician communication, and review of medical records. Patient reported that she came to the hospital because she has been short of breath, with associated chest pains, tightness, and feeling of palpitations. She states yesterday she was also breaking down and sweats and felt as though she was about to fall down because of all these. She reports she has history of COPD. She reports she did get some nebulizer treatments in the emergency room which somewhat improved. She reports that her symptoms all started only yesterday. Denies any peripheral edema. Denies any fever. Reports of nausea and then vomited once yesterday. She reports her vomitus was mostly greenish in color. Patient reported that she had coronary artery bypass done about 2 months ago. She states that she was discharged home with medications worse off 1 month duration. However she ran out of them and thus have been without any medications for past 2 months. In the emergency room, patient upon initial arrival was noted to be in A. fib with RVR with heart rate of 130s. He was also treated by EMS for A. fib with RVR with heart rate around 160. Review of Systems Except as stated in HPI: all other systems reviewed are Neg Past Family Social History Past Medical History cabg 2 months ago chf- EF 45-50% by echo in May 2016 htn afib copd Past Surgical History cabg hysterectomy Reported Medications Medications listed on EMRereviewed Allergies: Coded Allergies: *MDRO Multi-Drug Resistant Organism (Verified Adverse Reaction, Unknown, MRSA, 08/12/16) MRSA (nares) - 07/18/16 Family History copd and heart problem in uncles dm- some members Social History was a smoker for 40yrs , quit about 2 months ago occasionally drinks no drugs Physical Exam Vital Signs Vital Signs Date Time Temp Pulse Resp B/P Pulse Ox O2 Delivery O2 Flow Rate FiO2 09/25/16 23:39 88 18 135/91 97 Room Air 2 09/25/16 21:01 91 18 142/83 100 Nasal Cannula 2 09/25/16 20:01 134 18 146/111 100 Nasal Cannula 2 09/25/16 18:49 135 24 154/85 97 09/25/16 18:45 97 Nasal Cannula 3 09/25/16 18:45 98 09/25/16 18:45 97 Nasal Cannula 3 09/25/16 18:41 98.2 134 24 156/112 97 Physical Exam GENERAL: This is a well-nourished, well-developed patient, in no moderate distress from dyspnea. Able to complete sentences though with difficulty. On 3 L nasal cannula, saturating 98%. SKIN: No rashes, ecchymoses or lesions. Cool and dry. HEAD: Atraumatic. Normocephalic. No temporal or scalp tenderness. EYES: No scleral icterus. No injection or drainage. ENT: Nose without bleeding, purulent drainage or septal hematoma. . Airway patent. NECK: Trachea midline. Positive JVD CARDIOVASCULAR: Irregularly irregular, tachycardic around 110, without murmurs, gallops, or rubs. RESPIRATORY: Bilateral inspiratory and expiratory rales. GASTROINTESTINAL: Abdomen soft, non-tender, nondistended. . No guarding. MUSCULOSKELETAL: Extremities without clubbing, cyanosis, or edema. No calf tenderness. NEUROLOGICAL: Awake and alert. Motor and sensory grossly within normal limits. Normal speech. Laboratory Laboratory Tests Test 09/25/16 09/25/16 18:47 20:05 White Blood Count 10.0 Red Blood Count 4.04 Hemoglobin 11.4 Hematocrit 34.3 Mean Corpuscular Volume 84.9 Mean Corpuscular Hemoglobin 28.2 Mean Corpuscular Hemoglobin 33.2 Concent Red Cell Distribution Width 15.5 Platelet Count 478 Mean Platelet Volume 7.2 Neutrophils (%) (Auto) 80.9 Lymphocytes (%) (Auto) 12.3 Monocytes (%) (Auto) 5.5 Eosinophils (%) (Auto) 0.4 Basophils (%) (Auto) 0.9 Neutrophils # (Auto) 8.1 Lymphocytes # (Auto) 1.2 Monocytes # (Auto) 0.5 Eosinophils # (Auto) 0.0 Basophils # (Auto) 0.1 CBC Comment DIFF FINAL Differential Comment Prothrombin Time 13.1 Prothromb Time International 1.2 Ratio Activated Partial 26.0 Thromboplast Time Sodium Level 129 Potassium Level 4.5 Chloride Level 92 Carbon Dioxide Level 23.3 Anion Gap 14 Blood Urea Nitrogen 17 Creatinine 1.21 Estimat Glomerular Filtration 46 Rate Random Glucose 106 Calcium Level 8.8 Magnesium Level 1.7 Total Creatine Kinase 82 Troponin I 0.05 B-Type Natriuretic Peptide 2867 Result Diagram: 09/25/16184609/25/161846 Imaging Last 48 hours Impressions Chest X-Ray 09/25/161839 Signed Impressions: Service Date/Time: Sunday, September 25, 2016 19:05 - CONCLUSION: Large left-sided pleural effusion. Bhaskar Eagle MD Assessment and Plan Assessment and Plan Impression: Acute on chronic systolic heart failure A. fib with RVR Large left pleural effusion Chest pains/nausea/diaphoresispossibly all secondary to dyspnea and A. fib with RVR. However would need to rule out ACS. Mild hyponatremia cabg 2 months ago chf- EF 45-50% by echo in May 2016 htn afib copd Plan : lasix 40mg iv one dose given minimal response so far- only 300cc or so will give additional 40mg iv serial cardiac enzymes and ekg pt was started on cardizem drip will taper off and dc if HR permits resume home meds case management consult for arranging outpatient meds DVT prophylaxis with lovenox Discussed Condition With patient, ER , nursing staff Physician Certification 2 Midnight Certification Type: Admission for Inpatient Services Order for Inpatient Services The services are ordered in accordance with Medicare regulations or non- Medicare payer requirements, as applicable. In the case of services not specified as inpatient-only, they are appropriately provided as inpatient services in accordance with the 2-midnight benchmark. Estimated LOS (days): 2 days is the estimated time the patient will need to remain in the hospital, assuming treatment plan goals are met and no additional complications. Post-Hospital Plan: Stanton Montiel MD September 25, 2016 23:58
[2016-09-26] VITALS (14 sets, daily range): BP systolic 122–143; BP diastolic 82–98; PULSE 62–95; RESP 15–28; TEMP 97.1–98.2; O2SAT 95–99
[2016-09-26] MEDS ORDERED: FUROSEMIDE 40 MG/4 ML VIAL IV PUSH ONE ×2 (00:30→05:45)
[2016-09-26] MEDS: RESP: IPRATROPIUM 0.5 MG/2.5 ML NEB NEB SCH ×4 (03:40→21:35)
[2016-09-26 04:23] LABS: AUTOMATED NEUTROPHIL # 5.5 TH/MM3 (1.8-7.7); BASOPHIL # 0.1 TH/MM3 (0-0.2); BASOPHIL % 1.1 % (0.0-2.0); EOSINOPHIL # 0.2 TH/MM3 (0-0.4); HEMATOCRIT 34.4 % (35.0-46.0); HEMO FLAGS DIFF FINAL; LYMPH % 24.5 % (9.0-44.0); LYMPHOCYTE # 2.1 TH/MM3 (1.0-4.8); MEAN CELL VOLUME 84.5 FL (80.0-100.0); MEAN CORPUSCULAR HEMOGLOBIN 27.1 PG (27.0-34.0); MEAN CORPUSCULAR HGB CONC 32.1 % (32.0-36.0); MONO % 8.3 % (0.0-8.0); NEUT % 64.1 % (16.0-70.0); PLATELET COUNT 427 TH/MM3 (150-450); RED BLOOD COUNT 4.07 MIL/MM3 (4.00-5.30); RED CELL DISTRIBUTION WIDTH 15.4 % (11.6-17.2); WHITE BLOOD COUNT 8.6 TH/MM3 (4.0-11.0)
[2016-09-26 04:41] LABS: BICARBONATE 28.4 MEQ/L (21.0-32.0); POTASSIUM 4.5 MEQ/L (3.5-5.1)
--- NOTE | 2016-09-26 08:10 | PD.CONS ---
HPI Consult Requested By Primary Care Physician Magnolia Quiroz MD History of Present Illness 56 y/o F with pmhx significant for recent CABG, COPD, atrial fibrillation, admitted wtih of shortness of breath, palpitations and dizziness in the setting of Afib with RVR. She as brought in via EMS who found her with a HR in the 180s. She was treated with Cardizem. She denies chest pain. She reports not taking her medications for a week. Review of Systems Consitutional: DENIES: Fatigue, Fever, Chills, Weight gain, Weight loss Eyes: DENIES: Amaurosis Fugax, Change in vision HEENT: DENIES: Lightheadedness, Change in hearing Respiratory: COMPLAINS OF: See HPI Cardiovascular: COMPLAINS OF: See HPI Gastrointestinal: DENIES: Nausea, Vomiting, Change in bowel habits, Reflux, Bloody stools, Melena Genitourinary: DENIES: Urinary incontinence, Difficulty voiding Integumentary: DENIES: Rash Neurologic: DENIES: Tingling or numbness, Memory problems, Poor Balance, Stroke symptoms Musculoskeletal: DENIES: Joint pain, Muscle pain, Limited range of motion, Back pain Psychiatric: DENIES: Anxiety, Depression, Sleep disturbances Hematologic: DENIES: Bruising tendencies, Bleeding tendencies Endocrine: DENIES: Weight gain, Weight loss, Thyroid disease Past Family Social History Allergies: Coded Allergies: *MDRO Multi-Drug Resistant Organism (Verified Adverse Reaction, Unknown, MRSA, 08/12/16) MRSA (nares) - 07/18/16 Past Surgical History CABG Reported Medications Reported Meds & Active Scripts Active Cetirizine (Cetirizine HCl) 10 Mg Tab 10 Mg PO DAILY Metoprolol Tartrate 25 Mg Tab 25 Mg PO Q12HR Advair Diskus Inh (Fluticasone-Salmeterol Inh) 250-50 Mcg/Blist Aer 1 Puff INH BID Rinse mouth after use. Famotidine 20 Mg Tab 10 Mg PO BID Ventolin Hfa 18 GM Inh (Albuterol Sulfate) 90 Mcg/Act Aer 2 Puff INH Q4-6H PRN Atorvastatin (Atorvastatin Calcium) 40 Mg Tab 40 Mg PO HS Prozac (Fluoxetine HCl) 10 Mg Cap 10 Mg PO DAILY Spiriva Handihaler (Tiotropium Inh) 18 Mcg Cap 18 Mcg INH DAILY 1 capsule = 18 mcg Aspirin EC (Aspirin) 81 Mg Tabdr 81 Mg PO DAILY Fluticasone Nasal [place] 50 Mcg/Act Naspr 2 [place] NASAL Q12H PRN Polyethylene Glycol 3350 Powder (Polyethylene Glycol) 17 Gm Pow 17 Gm PO DAILY Hydrocodone-Acetaminophen 5-325 mg Tab 1 Tab PO Q3H PRN Reported Plavix (Clopidogrel Bisulfate) 300 Mg Tab 75 Mg PO DAILY Trazodone (Trazodone HCl) 300 Mg Tab 100 Mg PO HS Active Ordered Medications Current Medications Medications (Trade) Dose Ordered Sig/Addison Route Start Time Stop Time Status Last Admin Sodium Chloride 2 ml 2 ml UNSCH PRN IVF 09/25/16 18:45 09/25/16 19:59 (Cardizem Inj/NS Inj) 125 ml @ 0 mls/hr TITRATE IV 09/25/16 18:45 09/25/16 19:59 (NS Flush) 2 ml BID IV FLUSH 09/25/16 21:00 09/25/16 20:41 (Narcan Inj) 0.4 mg UNSCH PRN IV 09/25/16 20:30 (Ecotrin Ec) 81 mg DAILY PO 09/26/16 09:00 (Lipitor) 40 mg HS PO 09/25/16 21:00 09/25/16 21:11 (Pepcid) 10 mg BID PO 09/25/16 21:00 09/25/16 20:59 (Lopressor) 25 mg Q12HR PO 09/25/16 21:00 09/25/16 20:59 Physical Exam Vital Signs Vital Signs Date Time Temp Pulse Resp B/P Pulse Ox O2 Delivery O2 Flow Rate FiO2 09/26/16 05:41 88 20 132/98 98 Nasal Cannula 3 09/26/16 01:01 87 16 127/85 99 Nasal Cannula 3 09/25/16 23:39 88 18 135/91 97 Room Air 2 09/25/16 21:01 91 18 142/83 100 Nasal Cannula 2 09/25/16 20:01 134 18 146/111 100 Nasal Cannula 2 09/25/16 18:49 135 24 154/85 97 09/25/16 18:45 97 Nasal Cannula 3 09/25/16 18:45 98 09/25/16 18:45 97 Nasal Cannula 3 09/25/16 18:41 98.2 134 24 156/112 97 Laboratory Laboratory Tests Test 5/09/25/16 09/26/16 09/26/16 18:47 20:05 00:50 03:17 White Blood Count 10.0 8.6 Red Blood Count 4.04 4.07 Hemoglobin 11.4 11.1 Hematocrit 34.3 34.4 Mean Corpuscular Volume 84.9 84.5 Mean Corpuscular Hemoglobin 28.2 27.1 Mean Corpuscular Hemoglobin 33.2 32.1 Concent Red Cell Distribution Width 15.5 15.4 Platelet Count 478 427 Mean Platelet Volume 7.2 7.1 Neutrophils (%) (Auto) 80.9 64.1 Lymphocytes (%) (Auto) 12.3 24.5 Monocytes (%) (Auto) 5.5 8.3 Eosinophils (%) (Auto) 0.4 2.0 Basophils (%) (Auto) 0.9 1.1 Neutrophils # (Auto) 8.1 5.5 Lymphocytes # (Auto) 1.2 2.1 Monocytes # (Auto) 0.5 0.7 Eosinophils # (Auto) 0.0 0.2 Basophils # (Auto) 0.1 0.1 CBC Comment DIFF FINAL DIFF FINAL Differential Comment Prothrombin Time 13.1 Prothromb Time International 1.2 Ratio Activated Partial 26.0 Thromboplast Time Sodium Level 129 129 Potassium Level 4.5 4.5 Chloride Level 92 93 Carbon Dioxide Level 23.3 28.4 Anion Gap 14 8 Blood Urea Nitrogen 17 19 Creatinine 1.21 1.13 Estimat Glomerular Filtration 46 50 Rate Random Glucose 106 89 Calcium Level 8.8 8.8 Magnesium Level 1.7 Total Creatine Kinase 82 63 60 Troponin I 0.05 0.05 0.05 B-Type Natriuretic Peptide 2867 Result Diagram: 09/26/1631609/26/16316 Imaging Last Impressions Chest X-Ray 09/25/16 1840 Signed Impressions: Service Date/Time: Sunday, September 25, 2016 19:05 - CONCLUSION: Large left-sided pleural effusion. Bhaskar Eagle MD Assessment and Plan Problem List: (1) Atrial fibrillation with rapid ventricular response Assessment and Plan: Afib with RVR in the setting of acute on chronic HF, noncompliance with meds. No CV complaints this AM. Afebrile and hemodynamically stable. Converted to Sinus Rhythm. CHADS2= 1. Recommendations: Cont BB's Hold Amio Cont diuresis Strict I&O Low salt diet Daily Weight Encourage out of bed and incentive spirometry ASA 325mg PO daily Cont monitoring engineer PT/OT consult Thank you for the opportunity to participate in the care of this patient (2) Hyponatremia (3) Anemia (4) CHF (congestive heart failure) Ziggy Sweeney MD September 26, 2016 08:10
--- NOTE | 2016-09-26 08:11 | HHI.PR ---
Subjective Remarks per patient gradual onset of shortness of breath over past 2 weeks, denied any fever, leg swelling, minimal cough, quit smoking since surgery homeless, no meds for past 2 months Objective Vitals Vital Signs Date Time Temp Pulse Resp B/P Pulse Ox O2 Delivery O2 Flow Rate FiO2 09/26/16 05:41 88 20 132/98 98 Nasal Cannula 3 09/26/16 01:01 87 16 127/85 99 Nasal Cannula 3 09/25/16 23:39 88 18 135/91 97 Room Air 2 09/25/16 21:01 91 18 142/83 100 Nasal Cannula 2 09/25/16 20:01 134 18 146/111 100 Nasal Cannula 2 09/25/16 18:49 135 24 154/85 97 09/25/16 18:45 97 Nasal Cannula 3 09/25/16 18:45 98 09/25/16 18:45 97 Nasal Cannula 3 09/25/16 18:41 98.2 134 24 156/112 97 I/O 09/25/16 09/25/16 09/25/16 09/26/16 09/26/16 09/26/16 07:00 15:00 23:00 07:00 15:00 23:00 Output Total 325 ml Balance -325 ml Output Urine Total 325 ml Result Diagram: 09/26/167 09/26/16 0317 Imaging Last Impressions Chest X-Ray 09/25/16 1840 Signed Impressions: Service Date/Time: Sunday, September 25, 2016 19:05 - CONCLUSION: Large left-sided pleural effusion. Bhaskar Eagle MD Objective Remarks awake and alert, on 02- sats 96 %, rate 90s on cardizem drip abnicteric lungs decrease breath sounds, left base to mid, few end inspiratory wheeze irregularly irregular rhythm abdomen soft, nontender extremities no edema neuro exam- unremarkable A/P Assessment and Plan 56 years old female History of CAD, multivessel disease S/P CABG July 2016 home with meds for [address] to fill scripts after quit smoking after the surgery, relatively homeless worsening shortness of breath over past week, denies any fever, no sputum, minimal cough never ff up with consultants after surgery New onset atrial fibrillation-CHADs2 DC cardizem drip . BB started. On Lovenox. Left Pleural effusion S/P recent CABG -X ray reviewed by me- gradually increasing in shortness of breath gradually past 1-2 weeks History of CAD history of prior stent,, multivessel disease S/P CABG 07/2016- cath showed Normal LV function. No ff up. No meds for at least 2 months. although BNP is elevated, patient with no leg swelling, effusion is unilateral. no increased in vascular markings normal EF from July cardiac cath. check an echo Hold Plavix and Lovenox for now. Consult IR to evaluate- need for thoracentesis -- D/w Dr. Coronado- - effusion is not that large per review we will await CTS evaluation and recommendation - HOld thoracentesis for now [facility] consult- post CABG - lost to ff up.- d/w Ms Chang Emmanuel CArdiology consult- ? OAC- patient compliance issues. get a 2D echo Check TSH send fluid for studies if tap done COPD- quit smoking since surgery duonebs. short course IV Steroids Hyponatremia- this is chronic- on review of labs check TSH Kayleigh Bolaños MD September 26, 2016 08:11
[2016-09-26] MEDS ORDERED: CLOPIDOGREL 75 MG TAB PO SCH (09:00)
[2016-09-26] MEDS ORDERED: ENOXAPARIN SODIUM 40 MG/0.4 ML SYRINGE SQ SCH (09:00)
[2016-09-26] MEDS: METOPROLOL TARTRATE 25 MG TAB PO SCH ×2 (09:19→21:43)
[2016-09-26] MEDS: methylPREDNISolone SOD SUCC 125 MG/2 ML VIAL IV PUSH SCH ×2 (09:19→21:43)
[2016-09-26] MEDS: ASPIRIN EC 81 MG TABEC PO SCH (09:19)
[2016-09-26] MEDS: FAMOTIDINE 20 MG TAB PO SCH ×2 (09:19→21:43)
[2016-09-26] MEDS: SODIUM CHLORIDE 0.9% FLUSH 10 ML FLUSH IV FLUSH SCH ×2 (11:18→21:44)
--- NOTE | 2016-09-26 11:39 | EC ---
Study Study Date:09/26/2016 STUDY CONCLUSIONS SUMMARY - Left ventricle: The cavity size was normal. Wall thickness was increased increased in a pattern of mild to moderate LVH. Systolic function was severely reduced by visual assessment. The estimated ejection fraction was in the range of 30% to 35%. Diffuse hypokinesis. - Ventricular septum: Septal motion showed dyssynergy. The contour showed diastolic flattening. These changes are consistent with RV volume overload. - Mitral valve: Moderate to severe regurgitation. - Left atrium: The atrium was moderately dilated. - Right atrium: The atrium was moderately dilated. - Tricuspid valve: Moderate-severe regurgitation. - Pulmonary arteries: Systolic pressure was mildly increased. - Pericardium, extracardiac: There was a moderate-sized left pleural effusion. If LV function is below 40, please consider prescribing an ACEI or ARB or document rationale for non-use. PROCEDURE DATA STUDY STATUS: Elective. Procedure: Transthoracic echocardiography. Image quality was good. Scanning was performed from the parasternal, apical, and subcostal acoustic windows. Study completion: The patient tolerated the procedure well. Transthoracic echocardiography. M-mode, complete 2D, complete spectral Doppler, and color Doppler. Patient status: Inpatient. CARDIAC ANATOMY LEFT VENTRICLE: The cavity size was normal. Wall thickness was increased increased in a pattern of mild to moderate LVH. Systolic function was severely reduced by visual assessment. The estimated ejection fraction was in the range of 30% to 35%. Diffuse hypokinesis. AORTIC VALVE: Trileaflet; normal thickness leaflets. Doppler: Transvalvular velocity was within the normal range. There was no stenosis. No regurgitation. Peak gradient: 12mm Hg (S). AORTA: Aortic root: The aortic root was normal in size. MITRAL VALVE: Structurally normal valve. Doppler: Transvalvular velocity was within the normal range. There was no evidence for stenosis. Moderate to severe regurgitation. Mean gradient: 3mm Hg (D). Peak gradient: 10mm Hg (D). LEFT ATRIUM: The atrium was moderately dilated. RIGHT VENTRICLE: The cavity size was normal. Wall thickness was normal. VENTRICULAR SEPTUM: Septal motion showed dyssynergy. The contour showed diastolic flattening. These changes are consistent with RV volume overload. PULMONIC VALVE: Doppler: Transvalvular velocity was within the normal range. There was no evidence for stenosis. No regurgitation. TRICUSPID VALVE: Structurally normal valve. Doppler: Transvalvular velocity was within the normal range. Moderate-severe regurgitation. PULMONARY ARTERY: Systolic pressure was mildly increased. RIGHT ATRIUM: The atrium was moderately dilated. PERICARDIUM: There was no pericardial effusion. SYSTEMIC VEINS: Inferior vena cava: The vessel was normal in size. Pleura: There was a moderate-sized left pleural effusion. BASIC MEASUREMENTS ADULT Normal Left ventricle LV internal dimension, ED, chordal level, 43.8 mm 43-52 PLAX LV internal dimension, ES, chordal level, 36.9 mm 23-38 PLAX Fractional shortening, chordal level, PLAX *16 % >29 LV posterior wall thickness, ED 6.59 mm IVS/LVPW ratio, ED *1.53 <1.3 Ventricular septum Septal thickness, ED 10.1 mm Left atrium Anterior-posterior dimension 34 mm Right ventricle RV internal dimension, ED, PLAX 21.9 mm 19-38 DOPPLER MEASUREMENTS ADULT Normal Aortic valve Peak velocity, S 173 cm/s VTI, S 36 cm Peak gradient, S 12 mm Hg Mitral valve Peak E-wave velocity 76 cm/s Peak A-wave velocity 42 cm/s Mean velocity, D 73.3 cm/s Mean gradient, D 3 mm Hg Peak gradient, D 10 mm Hg Peak E/A ratio 1.8 Maximal regurgitant velocity 467 cm/s Tricuspid valve Regurgitant peak velocity 290 cm/s Peak RV-RA gradient, S 34 mm Hg Maximal regurgitant velocity 290 cm/s LEGEND: Mean values are shown as u=mean value. Asterisk (*) rodriguez values outside specified normal range. Prepared and signed by Jeremy Hartman [id number]
--- NOTE | 2016-09-26 16:54 | EKG ---
Date Performed: 09/26/2016 Time Performed: 06:27:52 PTAGE: 56 years EKG: ATRIAL FLUTTER/TACHYCARDIA LEFT BUNDLE BRANCH BLOCK ABNORMAL ECG PREVIOUS TRACING : 09/26/2016 00.50 Compared to prior tracing no significant change DOCTOR: Kulwant Sauceda Interpretating Date/Time 09/26/2016 16:53:56
--- NOTE | 2016-09-26 17:06 | EKG ---
Date Performed: 09/26/2016 Time Performed: 00:50:50 PTAGE: 56 years EKG: ATRIAL FLUTTER/TACHYCARDIA LEFT BUNDLE BRANCH BLOCK ABNORMAL ECG Compared to the PREVIOUS TRACING from 09/25/16, rate has decreased DOCTOR: Kulwant Sauceda Interpretating Date/Time 09/26/2016 17:05:57
--- NOTE | 2016-09-26 17:22 | EKG ---
Date Performed: 09/25/2016 Time Performed: 18:40:32 PTAGE: 56 years EKG: ATRIAL FIBRILLATION WITH RAPID VENTRICULAR RESPONSE LEFT BUNDLE BRANCH BLOCK ABNORMAL ECG PREVIOUS TRACING : 07/24/2016 06.01 Compared to the previous tracing, previously Sinus rhythm DOCTOR: Kulwant Sauceda Interpretating Date/Time 09/26/2016 17:21:46
[2016-09-26] MEDS: ATORVASTATIN 40 MG TAB PO SCH (21:43)
[2016-09-26] MEDS ORDERED: CHLORHEXIDINE GLUCONATE 2 % 1 PACK (2 CLOTHS)(extra cloths) TOPICAL PRN (22:00)
[2016-09-27] VITALS (14 sets, daily range): BP systolic 130–160; BP diastolic 87–108; PULSE 65–71; RESP 15–21; TEMP 97.4–98.4; O2SAT 96–99
[2016-09-27] MEDS ORDERED: FUROSEMIDE 40 MG/4 ML VIAL IV PUSH ONE (03:00)
[2016-09-27] MEDS ORDERED: hydrALAZINE HCL 20 MG/ML VIAL IV PUSH ONE (03:30)
[2016-09-27] MEDS: CHLORHEXIDINE GLUCONATE 2 % 1 PACK (2 CLOTHS)(taper/protocol) TOPICAL SCH (04:00)
[2016-09-27] MEDS: RESP: IPRATROPIUM 0.5 MG/2.5 ML NEB NEB SCH ×4 (04:55→20:15)
[2016-09-27] MEDS: SODIUM CHLORIDE 0.9% FLUSH 10 ML FLUSH IV FLUSH SCH ×2 (08:49→20:39)
[2016-09-27] MEDS: methylPREDNISolone SOD SUCC 125 MG/2 ML VIAL IV PUSH SCH ×2 (08:49→20:36)
[2016-09-27] MEDS: FUROSEMIDE 40 MG/4 ML VIAL IV PUSH SCH ×2 (08:49→17:04)
[2016-09-27] MEDS: METOPROLOL TARTRATE 25 MG TAB PO SCH ×2 (08:50→20:35)
[2016-09-27] MEDS: ASPIRIN EC 81 MG TABEC PO SCH (08:50)
[2016-09-27] MEDS: FAMOTIDINE 20 MG TAB PO SCH ×2 (08:50→20:35)
[2016-09-27 14:19] LABS: FREE T3 0.51 PG/ML (2.18-3.98); FREE T4 1.05 NG/DL (0.76-1.46)
--- NOTE | 2016-09-27 14:22 | PD.CARD.PN ---
Subjective Subjective Remarks No CV complaints No overnight events Objective Medications Current Medications Medications (Trade) Dose Ordered Sig/Addison Route Start Time Stop Time Status Last Admin (NS Flush) 2 ml UNSCH PRN IVF 09/25/16 18:45 09/25/16 19:59 (NS Flush) 2 ml BID IV FLUSH 09/25/16 21:00 09/27/16 08:49 (Narcan Inj) 0.4 mg UNSCH PRN IV 09/25/16 20:30 (Ecotrin Ec) 81 mg DAILY PO 09/26/16 09:00 09/27/16 08:50 (Lipitor) 40 mg HS PO 09/25/16 21:00 09/26/16 21:43 (Pepcid) 10 mg BID PO 09/25/16 21:00 09/27/16 08:50 (SoluMEDROL INJ) 60 mg Q12HR IV PUSH 09/26/16 09:00 09/27/16 08:49 Miscellaneous Information Patient in critical care unit? Ass... Q361D .XX 09/26/16 22:00 (Chlorhexidine 2% Cloth) 3 pack DAILY@04 TOPICAL 09/27/16 04:00 10/01/16 04:01 09/27/16 04:00 (Chlorhexidine 2% Cloth) 3 pack UNSCH PRN TOPICAL 09/26/16 22:00 10/01/16 21:46 (Lasix Inj) 40 mg BID@09,18 IV PUSH 09/27/16 09:00 09/27/16 08:49 (Lopressor) 50 mg Q12HR PO 09/27/16 21:00 (Apresoline Inj) 10 mg Q30M PRN IV PUSH 09/27/16 13:00 Vital Signs / I&O Vital Signs Date Time Temp Pulse Resp B/P Pulse Ox O2 Delivery O2 Flow Rate FiO2 09/27/16 10:00 70 09/27/16 08:13 97 Nasal Cannula 2.00 09/27/16 08:00 70 09/27/16 08:00 98.4 71 15 160/96 97 09/27/16 06:00 71 09/27/16 04:00 98.0 70 15 149/108 96 09/27/16 04:00 70 09/27/16 02:00 70 09/27/16 00:00 70 09/27/16 00:00 97.4 70 16 96 09/26/16 22:00 73 09/26/16 21:35 98 Nasal Cannula 2.00 09/26/16 20:00 97.1 71 16 143/98 98 09/26/16 20:00 71 09/26/16 18:00 68 09/26/16 16:00 67 09/26/16 16:00 97.2 67 15 131/88 97 I/O 09/26/16 09/26/16 09/26/16 09/27/16 09/27/16 09/27/16 07:00 15:00 23:00 07:00 15:00 23:00 Intake Total 480 ml 240 ml 240 ml Output Total 325 ml 325 ml 200 ml 300 ml Balance -325 ml 155 ml 40 ml -60 ml Intake Oral 480 ml 240 ml 240 ml Output Urine Total 325 ml 325 ml 200 ml 300 ml Stool Total 0 ml 0 ml # Voids 0 # Bowel Movements 0 Physical Exam GENERAL: Well-nourished, well-developed patient. SKIN: Warm and dry. HEAD: Normocephalic. EYES: No scleral icterus. No injection or drainage. NECK: Supple, trachea midline. No JVD or lymphadenopathy. CARDIOVASCULAR: Regular rate and rhythm without murmurs, gallops, or rubs. RESPIRATORY: Breath sounds equal bilaterally. No accessory muscle use. GASTROINTESTINAL: Abdomen soft, non-tender, nondistended. EXTREMITIES: No cyanosis, or edema. NEUROLOGICAL: Awake, alert, and oriented x 3. Non-focal. Laboratory Laboratory Tests Test 09/27/16 13:13 Free Thyroxine 1.05 NG/DL Free Triiodothyronine (T3) 0.51 PG/ML pg/dL Imaging Last Impressions Chest X-Ray 09/25/16 1840 Signed Impressions: Service Date/Time: Sunday, September 25, 2016 19:05 - CONCLUSION: Large left-sided pleural effusion. Bhaskar Eagle MD Assessment and Plan Problem List: (1) Atrial fibrillation with rapid ventricular response Assessment and Plan: Afib with RVR in the setting of acute on chronic HF, noncompliance with meds. No CV complaints this AM. Afebrile and hemodynamically stable. Large pleural effusion. Converted to Sinus Rhythm. CHADS2= 1. EF 35% Recommendations: Cont BB's Cont IV diuresis Cont Statin Start Lisinopril 10mg PO daily Strict I&O Low salt diet Daily Weight Encourage out of bed and incentive spirometry ASA 325mg PO daily Cont quality assurance monitor chassis PT/OT Will available in a PRN basis for any questions or concerns (2) Hyponatremia (3) Anemia (4) CHF (congestive heart failure) Ziggy Sweeney MD September 27, 2016 14:22
[2016-09-27] MEDS: LISINOPRIL 10 MG TAB PO SCH (16:04)
[2016-09-27] MEDS: ACETAMINOPHEN 325 MG TAB PO PRN ×2 (19:07→23:46)
[2016-09-27] MEDS: ATORVASTATIN 40 MG TAB PO SCH (20:35)
--- NOTE | 2016-09-27 21:51 | HHI.PR ---
Subjective Remarks deferred entry - patient seen at 12:30 patient denies cp/sob bp noted to be elevated with sbp in the 160's Objective Vitals Vital Signs Date Time Temp Pulse Resp B/P Pulse Ox O2 Delivery O2 Flow Rate FiO2 09/27/16 20:14 99 Nasal Cannula 1.00 09/27/16 20:07 20 09/27/16 20:00 97.6 66 17 130/91 99 09/27/16 20:00 66 09/27/16 18:00 71 09/27/16 16:00 71 09/27/16 16:00 98.4 71 21 137/87 98 09/27/16 14:00 70 09/27/16 12:00 70 09/27/16 12:00 98.2 70 15 138/90 98 09/27/16 10:00 70 09/27/16 08:13 97 Nasal Cannula 2.00 09/27/16 08:00 70 09/27/16 08:00 98.4 71 15 160/96 97 09/27/16 06:00 71 09/27/16 04:00 98.0 70 15 149/108 96 09/27/16 04:00 70 09/27/16 02:00 70 09/27/16 00:00 70 09/27/16 00:00 97.4 70 16 96 09/26/16 22:00 73 09/26/16 21:35 98 Nasal Cannula 2.00 I/O 09/26/16 09/26/16 09/26/16 09/27/16 09/27/16 09/27/16 07:00 15:00 23:00 07:00 15:00 23:00 Intake Total 480 ml 240 ml 240 ml 250 ml Output Total 325 ml 325 ml 200 ml 300 ml 1050 ml Balance -325 ml 155 ml 40 ml -60 ml -800 ml Intake Oral 480 ml 240 ml 240 ml 250 ml Output Urine Total 325 ml 325 ml 200 ml 300 ml 1050 ml Stool Total 0 ml 0 ml # Voids 0 # Bowel Movements 0 Result Diagram: 09/26/1631609/26/16316 Imaging Last Impressions Chest X-Ray 09/25/16 1840 Signed Impressions: Service Date/Time: Sunday, September 25, 2016 19:05 - CONCLUSION: Large left-sided pleural effusion. Bhaskar Eagle MD Objective Remarks GENERAL: nad SKIN: Warm and dry. HEAD: Normocephalic. EYES: No scleral icterus. No injection or drainage. NECK: Supple, trachea midline. No JVD or lymphadenopathy. CARDIOVASCULAR: Irregularly irregular, no murmur or gallops. RESPIRATORY: Decreased breath sounds at left lower lung field. Right lung field is clear to auscultation. No wheezing, rhonchi auscultated. GASTROINTESTINAL: Abdomen soft, non-tender, nondistended. MUSCULOSKELETAL: No cyanosis, or edema. BACK: Nontender without obvious deformity. No CVA tenderness. Medications and IVs Current Medications Medications (Trade) Dose Ordered Sig/Addison Route Start Time Stop Time Status Last Admin (NS Flush) 2 ml UNSCH PRN IVF 09/25/16 18:45 09/25/16 19:59 (NS Flush) 2 ml BID IV FLUSH 09/25/16 21:00 09/27/16 20:39 (Narcan Inj) 0.4 mg UNSCH PRN IV 09/25/16 20:30 (Ecotrin Ec) 81 mg DAILY PO 09/26/16 09:00 09/27/16 08:50 (Lipitor) 40 mg HS PO 09/25/16 21:00 09/27/16 20:35 (Pepcid) 10 mg BID PO 09/25/16 21:00 09/27/16 20:35 (SoluMEDROL INJ) 60 mg Q12HR IV PUSH 09/26/16 09:00 09/27/16 20:36 Miscellaneous Information Patient in critical care unit? Ass... Q361D .XX 09/26/16 22:00 (Chlorhexidine 2% Cloth) 3 pack DAILY@04 TOPICAL 09/27/16 04:00 10/01/16 04:01 09/27/16 04:00 (Chlorhexidine 2% Cloth) 3 pack UNSCH PRN TOPICAL 09/26/16 22:00 10/01/16 21:46 (Lasix Inj) 40 mg BID@09,18 IV PUSH 09/27/16 09:00 09/27/16 17:04 (Lopressor) 50 mg Q12HR PO 09/27/16 21:00 09/27/16 20:35 (Apresoline Inj) 10 mg Q30M PRN IV PUSH 09/27/16 13:00 (Prinivil) 10 mg DAILY PO 09/27/16 15:00 09/27/16 16:04 (Tylenol) 650 mg Q6H PRN PO 09/27/16 19:00 09/27/16 19:07 Urinary Catheter: Yes Assessment to: Continue Bellamy insert reason: Measure Accurate Output Vascular Central Line Catheter: No A/P Problem List: (1) New onset atrial fibrillation ICD Code: I48.91 Status: Acute Plan: 55-year-old female with history of CAD, multivessel disease status post CABG on July 2016 who went home with medications for 1 month but could not fill prescription after that presents with worsening short of breath over the past week. Did not follow-up with consultants after surgery. Patient found to be in new onset atrial fibrillation admitted to intensive care unit, placed on Cardizem drip titrated to off and transitioned to beta ebony. Continue metoprolol. (2) Pleural effusion, left ICD Code: J90 Status: Acute Plan: CT surgery consulted. Appreciate recommendations. Continue with IV diuresis. Interventional radiology consulted for thoracentesis. (3) S/P CABG x 3 ICD Code: Z95.1 Status: Acute Plan: On July 2016. Showed normal LV function. Patient hasn't had medications for the last [address] surgery consultation pending. (4) COPD (chronic obstructive pulmonary disease) ICD Code: J44.9 Status: Chronic Plan: Continue Solu-Medrol 40 mg IV twice a day. (5) Hyponatremia ICD Code: E87.1 Status: Acute Plan: Seems to be stable. Continue to monitor sodium. Elevated to hypervolemic hyponatremia. (6) Tobacco abuse ICD Code: Z72.0 Status: Chronic (7) Uncontrolled hypertension ICD Code: I10 Status: Acute Plan: Systolic blood pressure elevated into the 160s. I will increase the dose of Toprol to 50 mg by mouth every 12 hours. Assessment and Plan GI prophylaxis: PPI. DVT prophylaxis: SCDs. Discharge Planning Continue to monitor in intensive care unit. Problem Qualifiers (1) COPD (chronic obstructive pulmonary disease): Qualified Code: J42 - Chronic bronchitis, unspecified chronic bronchitis type Joe Ortez MD September 27, 2016 21:51
[2016-09-28] VITALS (29 sets, daily range): BP systolic 116–155; BP diastolic 85–100; PULSE 56–65; RESP 11–24; TEMP 97.1–98.6; O2SAT 97–100
[2016-09-28] MEDS: RESP: IPRATROPIUM 0.5 MG/2.5 ML NEB NEB SCH ×4 (03:16→20:47)
[2016-09-28] MEDS: CHLORHEXIDINE GLUCONATE 2 % 1 PACK (2 CLOTHS)(taper/protocol) TOPICAL SCH (04:00)
[2016-09-28] MEDS: ACETAMINOPHEN 325 MG TAB PO PRN (08:56)
[2016-09-28] MEDS: ASPIRIN EC 81 MG TABEC PO SCH (09:43)
[2016-09-28] MEDS: METOPROLOL TARTRATE 25 MG TAB PO SCH ×2 (09:44→22:30)
[2016-09-28] MEDS: methylPREDNISolone SOD SUCC 125 MG/2 ML VIAL IV PUSH SCH (09:44)
[2016-09-28] MEDS: FUROSEMIDE 40 MG/4 ML VIAL IV PUSH SCH (09:44)
[2016-09-28] MEDS: FAMOTIDINE 20 MG TAB PO SCH ×2 (09:44→22:30)
[2016-09-28] MEDS: SODIUM CHLORIDE 0.9% FLUSH 10 ML FLUSH IV FLUSH SCH ×2 (09:45→22:31)
[2016-09-28] MEDS: LISINOPRIL 10 MG TAB PO SCH (09:46)
--- NOTE | 2016-09-28 12:01 | RADRPT ---
EXAM DATE/TIME: 09/28/2016 11:20 [facility] COMPARISON: CHEST SINGLE AP, September 25, 2016, 19:05. INDICATIONS : Abdominal pain. MEDICAL HISTORY : None. SURGICAL HISTORY : None. ENCOUNTER: Initial ACUITY: 2 days PAIN SCORE: 7/10 LOCATION: Bilateral lower quadrant FINDINGS: Supine frontal view of the abdomen demonstrates air within bowel in a nonobstructive pattern. No orga nomegaly or concerning calcifications are seen. Air in the pelvis may be within the bladder or rectum . There is opacity at the inferior left hemithorax. There are degenerative changes of the lumbar spin e with mild dextroscoliosis. CONCLUSION: 1. No acute finding is identified in the abdomen. The air overlying the pelvis could be within the ur inary bladder or rectum. 2. Left pleural effusion. Ceferino Buckley MD on September 28, 2016 at 11:58 Board Certified Radiologist. This report was verified electronically.
[2016-09-28 12:27] LABS: AUTOMATED NEUTROPHIL # 12.4 TH/MM3 (1.8-7.7); BASOPHIL % 0.2 % (0.0-2.0); HEMATOCRIT 32.8 % (35.0-46.0); HEMO FLAGS DIFF FINAL; LYMPHOCYTE # 0.5 TH/MM3 (1.0-4.8); MEAN CELL VOLUME 83.6 FL (80.0-100.0); MEAN CORPUSCULAR HEMOGLOBIN 27.2 PG (27.0-34.0); MEAN CORPUSCULAR HGB CONC 32.6 % (32.0-36.0); NEUT % 92.8 % (16.0-70.0); PLATELET COUNT 374 TH/MM3 (150-450); RED BLOOD COUNT 3.92 MIL/MM3 (4.00-5.30); RED CELL DISTRIBUTION WIDTH 15.1 % (11.6-17.2); WHITE BLOOD COUNT 13.3 TH/MM3 (4.0-11.0)
[2016-09-28] MEDS: MORPHINE SULFATE 4 MG/ML INJ IV PUSH PRN ×3 (12:32→20:30)
[2016-09-28 12:51] LABS: ALKALINE PHOSPHATASE 77 U/L (45-117); ALT (GPT) 57 U/L (10-53); ANION GAP 13 MEQ/L (5-15); AST (GOT) 49 U/L (15-37); BICARBONATE 25.6 MEQ/L (21.0-32.0); BLOOD UREA NITROGEN 34 MG/DL (7-18); CHLORIDE 83 MEQ/L (98-107); GLOMERULAR FILTRATION RATE 38 ML/MIN (>89); MAGNESIUM 1.5 MG/DL (1.5-2.5); POTASSIUM 4.1 MEQ/L (3.5-5.1); TOTAL BILIRUBIN ADULT 0.3 MG/DL (0.2-1.0)
[2016-09-28 12:53] LABS: SODIUM (NA) 122 MEQ/L (136-145)
[2016-09-28] MEDS: ONDANSETRON HCL 4 MG/2 ML VIAL IV PUSH PRN ×2 (13:56→20:32)
--- NOTE | 2016-09-28 14:40 | HHI.PR ---
Subjective Remarks Deferred entry - patient seen at 10:45 am case discussed w RN Patient c/o nausea, denies vomiting c/o difuse abdominal pain has not had a BM vital signs stable - patient afebrile Objective Vitals Vital Signs Date Time Temp Pulse Resp B/P Pulse Ox O2 Delivery O2 Flow Rate FiO2 09/28/16 14:00 59 09/28/16 14:00 59 20 143/97 98 09/28/16 13:30 60 14 134/90 98 09/28/16 13:00 61 16 138/91 99 09/28/16 12:30 64 20 131/89 98 09/28/16 12:00 97.9 64 16 138/91 99 09/28/16 12:00 64 09/28/16 11:30 65 21 123/87 97 09/28/16 11:00 65 16 138/97 97 09/28/16 10:00 64 19 131/96 99 09/28/16 10:00 64 09/28/16 09:30 64 17 136/97 98 09/28/16 09:14 99 Nasal Cannula 2.00 09/28/16 09:00 64 24 140/88 98 09/28/16 08:30 64 17 139/89 99 09/28/16 08:00 65 09/28/16 08:00 97.8 65 16 129/93 99 09/28/16 07:30 64 15 134/95 99 09/28/16 07:00 63 15 124/92 99 09/28/16 06:30 64 16 128/91 99 09/28/16 06:00 64 09/28/16 06:00 64 16 119/88 100 09/28/16 05:30 63 15 118/86 100 09/28/16 05:00 63 15 118/87 98 09/28/16 04:00 97.1 64 16 121/89 99 09/28/16 04:00 64 09/28/16 02:00 63 09/28/16 00:46 18 09/28/16 00:00 63 09/28/16 00:00 98.6 63 15 116/85 99 09/27/16 22:00 65 09/27/16 20:14 99 Nasal Cannula 1.00 09/27/16 20:00 97.6 66 17 130/91 99 09/27/16 20:00 66 09/27/16 18:00 71 09/27/16 16:00 71 09/27/16 16:00 98.4 71 21 137/87 98 I/O 09/27/16 09/27/16 09/27/16 09/28/16 09/28/16 09/28/16 07:00 15:00 23:00 07:00 15:00 23:00 Intake Total 240 ml 250 ml 240 ml 240 ml 240 ml Output Total 300 ml 1050 ml 350 ml 240 ml 350 ml Balance -60 ml -800 ml -110 ml 0 ml -110 ml Intake Oral 240 ml 250 ml 240 ml 240 ml 240 ml Output Urine Total 300 ml 1050 ml 350 ml 240 ml 350 ml Stool Total 0 ml 0 ml 0 ml # Bowel Movements 0 Result Diagram: 09/28/16 1112 09/28/16 1126 Imaging Last Impressions Abdomen X-Ray 09/28/16 0000 Signed Impressions: Service Date/Time: Wednesday, September 28, 2016 11:20 - CONCLUSION: 1. No acute finding is identified in the abdomen. The air overlying the pelvis could be within the urinary bladder or rectum. 2. Left pleural effusion. Ceferino Buckley MD Chest X-Ray 09/25/16 1840 Signed Impressions: Service Date/Time: Sunday, September 25, 2016 19:05 - CONCLUSION: Large left-sided pleural effusion. Bhaskar Eagle MD Objective Remarks GENERAL: nad SKIN: Warm and dry. HEAD: Normocephalic. EYES: No scleral icterus. No injection or drainage. NECK: Supple, trachea midline. No JVD or lymphadenopathy. CARDIOVASCULAR: Irregularly irregular, no murmur or gallops. RESPIRATORY: Decreased breath sounds at left lower lung field. Right lung field is clear to auscultation. No wheezing, rhonchi auscultated. GASTROINTESTINAL: Abdomen soft, non-tender, nondistended. MUSCULOSKELETAL: No cyanosis, or edema. BACK: Nontender without obvious deformity. No CVA tenderness. Medications and IVs Current Medications Medications (Trade) Dose Ordered Sig/Addison Route Start Time Stop Time Status Last Admin (NS Flush) 2 ml UNSCH PRN IVF 09/25/16 18:45 09/25/16 19:59 (NS Flush) 2 ml BID IV FLUSH 09/25/16 21:00 09/28/16 09:45 (Narcan Inj) 0.4 mg UNSCH PRN IV 09/25/16 20:30 (Ecotrin Ec) 81 mg DAILY PO 09/26/16 09:00 09/28/16 09:43 (Lipitor) 40 mg HS PO 09/25/16 21:00 09/27/16 20:35 (Pepcid) 10 mg BID PO 09/25/16 21:00 09/28/16 09:44 Miscellaneous Information Patient in critical care unit? Ass... Q361D .XX 09/26/16 22:00 (Chlorhexidine 2% Cloth) 3 pack DAILY@04 TOPICAL 09/27/16 04:00 10/01/16 04:01 09/28/16 04:00 (Chlorhexidine 2% Cloth) 3 pack UNSCH PRN TOPICAL 09/26/16 22:00 10/01/16 21:46 (Lasix Inj) 40 mg BID@09,18 IV PUSH 09/27/16 09:00 Hold 09/28/16 09:44 (Lopressor) 50 mg Q12HR PO 09/27/16 21:00 09/28/16 09:44 (Apresoline Inj) 10 mg Q30M PRN IV PUSH 09/27/16 13:00 (Prinivil) 10 mg DAILY PO 09/27/16 15:00 09/28/16 09:46 (Tylenol) 650 mg Q6H PRN PO 09/27/16 19:00 09/28/16 08:56 (Morphine Inj) 2 mg Q3H PRN IV PUSH 09/28/16 10:45 09/28/16 12:32 (SoluMEDROL INJ) 40 mg DAILY IV PUSH 09/29/16 09:00 (Zofran Inj) 4 mg Q6HR PRN IV PUSH 09/28/16 13:30 09/28/16 13:56 (Sodium Chloride) 1 gm BID PO 09/28/16 14:00 A/P Problem List: (1) New onset atrial fibrillation ICD Code: I48.91 Status: Acute Plan: 55-year-old female with history of CAD, multivessel disease status post CABG on July 2016 who went home with medications for 1 month but could not fill prescription after that presents with worsening short of breath over the past week. Did not follow-up with consultants after surgery. Patient found to be in new onset atrial fibrillation admitted to intensive care unit, placed on Cardizem drip titrated to off and transitioned to beta ebony. Continue metoprolol. (2) Pleural effusion, left ICD Code: J90 Status: Acute Plan: CT surgery consulted. Appreciate recommendations. Continue with IV diuresis. Recommended IR drainage and send fluid for culture and cytology. Interventional radiology consulted for thoracentesis. (3) S/P CABG x 3 ICD Code: Z95.1 Status: Acute Plan: On July 2016. Showed normal LV function. Patient hasn't had medications for the last [address] surgery consultation pending. (4) COPD (chronic obstructive pulmonary disease) ICD Code: J44.9 Status: Chronic Plan: started on IV steroids on admission - will decrease dose to Solumedrol 40 mg IV daily from BID. (5) Hyponatremia ICD Code: E87.1 Status: Acute Plan: Sodium dropped to 122 from 129. will hold Lasix and obtain serum and urine osmolality. Will place on 1 liter fluid restriction and start on sodium chloride tablets. Continue to monitor BMP. (6) Tobacco abuse ICD Code: Z72.0 Status: Chronic Plan: advised smoking cessation (7) Uncontrolled hypertension ICD Code: I10 Status: Acute Plan: BP initially elevated. Dose of metoprolol increased and the patient started on lisinopril - bp improved. Continue metoprolol 50 mg by mouth twice a day. Continue lisinopril 10 minutes by mouth daily. Assessment and Plan GI prophylaxis: PPI. DVT prophylaxis: SCDs. Discharge Planning Continue to monitor in intensive care unit. Problem Qualifiers (1) COPD (chronic obstructive pulmonary disease): Qualified Code: J42 - Chronic bronchitis, unspecified chronic bronchitis type Joe Ortez MD September 28, 2016 14:40
[2016-09-28] MEDS: SODIUM CHLORIDE 1 GRAM TAB PO SCH ×2 (16:07→22:33)
[2016-09-28 21:04] LABS: BICARBONATE 28.3 MEQ/L (21.0-32.0); POTASSIUM 4.2 MEQ/L (3.5-5.1)
[2016-09-28] MEDS: ATORVASTATIN 40 MG TAB PO SCH (22:31)
[2016-09-29] VITALS (29 sets, daily range): BP systolic 123–167; BP diastolic 70–97; PULSE 54–60; RESP 0–20; TEMP 97.4–99.1; O2SAT 94–100
[2016-09-29] MEDS: ONDANSETRON HCL 4 MG/2 ML VIAL IV PUSH PRN ×4 (01:26→21:37)
[2016-09-29] MEDS: MORPHINE SULFATE 4 MG/ML INJ IV PUSH PRN ×4 (01:27→12:48)
[2016-09-29] MEDS: CHLORHEXIDINE GLUCONATE 2 % 1 PACK (2 CLOTHS)(taper/protocol) TOPICAL SCH (04:00)
[2016-09-29] MEDS: RESP: IPRATROPIUM 0.5 MG/2.5 ML NEB NEB SCH ×4 (04:15→21:07)
[2016-09-29] MEDS: hydrALAZINE HCL 20 MG/ML VIAL IV PUSH PRN (05:02)
[2016-09-29] MEDS: SODIUM CHLORIDE 1 GRAM TAB PO SCH ×2 (08:10→21:55)
[2016-09-29] MEDS: LISINOPRIL 10 MG TAB PO SCH (08:10)
[2016-09-29] MEDS: ASPIRIN EC 81 MG TABEC PO SCH (08:10)
[2016-09-29] MEDS: METOPROLOL TARTRATE 25 MG TAB PO SCH ×2 (08:11→21:35)
[2016-09-29] MEDS: FAMOTIDINE 20 MG TAB PO SCH ×2 (08:11→21:35)
[2016-09-29] MEDS: SODIUM CHLORIDE 0.9% FLUSH 10 ML FLUSH IV FLUSH SCH ×2 (08:12→21:35)
[2016-09-29] MEDS ORDERED: methylPREDNISolone SOD SUCC 40 MG/1 ML VIAL IV PUSH SCH (09:00)
[2016-09-29 09:04] LABS: AUTOMATED NEUTROPHIL # 14.1 TH/MM3 (1.8-7.7); BASOPHIL % 0.1 % (0.0-2.0); HEMATOCRIT 34.4 % (35.0-46.0); HEMO FLAGS DIFF FINAL; LYMPH % 2.7 % (9.0-44.0); LYMPHOCYTE # 0.4 TH/MM3 (1.0-4.8); MEAN CELL VOLUME 84.9 FL (80.0-100.0); MEAN CORPUSCULAR HEMOGLOBIN 27.1 PG (27.0-34.0); MEAN CORPUSCULAR HGB CONC 31.9 % (32.0-36.0); MONO % 4.3 % (0.0-8.0); NEUT % 92.9 % (16.0-70.0); PLATELET COUNT 371 TH/MM3 (150-450); RED BLOOD COUNT 4.06 MIL/MM3 (4.00-5.30); RED CELL DISTRIBUTION WIDTH 15.3 % (11.6-17.2); WHITE BLOOD COUNT 15.2 TH/MM3 (4.0-11.0)
[2016-09-29 09:33] LABS: ALKALINE PHOSPHATASE 82 U/L (45-117); ALT (GPT) 57 U/L (10-53); ANION GAP 11 MEQ/L (5-15); AST (GOT) 34 U/L (15-37); BICARBONATE 30.1 MEQ/L (21.0-32.0); BLOOD UREA NITROGEN 40 MG/DL (7-18); CHLORIDE 85 MEQ/L (98-107); GLOMERULAR FILTRATION RATE 41 ML/MIN (>89); MAGNESIUM 1.9 MG/DL (1.5-2.5); POTASSIUM 4.1 MEQ/L (3.5-5.1); SODIUM (NA) 126 MEQ/L (136-145); TOTAL BILIRUBIN ADULT 0.4 MG/DL (0.2-1.0)
--- NOTE | 2016-09-29 14:10 | HHI.PR ---
Subjective Remarks Patient states is very nauseous wretching at the moment of the interview c/o chest pain denies cob denies cough denies abdominal pain or diarrhea Case discussed w RN - patient not eating Objective Vitals Vital Signs Date Time Temp Pulse Resp B/P Pulse Ox O2 Delivery O2 Flow Rate FiO2 09/29/16 12:00 57 09/29/16 10:00 58 09/29/16 10:00 58 9 129/77 96 09/29/16 09:40 96 Nasal Cannula 2.00 09/29/16 09:30 58 13 131/75 95 09/29/16 09:00 59 0 137/77 95 09/29/16 08:30 60 11 142/80 97 09/29/16 08:00 60 09/29/16 08:00 97.7 60 18 123/77 94 09/29/16 07:30 58 15 131/79 99 09/29/16 07:00 58 10 135/71 100 09/29/16 06:00 58 09/29/16 06:00 97.4 58 14 167/97 98 09/29/16 04:00 58 09/29/16 02:00 54 09/29/16 02:00 14 09/29/16 00:00 99.1 54 12 159/96 98 09/29/16 00:00 58 09/28/16 22:00 56 09/28/16 20:44 100 Nasal Cannula 1.00 09/28/16 20:00 98.4 56 12 154/100 98 09/28/16 20:00 59 09/28/16 18:00 56 09/28/16 16:00 61 09/28/16 16:00 97.6 61 11 146/90 100 09/28/16 15:31 59 12 155/100 99 09/28/16 15:00 58 13 139/95 99 09/28/16 14:00 59 09/28/16 14:00 59 20 143/97 98 I/O 09/28/16 09/28/16 09/28/16 09/29/16 09/29/16 09/29/16 07:00 15:00 23:00 07:00 15:00 23:00 Intake Total 240 ml 240 ml 100 ml 150 ml Output Total 240 ml 350 ml 250 ml 300 ml Balance 0 ml -110 ml -150 ml -150 ml Intake Oral 240 ml 240 ml 100 ml 150 ml Output Urine Total 240 ml 350 ml 250 ml 300 ml Stool Total 0 ml # Bowel Movements 0 Result Diagram: 09/29/16 0748 09/29/16 0748 Imaging Last Impressions Abdomen X-Ray 09/28/16 0000 Signed Impressions: Service Date/Time: Wednesday, September 28, 2016 11:20 - CONCLUSION: 1. No acute finding is identified in the abdomen. The air overlying the pelvis could be within the urinary bladder or rectum. 2. Left pleural effusion. Ceferino Buckley MD Chest X-Ray 09/25/16 1840 Signed Impressions: Service Date/Time: Sunday, September 25, 2016 19:05 - CONCLUSION: Large left-sided pleural effusion. Bhaskar Eagle MD Objective Remarks GENERAL: nad SKIN: Warm and dry. HEAD: Normocephalic. EYES: No scleral icterus. No injection or drainage. NECK: Supple, trachea midline. No JVD or lymphadenopathy. CARDIOVASCULAR: Irregularly irregular, no murmur or gallops. RESPIRATORY: Decreased breath sounds at left lower lung field. Right lung field is clear to auscultation. No wheezing, rhonchi auscultated. GASTROINTESTINAL: Abdomen soft, non-tender, nondistended. MUSCULOSKELETAL: No cyanosis, or edema. BACK: Nontender without obvious deformity. No CVA tenderness. Medications and IVs Current Medications Medications (Trade) Dose Ordered Sig/Addison Route Start Time Stop Time Status Last Admin (NS Flush) 2 ml UNSCH PRN IVF 09/25/16 18:45 09/25/16 19:59 (NS Flush) 2 ml BID IV FLUSH 09/25/16 21:00 09/29/16 08:12 (Narcan Inj) 0.4 mg UNSCH PRN IV 09/25/16 20:30 (Ecotrin Ec) 81 mg DAILY PO 09/26/16 09:00 09/29/16 08:10 (Lipitor) 40 mg HS PO 09/25/16 21:00 09/28/16 22:31 (Pepcid) 10 mg BID PO 09/25/16 21:00 09/29/16 08:11 Miscellaneous Information Patient in critical care unit? Ass... Q361D .XX 09/26/16 22:00 (Chlorhexidine 2% Cloth) 3 pack DAILY@04 TOPICAL 09/27/16 04:00 10/01/16 04:01 09/28/16 04:00 (Chlorhexidine 2% Cloth) 3 pack UNSCH PRN TOPICAL 09/26/16 22:00 10/01/16 21:46 (Lasix Inj) 40 mg BID@09,18 IV PUSH 09/27/16 09:00 Hold 09/28/16 09:44 (Lopressor) 50 mg Q12HR PO 09/27/16 21:00 09/29/16 08:11 (Apresoline Inj) 10 mg Q30M PRN IV PUSH 09/27/16 13:00 09/29/16 05:02 (Prinivil) 10 mg DAILY PO 09/27/16 15:00 09/29/16 08:10 (Tylenol) 650 mg Q6H PRN PO 09/27/16 19:00 09/28/16 08:56 (Morphine Inj) 2 mg Q3H PRN IV PUSH 09/28/16 10:45 09/29/16 12:48 (Zofran Inj) 4 mg Q6HR PRN IV PUSH 09/28/16 13:30 09/29/16 08:11 (Sodium Chloride) 1 gm BID PO 09/28/16 14:00 09/29/16 08:10 (Deltasone) 20 mg BID PO 09/30/16 09:00 UNV A/P Problem List: (1) New onset atrial fibrillation ICD Code: I48.91 Status: Acute Plan: 55-year-old female with history of CAD, multivessel disease status post CABG on July 2016 who went home with medications for 1 month but could not fill prescription after that presents with worsening short of breath over the past week. Did not follow-up with consultants after surgery. Patient found to be in new onset atrial fibrillation admitted to intensive care unit, placed on Cardizem drip titrated to off and transitioned to beta ebony. Continue metoprolol. (2) Pleural effusion, left ICD Code: J90 Status: Acute Plan: CT surgery consulted. Appreciate recommendations. Continue with IV diuresis. Recommended IR drainage and send fluid for culture and cytology. Interventional radiology consulted for thoracentesis. will repeat CXR (3) S/P CABG x 3 ICD Code: Z95.1 Status: Acute Plan: On July 2016. Showed normal LV function. Patient hasn't had medications for the last 2 months. Hold Aspirin for thoracentesis. (4) COPD (chronic obstructive pulmonary disease) ICD Code: J44.9 Status: Chronic Plan: started on IV steroids on admission - Dc Solumedrol. Start prednisone taper. (5) Hyponatremia ICD Code: E87.1 Status: Acute Plan: Sodium dropped to 122 from 129. Continue to hold Lasix, continue 1 liter/day fluid restriction, salt tablets Sodium improving - 126 Continue to monitor BMP (6) Tobacco abuse ICD Code: Z72.0 Status: Chronic Plan: advised smoking cessation (7) Uncontrolled hypertension ICD Code: I10 Status: Resolved Plan: BP initially elevated. Dose of metoprolol increased and the patient started on lisinopril - bp improved. Continue metoprolol 50 mg by mouth twice a day. Continue lisinopril 10 minutes by mouth daily. (8) Nausea & vomiting ICD Code: R11.2 Status: Acute Plan: Possibly side effect to morphine - will DC and start on [place] Abdomen x ray negative for obstruction Will start on Senna and Colace - Will give Miralax since patient has not had a BM (9) REUBEN (acute kidney injury) ICD Code: N17.9 Status: Acute Plan: Patient's creatinine elevated at 1.2 on admission. Patient seems to be around 0.9. Creatinine started trending up likely secondary to diuresis. Diuretics held. Creatinine slowly trending down1.47 - 1.34 (10) Chest pain ICD Code: R07.9 Status: Acute Plan: Cardiology following. Will check EKG, check CXR, check cardiac enzymes Suspect pain is likely caused by pleural effusion rather than coronary disease. Assessment and Plan GI prophylaxis: PPI. DVT prophylaxis: SCDs. Discharge Planning Continue to monitor in intensive care unit. Problem Qualifiers (1) COPD (chronic obstructive pulmonary disease): Qualified Code: J42 - Chronic bronchitis, unspecified chronic bronchitis type (2) Nausea & vomiting: Qualified Code: R11.2 - Nausea and vomiting, intractability of vomiting not specified, unspecified vomiting type (3) Chest pain: Qualified Code: R07.9 - Chest pain, unspecified type Joe Ortez MD September 29, 2016 14:10
--- NOTE | 2016-09-29 14:15 | RADRPT ---
EXAM DATE/TIME: 09/29/2016 13:48 [facility] COMPARISON: CHEST SINGLE AP, September 25, 2016, 19:05. INDICATIONS : Pleural effusion. MEDICAL HISTORY : None. SURGICAL HISTORY : CABG. ENCOUNTER: Subsequent ACUITY: 4 - 6 days PAIN SCORE: 0/10 LOCATION: Bilateral chest FINDINGS: Portable AP view of the chest demonstrates cardiac silhouette size at the upper limits for normal in this patient post median sternotomy. There is a [id number] size left pleural-parenchymal opaci ty. No pneumothorax is visualized. There is atelectasis at the right lung base. CONCLUSION: Stable chest x-ray with left basilar opacity characteristic of pleural effusion with associated volum e loss and/or consolidation. Findings are similar to the study from 4 days ago. MD ethan Gore n September 29, 2016 at 14:13 Board Certified Radiologist. This report was verified electronically.
[2016-09-29] MEDS ORDERED: POLYETHYLENE GLYCOL 17 GM PKG PO ONE (15:00)
[2016-09-29] MEDS: ACETAMINOPHEN/HYDROcodone 325 MG/5 MG TAB PO PRN ×2 (15:36→21:34)
[2016-09-29] MEDS: ATORVASTATIN 40 MG TAB PO SCH (21:34)
[2016-09-29] MEDS ORDERED: MORPHINE SULFATE 4 MG/ML INJ IV PUSH ONE (22:30)
[2016-09-29] MEDS ORDERED: MELATONIN 5 MG TAB PO ONE (22:30)
[2016-09-30] VITALS (31 sets, daily range): BP systolic 111–140; BP diastolic 68–89; PULSE 51–62; RESP 12–20; TEMP 97–98.5; O2SAT 95–99
[2016-09-30] MEDS: RESP: IPRATROPIUM 0.5 MG/2.5 ML NEB NEB SCH ×4 (03:38→21:36)
[2016-09-30] MEDS: CHLORHEXIDINE GLUCONATE 2 % 1 PACK (2 CLOTHS)(taper/protocol) TOPICAL SCH (04:00)
--- NOTE | 2016-09-30 08:12 | EKG ---
Date Performed: 09/30/2016 Time Performed: 04:27:54 PTAGE: 56 years EKG: Sinus bradycardia Left bundle branch block Abnormal ECG No significant change from prior el ectrocardiogram. PREVIOUS TRACING : 09/26/2016 06.27 DOCTOR: Leodan Godfrey Interpretating Date/Time 09/30/2016 08:12:15
[2016-09-30] MEDS: predniSONE 20 MG TAB PO SCH ×2 (08:18→21:00)
[2016-09-30] MEDS: METOPROLOL TARTRATE 25 MG TAB PO SCH ×2 (08:18→21:21)
[2016-09-30] MEDS: SODIUM CHLORIDE 0.9% FLUSH 10 ML FLUSH IV FLUSH SCH ×2 (08:19→21:22)
[2016-09-30] MEDS: FAMOTIDINE 20 MG TAB PO SCH ×2 (08:19→21:21)
[2016-09-30] MEDS: ACETAMINOPHEN/HYDROcodone 325 MG/5 MG TAB PO PRN ×3 (08:19→21:20)
[2016-09-30] MEDS: LISINOPRIL 10 MG TAB PO SCH (08:19)
--- NOTE | 2016-09-30 08:19 | EKG ---
Date Performed: 09/29/2016 Time Performed: 22:47:44 PTAGE: 56 years EKG: Baseline artifact is present. Sinus bradycardia Lead(s) unsuitable for analysis: V6 Left bu ndle branch block Abnormal ECG Compared to prior electrocardiogram,Sinus bradycardia has replaced atr ial flutter. NO PREVIOUS TRACING DOCTOR: Leodan Godfrey Interpretating Date/Time 09/30/2016 08:18:59
[2016-09-30] MEDS: SODIUM CHLORIDE 1 GRAM TAB PO SCH ×2 (08:50→21:21)
[2016-09-30] MEDS: ONDANSETRON HCL 4 MG/2 ML VIAL IV PUSH PRN (08:50)
[2016-09-30 12:43] LABS: AUTOMATED NEUTROPHIL # 12.8 TH/MM3 (1.8-7.7); BASOPHIL % 0.1 % (0.0-2.0); HEMATOCRIT 31.1 % (35.0-46.0); HEMO FLAGS DIFF FINAL; LYMPH % 3.4 % (9.0-44.0); LYMPHOCYTE # 0.5 TH/MM3 (1.0-4.8); MEAN CELL VOLUME 83.6 FL (80.0-100.0); MEAN CORPUSCULAR HEMOGLOBIN 27.4 PG (27.0-34.0); MEAN CORPUSCULAR HGB CONC 32.8 % (32.0-36.0); MONO % 5.8 % (0.0-8.0); NEUT % 90.7 % (16.0-70.0); PLATELET COUNT 360 TH/MM3 (150-450); RED BLOOD COUNT 3.73 MIL/MM3 (4.00-5.30); RED CELL DISTRIBUTION WIDTH 15.2 % (11.6-17.2); WHITE BLOOD COUNT 14.1 TH/MM3 (4.0-11.0)
[2016-09-30 12:51] LABS: ALKALINE PHOSPHATASE 67 U/L (45-117); ALT (GPT) 43 U/L (10-53); ANION GAP 8 MEQ/L (5-15); AST (GOT) 22 U/L (15-37); BICARBONATE 32.2 MEQ/L (21.0-32.0); BLOOD UREA NITROGEN 34 MG/DL (7-18); CHLORIDE 88 MEQ/L (98-107); GLOMERULAR FILTRATION RATE 49 ML/MIN (>89); MAGNESIUM 1.9 MG/DL (1.5-2.5); SODIUM (NA) 128 MEQ/L (136-145); TOTAL BILIRUBIN ADULT 0.3 MG/DL (0.2-1.0)
[2016-09-30] MEDS: MEGESTROL ACETATE SUSP 400 MG/10 ML CUP PO SCH (13:15)
[2016-09-30] MEDS ORDERED: HYDROmorphone HCL PF 1 MG/ML VIAL IV PUSH PRN (13:30)
--- NOTE | 2016-09-30 14:53 | HHI.PR ---
Subjective Remarks Patient c/o chest pain denies sob as per PT became hypotensive during PT yesterday vital signs stable Objective Vitals Vital Signs Date Time Temp Pulse Resp B/P Pulse Ox O2 Delivery O2 Flow Rate FiO2 09/30/16 13:22 97.4 54 20 111/68 95 09/30/16 13:00 54 09/30/16 12:00 52 09/30/16 11:00 51 09/30/16 10:00 52 09/30/16 09:50 99 Nasal Cannula 1.00 09/30/16 09:00 56 09/30/16 08:15 97.5 58 19 140/87 98 09/30/16 08:00 58 09/30/16 07:00 56 09/30/16 06:00 56 09/30/16 05:00 56 09/30/16 04:00 58 09/30/16 04:00 97.9 57 12 139/89 96 09/30/16 03:00 58 09/30/16 02:00 58 09/30/16 01:00 58 09/30/16 00:00 56 09/30/16 00:00 98.0 59 12 135/85 97 09/29/16 23:00 60 09/29/16 22:00 58 09/29/16 21:12 99 Nasal Cannula 2.00 09/29/16 21:00 60 09/29/16 20:00 97.6 59 14 139/76 98 09/29/16 18:00 59 09/29/16 17:00 59 150/92 99 09/29/16 16:05 60 18 148/83 99 09/29/16 16:00 98.0 59 12 99 09/29/16 16:00 59 09/29/16 15:00 58 143/88 97 I/O 09/29/16 09/29/16 09/29/16 09/30/16 09/30/16 09/30/16 07:00 15:00 23:00 07:00 15:00 23:00 Intake Total 150 ml 400 ml 682 ml Output Total 300 ml 250 ml 300 ml Balance -150 ml 150 ml 382 ml Intake Oral 150 ml 400 ml 682 ml Output Urine Total 300 ml 250 ml 300 ml # Bowel Movements 0 Result Diagram: 09/30/16 1222 09/30/16 1126 Imaging Last Impressions Chest X-Ray 09/29/16 0000 Signed Impressions: Service Date/Time: Thursday, September 29, 2016 13:48 - CONCLUSION: Stable chest x- ray with left basilar opacity characteristic of pleural effusion with associated volume loss and/or consolidation. Findings are similar to the study from 4 days ago. Ceferino Buckley MD Abdomen X-Ray 09/28/16 0000 Signed Impressions: Service Date/Time: Wednesday, September 28, 2016 11:20 - CONCLUSION: 1. No acute finding is identified in the abdomen. The air overlying the pelvis could be within the urinary bladder or rectum. 2. Left pleural effusion. Ceferino Buckley MD Objective Remarks GENERAL: nad SKIN: Warm and dry. HEAD: Normocephalic. EYES: No scleral icterus. No injection or drainage. NECK: Supple, trachea midline. No JVD or lymphadenopathy. CARDIOVASCULAR: Irregularly irregular, no murmur or gallops. RESPIRATORY: Decreased breath sounds at left lower lung field. Right lung field is clear to auscultation. No wheezing, rhonchi auscultated. GASTROINTESTINAL: Abdomen soft, non-tender, nondistended. MUSCULOSKELETAL: No cyanosis, or edema. BACK: Nontender without obvious deformity. No CVA tenderness. Medications and IVs Current Medications Medications (Trade) Dose Ordered Sig/Addison Route Start Time Stop Time Status Last Admin (NS Flush) 2 ml UNSCH PRN IVF 09/25/16 18:45 09/25/16 19:59 (NS Flush) 2 ml BID IV FLUSH 09/25/16 21:00 09/30/16 08:19 (Narcan Inj) 0.4 mg UNSCH PRN IV 09/25/16 20:30 (Ecotrin Ec) 81 mg DAILY PO 09/26/16 09:00 Hold 09/29/16 08:10 (Lipitor) 40 mg HS PO 09/25/16 21:00 09/29/16 21:34 (Pepcid) 10 mg BID PO 09/25/16 21:00 09/30/16 08:19 Miscellaneous Information Patient in critical care unit? Ass... Q361D .XX 09/26/16 22:00 (Chlorhexidine 2% Cloth) 3 pack DAILY@04 TOPICAL 09/27/16 04:00 10/01/16 04:01 09/28/16 04:00 (Chlorhexidine 2% Cloth) 3 pack UNSCH PRN TOPICAL 09/26/16 22:00 10/01/16 21:46 (Lasix Inj) 40 mg BID@09,18 IV PUSH 09/27/16 09:00 Hold 09/28/16 09:44 (Lopressor) 50 mg Q12HR PO 09/27/16 21:00 09/30/16 08:18 (Apresoline Inj) 10 mg Q30M PRN IV PUSH 09/27/16 13:00 09/29/16 05:02 (Prinivil) 10 mg DAILY PO 09/27/16 15:00 09/30/16 08:19 (Tylenol) 650 mg Q6H PRN PO 09/27/16 19:00 09/28/16 08:56 (Zofran Inj) 4 mg Q6HR PRN IV PUSH 09/28/16 13:30 09/30/16 08:50 (Sodium Chloride) 1 gm BID PO 09/28/16 14:00 09/30/16 08:50 (Deltasone) 20 mg BID PO 09/30/16 09:00 09/30/16 08:18 ([place] 5-325 Mg) 1 tab Q4H PRN PO 09/29/16 14:00 09/30/16 08:19 ([place]-Colace) 1 tab DAILY PRN PO 09/29/16 15:00 (Megace Liq) 400 mg DAILY PO 09/30/16 13:15 09/30/16 13:15 (Dilaudid Pf Inj) 0.5 mg Q4H PRN IV PUSH 09/30/16 13:30 Urinary Catheter: No Vascular Central Line Catheter: No A/P Problem List: (1) New onset atrial fibrillation ICD Code: I48.91 Status: Acute Plan: 55-year-old female with history of CAD, multivessel disease status post CABG on July 2016 who went home with medications for 1 month but could not fill prescription after that presents with worsening short of breath over the past week. Did not follow-up with consultants after surgery. Patient found to be in new onset atrial fibrillation admitted to intensive care unit, placed on Cardizem drip titrated to off and transitioned to beta ebony. Continue metoprolol. (2) Pleural effusion, left ICD Code: J90 Status: Acute Plan: CT surgery consulted. Appreciate recommendations. Continue with IV diuresis. Recommended IR drainage and send fluid for culture and cytology. Interventional radiology consulted for thoracentesis. will repeat CXR - shows left pleural effusion without major change. Reordered us guided thracentesis as IR consult was placed initially and thoracentesis not done yet. (3) S/P CABG x 3 ICD Code: Z95.1 Status: Acute Plan: On July 2016. Showed normal LV function. Patient hasn't had medications for the last 2 months. Hold Aspirin for thoracentesis. (4) COPD (chronic obstructive pulmonary disease) ICD Code: J44.9 Status: Chronic Plan: started on IV steroids on admission - Dc Solumedrol. Continue prednisone taper. (5) Hyponatremia ICD Code: E87.1 Status: Acute Plan: Sodium dropped to 122 from 129. Continue to hold Lasix, continue 1 liter/day fluid restriction, salt tablets Sodium improving - 128 Continue to monitor BMP (6) Tobacco abuse ICD Code: Z72.0 Status: Chronic Plan: advised smoking cessation (7) Uncontrolled hypertension ICD Code: I10 Status: Resolved Plan: BP initially elevated. Dose of metoprolol increased and the patient started on lisinopril - bp improved. Continue metoprolol 50 mg by mouth twice a day. Continue lisinopril 10 mg by mouth daily. (8) Nausea & vomiting ICD Code: R11.2 Status: Acute Plan: Possibly side effect to morphine - will DC and start on [place] Abdomen x ray negative for obstruction Will start on Senna and Colace - Will give Miralax since patient has not had a BM (9) REUBEN (acute kidney injury) ICD Code: N17.9 Status: Acute Plan: Patient's creatinine elevated at 1.2 on admission. Patient seems to be around 0.9. Creatinine started trending up likely prerenal azotemia secondary to diuretics. Diuretics held. Creatinine slowly trending down1.47 - 1.34 - 1.1 Continue to monitor bun/creatinine, strict input and output, avoid nephrotoxins. (10) Chest pain ICD Code: R07.9 Status: Acute Plan: Cardiology following. Chest pain likely non cardiac and most likely due to pleural effusion. EKG reviewed by me showed sinus rythm and LBBB - Cardiac enzymes negative. Suspect pain is likely caused by pleural effusion rather than coronary disease. Assessment and Plan GI prophylaxis: PPI. DVT prophylaxis: SCDs. Discharge Planning Continue to monitor in intensive care unit. Problem Qualifiers (1) COPD (chronic obstructive pulmonary disease): Qualified Code: J42 - Chronic bronchitis, unspecified chronic bronchitis type (2) Nausea & vomiting: Qualified Code: R11.2 - Nausea and vomiting, intractability of vomiting not specified, unspecified vomiting type (3) Chest pain: Qualified Code: R07.9 - Chest pain, unspecified type Joe Ortez MD September 30, 2016 14:53
--- NOTE | 2016-09-30 20:07 | PD.RAD ---
Post US Procedure Prog Note Pre Procedure Diagnosis: (1) Pleural effusion, left Post Procedure Diagnosis: (1) Pleural effusion, left Procedure Date: September 30, 2016 Supervising Radiologist: Ceferino Lyles Proceduralist/Assist: Caity Carrillo RDMS Anesthesia: Local Plan of Activity Patient to Unit: Nursing Unit Patient Condition: Fair See PACS Report for procedural detail/treatment Drainage Procedure Procedure 1 Imaging Guidance: Ultrasound Side: Left Procedure Type: Thoracentesis Turk[place]: 6 Drainage: Suction Fluid Description: Clear, Yellow Ceferino Lyles MD September 30, 2016 20:07
--- NOTE | 2016-09-30 21:00 | RADRPT ---
EXAM DATE/TIME: 09/30/2016 20:02 [facility] COMPARISON: No previous studies available for comparison. INDICATIONS : Post thoracentesis. MEDICAL HISTORY : None. SURGICAL HISTORY : CABG. ENCOUNTER: Initial ACUITY: 1 day PAIN SCORE: 0/10 LOCATION: Left chest FINDINGS: Median sternotomy wires are noted status-post cardiac surgery. The heart is enlarged. There is no p neumothorax status-post thoracentesis. Bibasilar atelectasis is noted. CONCLUSION: 1. No pneumothorax status-post thoracentesis. 2. Bibasilar atelectasis. 3. Cardiomegaly. Josh Sharma MD on September 30, 2016 at 20:43 Board Certified Radiologist. This report was verified electronically.
[2016-09-30] MEDS: ATORVASTATIN 40 MG TAB PO SCH (21:21)
[2016-09-30 22:27] LABS: TOTAL PROTEIN,PLEURAL FLUID 2.8 GM/DL
[2016-09-30 22:59] LABS: PLEURAL FLUID LYMPHS 35 %
--- NOTE | 2016-09-30 23:19 | RADRPT ---
EXAM DATE/TIME: 09/30/2016 13:43 [place] COMPARISON: CHEST EXPIRATION ONLY, September 30, 2016, 20:02. INDICATIONS : Left pleural effusion. MEDICAL HISTORY : Myocardial infarction. Congestive heart failure. Renal calculi. Seizures. Coronary artery disease. Ch est pain. Afib. HTN. COPD. Dyspnea. Cerivcal cancer. Arthritis. UTI. MRSA. SURGICAL HISTORY : Coronary artery stent. CABG Hysterectomy. Oophorectomy. Radiation therapy. ENCOUNTER: Initial ACUITY: 2 days PAIN SCORE: 6/10 LOCATION: Left chest FLUID: Total volume of 700 cc of clear, yellow fluid was removed. Fluid was sent to lab for ordered studies. TECHNIQUE: 1. Ultrasound guidance for thoracentesis. 2. Thoracentesis. The risks, benefits, and alternatives to ultrasound guided thoracentesis were explained to the patien t in lay simple terms, including the risk of bleeding and infection. Written and verbal informed con sent was obtained. Appropriate area for thoracentesis was marked under ultrasound guidance with the patient in the uprig ht position. Overlying skin was prepped and draped in the usual sterile fashion and with local anest hetic, a dermatotomy was made with an 11 blade scalpel. A 6 Vincentian thoracentesis catheter was placed in the pleural space and fluid was removed. Catheter was then removed and a sterile dressing applie d. There were no immediate complications. The patient tolerated the procedure well and the left the ultrasound suite in stable condition. Chest radiograph is to be obtained. CONCLUSION: Uncomplicated ultrasound guided thoracentesis. Ceferino Lyles MD on September 30, 2016 at 23:17 Board Certified Radiologist. This report was verified electronically.
[2016-10-01] VITALS (27 sets, daily range): BP systolic 104–156; BP diastolic 64–94; PULSE 51–65; RESP 12–20; TEMP 97.9–98.2; O2SAT 90–99
[2016-10-01] MEDS: RESP: IPRATROPIUM 0.5 MG/2.5 ML NEB NEB SCH ×4 (03:50→21:15)
[2016-10-01] MEDS: CHLORHEXIDINE GLUCONATE 2 % 1 PACK (2 CLOTHS)(taper/protocol) TOPICAL SCH (04:00)
--- NOTE | 2016-10-01 08:35 | EKG ---
Date Performed: 09/30/2016 Time Performed: 10:33:30 PTAGE: 56 years EKG: Sinus bradycardia. Possible left atrial abnormality Left bundle branch block Abnormal ECG PREVIOUS TRACING : 09/30/2016 04.27 No significant change from previous tracing noted. DOCTOR: Singh Schaefer Interpretating Date/Time 10/01/2016 08:32:59
[2016-10-01] MEDS: FAMOTIDINE 20 MG TAB PO SCH ×2 (08:45→21:58)
[2016-10-01] MEDS: MEGESTROL ACETATE SUSP 400 MG/10 ML CUP PO SCH (08:45)
[2016-10-01] MEDS: DOCUSATE SODIUM 50 MG/SENNA 8.6 MG TAB PO PRN (08:45)
[2016-10-01] MEDS: LISINOPRIL 10 MG TAB PO SCH (08:46)
[2016-10-01] MEDS: SODIUM CHLORIDE 1 GRAM TAB PO SCH ×2 (08:46→17:55)
[2016-10-01] MEDS: METOPROLOL TARTRATE 25 MG TAB PO SCH ×2 (08:46→21:58)
[2016-10-01] MEDS: predniSONE 20 MG TAB PO SCH ×2 (08:46→21:00)
[2016-10-01] MEDS: SODIUM CHLORIDE 0.9% FLUSH 10 ML FLUSH IV FLUSH SCH ×2 (08:47→21:00)
[2016-10-01] MEDS: ACETAMINOPHEN/HYDROcodone 325 MG/5 MG TAB PO PRN (08:50)
[2016-10-01 10:28] LABS: AUTOMATED NEUTROPHIL # 9.5 TH/MM3 (1.8-7.7); BASOPHIL % 0.2 % (0.0-2.0); EOSINOPHIL % 0.1 % (0.0-4.0); HEMATOCRIT 33.9 % (35.0-46.0); HEMO FLAGS DIFF FINAL; LYMPH % 3.6 % (9.0-44.0); LYMPHOCYTE # 0.4 TH/MM3 (1.0-4.8); MEAN CELL VOLUME 83.5 FL (80.0-100.0); MEAN CORPUSCULAR HEMOGLOBIN 28.3 PG (27.0-34.0); MONO % 3.2 % (0.0-8.0); NEUT % 92.9 % (16.0-70.0); PLATELET COUNT 383 TH/MM3 (150-450); RED BLOOD COUNT 4.06 MIL/MM3 (4.00-5.30); RED CELL DISTRIBUTION WIDTH 15.2 % (11.6-17.2); WHITE BLOOD COUNT 10.2 TH/MM3 (4.0-11.0)
[2016-10-01 10:58] LABS: ANION GAP 6 MEQ/L (5-15); AST (GOT) 15 U/L (15-37); BICARBONATE 30.1 MEQ/L (21.0-32.0); BLOOD UREA NITROGEN 28 MG/DL (7-18); CHLORIDE 89 MEQ/L (98-107); GLOMERULAR FILTRATION RATE 53 ML/MIN (>89); POTASSIUM 4.2 MEQ/L (3.5-5.1); SODIUM (NA) 125 MEQ/L (136-145)
[2016-10-01 11:04] LABS: ALKALINE PHOSPHATASE 65 U/L (45-117); ALT (GPT) 34 U/L (10-53); TOTAL BILIRUBIN ADULT 0.5 MG/DL (0.2-1.0)
--- NOTE | 2016-10-01 14:04 | HHI.PR ---
Subjective Remarks Deferred entry - patient seen at 11:30 am chest pain much improved sp thoracentesis denies fevers or chills Objective Vitals Vital Signs Date Time Temp Pulse Resp B/P Pulse Ox O2 Delivery O2 Flow Rate FiO2 10/01/16 13:00 62 10/01/16 12:00 60 10/01/16 11:00 98.1 55 18 104/64 91 10/01/16 11:00 54 10/01/16 10:00 51 10/01/16 09:00 62 10/01/16 08:02 99 Nasal Cannula 1.50 10/01/16 08:00 58 10/01/16 07:00 58 10/01/16 07:00 98.2 58 20 150/94 96 10/01/16 06:00 58 10/01/16 05:00 54 10/01/16 04:00 98.2 57 12 146/72 90 10/01/16 04:00 56 10/01/16 03:00 51 10/01/16 02:00 52 10/01/16 01:00 54 10/01/16 00:00 52 10/01/16 00:00 98.2 54 12 110/70 92 09/30/16 23:00 54 09/30/16 22:00 58 09/30/16 21:39 98 Nasal Cannula 1.50 09/30/16 20:30 97.0 58 20 123/76 97 09/30/16 20:15 97.2 62 20 128/77 97 09/30/16 20:00 98.5 56 20 118/70 98 09/30/16 19:00 57 09/30/16 18:08 58 09/30/16 17:26 57 09/30/16 16:09 97.5 56 20 118/76 98 09/30/16 16:07 55 09/30/16 15:47 97.5 56 17 118/76 98 09/30/16 15:00 56 09/30/16 14:42 54 I/O 09/30/16 09/30/16 09/30/16 10/01/16 10/01/16 10/01/16 07:00 15:00 23:00 07:00 15:00 23:00 Intake Total 682 ml 710 ml Output Total 300 ml 300 ml 855 ml Balance 382 ml -300 ml -145 ml Intake Oral 682 ml 710 ml Output Urine Total 300 ml 300 ml 855 ml Result Diagram: 10/01/16 1013 10/01/16 1013 Imaging Last Impressions Thoracentesis Ultrasound 09/30/16 0000 Signed Impressions: Service Date/Time: Friday, September 30, 2016 13:43 - CONCLUSION: Uncomplicated ultrasound guided thoracentesis. Ceferino Lyles MD Chest X-Ray 09/30/16 0000 Signed Impressions: Service Date/Time: Friday, September 30, 2016 20:02 - CONCLUSION: 1. No pneumothorax status-post thoracentesis. 2. Bibasilar atelectasis. 3. Cardiomegaly. Josh Sharma MD Abdomen X-Ray 09/28/16 0000 Signed Impressions: Service Date/Time: Wednesday, September 28, 2016 11:20 - CONCLUSION: 1. No acute finding is identified in the abdomen. The air overlying the pelvis could be within the urinary bladder or rectum. 2. Left pleural effusion. Ceferino Buckley MD Objective Remarks GENERAL: nad SKIN: Warm and dry. HEAD: Normocephalic. EYES: No scleral icterus. No injection or drainage. NECK: Supple, trachea midline. No JVD or lymphadenopathy. CARDIOVASCULAR: Irregularly irregular, no murmur or gallops. RESPIRATORY: Clear to auscultation bilaterally, decreased breath sounds at bases. GASTROINTESTINAL: Abdomen soft, non-tender, nondistended. MUSCULOSKELETAL: No cyanosis, or edema. BACK: Nontender without obvious deformity. No CVA tenderness. Medications and IVs Current Medications Medications (Trade) Dose Ordered Sig/Addison Route Start Time Stop Time Status Last Admin (NS Flush) 2 ml UNSCH PRN IVF 09/25/16 18:45 09/25/16 19:59 (NS Flush) 2 ml BID IV FLUSH 09/25/16 21:00 10/01/16 08:47 (Narcan Inj) 0.4 mg UNSCH PRN IV 09/25/16 20:30 (Ecotrin Ec) 81 mg DAILY PO 09/26/16 09:00 Hold 09/29/16 08:10 (Lipitor) 40 mg HS PO 09/25/16 21:00 09/30/16 21:21 (Pepcid) 10 mg BID PO 09/25/16 21:00 10/01/16 08:45 Miscellaneous Information Patient in critical care unit? Ass... Q361D .XX 09/26/16 22:00 (Chlorhexidine 2% Cloth) 3 pack UNSCH PRN TOPICAL 09/26/16 22:00 10/01/16 21:46 (Lasix Inj) 40 mg BID@09,18 IV PUSH 09/27/16 09:00 Hold 09/28/16 09:44 (Lopressor) 50 mg Q12HR PO 09/27/16 21:00 10/01/16 08:46 (Apresoline Inj) 10 mg Q30M PRN IV PUSH 09/27/16 13:00 09/29/16 05:02 (Prinivil) 10 mg DAILY PO 09/27/16 15:00 10/01/16 08:46 (Tylenol) 650 mg Q6H PRN PO 09/27/16 19:00 09/28/16 08:56 (Zofran Inj) 4 mg Q6HR PRN IV PUSH 09/28/16 13:30 09/30/16 08:50 (Sodium Chloride) 1 gm BID PO 09/28/16 14:00 10/01/16 08:46 (Deltasone) 20 mg BID PO 09/30/16 09:00 10/01/16 08:46 (Rose 5-325 Mg) 1 tab Q4H PRN PO 09/29/16 14:00 10/01/16 08:50 (Blanca-Colace) 1 tab DAILY PRN PO 09/29/16 15:00 10/01/16 08:45 (Megace Liq) 400 mg DAILY PO 09/30/16 13:15 10/01/16 08:45 (Dilaudid Pf Inj) 0.5 mg Q4H PRN IV PUSH 09/30/16 13:30 10/01/16 01:19 Urinary Catheter: No Vascular Central Line Catheter: No A/P Problem List: (1) New onset atrial fibrillation ICD Code: I48.91 Status: Acute Plan: 55-year-old female with history of CAD, multivessel disease status post CABG on July 2016 who went home with medications for 1 month but could not fill prescription after that presents with worsening short of breath over the past week. Did not follow-up with consultants after surgery. Patient found to be in new onset atrial fibrillation admitted to intensive care unit, placed on Cardizem drip titrated to off and transitioned to beta ebony. Continue metoprolol. (2) Pleural effusion, left ICD Code: J90 Status: Acute Plan: CT surgery consulted. Appreciate recommendations. Continue with IV diuresis. Recommended IR drainage and send fluid for culture and cytology. sp US guided thoracentesis done by IR. Repeat chest x-ray obtained on 09/30 after thoracentesis does not show any pneumothorax. There is bibasilar atelectasis. Cardiomegaly. Continue supplemental oxygen to keep oxygen saturation 102%. Continue nebulizer treatments with Atrovent. We'll order incentive spirometry. (3) S/P CABG x 3 ICD Code: Z95.1 Status: Acute Plan: On July 2016. Showed normal LV function. Patient hasn't had medications for the last 2 months. Aspirin was held for thoracocentesis, will resume now. (4) COPD (chronic obstructive pulmonary disease) ICD Code: J44.9 Status: Chronic Plan: started on IV steroids on admission - Dc Solumedrol. Continue prednisone taper. check a respiratory walk test. (5) Hyponatremia ICD Code: E87.1 Status: Acute Plan: Sodium dropped to 122 from 129. Continue to hold Lasix, continue 1 liter/day fluid restriction, salt tablets 09/21 initially sodium improving however dropped to 125 - will resume lasix and increase sodium chloride tablets to TID. (6) Tobacco abuse ICD Code: Z72.0 Status: Chronic Plan: advised smoking cessation (7) Uncontrolled hypertension ICD Code: I10 Status: Resolved Plan: BP initially elevated. Dose of metoprolol increased and the patient started on lisinopril - bp improved. Continue metoprolol 50 mg by mouth twice a day. Continue lisinopril 10 mg by mouth daily. Bp stable. Continue to monitor vital signs (8) Nausea & vomiting ICD Code: R11.2 Status: Acute Plan: Possibly side effect to morphine - Morphine discontinued. Abdomen x ray negative for obstruction Will start on Senna and Colace - Will give Miralax since patient has not had a BM (9) REUBEN (acute kidney injury) ICD Code: N17.9 Status: Acute Plan: Patient's creatinine elevated at 1.2 on admission. Patient seems to be around 0.9. Creatinine started trending up likely prerenal azotemia secondary to diuretics. Diuretics held. Creatinine slowly trending down1.47 - 1.34 - 1.1 --> 1.08 Continue to monitor bun/creatinine, strict input and output, avoid nephrotoxins. (10) Chest pain ICD Code: R07.9 Status: Acute Plan: Cardiology following. Chest pain likely non cardiac and most likely due to pleural effusion. EKG reviewed by me showed sinus rythm and LBBB - Cardiac enzymes negative. Suspect pain is likely caused by pleural effusion rather than coronary disease. Continue pain control with oral Rose and Dilaudid IV if Rose ineffective. Assessment and Plan GI prophylaxis: PPI. DVT prophylaxis: SCDs. Discharge Planning Pending improvement of sodium, walk test. Problem Qualifiers (1) COPD (chronic obstructive pulmonary disease): Qualified Code: J42 - Chronic bronchitis, unspecified chronic bronchitis type (2) Nausea & vomiting: Qualified Code: R11.2 - Nausea and vomiting, intractability of vomiting not specified, unspecified vomiting type (3) Chest pain: Qualified Code: R07.9 - Chest pain, unspecified type Joe Ortez MD October 01, 2016 14:04
[2016-10-01] MEDS: FUROSEMIDE 40 MG TAB PO SCH (14:28)
[2016-10-01] MEDS ORDERED: ALPRAZolam 0.25 MG TAB PO ONE (21:15)
[2016-10-01] MEDS: ATORVASTATIN 40 MG TAB PO SCH (21:57)
[2016-10-02] VITALS (26 sets, daily range): BP systolic 99–161; BP diastolic 58–100; PULSE 52–66; RESP 14–18; TEMP 98.3–98.7; O2SAT 94–98
[2016-10-02] MEDS: RESP: IPRATROPIUM 0.5 MG/2.5 ML NEB NEB SCH ×4 (04:05→20:46)
[2016-10-02 06:56] LABS: AUTOMATED NEUTROPHIL # 9.6 TH/MM3 (1.8-7.7); BASOPHIL % 0.2 % (0.0-2.0); EOSINOPHIL % 0.1 % (0.0-4.0); HEMATOCRIT 32.5 % (35.0-46.0); HEMO FLAGS DIFF FINAL; LYMPH % 4.2 % (9.0-44.0); LYMPHOCYTE # 0.5 TH/MM3 (1.0-4.8); MEAN CELL VOLUME 83.2 FL (80.0-100.0); MEAN CORPUSCULAR HEMOGLOBIN 27.2 PG (27.0-34.0); MEAN CORPUSCULAR HGB CONC 32.7 % (32.0-36.0); NEUT % 89.5 % (16.0-70.0); PLATELET COUNT 322 TH/MM3 (150-450); RED BLOOD COUNT 3.91 MIL/MM3 (4.00-5.30); WHITE BLOOD COUNT 10.7 TH/MM3 (4.0-11.0)
[2016-10-02 07:05] LABS: ALT (GPT) 30 U/L (10-53); ANION GAP 8 MEQ/L (5-15); AST (GOT) 16 U/L (15-37); BICARBONATE 29.6 MEQ/L (21.0-32.0); BLOOD UREA NITROGEN 24 MG/DL (7-18); CHLORIDE 89 MEQ/L (98-107); GLOMERULAR FILTRATION RATE 57 ML/MIN (>89); POTASSIUM 4.2 MEQ/L (3.5-5.1); SODIUM (NA) 127 MEQ/L (136-145)
[2016-10-02 07:07] LABS: ALKALINE PHOSPHATASE 62 U/L (45-117); TOTAL BILIRUBIN ADULT 0.4 MG/DL (0.2-1.0)
[2016-10-02] MEDS: ACETAMINOPHEN/HYDROcodone 325 MG/5 MG TAB PO PRN ×3 (08:53→22:07)
[2016-10-02] MEDS: MEGESTROL ACETATE SUSP 400 MG/10 ML CUP PO SCH (08:53)
[2016-10-02] MEDS: FAMOTIDINE 20 MG TAB PO SCH ×2 (08:54→22:08)
[2016-10-02] MEDS: DOCUSATE SODIUM 50 MG/SENNA 8.6 MG TAB PO PRN (08:54)
[2016-10-02] MEDS: FUROSEMIDE 40 MG TAB PO SCH (08:54)
[2016-10-02] MEDS: predniSONE 20 MG TAB PO SCH ×2 (08:54→21:00)
[2016-10-02] MEDS: LISINOPRIL 10 MG TAB PO SCH (08:54)
[2016-10-02] MEDS: METOPROLOL TARTRATE 25 MG TAB PO SCH ×2 (08:55→22:04)
[2016-10-02] MEDS: SODIUM CHLORIDE 0.9% FLUSH 10 ML FLUSH IV FLUSH SCH ×2 (08:55→22:08)
[2016-10-02] MEDS: SODIUM CHLORIDE 1 GRAM TAB PO SCH ×3 (09:00→16:51)
--- NOTE | 2016-10-02 11:41 | HHI.PR ---
Subjective Remarks fu copd exacerbation, left pleural effusion, REUBEN, hyponatremia sodium is trending up patient denies sob, states chest pain is present but minimal denies fevers, chills denies cough Objective Vitals Vital Signs Date Time Temp Pulse Resp B/P Pulse Ox O2 Delivery O2 Flow Rate FiO2 10/02/16 10:50 18 10/02/16 09:56 96 10/02/16 08:00 98.4 60 16 156/92 96 10/02/16 06:00 60 10/02/16 05:00 56 10/02/16 04:00 56 10/02/16 03:00 56 10/02/16 03:00 98.7 56 14 131/77 94 10/02/16 02:00 56 10/02/16 01:00 58 10/02/16 00:00 52 10/01/16 23:00 59 10/01/16 23:00 98.0 58 16 156/92 96 10/01/16 22:00 58 10/01/16 21:17 96 21 10/01/16 21:00 58 10/01/16 20:00 62 10/01/16 19:00 64 10/01/16 19:00 98.0 65 16 152/80 98 10/01/16 18:06 2.00 10/01/16 18:00 62 10/01/16 17:00 64 10/01/16 16:00 60 10/01/16 15:52 98 21 10/01/16 15:00 97.9 57 20 140/86 99 10/01/16 15:00 57 10/01/16 14:00 62 10/01/16 13:00 62 10/01/16 12:00 60 I/O 10/01/16 10/01/16 10/01/16 10/02/16 10/02/16 10/02/16 07:00 15:00 23:00 07:00 15:00 23:00 Intake Total 710 ml 595 ml 720 ml Output Total 855 ml 350 ml 2000 ml Balance -145 ml 245 ml -1280 ml Intake Oral 710 ml 595 ml 720 ml Output Urine Total 855 ml 350 ml 2000 ml Result Diagram: 10/02/16 0530 10/02/16 0530 Imaging Last Impressions Thoracentesis Ultrasound 09/30/16 0000 Signed Impressions: Service Date/Time: Friday, September 30, 2016 13:43 - CONCLUSION: Uncomplicated ultrasound guided thoracentesis. Ceferino Llyes MD Chest X-Ray 09/30/16 0000 Signed Impressions: Service Date/Time: Friday, September 30, 2016 20:02 - CONCLUSION: 1. No pneumothorax status-post thoracentesis. 2. Bibasilar atelectasis. 3. Cardiomegaly. Josh Sharma MD Abdomen X-Ray 09/28/16 0000 Signed Impressions: Service Date/Time: Wednesday, September 28, 2016 11:20 - CONCLUSION: 1. No acute finding is identified in the abdomen. The air overlying the pelvis could be within the urinary bladder or rectum. 2. Left pleural effusion. Ceferino Buckley MD Objective Remarks GENERAL: nad SKIN: Warm and dry. HEAD: Normocephalic. EYES: No scleral icterus. No injection or drainage. NECK: Supple, trachea midline. No JVD or lymphadenopathy. CARDIOVASCULAR: Irregularly irregular, no murmur or gallops. RESPIRATORY: Clear to auscultation bilaterally, decreased breath sounds at bases. GASTROINTESTINAL: Abdomen soft, non-tender, nondistended. MUSCULOSKELETAL: No cyanosis, or edema. BACK: Nontender without obvious deformity. No CVA tenderness. Procedures us guided thoracentesis. Medications and IVs Current Medications Medications (Trade) Dose Ordered Sig/Addison Route Start Time Stop Time Status Last Admin (NS Flush) 2 ml UNSCH PRN IVF 09/25/16 18:45 09/25/16 19:59 (NS Flush) 2 ml BID IV FLUSH 09/25/16 21:00 10/02/16 08:55 (Narcan Inj) 0.4 mg UNSCH PRN IV 09/25/16 20:30 (Ecotrin Ec) 81 mg DAILY PO 09/26/16 09:00 Hold 09/29/16 08:10 (Lipitor) 40 mg HS PO 09/25/16 21:00 10/01/16 21:57 (Pepcid) 10 mg BID PO 09/25/16 21:00 10/02/16 08:54 Miscellaneous Information Patient in critical care unit? Ass... Q361D .XX 09/26/16 22:00 (Lopressor) 50 mg Q12HR PO 09/27/16 21:00 10/02/16 08:55 (Apresoline Inj) 10 mg Q30M PRN IV PUSH 09/27/16 13:00 09/29/16 05:02 (Prinivil) 10 mg DAILY PO 09/27/16 15:00 10/02/16 08:54 (Tylenol) 650 mg Q6H PRN PO 09/27/16 19:00 09/28/16 08:56 (Zofran Inj) 4 mg Q6HR PRN IV PUSH 09/28/16 13:30 09/30/16 08:50 (Deltasone) 20 mg BID PO 09/30/16 09:00 10/02/16 08:54 ([place] 5-325 Mg) 1 tab Q4H PRN PO 09/29/16 14:00 10/02/16 08:53 (Blanca-Colace) 1 tab DAILY PRN PO 09/29/16 15:00 10/02/16 08:54 (Megace Liq) 400 mg DAILY PO 09/30/16 13:15 10/02/16 08:53 (Dilaudid Pf Inj) 0.5 mg Q4H PRN IV PUSH 09/30/16 13:30 10/01/16 01:19 (Sodium Chloride) 1 gm TID PO 10/01/16 18:00 10/02/16 12:38 (Lasix) 40 mg DAILY PO 10/01/16 14:00 10/02/16 08:54 (Dulcolax Supp) 10 mg DAILY PRN RECTAL 10/02/16 11:45 Urinary Catheter: No Vascular Central Line Catheter: No A/P Problem List: (1) New onset atrial fibrillation ICD Code: I48.91 Status: Acute Plan: 55-year-old female with history of CAD, multivessel disease status post CABG on July 2016 who went home with medications for 1 month but could not fill prescription after that presents with worsening short of breath over the past week. Did not follow-up with consultants after surgery. Patient found to be in new onset atrial fibrillation admitted to intensive care unit, placed on Cardizem drip titrated to off and transitioned to beta ebony. Continue metoprolol. (2) Pleural effusion, left ICD Code: J90 Status: Resolved Plan: CT surgery consulted. Appreciate recommendations. Continue with IV diuresis. Recommended IR drainage and send fluid for culture and cytology. sp US guided thoracentesis done by IR. Repeat chest x-ray obtained on 09/30 after thoracentesis does not show any pneumothorax. There is bibasilar atelectasis. Cardiomegaly. Continue supplemental oxygen to keep oxygen saturation 102%. Continue nebulizer treatments with Atrovent. Continnue incentive spirometry. (3) S/P CABG x 3 ICD Code: Z95.1 Status: Chronic Plan: On July 2016. Showed normal LV function. Patient hasn't had medications for the last 2 months. Aspirin was held for thoracocentesis, will resume now. (4) COPD (chronic obstructive pulmonary disease) ICD Code: J44.9 Status: Chronic Plan: started on IV steroids on admission - Dc Solumedrol. Continue prednisone taper. check a respiratory walk test. Passed walk test - does not need home o2 (5) Hyponatremia ICD Code: E87.1 Status: Acute Plan: Sodium dropped to 122 from 129. Continue to hold Lasix, continue 1 liter/day fluid restriction, salt tablets sodium trending up. Continue management as above, continue to monitor BMP (6) Tobacco abuse ICD Code: Z72.0 Status: Chronic Plan: advised smoking cessation (7) Uncontrolled hypertension ICD Code: I10 Status: Resolved Plan: BP initially elevated. Dose of metoprolol increased and the patient started on lisinopril - bp improved. Continue metoprolol 50 mg by mouth twice a day. Continue lisinopril 10 mg by mouth daily. Bp stable. Continue to monitor vital signs (8) Nausea & vomiting ICD Code: R11.2 Status: Resolved Plan: Possibly side effect to morphine - Morphine discontinued. Abdomen x ray negative for obstruction. Continue Senna and colace. Will give Miralax and an as needed dulcolax suppository. (9) REUBEN (acute kidney injury) ICD Code: N17.9 Status: Acute Plan: Patient's creatinine elevated at 1.2 on admission. Patient seems to be around 0.9. Creatinine started trending up likely prerenal azotemia secondary to diuretics. Diuretics held. Creatinine slowly trending down1.47 - 1.34 - 1.1 --> 1.08 --> 1.01 Continue to monitor bun/creatinine, strict input and output, avoid nephrotoxins. (10) Chest pain ICD Code: R07.9 Status: Acute Plan: Cardiology following. Chest pain likely non cardiac and most likely due to pleural effusion. EKG reviewed by me showed sinus rythm and LBBB - Cardiac enzymes negative. Suspect pain is likely caused by pleural effusion rather than coronary disease. Continue pain control with [place] Dilaudid. Assessment and Plan GI prophylaxis: PPI. DVT prophylaxis: SCDs. Discharge Planning sodium still low. DC pending improvement in sodium and placement since she is not sure she will be received back at her friend's home. Problem Qualifiers (1) COPD (chronic obstructive pulmonary disease): Qualified Code: J42 - Chronic bronchitis, unspecified chronic bronchitis type (2) Nausea & vomiting: Qualified Code: R11.2 - Nausea and vomiting, intractability of vomiting not specified, unspecified vomiting type (3) Chest pain: Qualified Code: R07.9 - Chest pain, unspecified type Joe Ortez MD October 02, 2016 11:41
[2016-10-02] MEDS ORDERED: BISACODYL 10 MG SUPP RECTAL PRN (11:45)
[2016-10-02] MEDS ORDERED: POLYETHYLENE GLYCOL 17 GM PKG PO ONE (12:00)
[2016-10-02] MEDS: ATORVASTATIN 40 MG TAB PO SCH (22:05)
[2016-10-03] VITALS (22 sets, daily range): BP systolic 134–149; BP diastolic 72–85; PULSE 54–70; RESP 16–20; TEMP 98–98.7; O2SAT 96–99
[2016-10-03] MEDS: RESP: IPRATROPIUM 0.5 MG/2.5 ML NEB NEB SCH ×4 (03:43→21:14)
[2016-10-03 06:59] LABS: AUTOMATED NEUTROPHIL # 11.9 TH/MM3 (1.8-7.7); BASOPHIL % 0.1 % (0.0-2.0); HEMATOCRIT 31.1 % (35.0-46.0); HEMO FLAGS DIFF FINAL; LYMPH % 5.2 % (9.0-44.0); LYMPHOCYTE # 0.7 TH/MM3 (1.0-4.8); MEAN CELL VOLUME 82.7 FL (80.0-100.0); MEAN CORPUSCULAR HEMOGLOBIN 27.5 PG (27.0-34.0); MEAN CORPUSCULAR HGB CONC 33.3 % (32.0-36.0); NEUT % 88.7 % (16.0-70.0); PLATELET COUNT 350 TH/MM3 (150-450); RED BLOOD COUNT 3.76 MIL/MM3 (4.00-5.30); RED CELL DISTRIBUTION WIDTH 15.2 % (11.6-17.2); WHITE BLOOD COUNT 13.4 TH/MM3 (4.0-11.0)
[2016-10-03 07:05] LABS: ANION GAP 8 MEQ/L (5-15); AST (GOT) 17 U/L (15-37); BICARBONATE 29.4 MEQ/L (21.0-32.0); BLOOD UREA NITROGEN 23 MG/DL (7-18); CHLORIDE 89 MEQ/L (98-107); GLOMERULAR FILTRATION RATE 63 ML/MIN (>89); MAGNESIUM 1.7 MG/DL (1.5-2.5); POTASSIUM 4.1 MEQ/L (3.5-5.1); SODIUM (NA) 126 MEQ/L (136-145)
[2016-10-03 07:07] LABS: ALT (GPT) 32 U/L (10-53)
[2016-10-03 07:08] LABS: ALKALINE PHOSPHATASE 61 U/L (45-117); TOTAL BILIRUBIN ADULT 0.3 MG/DL (0.2-1.0)
--- NOTE | 2016-10-03 08:39 | HHI.PR ---
Subjective Remarks Pt states she is feeling stressed because she has no where to go post discharge. She thought she could go back where she was prior to admission but apparently she cannot. She denies any CP/SOB/N/V feels tired Objective Vitals Vital Signs Date Time Temp Pulse Resp B/P Pulse Ox O2 Delivery O2 Flow Rate FiO2 10/03/16 06:35 98.6 64 16 149/82 99 10/03/16 06:00 64 10/03/16 05:00 66 10/03/16 04:00 62 10/03/16 03:00 58 10/03/16 02:00 58 10/03/16 01:00 60 10/03/16 00:00 62 10/02/16 23:20 98.6 58 16 161/98 98 10/02/16 23:00 61 10/02/16 22:00 64 10/02/16 21:00 60 10/02/16 20:46 98 21 10/02/16 20:30 98.5 60 16 156/100 98 10/02/16 20:00 54 10/02/16 19:00 57 10/02/16 18:12 18 10/02/16 16:00 54 10/02/16 16:00 98.6 58 18 133/76 98 10/02/16 15:00 60 10/02/16 14:00 54 10/02/16 13:00 54 10/02/16 12:00 98.3 56 18 99/58 97 10/02/16 12:00 54 10/02/16 11:00 55 10/02/16 10:00 55 10/02/16 09:56 96 10/02/16 09:00 66 I/O 10/02/16 10/02/16 10/02/16 10/03/16 10/03/16 10/03/16 07:00 15:00 23:00 07:00 15:00 23:00 Intake Total 720 ml 960 ml 580 ml Output Total 2000 ml 850 ml 0 ml Balance -1280 ml 110 ml 580 ml Intake Oral 720 ml 960 ml 580 ml Output Urine Total 2000 ml 850 ml Stool Total 0 ml 0 ml # Voids 3 Result Diagram: 10/03/16 0535 10/03/16 0535 Imaging Last Impressions Thoracentesis Ultrasound 09/30/16 0000 Signed Impressions: Service Date/Time: Friday, September 30, 2016 13:43 - CONCLUSION: Uncomplicated ultrasound guided thoracentesis. Ceferino Lyles MD Chest X-Ray 09/30/16 0000 Signed Impressions: Service Date/Time: Friday, September 30, 2016 20:02 - CONCLUSION: 1. No pneumothorax status-post thoracentesis. 2. Bibasilar atelectasis. 3. Cardiomegaly. Josh Sharma MD Abdomen X-Ray 09/28/16 0000 Signed Impressions: Service Date/Time: Wednesday, September 28, 2016 11:20 - CONCLUSION: 1. No acute finding is identified in the abdomen. The air overlying the pelvis could be within the urinary bladder or rectum. 2. Left pleural effusion. Ceferino Buckley MD Objective Remarks GENERAL: nad CARDIOVASCULAR: Irregularly irregular, no murmur RESPIRATORY: Clear to auscultation bilaterally, decreased breath sounds at bases. no wheezing GASTROINTESTINAL: Abdomen soft, non-tender, nondistended. MUSCULOSKELETAL: No cyanosis, or edema. Procedures us guided thoracentesis. 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: Chronic (4) COPD (chronic obstructive pulmonary disease) ICD Code: J44.9 Status: Chronic (5) Hyponatremia ICD Code: E87.1 Status: Acute (6) Tobacco abuse ICD Code: Z72.0 Status: Chronic (7) Uncontrolled hypertension ICD Code: I10 Status: Resolved (8) Nausea & vomiting ICD Code: R11.2 Status: Resolved (9) REUBEN (acute kidney injury) ICD Code: N17.9 Status: Acute (10) Chest pain ICD Code: R07.9 Status: Acute Assessment and Plan (1) New onset atrial fibrillation 55-year-old female with history of CAD, multivessel disease status post CABG on July 2016 who went home with medications for 1 month but could not fill prescription after that presents with worsening short of breath over the past week. Did not follow-up with consultants after surgery. Patient found to be in new onset atrial fibrillation admitted to intensive care unit, placed on Cardizem drip titrated to off and transitioned to beta ebony. Continue metoprolol. increased lisinopril to 20mg po daily. on po lasix. continue statin. low salt diet. ASA 325mg po daily. (2) Pleural effusion, left CT surgery consulted. Appreciate recommendations. Continue with diuresis. s/p US guided thoracentesis done by IR. fluid sent for culture and cytology. so far neg. Repeat chest x-ray obtained on 09/30 after thoracentesis does not show any pneumothorax. There is bibasilar atelectasis. Cardiomegaly. Continue supplemental oxygen to keep oxygen saturation 102%. Continue nebulizer treatments with Atrovent. Continnue incentive spirometry. (3) S/P CABG x 3 On July 2016. Showed normal LV function. Patient hasn't had medications for the last 2 months. Aspirin was held for thoracocentesis, now resumed (4) COPD (chronic obstructive pulmonary disease) started on IV steroids on admission - Dc Solumedrol. Continue prednisone taper. Passed walk test - does not need home o2 (5) Hyponatremia Sodium dropped to 122 from 129. now up to 126 on Lasix, continue 1 liter/day fluid restriction, salt tablets sodium trending up. Continue management as above, continue to monitor BMP (6) Tobacco abuse Chronic advised smoking cessation (7) Uncontrolled hypertension BP initially elevated. Dose of metoprolol increased and the patient started on lisinopril - bp improved. Continue metoprolol 50 mg by mouth twice a day. increased lisinopril to 20 mg by mouth daily. Continue to monitor vital signs (8) Nausea & vomiting resolved. Possibly side effect to morphine - Morphine discontinued. Abdomen x ray negative for obstruction. Continue Senna and colace. Miralax and an as needed dulcolax suppository. (9) REUBEN (acute kidney injury) Patient's creatinine elevated at 1.2 on admission. Patient seems to be around 0.9. Creatinine started trending up likely prerenal azotemia secondary to diuretics. Diuretics held. Creatinine slowly trending down1.47 - 1.34 - 1.1 --> 1.08 --> 1.01-->0.92 Continue to monitor bun/creatinine, strict input and output, avoid nephrotoxins. (10) Chest pain Cardiology following. Chest pain likely non cardiac and most likely due to pleural effusion. EKG reviewed by me showed sinus rythm and LBBB - Cardiac enzymes negative. Suspect pain is likely caused by pleural effusion rather than coronary disease. Continue pain control with [place] Dilaudid. Assessment and Plan GI prophylaxis: PPI. DVT prophylaxis: SCDs. Discharge Planning sodium still low but improving. DC pending improvement in sodium and placement since she is not sure she will be received back at her friend's home. CM consulted for d/c planning. Problem Qualifiers (1) COPD (chronic obstructive pulmonary disease): Qualified Code: J42 - Chronic bronchitis, unspecified chronic bronchitis type (2) Nausea & vomiting: Qualified Code: R11.2 - Nausea and vomiting, intractability of vomiting not specified, unspecified vomiting type (3) Chest pain: Qualified Code: R07.9 - Chest pain, unspecified type Mariangel Chi MD Oct 03, 2016 08:39 (1) COPD (chronic obstructive pulmonary disease): Qualified Code: J42 - Chronic bronchitis, unspecified chronic bronchitis type (2) Nausea & vomiting: Qualified Code: R11.2 - Nausea and vomiting, intractability of vomiting not specified, unspecified vomiting type (3) Chest pain: Qualified Code: R07.9 - Chest pain, unspecified type Mariangel Chi MD Oct 03, 2016 08:39
[2016-10-03] MEDS: SODIUM CHLORIDE 0.9% FLUSH 10 ML FLUSH IV FLUSH SCH ×2 (09:00→21:40)
[2016-10-03] MEDS: predniSONE 20 MG TAB PO SCH ×2 (09:00→21:00)
[2016-10-03] MEDS ORDERED: MAGNESIUM HYDROXIDE SUSP 30 ML CUP PO ONE (09:15)
[2016-10-03] MEDS ORDERED: MAGNESIUM HYDROXIDE SUSP 30 ML CUP PO PRN (09:15)
[2016-10-03] MEDS: FUROSEMIDE 40 MG TAB PO SCH (09:30)
[2016-10-03] MEDS: ASPIRIN EC 325 MG TABEC PO SCH (09:30)
[2016-10-03] MEDS: SODIUM CHLORIDE 1 GRAM TAB PO SCH ×3 (09:30→18:00)
[2016-10-03] MEDS: LISINOPRIL 20 MG TAB PO SCH (09:31)
[2016-10-03] MEDS: METOPROLOL TARTRATE 25 MG TAB PO SCH ×2 (09:31→21:38)
[2016-10-03] MEDS: MEGESTROL ACETATE SUSP 400 MG/10 ML CUP PO SCH (09:31)
[2016-10-03] MEDS: FAMOTIDINE 20 MG TAB PO SCH ×2 (09:31→21:38)
[2016-10-03] MEDS: ACETAMINOPHEN/HYDROcodone 325 MG/5 MG TAB PO PRN (21:39)
[2016-10-03] MEDS: ATORVASTATIN 40 MG TAB PO SCH (21:39)
[2016-10-04] VITALS (22 sets, daily range): BP systolic 122–167; BP diastolic 70–103; PULSE 55–64; RESP 16–20; TEMP 98.1–98.7; O2SAT 96–99
[2016-10-04] MEDS: RESP: IPRATROPIUM 0.5 MG/2.5 ML NEB NEB SCH ×4 (04:41→20:38)
[2016-10-04 07:12] LABS: BICARBONATE 30.8 MEQ/L (21.0-32.0); POTASSIUM 4.8 MEQ/L (3.5-5.1)
[2016-10-04] MEDS: predniSONE 20 MG TAB PO SCH (09:00)
[2016-10-04] MEDS: LISINOPRIL 20 MG TAB PO SCH (09:25)
[2016-10-04] MEDS: ASPIRIN EC 325 MG TABEC PO SCH (09:25)
[2016-10-04] MEDS: METOPROLOL TARTRATE 25 MG TAB PO SCH ×2 (09:25→21:00)
[2016-10-04] MEDS: SODIUM CHLORIDE 1 GRAM TAB PO SCH ×3 (09:25→18:00)
[2016-10-04] MEDS: SODIUM CHLORIDE 0.9% FLUSH 10 ML FLUSH IV FLUSH SCH ×2 (09:25→22:41)
[2016-10-04] MEDS: FUROSEMIDE 40 MG TAB PO SCH (09:26)
[2016-10-04] MEDS: FAMOTIDINE 20 MG TAB PO SCH ×2 (09:26→22:40)
[2016-10-04] MEDS: MEGESTROL ACETATE SUSP 400 MG/10 ML CUP PO SCH (09:26)
--- NOTE | 2016-10-04 10:44 | HHI.PR ---
Subjective Remarks Pt feeling better. frustrated that food hasn't yet arrived. some discomfort w taking deep breaths but no chest pain. no nausea or vomiting. Objective Vitals Vital Signs Date Time Temp Pulse Resp B/P Pulse Ox O2 Delivery O2 Flow Rate FiO2 10/04/16 10:00 59 10/04/16 09:00 58 10/04/16 08:34 98 10/04/16 08:00 98.5 62 167/103 99 10/04/16 08:00 61 10/04/16 07:00 58 10/04/16 06:00 59 10/04/16 05:00 59 10/04/16 04:42 98 10/04/16 04:33 98.7 64 16 143/83 98 10/04/16 04:00 63 10/04/16 02:55 63 10/04/16 01:00 58 10/04/16 00:00 56 10/03/16 23:08 98.6 58 16 138/84 98 10/03/16 23:00 58 10/03/16 22:00 54 10/03/16 21:00 56 10/03/16 20:00 58 10/03/16 20:00 98.7 57 16 134/72 97 10/03/16 19:00 55 10/03/16 16:00 98.1 58 20 139/79 97 10/03/16 15:36 98 21 10/03/16 12:00 98.0 57 20 142/80 97 10/03/16 11:00 57 I/O 10/03/16 10/03/16 10/03/16 10/04/16 10/04/16 10/04/16 07:00 15:00 23:00 07:00 15:00 23:00 Intake Total 580 ml 600 ml 450 ml Output Total 0 ml Balance 580 ml 600 ml 450 ml Intake Oral 580 ml 600 ml 450 ml Stool Total 0 ml # Voids 3 4 2 # Bowel Movements 1 Result Diagram: 10/03/16 0535 10/04/16 0615 Imaging Last Impressions Thoracentesis Ultrasound 09/30/16 0000 Signed Impressions: Service Date/Time: Friday, September 30, 2016 13:43 - CONCLUSION: Uncomplicated ultrasound guided thoracentesis. Ceferino Lyles MD Chest X-Ray 09/30/16 0000 Signed Impressions: Service Date/Time: Friday, September 30, 2016 20:02 - CONCLUSION: 1. No pneumothorax status-post thoracentesis. 2. Bibasilar atelectasis. 3. Cardiomegaly. Josh Sharma MD Abdomen X-Ray 09/28/16 0000 Signed Impressions: Service Date/Time: Wednesday, September 28, 2016 11:20 - CONCLUSION: 1. No acute finding is identified in the abdomen. The air overlying the pelvis could be within the urinary bladder or rectum. 2. Left pleural effusion. Ceferino Buckley MD Objective Remarks GENERAL: nad CARDIOVASCULAR: Irregularly irregular, no murmur RESPIRATORY: Clear to auscultation bilaterally, decreased breath sounds at bases. no wheezing GASTROINTESTINAL: Abdomen soft, non-tender, nondistended. MUSCULOSKELETAL: No cyanosis, or edema. Procedures us guided thoracentesis. 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: Chronic (4) COPD (chronic obstructive pulmonary disease) ICD Code: J44.9 Status: Chronic (5) Hyponatremia ICD Code: E87.1 Status: Acute (6) Tobacco abuse ICD Code: Z72.0 Status: Chronic (7) Uncontrolled hypertension ICD Code: I10 Status: Resolved (8) Nausea & vomiting ICD Code: R11.2 Status: Resolved (9) REUBEN (acute kidney injury) ICD Code: N17.9 Status: Acute (10) Chest pain ICD Code: R07.9 Status: Acute Assessment and Plan (1) New onset atrial fibrillation 55-year-old female with history of CAD, multivessel disease status post CABG on July 2016 who went home with medications for 1 month but could not fill prescription after that presents with worsening short of breath over the past week. Did not follow-up with consultants after surgery. Patient found to be in new onset atrial fibrillation admitted to intensive care unit, placed on Cardizem drip titrated to off and transitioned to beta ebony. Continue metoprolol. increased lisinopril to 20mg po daily. on po lasix. continue statin. low salt diet. ASA 325mg po daily. (2) Pleural effusion, left CT surgery consulted. Appreciate recommendations. Continue with diuresis. s/p US guided thoracentesis done by IR. fluid sent for culture and cytology. so far neg. Repeat chest x-ray obtained on 09/30 after thoracentesis does not show any pneumothorax. There is bibasilar atelectasis. Cardiomegaly. Continue supplemental oxygen to keep oxygen saturation 102%. Continue nebulizer treatments with Atrovent. Continnue incentive spirometry. (3) S/P CABG x 3 On July 2016. Showed normal LV function. Patient hasn't had medications for the last 2 months. Aspirin was held for thoracocentesis, now resumed (4) COPD (chronic obstructive pulmonary disease) started on IV steroids on admission - Dc Solumedrol. decreased prednisone to 20mg po daily and continue to taper Passed walk test - does not need home o2 (5) Hyponatremia Sodium dropped to 122 from 129. 125 today on Lasix, continue 1 liter/day fluid restriction, salt tablets repeat BMP tomorrow and if not decreasing ok to discharge pt (6) Tobacco abuse Chronic advised smoking cessation (7) Uncontrolled hypertension BP initially elevated. metoprolol increased and the patient started on lisinopril - bp improved. Continue metoprolol 50 mg by mouth twice a day. increased lisinopril to 20 mg by mouth daily. Continue to monitor vital signs (8) Nausea & vomiting resolved. Possibly side effect to morphine - Morphine discontinued. Abdomen x ray negative for obstruction. Continue Senna and colace. Miralax and an as needed dulcolax suppository. (9) REUBEN (acute kidney injury) Patient's creatinine elevated at 1.2 on admission. Patient seems to be around 0.9. Creatinine started trending up likely prerenal azotemia secondary to diuretics. Diuretics held. Creatinine slowly trending down1.47 - 1.34 - 1.1 --> 1.08 --> 1.01-->0.92 Continue to monitor bun/creatinine, strict input and output, avoid nephrotoxins. (10) Chest pain Cardiology following. Chest pain likely non cardiac and most likely due to pleural effusion. EKG reviewed by me showed sinus rythm and LBBB - Cardiac enzymes negative. Suspect pain is likely caused by pleural effusion rather than coronary disease. Continue pain control with [place] Dilaudid. Assessment and Plan GI prophylaxis: PPI. DVT prophylaxis: SCDs. Discharge Planning sodium still low but improving. if sodium level stable tomorrow ok to d/c, pt making arrangements to find a place to go post discharge. Problem Qualifiers (1) COPD (chronic obstructive pulmonary disease): Qualified Code: J42 - Chronic bronchitis, unspecified chronic bronchitis type (2) Nausea & vomiting: Qualified Code: R11.2 - Nausea and vomiting, intractability of vomiting not specified, unspecified vomiting type (3) Chest pain: Qualified Code: R07.9 - Chest pain, unspecified type Mariangel Chi MD Oct 04, 2016 10:44
[2016-10-04] MEDS ORDERED: PRED20 PO (14:02)
[2016-10-04] MEDS ORDERED: METO25TA3 PO (14:02)
[2016-10-04] MEDS ORDERED: LISI-515 PO (14:02)
[2016-10-04] MEDS ORDERED: SODI1TAB PO (14:02)
[2016-10-04] MEDS ORDERED: ASPI325T33 PO (14:02)
[2016-10-04] MEDS: hydrALAZINE HCL 20 MG/ML VIAL IV PUSH PRN (18:25)
[2016-10-04] MEDS: ACETAMINOPHEN/HYDROcodone 325 MG/5 MG TAB PO PRN ×2 (18:30→22:40)
[2016-10-04] MEDS: ATORVASTATIN 40 MG TAB PO SCH (22:41)
[2016-10-05] VITALS (13 sets, daily range): BP systolic 104–161; BP diastolic 57–93; PULSE 53–73; RESP 18–19; TEMP 98.1–98.5; O2SAT 97–100
[2016-10-05] MEDS: RESP: IPRATROPIUM 0.5 MG/2.5 ML NEB NEB SCH ×3 (03:08→15:40)
[2016-10-05] MEDS: ACETAMINOPHEN/HYDROcodone 325 MG/5 MG TAB PO PRN ×2 (04:22→13:03)
[2016-10-05 05:42] LABS: BICARBONATE 30.8 MEQ/L (21.0-32.0)
[2016-10-05] MEDS ORDERED: predniSONE 20 MG TAB PO SCH (09:00)
[2016-10-05] MEDS: SODIUM CHLORIDE 0.9% FLUSH 10 ML FLUSH IV FLUSH SCH (09:00)
[2016-10-05] MEDS: LISINOPRIL 20 MG TAB PO SCH (09:05)
[2016-10-05] MEDS: SODIUM CHLORIDE 1 GRAM TAB PO SCH ×2 (09:05→13:03)
[2016-10-05] MEDS: METOPROLOL TARTRATE 25 MG TAB PO SCH (09:05)
[2016-10-05] MEDS: FAMOTIDINE 20 MG TAB PO SCH (09:05)
[2016-10-05] MEDS: ASPIRIN EC 325 MG TABEC PO SCH (09:05)
[2016-10-05] MEDS: MEGESTROL ACETATE SUSP 400 MG/10 ML CUP PO SCH (09:06)
--- NOTE | 2016-10-05 10:23 | HHI.PR ---
Subjective Remarks Seen and examined this morning. Resting comfortably, wakens easily. Heart rate in the 50s. Reports CP when she gets anxious. Has a friend that she plans on staying when she leaves the hospital. Needs help getting medicine. Feels if she cant get the medicine she will come back. She states she has no money or transportation. Objective Vital Signs Date Time Temp Pulse Resp B/P Pulse Ox O2 Delivery O2 Flow Rate FiO2 10/05/16 10:04 53 10/05/16 09:31 73 10/05/16 09:22 97 10/05/16 08:03 58 10/05/16 07:31 57 10/05/16 07:31 98.1 57 19 150/85 99 10/05/16 04:00 98.3 59 19 104/57 99 10/05/16 00:00 98.5 60 18 161/93 98 10/04/16 20:00 98.3 61 20 131/76 98 10/04/16 18:00 62 10/04/16 17:00 56 10/04/16 16:00 98.1 64 162/95 98 10/04/16 16:00 55 10/04/16 15:00 59 10/04/16 14:00 56 10/04/16 13:00 56 10/04/16 12:00 56 10/04/16 12:00 98.6 56 122/70 96 10/04/16 11:00 56 10/04/16 11:00 58 I/O 10/04/16 10/04/16 10/04/16 10/05/16 10/05/16 10/05/16 07:00 15:00 23:00 07:00 15:00 23:00 Intake Total 450 ml 620 ml Balance 450 ml 620 ml Intake Oral 450 ml 620 ml # Voids 2 4 Result Diagram: 10/03/16 0535 10/05/16 0421 Imaging Last Impressions Thoracentesis Ultrasound 09/30/16 0000 Signed Impressions: Service Date/Time: Friday, September 30, 2016 13:43 - CONCLUSION: Uncomplicated ultrasound guided thoracentesis. Ceferino Lyles MD Chest X-Ray 09/30/16 0000 Signed Impressions: Service Date/Time: Friday, September 30, 2016 20:02 - CONCLUSION: 1. No pneumothorax status-post thoracentesis. 2. Bibasilar atelectasis. 3. Cardiomegaly. Josh Sharma MD Abdomen X-Ray 09/28/16 0000 Signed Impressions: Service Date/Time: Wednesday, September 28, 2016 11:20 - CONCLUSION: 1. No acute finding is identified in the abdomen. The air overlying the pelvis could be within the urinary bladder or rectum. 2. Left pleural effusion. Ceferino Buckley MD Objective Remarks GENERAL: well appearing nad SKIN: Warm and dry. midline chest incision well healed. HEAD: Normocephalic. EYES: No scleral icterus. No injection or drainage. NECK: Supple, trachea midline. No JVD or lymphadenopathy. CARDIOVASCULAR: Irregular rhythm without murmurs, gallops, or rubs. RESPIRATORY: Breath sounds equal bilaterally. No accessory muscle use. GASTROINTESTINAL: Abdomen soft, non-tender, nondistended. MUSCULOSKELETAL: No cyanosis, or edema. BACK: Nontender without obvious deformity. No CVA tenderness. A/P Problem List: (1) CHF (congestive heart failure) ICD Code: I50.9 (2) CAD (coronary artery disease) ICD Code: I25.10 (3) COPD (chronic obstructive pulmonary disease) ICD Code: J44.9 (4) Atrial fibrillation with rapid ventricular response ICD Code: I48.91 (5) Chest pain ICD Code: R07.9 (6) Pleural effusion, left ICD Code: J90 Assessment and Plan (1) New onset atrial fibrillation 55-year-old female with history of CAD, multivessel disease status post CABG on July 2016 who went home with medications for 1 month but could not fill prescription after that presents with worsening short of breath over the past week. Did not follow-up with consultants after surgery. Patient found to be in new onset atrial fibrillation admitted to intensive care unit, placed on Cardizem drip titrated to off and transitioned to beta ebony. Continue metoprolol.cont lisinopril to 20mg po daily. on po lasix. continue statin. low salt diet. ASA 325mg po daily. (2) Pleural effusion, left CT surgery consulted. Appreciate recommendations. Continue with diuresis. s/p US guided thoracentesis done by IR. fluid sent for culture and cytology. so far neg. Repeat chest x-ray obtained on 09/30 after thoracentesis does not show any pneumothorax. There is bibasilar atelectasis. Cardiomegaly. Continue nebulizer treatments with Atrovent. Continnue incentive spirometry. (3) S/P CABG x 3 On July 2016. Showed normal LV function. Patient hasn't had medications for the last 2 months. Aspirin was held for thoracocentesis, has been resumed (4) COPD (chronic obstructive pulmonary disease) started on IV steroids on admission - Fei Solumedrol. decreased prednisone to 20mg po daily and continue to taper Passed walk test - does not need home o2 (5) Hyponatremia Sodium dropped to 122 from 129. 125 today on Lasix, continue 1 liter/day fluid restriction, salt tablets repeat BMP tomorrow and if not decreasing ok to discharge pt (6) Tobacco abuse Chronic advised smoking cessation (7) Uncontrolled hypertension BP initially elevated. metoprolol increased and the patient started on lisinopril - bp improved. Continue metoprolol 50 mg by mouth twice a day. increased lisinopril to 20 mg by mouth daily. Continue to monitor vital signs (8) Nausea & vomiting resolved. Possibly side effect to morphine - Morphine discontinued. Abdomen x ray negative for obstruction. Continue Senna and colace. Miralax and an as needed dulcolax suppository. (9) REUBEN (acute kidney injury) Resolved. (10) Chest pain Cardiology following. Chest pain likely non cardiac and most likely due to pleural effusion. EKGshowed sinus rythm and LBBB - Cardiac enzymes negative. Suspect pain is likely caused by pleural effusion rather than coronary disease. Continue pain control with [place] Dilaudid. GI prophylaxis: PPI. DVT prophylaxis: SCDs. Discharge Planning Patient will be staying with friend. Blue card given. CM assisted with obtaining medications. Problem Qualifiers (1) COPD (chronic obstructive pulmonary disease): Qualified Code: J42 - Chronic bronchitis, unspecified chronic bronchitis type (2) Chest pain: Qualified Code: R07.9 - Chest pain, unspecified type Soo Vang MD R3 Oct 05, 2016 10:23
--- NOTE | 2016-10-05 11:14 | HHI.DCPOC ---
Discharge Care Plan Diagnosis: (1) New onset atrial fibrillation Goals to Promote Your Health * To prevent worsening of your condition and complications * To maintain your health at the optimal level Directions to Meet Your Goals Take your medications as prescribed Follow your dietary instruction Follow activity as directed Keep your appointments as scheduled Take your immunizations and boosters as scheduled If your symptoms worsen call your PCP, if no PCP go to Urgent Care Center or Emergency Room Smoking is Dangerous to Your Health. Avoid second hand smoke Call the 24-hour hour crisis hotline for domestic abuse at Soo Vang MD R3 Oct 05, 2016 11:14
--- NOTE | 2016-10-05 14:03 | HHI.DS ---
Discharge Summary Admission Date September 25, 2016 at 20:31 Discharge Date: Oct 05, 2016 Admitting Diagnosis afib with [facility] Cards IR CBC/BMP: 10/03/16 0535 10/05/16 0421 Significant Findings Laboratory Tests Test 10/03/16 10/04/16 10/05/16 05:35 06:15 04:21 White Blood Count 13.4 TH/MM3 (4.0-11.0) Red Blood Count 3.76 MIL/MM3 (4.00-5.30) Hemoglobin 10.4 GM/DL (11.6-15.3) Hematocrit 31.1 % (35.0-46.0) Neutrophils (%) (Auto) 88.7 % (16.0-70.0) Lymphocytes (%) (Auto) 5.2 % (9.0-44.0) Neutrophils # (Auto) 11.9 TH/MM3 (1.8-7.7) Lymphocytes # (Auto) 0.7 TH/MM3 (1.0-4.8) Sodium Level 126 MEQ/L 125 MEQ/L 126 MEQ/L (136-145) (136-145) (136-145) Chloride Level 89 MEQ/L 88 MEQ/L 89 MEQ/L (98-107) (98-107) (98-107) Blood Urea Nitrogen 23 MG/DL (7-18) 20 MG/DL (7-18) 20 MG/DL (7-18) Estimat Glomerular Filtration 63 ML/MIN (>89) 69 ML/MIN (>89) 66 ML/MIN (>89) Rate Random Glucose 114 MG/DL 142 MG/DL 110 MG/DL (74-106) (74-106) (74-106) Calcium Level 8.1 MG/DL 8.2 MG/DL 8.0 MG/DL (8.5-10.1) (8.5-10.1) (8.5-10.1) Phosphorus Level 2.0 MG/DL (2.5-4.9) Total Protein 5.3 GM/DL (6.4-8.2) Albumin 2.6 GM/DL (3.4-5.0) Imaging Last Impressions Thoracentesis Ultrasound 09/30/16 0000 Signed Impressions: Service Date/Time: Friday, September 30, 2016 13:43 - CONCLUSION: Uncomplicated ultrasound guided thoracentesis. Ceferino Lyles MD Chest X-Ray 09/30/16 0000 Signed Impressions: Service Date/Time: Friday, September 30, 2016 20:02 - CONCLUSION: 1. No pneumothorax status-post thoracentesis. 2. Bibasilar atelectasis. 3. Cardiomegaly. Josh Sharma MD Abdomen X-Ray 09/28/16 0000 Signed Impressions: Service Date/Time: Wednesday, September 28, 2016 11:20 - CONCLUSION: 1. No acute finding is identified in the abdomen. The air overlying the pelvis could be within the urinary bladder or rectum. 2. Left pleural effusion. Ceferino Buckley MD Hospital Course (1) New onset atrial fibrillation 55-year-old female with history of CAD, multivessel disease status post CABG on July 2016 who went home with medications for 1 month but could not fill prescription after that presents with worsening short of breath over the past week. Did not follow-up with consultants after surgery. Patient found to be in new onset atrial fibrillation admitted to intensive care unit, placed on Cardizem drip titrated to off and transitioned to beta ebony. Continue metoprolol.cont lisinopril to 20mg po daily. on po lasix. continue statin. low salt diet. ASA 325mg po daily. (2) Pleural effusion, left CT surgery consulted. Appreciate recommendations. Continue with diuresis. s/p US guided thoracentesis done by IR. fluid sent for culture and cytology. so far neg. Repeat chest x-ray obtained on 09/30 after thoracentesis does not show any pneumothorax. There is bibasilar atelectasis. Cardiomegaly. Continue nebulizer treatments with Atrovent. Continnue incentive spirometry. (3) S/P CABG x 3 On July 2016. Showed normal LV function. Patient hasn't had medications for the last 2 months. Aspirin was held for thoracocentesis, has been resumed (4) COPD (chronic obstructive pulmonary disease) started on IV steroids on admission - Dc Solumedrol. decreased prednisone to 20mg po daily and continue to taper Passed walk test - does not need home o2 (5) Hyponatremia Sodium dropped to 122 from 129. 125 today on Lasix, continue 1 liter/day fluid restriction, salt tablets repeat BMP tomorrow and if not decreasing ok to discharge pt (6) Tobacco abuse Chronic advised smoking cessation (7) Uncontrolled hypertension BP initially elevated. metoprolol increased and the patient started on lisinopril - bp improved. Continue metoprolol 50 mg by mouth twice a day. increased lisinopril to 20 mg by mouth daily. Continue to monitor vital signs (8) Nausea & vomiting resolved. Possibly side effect to morphine - Morphine discontinued. Abdomen x ray negative for obstruction. Continue Senna and colace. Miralax and an as needed dulcolax suppository. (9) REUBEN (acute kidney injury) Resolved. (10) Chest pain Cardiology following. Chest pain likely non cardiac and most likely due to pleural effusion. EKGshowed sinus rythm and LBBB - Cardiac enzymes negative. Suspect pain is likely caused by pleural effusion rather than coronary disease. Continue pain control with AUGUST Haines. Patient with his CAD s/p cabag presented with new onset A-Fib. Was placed on cardizem drip and then transition to PO metoprolol. HR controlled. Was also treated for COPD exacerbation. CHADS 1. D/C with her home meds, [employer], and to her friends home. Pt Condition on Discharge: Stable Discharge Disposition: Discharge Home Discharge Instructions DIET: Follow Instructions for: Heart Healthy Diet Activities you can perform: Weight Bearing as Reji Follow up Referrals: Cardiology - 1 Week PCP Follow-up - 1 Week New Medications: Aspirin DR (Aspirin EC) 325 Mg Tabdr 325 MG PO DAILY Days 30 TAB Lisinopril (Lisinopril) 20 Mg Tab 20 MG PO DAILY Days 30 TAB Metoprolol Tartrate (Metoprolol Tartrate) 25 Mg Tab 50 MG PO Q12HR Days 30 TAB Prednisone (Prednisone) 20 Mg Tab 20 MG PO DAILY take 20mg po daily x 2 days then 10mg po daily x 3 days then stop Days 5 TAB Sodium Chloride (Sodium Chloride) 1 Gm Tab 1 GM PO TID Days 30 TAB Continued Medications: Albuterol 18 GM Inh (Ventolin Hfa 18 GM Inh) 90 Mcg/Act Aer 2 PUFF INH Q4-6H PRN SHORTNESS OF BREATH #1 Ref 2 INHALER Atorvastatin (Atorvastatin) 40 Mg Tab 40 MG PO HS Cholesterol Management #30 Ref 4 TAB Cetirizine (Cetirizine) 10 Mg Tab 10 MG PO DAILY #30 Ref 3 TAB Clopidogrel (Plavix) 300 Mg Tab 75 MG PO DAILY Famotidine (Famotidine) 20 Mg Tab 10 MG PO BID #60 Ref 3 TAB Fluoxetine (Prozac) 10 Mg Cap 10 MG PO DAILY #30 Ref 3 CAP Fluticasone Nasal [place] (Fluticasone Nasal [place]) 50 Mcg/Act Naspr 2 SPRAY NASAL Q12H PRN NASAL CONGESTION #1 BOTTLE Fluticasone-Salmeterol Inh (Advair Diskus Inh) 250-50 Mcg/Blist Aer 1 PUFF INH BID Rinse mouth after use. #1 Ref 2 INHALER Hydrocodone-Acetaminophen (Hydrocodone-Acetaminophen) 5-325 mg Tab 1 TAB PO Q3H PRN PAIN SCALE 4 TO 10 #30 TAB Polyethylene Glycol 3350 Powder (Polyethylene Glycol 3350 Powder) 17 Gm Pow 17 GM PO DAILY #1 BOTTLE Tiotropium Inh (Spiriva Handihaler) 18 Mcg Cap 18 MCG INH DAILY 1 capsule = 18 mcg COPD #30 CAP Trazodone (Trazodone) 300 Mg Tab 100 MG PO HS Control Depression #30 Ref 0 TAB Discontinued Medications: Aspirin DR (Aspirin EC) 81 Mg Tabdr 81 MG PO DAILY #30 Ref 0 TAB Metoprolol Tartrate (Metoprolol Tartrate) 25 Mg Tab 25 MG PO Q12HR #60 Ref 3 TAB Soo Vang MD R3 Oct 05, 2016 14:03
== END 2016-10-05 16:57 | disposition home or self-care (01) | DRG 292 ==
LOC: NEPC 18:30 → NEDA 20:31 → NEDH 09-26 00:31 → HIME 09-26 09:45 → HCIS 09-29 18:38
PROVIDERS: ADMIT Family Medicine; ATTEND Family Medicine
PROC: 0W9B3ZZ Drainage of Left Pleural Cavity, Percutaneous Approach (ICD-10-PCS; principal; 2016-09-30)
DX: I11.0 Hypertensive heart disease with heart failure (principal); E87.1 Hypo-osmolality and hyponatremia; N17.9 Acute kidney failure, unspecified; J91.8 Pleural effusion in other conditions classified elsewhere; J44.1 Chronic obstructive pulmonary disease with (acute) exacerbation; J98.11 Atelectasis; Z95.1 Presence of aortocoronary bypass graft; I50.23 Acute on chronic systolic (congestive) heart failure; I48.91 Unspecified atrial fibrillation; Z92.3 Personal history of irradiation; Z95.5 Presence of coronary angioplasty implant and graft; Z79.82 Long term (current) use of aspirin; Z87.891 Personal history of nicotine dependence; Z91.14 Patient's other noncompliance with medication regimen; D64.9 Anemia, unspecified; Z59.0 Homelessness; I25.10 Atherosclerotic heart disease of native coronary artery without angina pectoris; R11.2 Nausea with vomiting, unspecified
CPT/HCPCS: 32555; 71010; 74000; 80048; 80053; 82150; 82550; 82945; 83615; 83735; 83880; 83930; 83935; 83986; 84100; 84157; 84439; 84443; 84481; 84484; 85025; 85610; 85730; 87015; 87070; 87102; 87116; 87205; 87206; 87641; 89051; 93005; 93306; 94620; 94640; 94664; 96365; C1729; J0360; J1170; J1940; J2270; J2405; J2920; J2930; J7512; J7644